=== PATIENT | female | born 1975 | race Two or more races ===

== ENCOUNTER 2023-02-13 10:29 | Emergency (ER) | payer BC, SELFPAY ==
[2023-02-13 10:35] VITALS: BP 180/70; PULSE 92; RESP 18; TEMP 36.7; O2SAT 97; BMI 40.4
--- NOTE | 2023-02-13 10:45 | ED.SKABFB ---
HPI - Skin/Abscess/Foreign Bdy General Chief complaint: Skin/Abscess/Foreign Body Stated complaint: l side pain Time Seen by Provider: 02/13/23 10:41 Source: patient Mode of arrival: ambulatory Limitations: no limitations History of Present Illness MD complaint: rash Onset (ago): day(s) (2) Location: back (left mid flank/back) Severity: moderate Quality: burning, constant and pruritic Pain Consistency: constant Relieving factors: none Exacerbating factors: none Context: none Associated symptoms: denies other symptoms Treatments prior to arrival: none Related Data Previous Rx's Medication Instructions Recorded ibuprofen 800 mg tablet 800 mg PO Q8H PRN pain #14 tabs 02/13/23 oxycodone 5 mg tablet 5 mg PO Q6H PRN pain #14 tabs 02/13/23 prednisone 20 mg tablet 40 mg PO DAILY inflammation 5 days 02/13/23 #10 tabs valacyclovir 1 gram tablet 1,000 mg PO TID 14 days #42 tabs 02/13/23 (Valtrex) Allergies Allergy/AdvReac Type Severity Reaction Status Date / Time No Known Allergies Allergy Verified 02/13/23 10:37 Review of Systems Review of Systems: Constitutional : No Fever, No Chills , no body aches, no recent illness Head/Face: No facial swelling, No facial redness ENT/Mouth : No oral/throat swelling, No Hoarseness, No Swallowing Difficulty Eyes: No Eye Pain, No Swelling, No Redness Cardiovascular : No Chest Pain, No SOB, No palpitations Respiratory : No Cough, No Sputum, No Wheezing, No Smoke Exposure, No Dyspnea Gastrointestinal : No Nausea, No Vomiting, No Diarrhea, No abdominal Pain Genitourinary : No Dysuria, No Urinary Frequency, No Hematuria Musculoskeletal : No joint pain, No Myalgias, No Joint Swelling Skin : No Skin Lesions, positive rash Neuro : No Weakness, No Numbness, No Headache, No dizziness, No tingling Psych : No Anxiety/Panic, No Depression Heme/Lymph: No Bruising, No Lymphadenopathy Endocrine : No Polyuria, No Polydipsia Denies changes in lotions or detergents. Denies new medications or any changes in medications. Denies drainage from rash. Denies any recent sick contacts or recent travel. Yes all other systems are reviewed and are negative PMFSH Past Medical History Attestation statement: The following information was validated with the patient. Source: old records reviewed and nursing notes reviewed Physical Exam Vital Signs: Vital Signs: Last Vital Signs Temp 98.0 F 02/13/23 10:35 Pulse 92 02/13/23 10:35 Resp 18 02/13/23 10:35 BP 180/70 H 02/13/23 10:35 Pulse Ox 97 02/13/23 10:35 O2 Del Method Room Air 02/13/23 10:35 BMI result Body Mass Index 40.4 vital signs have been reviewed as normal and appeared to be correct. Blood pressure normal Heart rate normal. Respiration rate normal. Temperature normal. Oxygen saturation normal. Appearance: Alert. Oriented X3. No acute distress. Head: Normal external exam. Normocephalic. Atraumatic. Eyes: PERRLA. EOMI. Conjunctiva and sclera normal. Eyelids normal. ENT: Pharynx normal. Uvula midline. Moist mucous membranes. Neck: Normal inspection. Neck supple. FROM. CVS: Normal heart rate and rhythm. Respiratory: No respiratory distress. Painless inspiration. Skin: Skin warm and dry. Normal skin color. Normal skin turgor. Patient has painful dermatomal clustered vesicles on an erythematous base consistent with shingles virus to the left flank/back/abdomen. This does not cross the midline. No signs of infection. No additional lesions/lacerations noted. Extremities: No lower extremity edema. Extremities exhibit normal range of motion. Extremities nontender. Neuro: Oriented X 3. No motor deficit. No sensory deficit. Reflexes normal. Normal steady gait. No focal neuro deficits noted. Vascular: + radial pulses/+ 2 distal pedal pulses/+2 dorsalis pedis b/l. Normal cap refill. No cyanosis noted to upper extremity nails and lower extremity toes nails. Course Course Course Narrative: Patient with shingles rash. Not consistent with skin infection. Not consistent allergic reaction. No angioedema is noted. No labs or imaging indicated. Will DC home with valtrex, oxycodone, prednisone and Motrin instructions to follow-up with PCP and to return if any new or worsening symptoms. Patient understands agrees with this plan. Medical Decision Making Prescription Management I considered prescription management with: Pain Medication and Antiviral Discharge Plan Discharge Clinical Impression: Shingles Patient Disposition: Home, Self-Care Instructions: Shingles (ED) Prescriptions: New valacyclovir [Valtrex] 1 gram tablet 1,000 mg PO TID 14 Days Qty: 42 0RF prednisone 20 mg tablet 40 mg PO DAILY 5 Days Qty: 10 0RF oxycodone 5 mg tablet 5 mg PO Q6H PRN (Reason: pain) Qty: 14 0RF Rx Instructions: Partial Fill upon patient request. ibuprofen 800 mg tablet 800 mg PO Q8H PRN (Reason: pain) Qty: 14 0RF Referrals: Physician,None [Primary Care Provider] - 2 days (your pcp) Stand Alone Forms: Work/School Release
== END 2023-02-13 11:27 | disposition home or self-care (01) ==
PROVIDERS: Emergency Provider Emergency Medicine
DX: B02.9 Zoster without complications (principal); Z79.899 Other long term (current) drug therapy
CPT/HCPCS: 99282; 99283

== ENCOUNTER 2023-05-18 06:26 | Outpatient (REF) | payer OTHER, SELFPAY ==
[2023-05-18 06:41] LABS: MANUAL DIFF FLAG NO
[2023-05-18 07:12] LABS: Basophils Absolute Auto 0.1 X10*3/uL (0.0-0.2); Basophils Percent Auto 0.5 % (0-2); Eosinophils Absolute Auto 0.2 X10*3/uL (0.0-0.4); Hematocrit 41.4 % (37.0-47.0); Hemoglobin 13.3 g/dl (12.0-16.0); Imm Gran Abs Auto 0.04 X10*3/uL (0.00-0.03); Imm Gran Pct Auto 0.4 % (0.0-0.4); Lymphocytes Absolute Auto 4.4 X10*3/uL (1.2-4.9); Lymphocytes Percent Auto 43.2 % (20-40); Mean Corpuscular HGB Conc 32.1 g/dl (31.0-35.0); Mean Corpuscular Hemoglobin 29.4 pg (27.0-33.0); Mean Corpuscular Volume 91.6 fL (80.0-98.0); Mean Platelet Volume 10.5 fL (9.4-12.3); Monocytes Absolute Auto 0.5 X10*3/uL (0.1-1.2); Monocytes Percent Auto 5.3 % (2-11); Neutrophils Percent Auto 48.6 % (45-73); Platelet Count 239 X10*3/uL (160-400); Red Blood Count 4.52 X10*6/uL (4.20-5.50); Red Cell Distribution Width 13.2 % (11.0-16.0); White Blood Count 10.2 X10*3/uL (4.8-10.8)
[2023-05-18 07:23] LABS: Estimated Average Glucose 157 mg/dL; Hemoglobin A1c % 7.1 %
[2023-05-18 07:54] LABS: Alanine Aminotransferase 19 U/L (0-31); Albumin Level 3.9 g/dL (3.5-5.0); Alkaline Phosphatase 70 U/L (39-117); Anion Gap 13 (12-20); Aspartate Amino Transferase 13 U/L (5-31); Bilirubin Total 0.4 mg/dL (0.0-1.0); Blood Urea Nitrogen 16 mg/dL (9-16); Carbon Dioxide 22 mmol/L (22-29); Chloride 107 mmol/L (96-108); Cholesterol 206 mg/dL; Estimated Glomerular Filt Rate > 60; Glucose Fasting 150 mg/dL (60-99); HDL Cholesterol 36 mg/dL; LDL Cholesterol Calculated 114 mg/dl; Potassium 4.4 mmol/L (3.3-5.1); Sodium 138 mmol/L (135-145); Total Protein 7.4 g/dL (6.5-8.0); Triglycerides 280 mg/dL
[2023-05-18 08:11] LABS: Free T4 (Free Thyroxine) 1.19 ng/dL (0.71-1.85); Thyroid Stimulating Hormone 5.49 uIU/mL (0.32-4.0)
[2023-05-18 09:36] LABS: Creatinine Urine 187.05 mg/dL; Microalbum/Creatinine Ratio Ur 13.3 ug/mg cr
== END 2023-05-18 06:27 | disposition home or self-care (01) ==
LOC: HO.LAB 06:26
PROVIDERS: PCP Internal Medicine Medical Oncology; Visit Provider Internal Medicine Medical Oncology
DX: D64.9 Anemia, unspecified (principal); E11.9 Type 2 diabetes mellitus without complications; E03.9 Hypothyroidism, unspecified; I10 Essential (primary) hypertension
CPT/HCPCS: 36415; 80053; 80061; 82043; 83036; 83735; 84439; 84443; 85025

== ENCOUNTER 2023-05-29 14:19 | Outpatient (REF) | payer OTHER, SELFPAY ==
--- NOTE | ~2023-05-29 | MM_ITS ---
EXAMINATION: MM SCREENING DIGITAL BREAST TOMOSYNTHESIS, BILATERAL CLINICAL INFORMATION: Screening. Asymptomatic. COMPARISON: Mammography: There are no prior studies available for comparison. TECHNIQUE: Digital breast tomosynthesis is performed in both the craniocaudal and mediolateral oblique views along with computer-aided detection (CAD). Synthesized 2D images are generated from the tomosynthesis. FINDINGS: There are scattered areas of fibroglandular density (ACR BI-RADS breast composition Category b). There are no significant masses, abnormal calcifications, or other abnormalities. MM/MM tomosynthesis screening BI IMPRESSION: No mammographic evidence of malignancy. ASSESSMENT: BI-RADS BI-RADS 1 - Negative RECOMMENDATION: Routine annual mammography screening. 1 year F/U This examination should not preclude the clinical evaluation of a suspicious palpable abnormality. This patient's information was entered into a reminder system with a target due date for their next mammogram.
== END 2023-05-29 14:20 | disposition home or self-care (01) ==
LOC: HO.MAMMO 14:19
PROVIDERS: PCP Internal Medicine Medical Oncology; Visit Provider Internal Medicine Medical Oncology
DX: Z12.31 Encounter for screening mammogram for malignant neoplasm of breast (principal)
CPT/HCPCS: 77063; 77067

== ENCOUNTER → 2023-05-29 14:45 | Outpatient (BNV) | payer OTHER, SELFPAY | PROVIDERS: PCP Internal Medicine Medical Oncology; Visit Provider Radiology Diagnostic Radiology | DX: Z12.31 Encounter for screening mammogram for malignant neoplasm of breast (principal) | CPT/HCPCS: 77063; 77067 ==

== ENCOUNTER 2023-06-24 14:36 | Outpatient (AMB) | payer OTHER, SELFPAY ==
--- NOTE | 2023-06-24 14:37 | A.OFFVIS_ITS ---
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: No Accompanied by: Self / Same As Patient Allergies No Known Allergies Allergy (Verified 06/24/23 14:40) Medication List - Last Reconciled 06/24/23 by Rabia Juarez PA-C amlodipine-benazepril 5-20 mg 1 cap PO DAILY aspirin 81 mg PO DAILY dulaglutide (Trulicity) mg subcut ferrous sulfate 325 mg PO DAILY ibuprofen 800 mg PO Q8H PRN insulin asp prt-insulin aspart 100 unit/mL (70-30) (Novolog Mix 70-30FlexPen U- 100) subcut levothyroxine 137 mcg PO DAILY oxycodone 5 mg PO Q6H PRN prednisone 40 mg (2 x 20 mg) PO DAILY 5 days valacyclovir (Valtrex) 1,000 mg PO TID 14 days HPI HPI Comments History of Present Illness Details A 48 y/o female referred for index screening colonoscopy- no GI complaints She has normal bowels- good appetite She is stressed - works full-time No cardiac or respiratory issues No nausea, vomiting, hematemesis, hematochezia fever chills PFSH Surgical History Hx of section Family History Father Thyroid disease Hepatitis HTN (hypertension) Diabetes Mother Kidney disease Coronary artery disease Renal failure Maternal Aunt Breast CA Social History (Updated 06/25/23 @ 08:45 by Rabia Juarez PA-C) Alcohol intake: never Patient Tobacco Use Status: Never used Tobacco Current occupational status: employed 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 Review of Systems Const All systems reviewed & are unremarkable except as noted in HPI and below Card Denies chest pain and Denies dyspnea Resp Denies dyspnea GI Denies abdominal pain Psych Reports anxiety Physical Exam Vital Signs: Last Vital Signs Pulse 81 06/24/23 14:42 BP 147/65 H 06/24/23 14:42 BMI result Body Mass Index 41.2 Const General: cooperative, healthy appearing, comfortable and no acute distress Orientation/consciousness: patient oriented x3 Limitations: no limitations Eyes Sclerae: sclerae normal Resp Effort & Inspection: normal respiratory effort and able to speak in complete sentences Auscultation: clear to auscultation bilaterally Cardio Rate: regular rate Rhythm: regular rhythm Heart sounds: S1 normal heart sound present and S2 normal heart sound present GI Palpation (GI): Soft to palpation and nontender Auscultation: normal bowel sounds Skin General skin exam: no rashes or lesions noted Neuro General: patient oriented x3 Extrem General: Yes full ROM Psych Appearance: grossly normal and well kempt Mental Status: mental status grossly normal Speech and movement: Normal speech and movement present Affect: normal affect Attitude: cooperative Thought process: Normal thought process present Thought content: Normal thought content present and Depersonalization present Insight: Good insight present (Psych) Assessment & Plan Assessment & Plan (1) Encounter for screening colonoscopy: Code(s): Z12.11 - Encounter for screening for malignant neoplasm of colon Plan: Index screening colonoscopy MiraLax Gatorade split prep Plan Index screening colonoscopy MiraLax Gatorade split prep Please review insulin- half dose evening before procedure no diabetes medication morning of procedure Orders: Orders Colonoscopy - GI Use Only 06/24/23 Z12.11 - Encounter for screening for malignant neoplasm of colon Medications: New polyethylene glycol 3350 (Miralax) Take as directed by mouth the day before your procedure. 238 grams PO ONCE PRN 238 grams 0RF laxative effect 1 day bisacodyl (Dulcolax (bisacodyl)) Take 4 tablets by mouth at 12:00pm the day before your procedure. 20 mg (4 x 5 mg) PO ONCE 4 tabs 0RF colonoscopy prep 1 day Z12.11 - Encounter for screening for malignant neoplasm of colon Patient Instructions: Very pleasant 48-year-old female referred for index screening colonoscopy, she has no GI concerns Index screening colonoscopy MG split prep Discussed procedure, rare risks, need for escorted due to anesthesia Encouraged to call questions or concerns Coding Level of Care Code New Pt Level 3 (85484) Diagnoses Encounter for screening colonoscopy Z12.11 Time Spent (min) 25
[2023-06-24 14:42] VITALS: BP 147/65; PULSE 81; BMI 41.2
== END 2023-06-24 15:44 | disposition home or self-care (01) ==
PROVIDERS: PCP Internal Medicine Medical Oncology; Visit Provider Physician Assistant
DX: Z12.11 Encounter for screening for malignant neoplasm of colon (principal); Z01.818 Encounter for other preprocedural examination
CPT/HCPCS: 99203

== ENCOUNTER → 2023-06-24 14:36 | Outpatient (BNVA) | payer OTHER, SELFPAY | PROVIDERS: PCP Internal Medicine Medical Oncology; Visit Provider Physician Assistant ==

== ENCOUNTER 2023-07-31 10:50 | Outpatient (REF) | payer OTHER, SELFPAY ==
[2023-07-31 15:26] LABS: CT PCR NOT DETECTED (Not Detect.); NG PCR NOT DETECTED (Not Detect.)
[2023-08-01 11:57] LABS: BV Int Neg Control Negative (Negative); BV Int Pos Control Positive (Positive)
[2023-08-06 02:48] LABS: HPV mRNA E6/E7 rflx Not Detected (Not Detected)
== END 2023-07-31 10:51 | disposition home or self-care (01) ==
LOC: HO.LNP 10:50
PROVIDERS: PCP Internal Medicine Medical Oncology; Visit Provider Advanced Practice Midwife
DX: Z01.419 Encounter for gynecological examination (general) (routine) without abnormal findings (principal); I10 Essential (primary) hypertension; E11.9 Type 2 diabetes mellitus without complications; E66.01 Morbid (severe) obesity due to excess calories; N85.2 Hypertrophy of uterus; Z79.899 Other long term (current) drug therapy; Z79.4 Long term (current) use of insulin; Z20.2 Contact with and (suspected) exposure to infections with a predominantly sexual mode of transmission
CPT/HCPCS: 0353U; 87480; 87510; 87624; 87660; 88142

== ENCOUNTER 2023-07-31 10:50 | Outpatient (AMB) | payer OTHER, SELFPAY ==
[2023-07-31 10:53] VITALS: BP 146/82; BMI 43.2
--- NOTE | 2023-07-31 10:53 | MHC.OFFVIS ---
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 Required: No Information Interpreted: non-clinical & clinical Tissue Technologist: Tissue Technologist Present (Aidyn) Allergies No Known Allergies Allergy (Verified 07/31/23 10:57) Medication List - Last Reconciled 07/31/23 by Kirti Beard CNM albuterol sulfate mg inhalation albuterol sulfate 90 mcg/actuation inhalation alcohol swabs (Alcohol Prep Pads) pad topical Q12H amlodipine-benazepril 5-20 mg 1 cap PO DAILY aspirin 81 mg PO DAILY bisacodyl (Dulcolax (bisacodyl)) 20 mg (4 x 5 mg) PO ONCE 1 day blood sugar diagnostic (Fashiontrot Ultra Test strips) As directed dulaglutide (Trulicity) mg subcut ferrous sulfate 325 mg PO DAILY ibuprofen 800 mg PO Q8H PRN insulin asp prt-insulin aspart 100 unit/mL (70-30) (Novolog Mix 70-30FlexPen U-100) subcut levothyroxine 137 mcg PO DAILY pen needle, diabetic (Comfort Touch Pen Needle) As directed polyethylene glycol 3350 (Miralax) 238 grams PO ONCE PRN 1 day prednisone 40 mg (2 x 20 mg) PO DAILY 5 days valacyclovir (Valtrex) 1,000 mg PO TID 14 days Is last menstrual period known: Yes Last menstrual period: 07/04/23 Post menopausal: No HPI New patient Annual HPI Details 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 During the exam she did report that previous providers have had trouble seeing her cervix and she is says they told her it was because of her see previous C-sections. She has hypertension and diabetes and her blood pressure was elevated today and she says her blood sugar this morning was 190. She says she has an appointment with her primary care coming up in September and she has to get blood work done very soon for her doctor. I asked her to report her elevated sugars to her primary they continue to be this high and not wait. She says she just had a mammogram about a month ago and it was fine. She is sexually active with the same partner for 15 years and has no concerns at all but is open to testing during the exam. She does not contraceptive as she just has not gotten for so long. She would not want to have a baby at this stage but would not ever terminate. I did urge caution and described fertile times of the cycle and recommend she use condoms or avoid intimacy at those times. Reviewed that she would be very high risk should she get at this time. 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 She is very physically active at work. She has always struggled with her weight. She was referred to the weight management program but she says that they were full up and could not take anymore patient is. I am giving her a brochure and discussed strategies that she can use to help her improve her health. Her sister went through the weight management program and did lose weight and gained it back but is working again to lose the weight and I suggested that she and her sister team up to support each other in their weight loss measures until she can be seen at the weight management program. Because her abdomen was very obese and I could not discern firm structures versus enlarged an uterus possibility I am ordering a pelvic ultrasound to assess. 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 Speculum Exam - Vagina: normal appearance of the vagina and other Speculum Exam - Cervix: normal appearance of the cervix and Other cervical findings present (limited views) Bimanual exam- vagina & uterus: other (uterus difficult to assess 2' habitus) Bimanual Exam- Adnexa, other: Other (palpation of adnexae limited 2' habitus) Assessment & Plan Assessment & Plan (1) HTN (hypertension): Code(s): I10 - Essential (primary) hypertension (2) Diabetes: Code(s): E11.9 - Type 2 diabetes mellitus without complications (3) Obesity, morbid, BMI 40.0-49.9: Code(s): E66.01 - Morbid (severe) obesity due to excess calories (4) Cervical cancer screening: Comment: Cervix very high and anterior behind symphysis pubis difficult to reach and visualize secondary to adipose tissue attempt at Pap done. Await results. Code(s): Z12.4 - Encounter for screening for malignant neoplasm of cervix (5) Bulky or enlarged uterus: Comment: Versus adipose tissue.... Await ultrasound Code(s): N85.2 - Hypertrophy of uterus Plan -----Discussed in this visit the following: healthy balanced diet, regular and consistent exercise, getting recommended health screens, doing the best she can for her particular health concerns, kegel exercises, pap smear screening and followup recommendations, mammography screening and SBE, normal changes in cycles in her life stage--- . Discussed in general terms the challenges of obesity and challenges for her health and efforts she is engaging in to manage this including dietary changes water intake attention to sleep inclusion of a regular exercise have it and dealing with the may need stressors of life that can contribute to obesity in general. Encouraged her to continue in all have her best efforts. Brochure for weight management program given and patient is going to team up with her sister to try an lose weight while she is waiting to year for about an opening. 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 During the exam she did report that previous providers have had trouble seeing her cervix and she is says they told her it was because of her see previous C-sections. She has hypertension and diabetes and her blood pressure was elevated today and she says her blood sugar this morning was 190. She says she has an appointment with her primary care coming up in September and she has to get blood work done very soon for her doctor. I asked her to report her elevated sugars to her primary they continue to be this high and not wait. She says she just had a mammogram about a month ago and it was fine. She is sexually active with the same partner for 15 years and has no concerns at all but is open to testing during the exam. She does not contraceptive as she just has not gotten for so long. She would not want to have a baby at this stage but would not ever terminate. I did urge caution and described fertile times of the cycle and recommend she use condoms or avoid intimacy at those times. Reviewed that she would be very high risk should she get at this time. 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 She is very physically active at work. She has always struggled with her weight. She was referred to the weight management program but she says that they were full up and could not take anymore patient is. I am giving her a brochure and discussed strategies that she can use to help her improve her health. Her sister went through the weight management program and did lose weight and gained it back but is working again to lose the weight and I suggested that she and her sister team up to support each other in their weight loss measures until she can be seen at the weight management program. Because her abdomen was very obese and I could not discern firm structures versus enlarged an uterus possibility I am ordering a pelvic ultrasound to assess. Orders: Orders CT NG by PCR Today Z20.2 - Contact with and (suspected) exposure to infections with a predominantly sexual mode of transmission Bacterial Vaginosis Panel Today Z20.2 - Contact with and (suspected) exposure to infections with a predominantly sexual mode of transmission Pap Smear Today Z12.4 - Encounter for screening for malignant neoplasm of cervix US pelvic and transvaginal Today E66.01 - Morbid (severe) obesity due to excess calories, N85.2 - Hypertrophy of uterus Coding Level of Care Code New Pt Prev Care 40-64y(47905) Diagnoses HTN (hypertension) I10 Diabetes E11.9 Obesity, morbid, BMI 40.0-49.9 E66.01 Cervical cancer screening Z12.4 Bulky or enlarged uterus N85.2
== END 2023-07-31 11:35 | disposition home or self-care (01) ==
PROVIDERS: PCP Internal Medicine Medical Oncology; Visit Provider Advanced Practice Midwife
DX: Z01.419 Encounter for gynecological examination (general) (routine) without abnormal findings (principal); I10 Essential (primary) hypertension; E11.9 Type 2 diabetes mellitus without complications; E66.01 Morbid (severe) obesity due to excess calories
CPT/HCPCS: 99386

== ENCOUNTER 2023-08-28 11:10 | Outpatient (REF) | payer OTHER, SELFPAY ==
--- NOTE | ~2023-08-28 | US_ITS ---
EXAMINATION: US PELVIS CLINICAL INFORMATION: Enlarged uterus, last menstrual period end of last month. COMPARISON: None available. TECHNIQUE: Ultrasound of the pelvis is performed using both transabdominal and transvaginal transducers along with Doppler. Transvaginal imaging is performed due to inadequate visualization transabdominally. Limited visualization on transabdominal and transvaginal ultrasound images due to body habitus, enlarged uterus and uterine positioning. FINDINGS: The uterus is anteverted, heterogeneous and measures 13.1 x 8.1 x 13.5 cm, volume 784.4 mL. 6.7 x 7.0 x 7.7 cm left fibroid. 3.6 x 3.4 x 3.6 cm left fibroid. Endometrium difficult to visualize due to body habitus, uterine positioning and shadowing from fibroids. Image segment of endometrium with thickness of approximately 0.8 cm. No significant free fluid. Fluid within the endocervical canal. Nabothian cysts within the cervix. Right ovary not visualized. Left ovary measures 2.9 x 2.9 x 3.4 cm, volume 15.0 mL. Left ovarian 1.6 x 1.2 x 2.1 cm cyst is mildly complex with low level internal echoes, but difficult to characterize due to limited visualization. US/US pelvic and transvaginal IMPRESSION: 1. Enlarged, fibroid uterus. 2. Endometrium difficult to visualize. Image segment of endometrium with thickness of approximately 0.8 cm. 3. Right ovary not visualized. 4. Left ovarian 2.1 cm cyst is mildly complex with low level internal echoes, but difficult to characterize due to limited visualization.
== END 2023-08-28 11:11 | disposition home or self-care (01) ==
LOC: HO.US 11:10
PROVIDERS: PCP Internal Medicine Medical Oncology; Visit Provider Advanced Practice Midwife
DX: E66.01 Morbid (severe) obesity due to excess calories (principal); E85.2 Heredofamilial amyloidosis, unspecified
CPT/HCPCS: 76830; 76856

== ENCOUNTER 2023-09-18 06:18 | Outpatient (REF) | payer OTHER, SELFPAY ==
[2023-09-18 07:59] LABS: Basophils Absolute Auto 0.1 X10*3/uL (0.0-0.2); Basophils Percent Auto 0.8 % (0-2); Eosinophils Absolute Auto 0.3 X10*3/uL (0.0-0.4); Eosinophils Percent Auto 2.6 % (0-4); Hematocrit 41.4 % (37.0-47.0); Hemoglobin 13.8 g/dl (12.0-16.0); Imm Gran Abs Auto 0.04 X10*3/uL (0.00-0.03); Imm Gran Pct Auto 0.3 % (0.0-0.4); Lymphocytes Percent Auto 42.4 % (20-40); MANUAL DIFF FLAG SCAN; Mean Corpuscular HGB Conc 33.3 g/dl (31.0-35.0); Mean Corpuscular Hemoglobin 29.1 pg (27.0-33.0); Mean Corpuscular Volume 87.3 fL (80.0-98.0); Mean Platelet Volume 10.6 fL (9.4-12.3); Monocytes Absolute Auto 0.5 X10*3/uL (0.1-1.2); Monocytes Percent Auto 4.6 % (2-11); Neutrophils Absolute Auto 5.9 x10*3/uL (2.0-8.3); Neutrophils Percent Auto 49.3 % (45-73); Platelet Count 264 X10*3/uL (160-400); Red Blood Count 4.74 X10*6/uL (4.20-5.50); SCAN SMEAR FLAG 1; White Blood Count 11.9 X10*3/uL (4.8-10.8)
[2023-09-18 08:29] LABS: SLIDE REVIEW VERIFIED
[2023-09-18 08:43] LABS: Alanine Aminotransferase 21 U/L (0-31); Albumin Level 3.9 g/dL (3.5-5.0); Alkaline Phosphatase 79 U/L (39-117); Anion Gap 11 (12-20); Aspartate Amino Transferase 15 U/L (5-31); Bilirubin Total 0.6 mg/dL (0.0-1.0); Blood Urea Nitrogen 12 mg/dL (9-16); Calcium 9.2 mg/dL (8.4-10.2); Carbon Dioxide 26 mmol/L (22-29); Chloride 106 mmol/L (96-108); Cholesterol 212 mg/dL (<200); Estimated Glomerular Filt Rate > 60; Glucose Fasting 119 mg/dL (60-99); HDL Cholesterol 36 mg/dL (>40); LDL Cholesterol Calculated 120 mg/dL (<100); Potassium 4.2 mmol/L (3.3-5.1); Sodium 139 mmol/L (135-145); Total Protein 7.6 g/dL (6.5-8.0); Triglycerides 283 mg/dL (<150)
[2023-09-18 08:59] LABS: Ferritin 27 ng/mL (10-250); Free T4 (Free Thyroxine) 1.06 ng/dL (0.71-1.85)
== END 2023-09-18 06:19 | disposition home or self-care (01) ==
LOC: HO.LAB 06:18
PROVIDERS: PCP Internal Medicine Medical Oncology; Visit Provider Internal Medicine Medical Oncology
DX: E11.9 Type 2 diabetes mellitus without complications (principal); E03.9 Hypothyroidism, unspecified; E66.01 Morbid (severe) obesity due to excess calories
CPT/HCPCS: 36415; 80053; 80061; 82728; 84439; 84443; 85025

== ENCOUNTER 2023-09-23 14:19 | Outpatient (AMB) | payer OTHER, SELFPAY ==
[2023-09-23 14:26] VITALS: BP 140/80; BMI 43.2
--- NOTE | 2023-09-23 14:26 | MHC.OFFVIS ---
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 Required: No Allergies No Known Allergies Allergy (Verified 09/23/23 14:26) Medication List - Last Reconciled 09/23/23 by Kirti Beard CNM albuterol sulfate mg inhalation albuterol sulfate 90 mcg/actuation inhalation alcohol swabs (Alcohol Prep Pads) pad topical Q12H amlodipine-benazepril 5-20 mg 1 cap PO DAILY aspirin 81 mg PO DAILY bisacodyl (Dulcolax (bisacodyl)) 20 mg (4 x 5 mg) PO ONCE 1 day blood sugar diagnostic (Strutta Ultra Test strips) As directed dulaglutide (Trulicity) mg subcut ferrous sulfate 325 mg PO DAILY ibuprofen 800 mg PO Q8H PRN insulin asp prt-insulin aspart 100 unit/mL (70-30) (Novolog Mix 70-30FlexPen U-100) subcut levothyroxine 137 mcg PO DAILY pen needle, diabetic (Comfort Touch Pen Needle) As directed polyethylene glycol 3350 (Miralax) 238 grams PO ONCE PRN 1 day prednisone 40 mg (2 x 20 mg) PO DAILY 5 days valacyclovir (Valtrex) 1,000 mg PO TID 14 days Is last menstrual period known: Yes Last menstrual period: 09/13/23 Post menopausal: No HPI Ultrasound follow up HPI Details Patient is here to review her ultrasound results were done because of her heavy periods and difficulty palpating her uterus secondary to adipose she is premenopausal she gets regular periods they are heavy and have always been heavy. She is diabetic and on insulin and other medications including Trulicity she had call the weight management program but she was told that there is a waiting list. She had been trying to do better with eating and staff and then she slipped into drinking soda again. She tries very hard the weight is discouraging. She had blood work done recently for her primary care provider and she has an appointment for Thursday in 2 days to review all the labs and discuss everything she is also hypothyroid and has high cholesterol as well. [facility] Medical History Hypothyroidism HTN (hypertension) Diabetes Surgical History Hx of section Family History Father Thyroid disease Hepatitis HTN (hypertension) Diabetes Mother Kidney disease Coronary artery disease Renal failure Maternal Aunt Breast CA Social History Alcohol intake: never Patient Tobacco Use Status: Never used Tobacco Current occupational status: employed 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[employer] Female Reproductive History Menstrual Age of Menarche: 15 Date of last menstrual period: 09/13/23 control method: none Date of last pap smear: 08/03/23 (negative) Physical Exam Vital Signs: Last Vital Signs BP 140/80 H 09/23/23 14:26 BMI result Body Mass Index 43.2 Results Reviewed Results Reviewed: Patient: Alina Adamson MR#: [id number] : 1975 Acct:[id number] Age/Sex: 48 / F ADM Date: 08/28/23 Loc: HO.US Attending Dr: Kirti Beard CNM Ordering Physician: Kirti Beard CNM Date of Service: 08/28/23 Procedure(s): US pelvic and transvaginal Accession Number(s): [id number] cc: Yuniel Grewal MD; Kirti Beard CNM~ EXAMINATION: US PELVIS CLINICAL INFORMATION: Enlarged uterus, last menstrual period end of last month. COMPARISON: None available. TECHNIQUE: Ultrasound of the pelvis is performed using both transabdominal and transvaginal transducers along with Doppler. Transvaginal imaging is performed due to inadequate visualization transabdominally. Limited visualization on transabdominal and transvaginal ultrasound images due to body habitus, enlarged uterus and uterine positioning. FINDINGS: The uterus is anteverted, heterogeneous and measures 13.1 x 8.1 x 13.5 cm, volume 784.4 mL. 6.7 x 7.0 x 7.7 cm left fibroid. 3.6 x 3.4 x 3.6 cm left fibroid. Endometrium difficult to visualize due to body habitus, uterine positioning and shadowing from fibroids. Image segment of endometrium with thickness of approximately 0.8 cm. No significant free fluid. Fluid within the endocervical canal. Nabothian cysts within the cervix. Right ovary not visualized. Left ovary measures 2.9 x 2.9 x 3.4 cm, volume 15.0 mL. Left ovarian 1.6 x 1.2 x 2.1 cm cyst is mildly complex with low level internal echoes, but difficult to characterize due to limited visualization. US/US pelvic and transvaginal IMPRESSION: 1. Enlarged, fibroid uterus. 2. Endometrium difficult to visualize. Image segment of endometrium with thickness of approximately 0.8 cm. 3. Right ovary not visualized. 4. Left ovarian 2.1 cm cyst is mildly complex with low level internal echoes, but difficult to characterize due to limited visualization. Dictated By: Corie Castellanos MD Signed By: <Electronically signed by Corie Castellanos MD in OV> 08/31/23 1330 DD/ 1201 Assessment & Plan Assessment & Plan (1) Bulky or enlarged uterus: Comment: Versus adipose tissue.... Await ultrasound Code(s): N85.2 - Hypertrophy of uterus (2) HTN (hypertension): Code(s): I10 - Essential (primary) hypertension (3) Diabetes: Code(s): E11.9 - Type 2 diabetes mellitus without complications (4) Fibroids: Code(s): D21.9 - Benign neoplasm of connective and other soft tissue, unspecified (5) Menorrhagia: Code(s): N92.0 - Excessive and frequent menstruation with regular cycle Plan I reviewed her ultrasound results with her. Since she is premenopausal the thickening of her uterus may not necessarily be a concern but the fibroids were obscuring better views. I offered to refer her to Dr. Yusuf so that she could discuss if anything else should be done to manage all of the findings from the ultrasound. Also discussed some of her recent lab work and recommend that she follow up carefully with her primary care provider about all of them. Discussed her efforts to lose weight and have a healthier eating plan and ways to try and avoid the soda and other challenging foods she will be following up with her primary about this as well. Coding Level of Care Code Est Pt Level 3 (30963) Diagnoses Bulky or enlarged uterus N85.2 HTN (hypertension) I10 Diabetes E11.9 Fibroids D21.9 Menorrhagia N92.0
== END 2023-09-23 15:45 | disposition home or self-care (01) ==
PROVIDERS: PCP Internal Medicine Medical Oncology; Visit Provider Advanced Practice Midwife
DX: N85.2 Hypertrophy of uterus (principal); I10 Essential (primary) hypertension; E11.9 Type 2 diabetes mellitus without complications; D21.9 Benign neoplasm of connective and other soft tissue, unspecified; N92.0 Excessive and frequent menstruation with regular cycle
CPT/HCPCS: 99213

== ENCOUNTER → 2023-09-23 14:19 | Outpatient (BNVA) | payer OTHER, SELFPAY | PROVIDERS: PCP Internal Medicine Medical Oncology; Visit Provider Advanced Practice Midwife ==

== ENCOUNTER 2024-01-29 08:40 | Outpatient (REF) | payer OTHER, SELFPAY ==
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
[2024-01-29 08:56] LABS: MANUAL DIFF FLAG NO
[2024-01-29 09:19] LABS: Basophils Absolute Auto 0.1 X10*3/uL (0.0-0.2); Basophils Percent Auto 0.5 % (0-2); Eosinophils Absolute Auto 0.3 X10*3/uL (0.0-0.4); Eosinophils Percent Auto 2.2 % (0-4); Hematocrit 40.9 % (37.0-47.0); Hemoglobin 13.5 g/dl (12.0-16.0); Imm Gran Abs Auto 0.04 X10*3/uL (0.00-0.03); Imm Gran Pct Auto 0.4 % (0.0-0.4); Lymphocytes Percent Auto 35.8 % (20-40); Mean Corpuscular Hemoglobin 28.8 pg (27.0-33.0); Mean Corpuscular Volume 87.2 fL (80.0-98.0); Mean Platelet Volume 10.7 fL (9.4-12.3); Monocytes Absolute Auto 0.5 X10*3/uL (0.1-1.2); Monocytes Percent Auto 4.2 % (2-11); Neutrophils Absolute Auto 6.4 x10*3/uL (2.0-8.3); Neutrophils Percent Auto 56.9 % (45-73); Platelet Count 264 X10*3/uL (160-400); Red Blood Count 4.69 X10*6/uL (4.20-5.50); Red Cell Distribution Width 13.9 % (11.0-16.0); White Blood Count 11.2 X10*3/uL (4.8-10.8)
[2024-01-29 09:30] LABS: Estimated Average Glucose 194 mg/dL; Hemoglobin A1c % 8.4 % (<6.0)
[2024-01-29 10:09] LABS: Alanine Aminotransferase 23 U/L (0-31); Alkaline Phosphatase 74 U/L (39-117); Anion Gap 12 (12-20); Aspartate Amino Transferase 18 U/L (5-31); Bilirubin Total 0.9 mg/dL (0.0-1.0); Blood Urea Nitrogen 12 mg/dL (9-16); Calcium 9.4 mg/dL (8.4-10.2); Carbon Dioxide 28 mmol/L (22-29); Chloride 104 mmol/L (96-108); Cholesterol 217 mg/dL (<200); Estimated Glomerular Filt Rate > 60; Glucose Fasting 185 mg/dL (60-99); HDL Cholesterol 42 mg/dL (>40); LDL Cholesterol Calculated 136 mg/dL (<100); Potassium 4.6 mmol/L (3.3-5.1); Sodium 139 mmol/L (135-145); Total Protein 7.5 g/dL (6.5-8.0); Triglycerides 195 mg/dL (<150)
== END 2024-01-29 08:41 | disposition home or self-care (01) ==
LOC: HO.XRAY 08:40
PROVIDERS: PCP Internal Medicine Medical Oncology; Visit Provider Internal Medicine Medical Oncology
DX: Z13.6 Encounter for screening for cardiovascular disorders (principal); M54.9 Dorsalgia, unspecified; E11.9 Type 2 diabetes mellitus without complications; I10 Essential (primary) hypertension; E66.01 Morbid (severe) obesity due to excess calories
CPT/HCPCS: 36415; 72110; 80053; 80061; 83036; 85025

== ENCOUNTER 2024-04-22 08:37 | Outpatient (REF) | payer OTHER, SELFPAY ==
[2024-04-22 08:48] LABS: MANUAL DIFF FLAG NO
[2024-04-22 09:05] LABS: Basophils Absolute Auto 0.1 X10*3/uL (0.0-0.2); Basophils Percent Auto 0.6 % (0-2); Eosinophils Absolute Auto 0.3 X10*3/uL (0.0-0.4); Eosinophils Percent Auto 2.4 % (0-4); Hematocrit 38.9 % (37.0-47.0); Hemoglobin 13.1 g/dl (12.0-16.0); Imm Gran Abs Auto 0.03 X10*3/uL (0.00-0.03); Imm Gran Pct Auto 0.3 % (0.0-0.4); Lymphocytes Absolute Auto 4.2 X10*3/uL (1.2-4.9); Lymphocytes Percent Auto 38.8 % (20-40); Mean Corpuscular HGB Conc 33.7 g/dl (31.0-35.0); Mean Corpuscular Hemoglobin 29.5 pg (27.0-33.0); Mean Corpuscular Volume 87.6 fL (80.0-98.0); Monocytes Absolute Auto 0.5 X10*3/uL (0.1-1.2); Monocytes Percent Auto 4.1 % (2-11); Neutrophils Absolute Auto 5.9 x10*3/uL (2.0-8.3); Neutrophils Percent Auto 53.8 % (45-73); Platelet Count 254 X10*3/uL (160-400); Red Blood Count 4.44 X10*6/uL (4.20-5.50); Red Cell Distribution Width 13.4 % (11.0-16.0); White Blood Count 10.9 X10*3/uL (4.8-10.8)
[2024-04-22 09:38] LABS: Alanine Aminotransferase 16 U/L (0-31); Albumin Level 3.9 g/dL (3.5-5.0); Alkaline Phosphatase 70 U/L (39-117); Anion Gap 12 (12-20); Aspartate Amino Transferase 15 U/L (5-31); Bilirubin Total 0.6 mg/dL (0.0-1.0); Blood Urea Nitrogen 11 mg/dL (9-16); Calcium 8.4 mg/dL (8.4-10.2); Carbon Dioxide 24 mmol/L (22-29); Chloride 107 mmol/L (96-108); Cholesterol 229 mg/dL (<200); Estimated Average Glucose 183 mg/dL; Estimated Glomerular Filt Rate > 60; Glucose Fasting 123 mg/dL (60-99); HDL Cholesterol 40 mg/dL (>40); LDL Cholesterol Calculated 146 mg/dL (<100); Potassium 4.1 mmol/L (3.3-5.1); Sodium 139 mmol/L (135-145); Total Protein 7.2 g/dL (6.5-8.0); Triglycerides 219 mg/dL (<150)
[2024-04-22 09:48] LABS: Erythrocyte Sedimentation Rate 10 MM/HR (0-20)
[2024-04-22 09:49] LABS: Ferritin 23 ng/mL (10-250); Free T4 (Free Thyroxine) 1.12 ng/dL (0.71-1.85); Thyroid Stimulating Hormone 2.99 uIU/mL (0.32-4.0)
== END 2024-04-22 08:38 | disposition home or self-care (01) ==
LOC: HO.LAB 08:37
PROVIDERS: PCP Internal Medicine Medical Oncology; Visit Provider Internal Medicine Medical Oncology
DX: E11.9 Type 2 diabetes mellitus without complications (principal); E03.9 Hypothyroidism, unspecified; I10 Essential (primary) hypertension; E66.01 Morbid (severe) obesity due to excess calories
CPT/HCPCS: 36415; 80053; 80061; 82728; 83036; 84439; 84443; 85025; 85652

== ENCOUNTER 2024-04-28 13:50 | Outpatient (REF) | payer OTHER, SELFPAY ==
--- NOTE | ~2024-04-28 | US_ITS ---
EXAMINATION: MM DIAGNOSTIC DIGITAL BREAST TOMOSYNTHESIS, BILATERAL US BREAST LIMITED, RIGHT MAMMOGRAPHY: CLINICAL INFORMATION: 49-year-old female complaining of inferior right breast pain, constant, x1 month. COMPARISON: Mammography: 05/29/2023 Baseline exam. TECHNIQUE: Digital breast tomosynthesis is performed in both the craniocaudal and mediolateral oblique views along with computer-aided detection (CAD). Synthesized 2D images are generated from the tomosynthesis. FINDINGS: There are scattered areas of fibroglandular density (ACR BI-RADS breast composition Category b). There are no suspicious masses, suspicious grouped calcifications, or areas of architectural distortion in either breast. The parenchymal pattern is stable from prior exams. There is no skin or axillary abnormality. There is no mammographic abnormality in the inferior right breast, in the region of right breast pain. ULTRASOUND: CLINICAL INFORMATION: As above. COMPARISON: None TECHNIQUE: Targeted sonographic evaluation was performed using a high frequency linear transducer. Attention was given to the inferior one half of the right breast, in the region of right breast pain. Selected archived documentation. FINDINGS: RIGHT BREAST: There is a mixture of fatty and fibroglandular tissue. No suspicious mass is seen. There is no pathologic acoustic shadowing. There is no cystic abnormality. There is no sonographic correlate to the region of right breast pain. US/US breast RT limited mamm only IMPRESSION: There are no findings suspicious for malignancy in either breast. Stable examination. No mammographic or sonographic correlate or abnormality to the region of inferior right breast pain. Recommend clinical management. Otherwise, recommend the patient resume routine annual screening. OVERALL ASSESSMENT: Mammography: BI-RADS 1 - Negative Ultrasound: BI-RADS 1 - Negative RECOMMENDATION: 1. Patient should be managed based on the clinical impression. 2. Otherwise, routine annual screening mammography. This patient's information was entered into a reminder system with a target due date for their next mammogram.
== END 2024-04-28 13:51 | disposition home or self-care (01) ==
LOC: HO.MAMMO 13:50
PROVIDERS: PCP Internal Medicine Medical Oncology; Visit Provider Internal Medicine Medical Oncology
DX: N64.4 Mastodynia (principal)
CPT/HCPCS: 76642; 77062; 77066

== ENCOUNTER → 2024-04-28 14:30 | Outpatient (BNV) | payer OTHER, SELFPAY | PROVIDERS: PCP Internal Medicine Medical Oncology; Visit Provider Radiology Diagnostic Radiology | DX: N64.4 Mastodynia (principal) | CPT/HCPCS: 76642; 77062; 77066 ==

== ENCOUNTER 2024-05-22 10:05 | Inpatient (IN) | payer OTHER, SELFPAY ==
[2024-05-22] VITALS (7 sets, daily range): BP systolic 153–161; BP diastolic 59–69; PULSE 71–87; RESP 14–20; TEMP 36.2–37.3; O2SAT 98–100; BMI 40.4; BMI 41.6
--- NOTE | ~2024-05-22 | CT_ITS ---
EXAMINATION: CT ABDOMEN AND PELVIS WITH CONTRAST CLINICAL INFORMATION: Epigastric pain. Right upper quadrant pain COMPARISON: None available. TECHNIQUE: Multidetector volumetric images were obtained from the superior aspect of the liver through the pubic symphysis following administration 85 mL of Omnipaque 350 intravenous contrast. Sagittal and coronal reformatted images were obtained on the technologist's workstation. Oral contrast: No This CT examination was performed using dose optimization techniques as appropriate, variously including the following: *Automated exposure control *Adjustment of mA and/or kV according to patient size (this includes techniques or standardized protocols for targeted exams where dose is matched to indication/reason for exam; i.e. extremities or head) *Use of iterative reconstruction technique DLP: 710 mGy-cm FINDINGS: LUNG BASES: No suspicious abnormality in the visualized lower chest. There may be a tiny sliding-type hiatal hernia. LIVER, GALLBLADDER, AND BILIARY TREE: No suspicious abnormality of the liver. There are multiple gallstones. The gallbladder is mildly distended. No definite opaque duct calculus PANCREAS: No suspicious abnormality. SPLEEN: Within normal limits ADRENAL GLANDS: Normal KIDNEYS AND URETERS: There is no dilation of the urinary collecting system on either side. The nephrograms are symmetric. There is no suspicious renal mass. BLADDER: The uterus causes mass effect upon the bladder. No focal bladder mass. GASTROINTESTINAL TRACT: There is a moderate amount of fecal residue in the colon. No localized pericolonic fat stranding. No CT evidence of acute appendicitis. The stomach is not distended. There is no disproportionate small bowel dilation. ABDOMINAL WALL: There may have been a previous low anterior surgical procedure such as section. No bowel hernia. LYMPH NODES: There are scattered nonenlarged retroperitoneal lymph nodes. There is no significant free intraperitoneal fluid. VASCULAR: There is no abdominal aortic aneurysm. The portal vein enhances. PELVIC VISCERA: The uterus is enlarged and heterogeneous and there are numerous varying sized myometrial masses. A mass in the left side measures approximately 7.6 cm. The endometrium is top normal. Rim enhancing cysts in the left adnexa superiorly is consistent with a physiologic cyst and does not require any specific imaging follow-up OSSEOUS STRUCTURES: No suspicious focal lesion CT/CT abdomen pelvis w IV con IMPRESSION: Multiple gallstones. No localized pericholecystic fluid. Markedly enlarged fibroid uterus. No evidence of high-grade bowel obstruction. Fleischner guidelines were followed.
--- NOTE | ~2024-05-22 | US_ITS ---
EXAMINATION: US ABDOMEN LIMITED CLINICAL INFORMATION: Right upper quadrant pain. COMPARISON: None available. TECHNIQUE: Real-time imaging of the right upper quadrant abdominal viscera. FINDINGS: PANCREAS: Normal. LIVER: Normal. The liver is normal in size. The liver contour is normal. Parenchymal echogenicity is normal. No focal hepatic lesion. There is no intrahepatic biliary duct dilatation seen. GALLBLADDER: Cholelithiasis with borderline wall thickening. No pericholecystic fluid. Positive sonographic Swain sign. COMMON BILE DUCT: Normal in caliber measuring 0.5 cm in diameter. RIGHT KIDNEY: Normal. No hydronephrosis. No renal calculi or focal parenchymal lesions. The kidney measures 11.7 cm in maximum dimension. FREE FLUID: None. US/US abdomen limited IMPRESSION: Cholelithiasis with borderline wall thickening and positive sonographic Swain sign. No pericholecystic fluid. Findings are equivocal for acute cholecystitis. If clinically warranted further evaluation with HIDA scan can be obtained.
--- NOTE | 2024-05-22 10:24 | ED_ITS ---
HPI - Nausea/Vomiting/Diarrhea General Chief complaint: Nausea/Vomiting/Diarrhea Stated complaint: Abd pain/vomiting Time Seen by Provider: 05/22/24 10:13 Source: patient Mode of arrival: ambulatory Limitations: no limitations History of Present Illness ED Provider: DAPHNIE YUNG Narrative: 49 yo female with PMH of diabetes here with c/o 3 days of epigastric and RUQ pain along with n/v/d. No food exposures, sick contacts, travel or antibiotic use. She does not covid exposures at work. She denies bloody stools. Eating makes the pain worse. Does not take NSAIDs daily. MD elicited complaint: nausea, vomiting, diarrhea and abdominal pain Onset (ago): day(s) (3) Description of vomiting: watery Description of diarrhea: watery Associated nausea: Yes Associated abdominal pain: Yes Location of pain: epigastric and RUQ Pain consistency: intermittent Severity: moderate Quality: cramping and aching Exacerbating factors: eating Relieving factors: none Associated symptoms: headaches, loss of appetite, malaise and nausea/vomiting Related Data Home Medications ?Medication ?Instructions ?Recorded ?Confirmed amlodipine 5 mg-benazepril 20 mg 1 cap PO DAILY 06/24/23 09/23/23 capsule aspirin 81 mg tablet,delayed 81 mg PO DAILY 06/24/23 09/23/23 release dulaglutide 1.5 mg/0.5 mL mg subcut 06/24/23 09/23/23 subcutaneous pen injector (Trulicity) ferrous sulfate 325 mg (65 mg 325 mg PO DAILY 06/24/23 09/23/23 iron) tablet,delayed release insulin aspar prot-insulin aspart subcut 06/24/23 09/23/23 100 unit/mL (70-30) subcutaneous pen (Novolog Mix 70-30FlexPen U-100) levothyroxine 137 mcg tablet 137 mcg PO DAILY 06/24/23 09/23/23 albuterol sulfate 0.63 mg/3 mL mg inhalation 07/31/23 09/23/23 solution for nebulization albuterol sulfate 90 mcg/actuation inhalation 07/31/23 09/23/23 aerosol inhaler alcohol swabs (Alcohol Prep Pads) pad topical Q12H 07/31/23 09/23/23 blood sugar diagnostic (OneTouch #10 ea 07/31/23 09/23/23 Ultra Test strips) pen needle, diabetic 31 gauge x #1,200 ea 07/31/23 09/23/23 3/16 (Comfort Touch Pen Needle) Previous Rx's ?Medication ?Instructions ?Recorded ibuprofen 800 mg tablet 800 mg PO Q8H PRN pain #14 tabs 02/13/23 prednisone 20 mg tablet 40 mg (2 x 20 mg) PO DAILY 02/13/23 inflammation 5 days #10 tabs valacyclovir 1 gram tablet 1,000 mg PO TID 14 days #42 tabs 02/13/23 (Valtrex) bisacodyl 5 mg tablet,delayed 20 mg (4 x 5 mg) PO ONCE 06/24/23 release (Dulcolax (bisacodyl)) colonoscopy prep 1 day #4 tabs polyethylene glycol 3350 17 238 g PO ONCE PRN laxative effect 06/24/23 gram/dose oral powder (Miralax) 1 day #238 grams Allergies Allergy/AdvReac Type Severity Reaction Status Date / Time No Known Allergies Allergy Verified 05/22/24 10:22 Review of Systems 2 Review of Systems: Constitutional : No Weight loss, No Fever, No Chills ENT/Mouth : No sore throat, No Rhinorrhea Eyes: No Swelling, No Redness Cardiovascular : No Chest Pain, No SOB, NoEdema Respiratory : No Cough, No Sputum, No Wheezing Gastrointestinal : Positive Nausea, Positive Vomiting, positive Diarrhea, positive abdominal Pain, No Hematochezia, No Melena Genitourinary : No Dysuria, No Urinary Frequency, No Hematuria, No Urgency Musculoskeletal : No joint pain, No Myalgias, No Joint Swelling Skin : No Skin Lesions, No rash Neuro : No Weakness, No Numbness, No Dizziness, pos Headache Psych : No Anxiety/Panic, No Depression All other systems reviewed and are negative. Gastrointestinal: Gastrointestinal: Reports nausea PMFSH Past Medical History Attestation statement: The following information was validated with the patient. Source: old records reviewed Medical History (Updated 05/22/24 @ 14:38 by Myriam Taylor DO) Gallstones Morbid obesity Hypothyroidism HTN (hypertension) Diabetes Surgical History Hx of section Family History Family History Father Thyroid disease Hepatitis HTN (hypertension) Diabetes Mother Kidney disease Coronary artery disease Renal failure Maternal Aunt Breast CA Social History Social History Alcohol intake: never Patient Tobacco Use Status: Never used Tobacco Smoked in Last 30 Days: No Use of substances other than those prescribed or required for medical reasons: No Advance Directives: No Advance Directives Information Provided: Yes Do you have a plan to hurt others: No Plan Patient : No Current occupational status: employed 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 Physical Exam 2 Vital Signs: Vital Signs: Last Vital Signs Temp 99.2 F 05/22/24 10:23 Pulse 76 05/22/24 13:47 Resp 14 05/22/24 13:47 BP 157/59 H 05/22/24 13:47 Pulse Ox 99 05/22/24 13:47 O2 Del Method Room Air 05/22/24 13:47 BMI result Body Mass Index 40.4 Appearance: Alert. Oriented X3. No acute distress. Eyes: Pupils equal, round and reactive to light. ENT: Pharynx normal. Neck: Normal inspection. Neck supple. CVS: Normal heart rate and rhythm. Pulses normal. Respiratory: No respiratory distress. Breath sounds normal. Abdomen: Soft and moderate RUQ ttp + berry's sign Skin: Skin warm and dry. Normal skin color. Normal skin turgor. Extremities: No lower extremity edema. No calf ttp Neuro: Oriented X 3. No motor deficit. No sensory deficit. Course Course Course Narrative: still in pain IV morphine ordered Medications Administered Discontinued Medications Generic Name Dose Route Start Last Admin Trade Name Eagleq PRN Reason Stop Dose Admin Famotidine 20 mg 05/22/24 10:18 05/22/24 11:35 Famotidine/Pf 20 Mg/2 Ml Vial IVPUSH 05/22/24 10:19 20 mg ONCE ONE Administration Lactated Ringer's 1,000 mls @ 999 mls/hr 05/22/24 10:19 05/22/24 13:18 Lr IV 05/22/24 11:19 Infused .Q1H1M ONE Infusion Iohexol 100 ml 05/22/24 14:04 05/22/24 14:04 Iohexol 350 Mg/Ml 100 Ml Infus..Btl IV 05/22/24 14:05 85 ml ONCE ONE Administration Ketorolac Tromethamine 15 mg 05/22/24 10:18 05/22/24 11:34 Ketorolac Tromethamine 15 Mg/Ml Vial IVPUSH 05/22/24 10:19 15 mg ONCE ONE Administration Morphine Sulfate 4 mg 05/22/24 13:42 05/22/24 13:46 Morphine Sulfate 4 Mg/Ml Cartridge IVPUSH 05/22/24 13:43 4 mg ONCE ONE Administration Protocol Ondansetron HCl 4 mg 05/22/24 10:18 05/22/24 11:34 Ondansetron Hcl 4 Mg/2 Ml Vial IVPUSH 05/22/24 10:19 4 mg ONCE ONE Administration Medical Decision Making Medical Decision Making MDM Narrative: 49 yo female with PMH of DM here with c/o epigastric pain, RUQ pain n/v/d at this time will need basic labs, US, IVF and toradol for pain - denies NSAID use, + berry sign possible pancreatitis, biliary colic, viral syndrome, gastritis. Differential Diagnosis Differential Diagnoses: The differential diagnosis associated with the presentation includes gastritis, biliary colic, pancreatitis Admission/Observation Consideration of admission/observation: Escalation of care including admission/observation considered admit for biliary colic - Dr. Betts Consult Healthcare Provider Management of the patient was discussed with: Dermatology Teacher message sent to Dr. Betts given report and findings on US Lab Data [facility] Lab Attestation statement: I reviewed the patient's lab results. 05/22/24 10:42 05/22/24 10:42 Labs: Lab Results 05/22/24 05/22/24 05/22/24 Range/Units 10:29 10:42 11:36 WBC 13.5 H (4.8-10.8) X10*3/uL RBC 4.71 (4.20-5.50) X10*6/uL Hgb 14.0 (12.0-16.0) g/dl Hct 40.6 (37.0-47.0) % MCV 86.2 (80.0-98.0) fL MCH 29.7 (27.0-33.0) pg MCHC 34.5 (31.0-35.0) g/dl RDW 12.9 (11.0-16.0) % Plt Count 266 (160-400) X10*3/uL MPV 10.1 (9.4-12.3) fL Immature Gran % (Auto) 0.2 (0.0-0.4) % Neut % (Auto) 57.6 (45-73) % Lymph % (Auto) 34.9 (20-40) % [place] % (Auto) 5.2 (2-11) % Eos % (Auto) 1.8 (0-4) % Baso % (Auto) 0.3 (0-2) % Lymph # (Auto) 4.7 (1.2-4.9) X10*3/uL [place] # (Auto) 0.7 (0.1-1.2) X10*3/uL Eos # (Auto) 0.2 (0.0-0.4) X10*3/uL Baso # (Auto) 0.0 (0.0-0.2) X10*3/uL Abs Immat Gran (auto) 0.03 (0.00-0.03) X10*3/uL Absolute Neuts (auto) 7.8 (2.0-8.3) x10*3/uL Absolute Nucleated RBC 0.000 (0.0-0.012) X10*3/uL Nucleated RBC % (auto) 0.0 (0.0-0.2) /100WBC Sodium 136 (135-145) mmol/L Potassium 4.2 (3.3-5.1) mmol/L Chloride 107 (96-108) mmol/L Carbon Dioxide 18 L (22-29) mmol/L Anion Gap 15 (12-20) BUN 9 (9-16) mg/dL Creatinine 0.72 (0.5-1.4) mg/dL Estim Creat Clear Calc 93.8 Estimated GFR > 60 Random Glucose 128 H (60-115) mg/dL Calcium 9.0 D (8.4-10.2) mg/dL Magnesium 1.9 (1.6-2.6) mg/dL Total Bilirubin 1.2 H (0.0-1.0) mg/dL Direct Bilirubin 0.2 (0.0-0.5) mg/dL AST 17 (5-31) U/L ALT 12 (0-31) U/L Alkaline Phosphatase 65 (39-117) U/L Total Protein 7.7 (6.5-8.0) g/dL Albumin 4.0 (3.5-5.0) g/dL Lipase 15 (8-78) U/L Urine Color Yellow Urine Appearance Clear Urine pH 5.5 (5.0-9.0) Ur Specific [place] 1.025 (1.005-1.025) Urine Protein Negative (Neg-Trace) mg/dL Urine Glucose (UA) Negative (Negative) mg/dL Urine Ketones Negative (Negative) mg/dL Urine Blood Negative (Negative) Urine Nitrite Negative (Negative) Ur Leukocyte Esterase Negative (Negative) Urine Test NEGATIVE (NEGATIVE) Influenza Type A (PCR) NEGATIVE (Negative) Influenza Type B (PCR) NEGATIVE (Negative) RSV RNA Qual (PCR) NEGATIVE (Negative) SARS-CoV-2 RNA (RT-PCR) NEGATIVE (Negative) Independent Interpretation I performed an independent interpretation of an: Ultrasound Radiology Impression Discussion of test interpretation with radiology: I have reviewed the radiologist's reading. External Record Review External record reviewed: Outpatient record Discharge Plan Discharge Clinical Impression: Biliary colic, Abdominal pain Patient Disposition: Admitted As Inpatient Prescriptions: No Action valacyclovir [Valtrex] 1 gram tablet 1,000 mg PO TID 14 Days Qty: 42 0RF prednisone 20 mg tablet 40 mg PO DAILY 5 Days Qty: 10 0RF ibuprofen 800 mg tablet 800 mg PO Q8H PRN (Reason: pain) Qty: 14 0RF (DME) OneTouch Ultra Test Strip See Rx Instructions .ROUTE .MEDSUPPLY Qty: 10 Rx Instructions: As directed alcohol swabs [Alcohol Prep Pads] Pads, Medicated topical Q12H (DME) pen needle, diabetic [Comfort Touch Pen Needle] 31 gauge x 3/16 needle See Rx Instructions .ROUTE .MEDSUPPLY Qty: 1200 Rx Instructions: As directed albuterol sulfate 0.63 mg/3 mL solution for nebulization inhalation albuterol sulfate 90 mcg/actuation HFA aerosol inhaler inhalation Trulicity 1.5 mg/0.5 mL pen injector subcut insulin asp prt-insulin aspart [Novolog Mix 70-30FlexPen U-100] 100 unit/mL (70-30) insulin pen subcut amlodipine-benazepril 5-20 mg capsule 1 cap PO DAILY aspirin 81 mg tablet,delayed release (DR/EC) 81 mg PO DAILY levothyroxine 137 mcg tablet 137 mcg PO DAILY ferrous sulfate 325 mg (65 mg iron) tablet,delayed release (DR/EC) 325 mg PO DAILY bisacodyl [Dulcolax (bisacodyl)] 5 mg tablet,delayed release (DR/EC) 20 mg PO ONCE 1 Days Qty: 4 0RF Rx Instructions: Take 4 tablets by mouth at 12:00pm the day before your procedure. polyethylene glycol 3350 [Miralax] 17 gram/dose powder 238 g PO ONCE PRN (Reason: laxative effect) 1 Days Qty: 238 0RF Rx Instructions: Take as directed by mouth the day before your procedure. Print Language: Mongolian
[2024-05-22 10:46] LABS: MANUAL DIFF FLAG NO
[2024-05-22 10:47] LABS: Basophils Percent Auto 0.3 % (0-2); Eosinophils Absolute Auto 0.2 X10*3/uL (0.0-0.4); Eosinophils Percent Auto 1.8 % (0-4); Hematocrit 40.6 % (37.0-47.0); Imm Gran Abs Auto 0.03 X10*3/uL (0.00-0.03); Imm Gran Pct Auto 0.2 % (0.0-0.4); Lymphocytes Absolute Auto 4.7 X10*3/uL (1.2-4.9); Lymphocytes Percent Auto 34.9 % (20-40); Mean Corpuscular HGB Conc 34.5 g/dl (31.0-35.0); Mean Corpuscular Hemoglobin 29.7 pg (27.0-33.0); Mean Corpuscular Volume 86.2 fL (80.0-98.0); Mean Platelet Volume 10.1 fL (9.4-12.3); Monocytes Absolute Auto 0.7 X10*3/uL (0.1-1.2); Monocytes Percent Auto 5.2 % (2-11); Neutrophils Absolute Auto 7.8 x10*3/uL (2.0-8.3); Neutrophils Percent Auto 57.6 % (45-73); Platelet Count 266 X10*3/uL (160-400); Red Blood Count 4.71 X10*6/uL (4.20-5.50); Red Cell Distribution Width 12.9 % (11.0-16.0); White Blood Count 13.5 X10*3/uL (4.8-10.8)
[2024-05-22 11:05] LABS: Alanine Aminotransferase 12 U/L (0-31); Alkaline Phosphatase 65 U/L (39-117); Anion Gap 15 (12-20); Aspartate Amino Transferase 17 U/L (5-31); Bilirubin Direct 0.2 mg/dL (0.0-0.5); Bilirubin Total 1.2 mg/dL (0.0-1.0); Blood Urea Nitrogen 9 mg/dL (9-16); Carbon Dioxide 18 mmol/L (22-29); Chloride 107 mmol/L (96-108); Creatinine Clr Calc Pharmacy 93.8; Estimated Glomerular Filt Rate > 60; Glucose Random 128 mg/dL (60-115); Lipase 15 U/L (8-78); Magnesium 1.9 mg/dL (1.6-2.6); Potassium 4.2 mmol/L (3.3-5.1); Sodium 136 mmol/L (135-145); Total Protein 7.7 g/dL (6.5-8.0)
[2024-05-22 11:24] LABS: Influenza A PCR NEGATIVE (Negative); Influenza B PCR NEGATIVE (Negative); Resp Syncy Virus RNA Qual PCR NEGATIVE (Negative); SARS COV2 PCR INHOUSE NEGATIVE (Negative)
[2024-05-22] MEDS: ondansetron HCL 4 MG/2 ML VIAL IVPUSH (11:34)
[2024-05-22] MEDS: Ketorolac Tromethamine 15 MG/ML VIAL IVPUSH (11:34)
[2024-05-22] MEDS: Lactated Ringers 1,000 ML 999 ML IV (11:35)
[2024-05-22] MEDS: Famotidine/PF 20 MG/2 ML VIAL IVPUSH (11:35)
[2024-05-22 11:45] LABS: Appearance Urine Clear; Color Urine Yellow; Glucose Urine UA Negative (Negative); Leukocyte Esterase Urine Negative (Negative); Nitrite Urine Negative (Negative); PH 5.5 (5.0-9.0); Specific Gravity - Urine 1.025 (1.005-1.025); Urine Blood Negative (Negative); Urine Ketones Negative (Negative); Urine Protein Negative (Neg-Trace)
[2024-05-22 11:47] LABS: UPreg QC Valid YES; Urine Pregnancy NEGATIVE (NEGATIVE)
[2024-05-22] MEDS: Morphine Sulfate 4 MG/ML CARTRIDGE IVPUSH (13:46)
[2024-05-22] MEDS: iohexoL 350 MG/ML 100 ML INFUS..BTL IV (14:04)
--- NOTE | 2024-05-22 14:14 | PM.HPGS ---
History of Present Illness History of Present Illness Date of Service: 05/26/24 Chief complaint: Gallstones Narrative: Alina Adamson is a 49 year old female with obesity, DM and HTN here in the ED for abdominal pain. She says she has had this for about 3 days now. She describes this as mostly on the epigastric area and RUQ, although this is felt on the entire upper abdomen. She describes some nausea and vomitting today as well. She denies any fever or chills. She feels that her pain is worsened by meals. She says her blood sugars are well controlled. She has had a hx of Csection but no other abdominal surgery. Review of Systems Constitutional: Constitutional: Denies chills and Denies fever(s) Cardiovascular: Cardiovascular: Denies chest pain, Denies dyspnea and Denies dyspnea on exertion Respiratory: Respiratory: Denies cough, Denies dyspnea and Denies dyspnea on exertion Gastrointestinal: Gastrointestinal: Denies hematochezia and Denies change in bowel habits Genitourinary: Genitourinary: Denies hematuria Musculoskeletal: Musculoskeletal: Denies back pain and Denies limited range of motion Neurologic: Denies focal weakness and Denies convulsions Psychiatric: Psychiatric: Denies depression and Denies mood swings PMFSH Past Medical History Medical History Gallstones Morbid obesity Hypothyroidism HTN (hypertension) Diabetes Family History Family History Father Thyroid disease Hepatitis HTN (hypertension) Diabetes Mother Kidney disease Coronary artery disease Renal failure Maternal Aunt Breast CA Surgical History Surgical History Hx of section Social History Social History Household Members: Family Housing: House Do you presently have visiting nurse or other home services: No Alcohol intake: never Patient Tobacco Use Status: Never used Tobacco Second Hand Smoke Exposure: No service: No Current occupational status: employed 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 Allergies Allergy/AdvReac Type Severity Reaction Status Date / Time No Known Allergies Allergy Verified 05/22/24 10:22 Home Medications ?Medication ?Instructions ?Recorded ?Confirmed ?Last Taken ?Type dulaglutide 1.5 mg/0.5 mL 1.5 mg subcut TH@0906/24/23 05/22/24 05/19/24 History subcutaneous pen injector (Trulicity) insulin aspar prot-insulin aspart 20 unit subcut BEDTIME 06/24/23 05/22/24 Unknown History 100 unit/mL (70-30) subcutaneous pen (Novolog Mix 70-30FlexPen U-100) levothyroxine 137 mcg tablet 137 mcg PO DAILY@0600 06/24/23 05/22/24 05/22/24 09:00 History blood sugar diagnostic (OneTouch #10 ea 07/31/23 05/23/24 Unknown History Ultra Test strips) pen needle, diabetic 31 gauge x #1,200 ea 07/31/23 05/23/24 Unknown History 316 (Comfort Touch Pen Needle) insulin aspar prot-insulin aspart 25 unit subcut DAILY 05/22/24 05/22/24 05/22/24 09:00 History 100 unit/mL (70-30) subcutaneous pen (Novolog Mix 70-30FlexPen U-100) metformin 500 mg tablet 500 mg PO BID 05/22/24 05/22/24 05/22/24 09:00 History Physical Exam Vital Signs: Vital Signs: Last Vital Signs Temp 99.2 F 05/22/24 10:23 Pulse 76 05/22/24 13:47 Resp 14 05/22/24 13:47 BP 157/59 H 05/22/24 13:47 Pulse Ox 99 05/22/24 13:47 O2 Del Method Room Air 05/22/24 13:47 BMI result Body Mass Index 40.4 Const: General: comfortable and no acute distress Orientation/consciousness: patient oriented x3 Neck: Neck: Yes no lymphadenopathy Resp: Auscultation: clear to auscultation bilaterally Cardio: Rhythm: regular rhythm GI: Other: mild tenderness on epigastric area and RUQ Palpation (GI): Soft to palpation, Tenderness to palpation present (GI), no guarding and not rigid Neuro: General: patient oriented x3 Results Results Labs: Short CBC 05/22/24 Range/Units 10:42 WBC 13.5 H (4.8-10.8) X10*3/uL Hgb 14.0 (12.0-16.0) g/dl Hct 40.6 (37.0-47.0) % Plt Count 266 (160-400) X10*3/uL BMP 05/22/24 10:42 Sodium 136 Potassium 4.2 Chloride 107 Carbon Dioxide 18 L BUN 9 Creatinine 0.72 Calcium 9.0 D Liver Function 05/22/24 Range/Units 10:42 Total Bilirubin 1.2 H (0.0-1.0) mg/dL Direct Bilirubin 0.2 (0.0-0.5) mg/dL AST 17 (5-31) U/L ALT 12 (0-31) U/L Alkaline Phosphatase 65 (39-117) U/L Albumin 4.0 (3.5-5.0) g/dL Urine 05/22/24 Range/Units 11:36 Urine Color Yellow Urine Appearance Clear Urine pH 5.5 (5.0-9.0) Ur Specific [place] 1.025 (1.005-1.025) Urine Protein Negative (Neg-Trace) mg/dL Urine Glucose (UA) Negative (Negative) mg/dL Urine Test NEGATIVE (NEGATIVE) Abdomen CT scan report/results: report reviewed and image reviewed CT scan - pelvis: report reviewed and image reviewed Abdominal ultrasound report/results: report reviewed and image reviewed Assessment and Plan (1) Gallstones: Status: Acute She has had upper abdominal pain, mostly on the RUQ and eoigastric areas x 3 days. I have reviewed her US and CT scan and these show gallstones with fundings equivocal for acute cholecysititis. I will admit her for IVF and IV abx. I have offered the option of proceeding with cholecystectomy. I explained the technique of lap cholecystectomy and possible open cholecystectomy. I reviewed the risks including but not limited to bleeding, infections, injury to other organs like bowel. liver, bile duct, retained stones, bile leak. I explained the benefits and alterantives I reviewed what to expect postoperatively. She says she will think about the option of surgery. She understands that her perioperative risks are higher than average in view of her morbid obesity and diabetes. She looks well and is not septic looking. Her abdominal exam is benign. The patient is also noted to have a large fibroid on imaging. She says she has known about this for years. Quality Stroke Does the patient have a stroke diagnosis?: No VTE Prior VTE?: No VTE Risk Level:: Medical - moderate - high VTE Device Contraindication: N/A - Device Ordered VTE Drug Contraindication: N/A - Med Ordered Procedures Date of Service Date of Service: 05/26/24
--- OUTSIDE RECORDS SUMMARY | 2024-05-22 14:49 | XMS_ITS ---
Author Organization Yuniel Grewal III, MD Address [address] [place] [address] Care Team Providers Care Youth Care Worker Name Role Phone Yuniel Grewal Primary Care Provider REASON FOR VISIT Annual Exam SOCIAL HISTORY Sex Assigned At : Social History Observation Description Sex Assigned At Female Encounters Encounter Location Date Provider Diagnosis Yuniel Grewal III, MD [address] [place] [address] [place] [address] 05/09/2024 Yuniel Grewal PLAN OF TREATMENT Next Appt Details Provider Name:Yuniel Grewal, 09/16/2024 04:00:00 PM, [address] [place] [address] KIMBER HAYNES, [place], [phone],
--- OUTSIDE RECORDS SUMMARY | 2024-05-22 14:49 | XMS_ITS ---
Author Organization Yuniel Grewal III, MD Address [address] [place] [address] Care Team Providers Care Application Support Technician Name Role Phone Yuniel Grewal Primary Care Provider REASON FOR VISIT Concern SOCIAL HISTORY Sex Assigned At : Social History Observation Description Sex Assigned At Female Encounters Encounter Location Date Provider Diagnosis Yuniel Grewal III, MD [address] [place] [address] [place] [address] 04/22/2024 Yuniel Grewal PLAN OF TREATMENT Next Appt Details Provider Name:Yuniel Grewal, 09/16/2024 04:00:00 PM, [address] [place] [address] KIMBER HAYNES, [place], [phone],
--- OUTSIDE RECORDS SUMMARY | 2024-05-22 14:49 | XMS_ITS ---
Author Organization Yuniel Grewal III, MD Address [address] [place] [address] Care Team Providers Care Structural Fitter Name Role Phone Yuniel Grewal Primary Care Provider [phone] ALLERGIES Allergen (clinical drug ingredient) Drug/Non Drug Allergy documented on EMR Reaction Allergy Type Onset Date Status Shellfish (FN) Shellfish-derived Products Unknown Drug Allergy Active REASON FOR VISIT Breast pain, Right X 2 weeks, Diabetes, Hypothyroid, Hypertension, Asthma, Low back pain, Morbid obesity MEDICATIONS Medication SIG (Take, Route, Frequency, Duration) Notes Start Date End Date Status Accu-Chek Viktoria Plus w/Device as directed In Vitro to test blood sugars twice a day 05/05/2023 Active Aspirin Low Dose 81 MG Oral Active Albuterol Sulfate HFA 108 (90 Base) MCG/ACT Inhalation Active Accu-Chek Guide - USE DIRECTED TO C HECK BLOOD SUGARS TWICE A DAY 90 DAYS Active Levothyroxine Sodium 137 MCG TAKE 1 TABLET BY MOUTH EVERY DAY IN THE MORNING ON EMPTY STOMACH Active Trulicity 1.5 MG/0.5ML INJECT 1.5mg D IRECTED SUBCUTANEOUS ONCE A WEEK 28 DAYS Active metFORMIN HCl 500 MG 1 tablet with a oliverio l Orally twice a day 01/15/2024 Active Pen [place] 31G X 6 MM as directed Twice a day 30 days Active NovoLOG Mix 70/30 FlexPen (70-30) 100 UNIT/ML INJECT 25 UNITS SUBCUTANEOUSLY IN TH MORNING AND 20 UNITS IN THE EVENING FOR 30 DAYS Active Ferrous Sulfate 325 (65 Fe) MG 1 tablet Oral Once a Day Act heidi Gauze Pads 3 X3 as directed - use to check blood sugars twice a day 05/05/2023 Active Alcohol Prep Pad 70 % as directed - to u se to test blood sugars twice a day 05/05/2023 Active Lancets - as directed - use to check blood sugars twice a day 05/05/2023 Active Accu-Chek Viktoria Plus - as directed In Vi tro to test blood sugars twice a day 05/05/2023 Active amLODIPine Besy-Benazepril HCl 5-20 MG One Capsule Oral Once a Day Active SOCIAL HISTORY Tobacco Use: Social History Observation Description Date Details (start date - stop date) Former Smoker NA - NA Sex Assigned At : Social History Observation Description Sex Assigned At Female Tobacco Use/Smoking Question Answer Notes Patient is a former smoker How long has it been since you last smoked? > 10 years Additional Findings: Tobacco Non-User Ex-cigaret te smoker VITAL SIGNS BMI 41.8 kg/m2 05/05/2024 Blood pressure systolic 140 mm Hg 05/05/20 24 Blood pressure diastolic 68 mm Hg 024 Heart Rate 80 /min 05/05/2024 Height 59 in 05/05/2024 Temperature 98.1 degrees Fahrenheit 05/05/20 24 Weight 207 lbs 05/05/2024 Encounters Encounter Location Date Provider Diagnosis Yuniel Grewal III, MD [address] [place] [address] [place] [address] 05/05/2024 Yuniel Grewal Diabetes E11.9 ; Hypothyroid E03.9 ; Morbid obesity E66.01 ; HTN (hypertension) I10 ; Asthma J45.909 ; Low back pain, unspecified M54.50 and Former smoker Z87.891 ASSESSMENTS Encounter Date Diagnosis Assessment Notes Treatment Notes Treatment Clinical Notes 05/05/2024 Diabetes (ICD-10 - E11.9) She has been compliant with her medications. Her hemoglobin A1c is 8.0. We made a plan to follow a diabetic weight loss diet and lose one half of a pound per week. 05/05/2024 Hypothyroid (ICD-10 - E03.9) Her thyroid function tests are normal. She appears to be euthyroid. No change was necessary in her medication. 05/05/2024 Morbid obesity (ICD-10 - E66.01) Her body mass index is 40. We have discussed in detail the elements of weight reduction diabetic diet. We made a plan to lose weight at a rate of one half of a pound per week over the long-term through diet restricted in fat calories and sodium combined with regular activity. 05/05/2024 HTN (hypertension) (ICD-10 - I10) Her blood pressure is stable at 140/80 and no change in her regimen was made. We made a plan to lose weight and restrict sodium Our plan for the next year includes reducing her weight substantially and reducing her systolic blood pressure by 10 points through physical activity weight loss and sodium restriction and euglycemic control. 05/05/2024 Asthma (ICD-10 - J45.909) She has a history of intermittent asthma. No wheezes or her today. She has a rescue inhaler if necessary. 05/05/2024 Low back pain, unspecified (ICD-10 - M54.50) She continues to have intermittent mild low back pain. No change in her regimen was needed. Images have been obtained. 05/05/2024 Former smoker (ICD-10 - Z87.891) She has a plan to prevent relapse in times of stress and illness. PLAN OF TREATMENT Medication Medication Name Sig Start Date Stop Date Notes Accu-Chek Viktoria Plus w/Device as directe d In Vitro to test blood sugars twice a day 05/05/2023 Aspirin Low Dose 81 MG Oral Albuterol Sulfate HFA 108 (9 0 Base) MCG/ACT Inhalation Accu-Chek Guide - USE DIRECTED TO C HECK BLOOD SUGARS TWICE A DAY 90 DAYS Levothyroxine Sodium 137 MCG TAKE 1 TABL ET BY MOUTH EVERY DAY IN THE MORNING ON EMPTY STOMACH Trulicity 1.5 MG/0.5ML INJECT 1.5mg D IRECTED SUBCUTANEOUS ONCE A WEEK 28 DAYS metFORMIN HCl 500 MG 1 tablet with a oliverio l Orally twice a day 01/15/2024 Pen [place] 31G X 6 MM as directed Twice a day 30 days NovoLOG Mix 70/30 FlexPen (70-30) 100 UNIT/ML INJECT 25 UNITS SUBCUTANEOUSLY IN TH MORNING AND 20 UNITS IN THE EVENING FOR 30 DAYS Ferrous Sulfate 325 (65 Fe) MG 1 tablet Oral Once a Day Gauze Pads 3 X3 as directed - use to check blood sugars twice a day 05/05/2023 Alcohol Prep Pad 70 % as directed - to u se to test blood sugars twice a day 05/05/2023 Lancets - as directed - use to check blood sugars twice a day 05/05/2023 Accu-Chek Viktoria Plus - as directed In Vi tro to test blood sugars twice a day 05/05/2023 amLODIPine Besy-Benazepril HCl 5-20 MG One Capsule Oral Once a Day Pending Test Test Name Order Date PROFILE, FASTING (COMPREHENSIVE METABOLI C) 05/05/2024 TSH (THYROID STIMULATING HORMONE) 2023 CBC WITH AUTO DIFF 05/05/2024 Ferritin 05/05/2024 Lipid Panel 05/05/2024 Free T4 (Free Thyroxine) 05/05/2024 Hemoglobin A1c 05/05/2024 Next Appt Details Follow Up: 4 Months, Reason: OV Provider Name:Yunile Perezrne, 09/16/2024 04:00:00 PM, [address] [place] [address] IKMB[address] HAYNES, [facility], [phone], Progress Notes * Examination Category Sub-Category Detail Notes General Examination GENERAL APPEARANCE: pleasant , well nourished, well developed, in no acute distress, calm and relaxed , morbidly obese , woman HEAD: atraumatic, normocep halic EYES: eomi, perrla, anicte arpit, conjugate EARS: normal NOSE: septum intact NECK/THYROID: no jugular venous di stention, no carotid bruit, thyroid normal HEART: no clicks, gallops, murmurs, or rubs, regular rhythm, S1, S2 normal, no s3, or vascular bruits LUNGS: clear to auscultatio n ABDOMEN: bowel sounds normal, no ascites, no organomegaly, no mass , centripital obesity NEUROLOGIC: alert and oriented, cranial nerves 2-12 grossly intact, deep tendon reflexes 2+ symmetrical, motor strength normal upper and lower extremities, sensory exam intact SKIN: no suspicious lesion s, anicteric PERIPHERAL PULSES: normal BREASTS: no masses palpable b ilaterally MUSCULOSKELETAL: extremities unremark able, no clubbing, cyanosis or edema LYMPH NODES: no enlarged lymph no herbert,spleen normal RECTAL EXAM: not examined PSYCH: alert, oriented ORAL CAVITY: normal, unremarkable History and Physical Notes * HPI (History of Present Illness) Category Sub-Category Detail Notes COVID-19 Screening Questions Have you expe rienced fever, chills, cough, sore throat, shortness of breath, difficulty breathing, muscle aches, loss of taste or smell?: No Have you been exposed to the virus with n the last 10 days?: No Have you travelled internationally in e last 10 days?: No Have you been exposed to COVID-19 in the past?: Yes
--- OUTSIDE RECORDS SUMMARY | 2024-05-22 14:50 | XMS_ITS | Patient Health Record ---
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 is no sonographic correlate to the region of right breast pain. MM/MM tomosynthesis diagnostic BI IMPRESSION: There are no findings suspicious for malignancy in either breast. Stable examination. No mammographic or sonographic correlate or abnormality to the region of inferior right breast pain. Recommend clinical management. Otherwise, recommend the patient resume routine annual screening. OVERALL ASSESSMENT: Mammography: BI-RADS 1 - Negative Ultrasound: BI-RADS 1 - Negative RECOMMENDATION: 1. Patient should be managed based on the clinical impression. 2. Otherwise, routine annual screening mammography. This patient's information was entered into a reminder system with a target due date for their next mammogram. 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 [address] Ultrasound Report Signed Patient: Alina Adamson MR#: [id number] 7 : 1975 Acct:[id number] Age/Sex: 49 / F ADM Date: 04/28/24 Loc: HO.MAMMO Attending Dr: Yuniel Grewal MD Ordering Physician: Yuniel Grewal MD Date of Service: 04/28/24 Procedure(s): US breast RT limited mamm only Accession Number(s): [id number] cc: Yuniel Grewal MD EXAMINATION: MM DIAGNOSTIC DIGITAL BREAST TOMOSYNTHESIS, BILATERAL US BREAST LIMITED, RIGHT MAMMOGRAPHY: CLINICAL INFORMATION: 49-year-old female complaining of inferior right breast pain, constant, x1 month. COMPARISON: Mammography: 05/29/2023 Baseline exam. TECHNIQUE: Digital breast tomosynthesis is performed in both the craniocaudal and mediolateral oblique views along with computer-aided detection (CAD). Synthesized 2D images are generated from the tomosynthesis. FINDINGS: There are scattered areas of fibroglandular density (ACR BI-RADS breast composition Category b). There are no suspicious masses, suspicious grouped calcifications, or areas of architectural distortion in either breast. The parenchymal pattern is stable from prior exams. There is no skin or axillary abnormality. There is no mammographic abnormality in the inferior right breast, in the region of right breast pain. ULTRASOUND: CLINICAL INFORMATION: As above. COMPARISON: None TECHNIQUE: Targeted sonographic evaluation was performed using a high frequency linear transducer. Attention was given to the inferior one half of the right breast, in the region of right breast pain. Selected archived documentation. FINDINGS: RIGHT BREAST: There is a mixture of fatty and fibroglandular tissue. No suspicious mass is seen. There is no pathologic acoustic shadowing. There is no cystic abnormality. There is no sonographic correlate to the region of right breast pain. US/US breast RT limited mamm only IMPRESSION: There are no findings suspicious for malignancy in either breast. Stable examination. No mammographic or sonographic correlate or abnormality to the region of inferior right breast pain. Recommend clinical management. Otherwise, recommend the patient resume routine annual screening. OVERALL ASSESSMENT: Mammography: BI-RADS 1 - Negative Ultrasound: BI-RADS 1 - Negative RECOMMENDATION: 1. Patient should be managed based on the clinical impression. 2. Otherwise, routine annual screening mammography. This patient's information was entered into a reminder system with a target due date for their next mammogram. 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6 45-73 % Imm Gran Pct Auto 0.2 0.0-0.4 % Lymphocytes Percent Auto 34.9 20-40 % Monocytes Percent Auto 5.2 2-11 % Eosinophils Percent Auto 1.8 0-4 % Basophils Percent Auto 0.3 0-2 % NRBC Pct Auto 0.0 0.0-0.2 /100WBC Neutrophils Absolute Auto 7.8 2.0-8.3 x10*3/u L Imm Gran Abs Auto 0.03 0.00-0.03 X10*3/uL Lymphocytes Absolute Auto 4.7 1.2-4.9 X10*3/u L Monocytes Absolute Auto 0.7 0.1-1.2 X10*3/uL Eosinophils Absolute Auto 0.2 0.0-0.4 X10*3/u L Basophils Absolute Auto 0.0 0.0-0.2 X10*3/uL NRBC Abs Auto 0.000 0.0-0.012 X10*3/uL Ur Preg Test (Not yet review ed by provider) Interpretation: Performing Lab:[address] [phone] Notes/Report: Urine NEGATIVE NEGATIVE This test was developed to detect early . False negative results may occur after the 5th - 7th week of when using this test method. If clinically indicated, consider a serum hCG. Liver Panel (Not yet reviewe d by provider) Interpretation: Performing Lab:[address] [address] Notes/Report: Bilirubin Total 1.2 0.0-1.0 mg/dL Bilirubin Direct 0.2 0.0-0.5 mg/dL Slight Hem olysis Aspartate Amino Transferase 17 5-31 U/L Slight Hemolysis Alanine Aminotransferase 12 0-31 U/L Total Protein 7.7 6.5-8.0 g/dL Albumin Level 4.0 3.5-5.0 g/dL Alkaline Phosphatase 65 39-117 U/L Basic Metabolic Panel (Not y et reviewed by provider) Interpretation: Performing Lab:[address] [place] [address] Notes/Report: Sodium 136 135-145 mmol/L Potassium 4.2 3.3-5.1 mmol/L Slight Hemoly sis Chloride 107 96-108 mmol/L Carbon Dioxide 18 22-29 mmol/L Anion Gap 15 12-20 Blood Urea Nitrogen 9 9-16 mg/dL Creatinine 0.72 0.5-1.4 mg/dL Creatinine Clr Calc Pharmacy 93.8 Provided height and weight: 149.86 cm, 90.718 kg. eGFR (calculated from the MDRD study equation) and eCrCl (calculated from the Cockcroft-Gault equation) are based on different parameters and may not yield comparable results. If eCrCl result is absurd, please check patient's height/weight. Estimated Glomerular Filt Rate > 60 NOTE: For -[place] individuals, multiply the result by 1.210. Chronic Kidney Disease: Estimated GFR < 60 mL/min/1.73m2 Severe Kidney Disease: Estimated GFR < 15 mL/min/1.73m2 Glucose Random 128 60-115 mg/dL Calcium 9.0 8.4-10.2 mg/dL Magnesium (Not yet reviewed by provider) Interpretation: Performing Lab:[address] [address] Notes/Report: Magnesium 1.9 1.6-2.6 mg/dL Lipase (Not yet reviewed by provider) Interpretation: Performing Lab:[address] [address] Notes/Report: Lipase 15 8-78 U/L UA CC w/rflx Micro + Cult (N ot yet reviewed by provider) Interpretation: Performing Lab:[address] [address] Notes/Report: Urine, Clean Catch Color Urine Yellow Appearance Urine Clear PH 5.5 5.0-9.0 Glucose Urine UA Negative Negative mg/dL Urine Blood Negative Negative Specific [place] - Urine 1.025 1.005-1.025 Urine Protein Negative Neg-Trace mg/dL Urine Ketones Negative Negative mg/dL Nitrite Urine Negative Negative Leukocyte Esterase Urine Negative Negative SARS-CoV2/FLU/RSV (Not yet r eviewed by provider) Interpretation: Performing Lab:[address] [place] [address] Notes/Report: Influenza A PCR NEGATIVE Negative Influenza B PCR NEGATIVE Negative Resp Syncy Virus RNA Qual PCR NEGATIVE Negative SARS COV2 PCR INHOUSE NEGATIVE Negative All test results must be correlated with clinical findings. Negative results do not preclude SARS-CoV2, influenza A virus, influenza B virus and/or RSV infection and should not be used as the sole basis for treatment or other patient management decisions. Negative results must be combined with clinical observations, patient history, and epidemiological information. This test has not been evaluated for monitoring treatment of infection. This test has been authorized by the FDA under an Emergency Use Authorization (EUA) for use by authorized laboratories. Testing performed on the [employer] GeneXpert utilizing real-time RT-PCR. All SARS CoV2 and positive influenza A/B results are reported to [facility]. US abdomen limited (Not yet reviewed by provider) Interpretation: Performing Lab: Notes/Report: [address] [place] [address] Ultrasound Report Signed Patient: Alina Adamson MR#: [id number] 7 : 1975 Acct:[id number] Age/Sex: 49 / F ADM Date: 05/22/24 Loc: .ED Attending Dr: Ordering Physician: Myriam Taylor DO Date of Service: 05/22/24 Procedure(s): US abdomen limited Accession Number(s): [id number] cc: Yuniel Grewal MD; Myriam Taylor DO EXAMINATION: US ABDOMEN LIMITED CLINICAL INFORMATION: Right upper quadrant pain. COMPARISON: None available. TECHNIQUE: Real-time imaging of the right upper quadrant abdominal viscera. FINDINGS: PANCREAS: Normal. LIVER: Normal. The liver is normal in size. The liver contour is normal. Parenchymal echogenicity is normal. No focal hepatic lesion. There is no intrahepatic biliary duct dilatation seen. GALLBLADDER: Cholelithiasis with borderline wall thickening. No pericholecystic fluid. Positive sonographic Swain sign. COMMON BILE DUCT: Normal in caliber measuring 0.5 cm in diameter. RIGHT KIDNEY: Normal. No hydronephrosis. No renal calculi or focal parenchymal lesions. The kidney measures 11.7 cm in maximum dimension. FREE FLUID: None. US/US abdomen limited IMPRESSION: Cholelithiasis with borderline wall thickening and positive sonographic Swain sign. No pericholecystic fluid. Findings are equivocal for acute cholecystitis. If clinically warranted further evaluation with HIDA scan can be obtained. 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: REASON FOR REFERRAL No Information MEDICATIONS Medication SIG (Take, Route, Frequency, Duration) Notes Start Date End Date Status Trulicity 1.5 MG/0.5ML INJECT 1.5mg D IRECTED SUBCUTANEOUS ONCE A WEEK 28 DAYS Active Gauze Pads 3 X3 as directed - use to check blood sugars twice a day 05/05/2023 Active metFORMIN HCl 500 MG 1 tablet with a oliverio l Orally twice a day 01/15/2024 Active Alcohol Prep Pad 70 % as directed - to u se to test blood sugars twice a day 05/05/2023 Active Lancets - as directed - use to check blood sugars twice a day 05/05/2023 Active Accu-Chek Viktoria Plus w/Device as directed In [...] SUGARS TWICE A DAY 90 DAYS Active Pen [place] 31G X 6 MM as directed Twice a day 30 days Active Levothyroxine Sodium 137 MCG TAKE 1 TABLET BY MOUTH EVERY DAY IN THE MORNING ON EMPTY STOMACH Active amLODIPine Besy-Benazepril HCl 5-20 MG One Capsule Oral Once a Day Active NovoLOG Mix 70/30 FlexPen (70-30) 100 UNIT/ML INJECT 25 UNITS SUBCUTANEOUSLY IN TH MORNING AND 20 UNITS IN THE EVENING FOR 30 DAYS Active Ferrous Sulfate 325 (65 Fe) MG 1 tablet Oral Once a Day Act heidi SOCIAL HISTORY Tobacco Use: Social History Observation Description Date Details (start date - stop date) Former Smoker NA - NA Sex Assigned At : Social History Observation Description Sex Assigned At Female Tobacco Use/Smoking Question Answer Notes Patient is a former smoker How long has it been since you last smoked? > 10 years Additional Findings: Tobacco Non-User Ex-cigaret te smoker Alcohol Screen Question Answer Notes Did you have a drink contain ing alcohol in the past year? Yes How often did you have a dri nk containing alcohol in the past year? Monthly or less (1 point) How many drinks did you have on a typical day when you were drinking in the past year? 1 or 2 drinks (0 point) How often did you have 6 or more drinks on one occasion in the past year? Never (0 point) Points 1 Interpretation Negative PROBLEMS Problem Type ICD Code Onset Dates Problem Status W/U Status Risk SNOMED Code Notes Problem Former smoker (Z87.891) Active confirmed 8830115 She has a plan to prevent relapse in times of stress and illness. Problem Asthma (J45.909) Active confirmed Asthma (506580051) She has a history of intermittent asthma. No wheezes or her today. She has a rescue inhaler if necessary. Problem Anemia (D64.9) Active confirmed Anemia (531794674) There has been no sign of bleeding. Her hemoglobin and hematocrit are both now in the normal range. These values will be followed. Problem Diabetes (E11.9) Active confirmed Diabetes mellitus without complication (129614165) She has been compliant with her medications. Her hemoglobin A1c is 8.0. We made a plan to follow a diabetic weight loss diet and lose one half of a pound per week. Problem HTN (hypertension) (I10) Active confirmed Hypertension (51218392) Her blood pressure is stable at 140/80 and no change in her regimen was made. We made a plan to lose weight and restrict sodium Our plan for the next year includes reducing her weight substantially and reducing her systolic blood pressure by 10 points through physical activity weight loss and sodium restriction and euglycemic control. Problem Hypothyroid (E03.9) Active confirmed Hypothyroid (20852345) Her thyroid function tests are normal. She appears to be euthyroid. No change was necessary in her medication. Problem Atypical chest pain (R07.89) Active confirmed 558861766 She is on aspirin. 4. Atypical chest pain from a previous provider. She believes her chest discomfort is caused by stress. If necessary, a stress test can be done. Problem Herpes zoster without complication (B02.9) Active confirmed 302265506 She had an episode of shingles in February of this year. She was treated with prednisone and valacyclovir. It has resolved. Problem Morbid obesity (E66.01) Active confirmed 353108577 Her body mass index is 40. We have discussed in detail the elements of weight reduction diabetic diet. We made a plan to lose weight at a rate of one half of a pound per week over the long-term through diet restricted in fat calories and sodium combined with regular activity. Problem Low back pain, unspecified (M54.50) Active confirmed 484096921 She continues to have intermittent mild low back pain. No change in her regimen was needed. Images have been obtained. VITAL SIGNS Heart Rate 80 /min 05/05/2024 Temperature 98.1 degrees Fahrenheit 05/05/2024 Blood pressure diastolic 68 mm Hg 05/05/2024 Height 59 in 05/05/2024 Blood pressure systolic 140 mm Hg 05/05/2024 Weight 207 lbs 05/05/2024 BMI 41.8 kg/m2 05/05/2024 Encounters Encounter Location Date Provider Diagnosis Yuniel Grewal III, MD [address] [place] [address] [place] [phone] 05/09/2024 Yuniel Grewal III, MD [address] [place] [address] [place] [phone] 05/25/2023 Yuniel Grewal Diabetes E11.9 ; Hypothyroid E03.9 ; Morbid obesity E66.01 ; HTN (hypertension) I10 ; Asthma J45.909 ; Low back pain, unspecified M54.50 and Former smoker Z87.891 Yuniel Grewal III, MD [address] [place] [address] [place] [address] 09/25/2023 Yuniel Grewal Diabetes E11.9 ; Anemia D64.9 ; Hypothyroid E03.9 ; Morbid obesity E66.01 ; Former smoker Z87.891 ; HTN (hypertension) I10 ; Asthma J45.909 and Low back pain, unspecified M54.50 Yuniel Grewal III, MD [address] [place] [address] [place] [address] 01/25/2024 Yuniel Grewal Diabetes E11.9 Yuniel Grewal III, MD [address] [place] [address] [place] [address] 01/26/2024 Yuniel Grewal Diabetes E11.9 ; HTN (hypertension) I10 ; Morbid obesity E66.01 ; Low back pain, unspecified M54.50 ; Hypothyroid E03.9 and Asthma J45.909 Yuniel Grewal III, MD [address] [facility] [place] [address] 04/08/2024 Yuniel Grewal Diabetes E11.9 ; Hypothyroid E03.9 ; HTN (hypertension) I10 ; Morbid obesity E66.01 ; Breast pain, right N64.4 and Former smoker Z87.891 Yuniel Grewal III, MD [address] [place] [address] [place] [address] 04/22/2024 Yuniel Grewal III, MD [address] [place] [address] [place] [address] 05/05/2024 Yuniel Grewal Diabetes E11.9 ; Hypothyroid E03.9 ; Morbid obesity E66.01 ; HTN (hypertension) I10 ; Asthma J45.909 ; Low back pain, unspecified M54.50 and Former smoker Z87.891 Yuniel Grewal III, MD [address] [place] [address] [place] [address] 05/25/2023 Yuniel Grewal III, MD [address] [place] [address] [place] [address] 06/08/2023 Yuniel Grewal Diabetes E11.9 Yuniel Grewal III, MD [address] [place] [address] [place] [address] 07/28/2023 Yuniel Grewal Diabetes E11.9 Yuniel Grewal III, MD [address] [place] [address] [place] [address] 01/14/2024 Yuniel Grewal III, MD [address] [place] [address] [place] [address] 01/15/2024 Yuniel Grewal III, MD [address] [place] [address] [place] [address] 01/15/2024 Yuniel Grewal III, MD [address] [place] [address] [place] [address] 02/10/2024 Yuniel Grewal III, MD [address] [place] [address] [place] [address] 04/12/2024 Yuniel Grewal III, MD [address] [place] [address] [place], [place] [address] 04/20/2024 Yuniel Grewal Diabetes E11.9 ASSESSMENTS Encounter Date Diagnosis Assessment Notes Treatment Notes Treatment Clinical Notes 05/25/2023 Diabetes (ICD-10 - E11.9) The fasting glucose is 150, and the hemoglobin A1c is 7.1, improvement in her diabetic control involves aggressive weight loss and adherence to a diabetic diet. We discussed this at great length today. A follow-up visit was arranged. 05/25/2023 Hypothyroid (ICD-10 - E03.9) The free T4 is in the normal range but the TSH is slightly high. She feels healthy and well. This value will be repeated. The levothyroxine dose will be adjusted as needed. 09/25/2023 Anemia (ICD-10 - D64.9) There has been no sign of bleeding. Her hemoglobin and hematocrit are both now in the normal range. These values will be followed. 09/25/2023 Diabetes (ICD-10 - E11.9) She has been compliant with her regimen. She is trying to lose weight and exercise regularly. She has lost 2 pounds. Her fasting glucose has dropped from 156-119. Her hemoglobin A1c has been ordered. 01/25/2024 Diabetes (ICD-10 - E11.9) She has been compliant with her regimen. She is trying to lose weight and exercise regularly. She has lost 2 pounds. Her fasting glucose has dropped from 156-119. Her hemoglobin A1c has been ordered. 01/26/2024 Diabetes (ICD-10 - E11.9) She has been compliant with her medications. Comprehensive blood work with a fasting lipid profile, fasting glucose, hemoglobin A1c and microalbumin have been ordered. 01/26/2024 HTN (hypertension) (ICD-10 - I10) Her blood pressure was slightly high at 143/80. She has gained 6 pounds. We discussed the relationship between weight gain and hypertension. We made a plan to lose weight aggressively. She will restrict her sodium intaake. If necessary should her medications will be revised on her next visit. 04/08/2024 Diabetes (ICD-10 - E11.9) She has been compliant with her medications. Her hemoglobin A1c is 8.4. We made a plan to follow a diabetic weight loss diet and lose one half of a pound per week. 04/08/2024 Hypothyroid (ICD-10 - E03.9) Her thyroid function tests are in the normal range. No change in her dosage of levothyroxine was necessary. 05/05/2024 Diabetes (ICD-10 - E11.9) She has been compliant with her medications. Her hemoglobin A1c is 8.0. We made a plan to follow a diabetic weight loss diet and lose one half of a pound per week. 05/05/2024 Hypothyroid (ICD-10 - E03.9) Her thyroid function tests are normal. She appears to be euthyroid. No change was necessary in her medication. 06/08/2023 Diabetes (ICD-10 - E11.9) The fasting glucose is 150, and the hemoglobin A1c is 7.1, improvement in her diabetic control involves aggressive weight loss and adherence to a diabetic diet. We discussed this at great length today. A follow-up visit was arranged. 07/28/2023 Diabetes (ICD-10 - E11.9) The fasting glucose is 150, and the hemoglobin A1c is 7.1, improvement in her diabetic control involves aggressive weight loss and adherence to a diabetic diet. We discussed this at great length today. A follow-up visit was arranged. 04/20/2024 Diabetes (ICD-10 - E11.9) She has been compliant with her medications. Her hemoglobin A1c is 8.4. We made a plan to follow a diabetic weight loss diet and lose one half of a pound per week. 05/25/2023 Morbid obesity (ICD-10 - E66.01) Her body mass index is 42. Her hemoglobin A1c is 7.1. Her cholesterol is 206. We discussed her cardiac risk factors at length. I recommend an aggressive weight loss at a rate of one half or 1 pound per week to a diet restricted in fat calories and sodium and concentrated sweets, combined with regular physical activity. 09/25/2023 Hypothyroid (ICD-10 - E03.9) Her TSH has dropped 5.49-4.6. She says she is better able to remember taking her medication now. We have discussed ways in which she could remember to take it on a daily basis without fail. The values will be repeated in thhe near future. Her free T4 level has dropped from 1.19-1.06. Both values are acceptable. She is asymptoomatic. 01/26/2024 Morbid obesity (ICD-10 - E66.01) She has gained some weight since her last visit over the winter. We discussed a weight loss strategy in detail today. We reviewed the elements of a diabetic diet. 04/08/2024 HTN (hypertension) (ICD-10 - I10) Her blood pressure is stable and no change in her regimen was made. We made a plan to lose weight and restrict sodium. 05/05/2024 Morbid obesity (ICD-10 - E66.01) Her body mass index is 40. We have discussed in detail the elements of weight reduction diabetic diet. We made a plan to lose weight at a rate of one half of a pound per week over the long-term through diet restricted in fat calories and sodium combined with regular activity. 05/25/2023 HTN (hypertension) (ICD-10 - I10) Her blood pressure today is in a normal range. No change in her regimen was necessary. I recommended aggressive weight loss and sodium restriction. 09/25/2023 Morbid obesity (ICD-10 - E66.01) She now weighs 209 pounds with a body mass index of 42.2. She has lost 2 pounds. She is trying very hard to continue her weight loss strategy. 01/26/2024 Low back pain, unspecified (ICD-10 - M54.50) She continues to have intermittent mild low back pain. No change in her regimen was needed. Images have been obtained. 04/08/2024 Morbid obesity (ICD-10 - E66.01) Her body mass index is over 40. We made a plan to lose weight at a rate of one half of a pound per week through a diet restricted in fat calories and sodium. 05/05/2024 HTN (hypertension) (ICD-10 - I10) Her blood pressure is stable at 140/80 and no change in her regimen was made. We made a plan to lose weight and restrict sodium Our plan for the next year includes reducing her weight substantially and reducing her systolic blood pressure by 10 points through physical activity weight loss and sodium restriction and euglycemic control. 05/25/2023 Asthma (ICD-10 - J45.909) She has a history of intermittent asthma. No wheezes or her today. She has a rescue inhaler if necessary. 09/25/2023 Former smoker (ICD-10 - Z87.891) She has a plan to prevent relapse in times of stress and illness. 01/26/2024 Hypothyroid (ICD-10 - E03.9) Her TSH has dropped 5.49-4.6. She says she is better able to remember taking her medication now. We have discussed ways in which she could remember to take it on a daily basis without fail. The values will be repeated in thhe near future. Her free T4 level has dropped from 1.19-1.06. Both values are acceptable. She is asymptoomatic. 04/08/2024 Breast pain, right (ICD-10 - N64.4) An ultrasound of the breast has been ordered. I did not see evidence for infection or malignancy. 05/05/2024 Asthma (ICD-10 - J45.909) She has a history of intermittent asthma. No wheezes or her today. She has a rescue inhaler if necessary. 05/25/2023 Low back pain, unspecified (ICD-10 - M54.50) She has chronic lumbar back pain that does not radiate since an accident 4 years ago. No change in her regimen was necessary today. She will avoid heavy lifting. 09/25/2023 HTN (hypertension) (ICD-10 - I10) Her blood pressure today is in a normal range. No change in her regimen was necessary. I recommended aggressive weight loss and sodium restriction. 01/26/2024 Asthma (ICD-10 - J45.909) She has a history of intermittent asthma. No wheezes or her today. She has a rescue inhaler if necessary. 04/08/2024 Former smoker (ICD-10 - Z87.891) She has a plan to prevent relapse in times of stress and illness. 05/05/2024 Low back pain, unspecified (ICD-10 - M54.50) She continues to have intermittent mild low back pain. No change in her regimen was needed. Images have been obtained. 05/25/2023 Former smoker (ICD-10 - Z87.891) She has a plan to prevent relapse in times of stress and illness. 09/25/2023 Asthma (ICD-10 - J45.909) She has a history of intermittent asthma. No wheezes or her today. She has a rescue inhaler if necessary. 05/05/2024 Former smoker (ICD-10 - Z87.891) She has a plan to prevent relapse in times of stress and illness. 09/25/2023 Low back pain, unspecified (ICD-10 - M54.50) She has chronic lumbar back pain that does not radiate since an accident 4 years ago. No change in her regimen was necessary today. She will avoid heavy lifting. PLAN OF TREATMENT Pending Test Test Name Order Date PROFILE, FASTING (COMPREHENSIVE METABOLI C) 05/25/2023 PROFILE, FASTING (COMPREHENSIVE METABOLI C) 09/25/2023 PROFILE, FASTING (COMPREHENSIVE METABOLI C) 05/04/2023 PROFILE, FASTING (COMPREHENSIVE METABOLI C) 05/05/2024 PROFILE, FASTING (COMPREHENSIVE METABOLI C) 01/26/2024 PROFILE, FASTING (COMPREHENSIVE METABOLI C) 04/08/2024 HEMOGLOBIN A1C (GLYCOHEMOGLOBIN) 023 MAGNESIUM 05/04/2023 LIPID PANEL 05/25/2023 LIPID PANEL 05/04/2023 FREE T4 (FT4) 04/08/2024 FREE T4 (FT4) 05/04/2023 FREE T4 (FT4) 05/25/2023 TSH (THYROID STIMULATING HORMONE) 2023 TSH (THYROID STIMULATING HORMONE) 2022 TSH (THYROID STIMULATING HORMONE) 2022 TSH (THYROID STIMULATING HORMONE) 2023 TSH (THYROID STIMULATING HORMONE) 2022 FERRITIN 05/25/2023 MICROALBUMIN, RANDOM 05/04/2023 CBC w DIFF 09/25/2023 CBC w DIFF 05/04/2023 CBC w DIFF 05/25/2023 SED RATE (ESR) 04/08/2024 MAMMOGRAM DIGITAL BILATERAL SCREEN 05/04 CBC WITH AUTO DIFF 04/08/2024 CBC WITH AUTO DIFF 01/26/2024 CBC WITH AUTO DIFF 05/05/2024 Complete Blood Count Auto Diff Ur Preg Test 05/22/2024 Liver Panel 05/22/2024 Basic Metabolic Panel 05/22/2024 Magnesium 05/22/2024 Ferritin 04/08/2024 Ferritin 05/05/2024 Lipid Panel 05/05/2024 Lipid Panel 09/25/2023 Lipid Panel 04/08/2024 Lipase 05/22/2024 Free T4 (Free Thyroxine) 05/05/2024 Free T4 (Free Thyroxine) 09/25/2023 Microalbumin, Random 09/25/2023 US abdomen limited 05/22/2024 Hemoglobin A1c 04/08/2024 Hemoglobin A1c 09/25/2023 Hemoglobin A1c 05/05/2024 UA CC w/rflx Micro + Cult 05/22/2024 SARS-CoV2/FLU/RSV 05/22/2024 Next Appt Details Provider Name:Yuniel Grewal, 09/16/2024 04:00:00 PM, [address] [place] [address] [address], [address], [place], [address], Insurance Providers Payer Name Payer Address Payer Phone Subscriber Number Group Number Insured Name Patient Relationship to Insured Coverage Start Date Coverage End Date [facility] [address] [facility] [address] [place] [phone] [id number] Alina Adamson Self - patient is the insured MEDICAL (GENERAL) HISTORY Medical History History ICD Code Hypothyroid E03.9 HTN (hypertension) I10 Anemia D64.9 Asthma J45.909 [id number] chronic lumbar back pain Adult onset diabetes mellitus Shingles February 2023. Left flank Atypical chest pain Family history of breast cancer, sister Former smoker Morbid obesity Surgical History Surgery Date(Month/Year) [id number] 1999
[2024-05-22] MEDS: Piperacillin Sodium/Tazobactam 3.375 GM in 0.9 % Sodium Chloride 50 ML IV ×2 (15:08→21:46)
[2024-05-22] MEDS: Lactated Ringers 1,000 ML 80 ML IVCONT (15:42)
[2024-05-22 16:12] LABS: Estimated Average Glucose 151 mg/dL; Hemoglobin A1c % 6.9 % (<6.0)
--- NOTE | 2024-05-22 16:42 | PHA.MEDREC ---
Addendum entered by Bianca Ferrara RPh 05/22/24 18:25: MED REC COMPLETE BY OFFICE DIRECTOR, REVIEWED BY [facility] Original Note: Pharmacy Consult ? Medication Reconciliation Pharmacy has completed the medication reconciliation.
--- NOTE | 2024-05-22 16:47 | HO.PM.IMCN ---
History of Present Illness Data of Consult Service Date: 05/22/24 Primary Care Provider: Yuniel Grewal MD HPI Reason for consult: DM2 49yo F with obesity + DM2 on insulin + hypothyroidism admitted to Gen Surg service for biliary colic with concern of acute cholecystitis and planned for lap steffi tomorrow. Prior abd surgeries: . No perioperative complications. No hx [place], CHF, or CVA. She came in with 3d of RUQ + epigastric pain and had some N/V today. US abd showe cholelithiasis with borderline wall thickening and positive sonographic Swain sign but no pericholecystic fluid. Review of Systems Review of Systems: Yes all other systems are reviewed and are negative [facility] Medical History Gallstones Morbid obesity Hypothyroidism HTN (hypertension) Diabetes Family History Father Thyroid disease Hepatitis HTN (hypertension) Diabetes Mother Kidney disease Coronary artery disease Renal failure Maternal Aunt Breast CA Surgical History Hx of section Social History Alcohol intake: never Patient Tobacco Use Status: Never used Tobacco Smoked in Last 30 Days: No Use of substances other than those prescribed or required for medical reasons: No Advance Directives: No Advance Directives Information Provided: Yes Do you have a plan to hurt others: No Plan Patient : No Current occupational status: employed 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 Allergies Allergy/AdvReac Type Severity Reaction Status Date / Time No Known Allergies Allergy Verified 05/22/24 10:22 Active Medications: Current Medications Acetaminophen (Acetaminophen 325 Mg Tablet) 650 mg PO Q6H PRN PRN Reason: Pain, Mild (Pain Scale 1-3), fever or headache Acetaminophen (Acetaminophen 325 Mg Tablet) 650 mg PO Q6H PRN PRN Reason: Headache Albuterol Sulfate (Albuterol Sulfate 90 Mcg 8 Gm Inhaler) 2 puff INHALE Q4H PRN PRN Reason: wheezing Calcium Carbonate (Calcium Carbonate 750 Mg Tab.Chew) 750 mg PO Q4H PRN PRN Reason: Heartburn Glucose (Glucose Gel 15 Gm Gel..Gram.) 15 gm PO Q15M PRN; Protocol PRN Reason: per Hypoglycemia Standing Ord. Heparin Sodium (Porcine) (Heparin Sodium,Porcine 5,000 Unit/Ml Vial) 5,000 unit SUBCUT Q8H [facility] Lactated Ringer's (Lr) 1,000 mls @ 80 mls/hr IVCONT .[id number] [facility] Last Admin: 05/22/24 15:42 Dose: 80 mls/hr Piperacillin Sod/Tazobactam (Sod 3.375 gm/ Sodium Chloride) 50 mls @ 100 mls/hr IV Q6H [facility] Last Infusion: 05/22/24 15:44 Dose: Infused Dextrose (D10) 250 mls @ 750 mls/hr IV Q15M PRN; Protocol PRN Reason: per Hypoglycemia Standing Ord. Insulin Human Lispro (Insulin Lispro 100 Unit/Ml 3 Ml Vial) 0 unit SUBCUT QIDACHS [facility]; Protocol Levothyroxine Sodium 112 mcg/ (Levothyroxine Sodium 25 mcg) 137 mcg PO DAILY@0600 [facility] Melatonin (Melatonin 3 Mg Tablet) 6 mg PO BEDTIME PRN PRN Reason: Insomnia Morphine Sulfate (Morphine Sulfate 4 Mg/Ml Cartridge) 2 mg IVPUSH Q3H PRN; Protocol PRN Reason: Pain, Severe (Pain Scale 7-10) Ondansetron HCl (Ondansetron Hcl 4 Mg/2 Ml Vial) 4 mg IVPUSH Q8H PRN PRN Reason: nausea Sodium Chloride (0.9 % Sodium Chloride Flush 3 Ml Syringe) 3 ml IVFLUSH QSHIFT [facility] Last Admin: 05/22/24 16:46 Dose: Not Given Home Medications ?Medication ?Instructions ?Recorded ?Confirmed ?Last Taken ?Type dulaglutide 1.5 mg/0.5 mL 1.5 mg subcut TH@89906/24/23 05/22/24 05/19/24 History subcutaneous pen injector (Trulicity) insulin aspar prot-insulin aspart 20 unit subcut BEDTIME 06/24/23 05/22/24 Unknown History 100 unit/mL (70-30) subcutaneous pen (Novolog Mix 70-30FlexPen U-100) levothyroxine 137 mcg tablet 137 mcg PO DAILY@0606/24/23 05/22/24 05/22/24 09:00 History blood sugar diagnostic (OneTouch #10 ea 07/31/23 09/23/23 Unknown History Ultra Test strips) pen needle, diabetic 31 gauge x #1,200 ea 07/31/23 09/23/23 Unknown History 12/25 (Comfort Touch Pen Needle) insulin aspar prot-insulin aspart 25 unit subcut DAILY 05/22/24 05/22/24 05/22/24 09:00 History 100 unit/mL (70-30) subcutaneous pen (Novolog Mix 70-30FlexPen U-100) metformin 500 mg tablet 500 mg PO BID 05/22/24 05/22/24 05/22/24 09:00 History Physical Exam Vital Signs and Narrative: Vital Signs: Last Vital Signs Temp 99.2 F 05/22/24 10:23 Pulse 76 05/22/24 13:47 Resp 14 05/22/24 13:47 BP 157/59 H 05/22/24 13:47 Pulse Ox 99 05/22/24 13:47 O2 Del Method Room Air 05/22/24 13:47 BMI result Body Mass Index 40.4 Gen: in no acute distress HEENT: sclera anicteric, moist mucus membranes Neck: supple Lungs: clear to auscultation bilaterally Heart: regular rate and rhythm, no murmurs Abd: soft, obese, RUQ tender, +Swain's Ext: no edema Skin: warm/well-perfused Neuro: alert and oriented x3, no focal findings Psych: appropriate affect Results Labs 05/22/24 10:42 05/22/24 10:42 Labs: Laboratory Results - last 24 hr 05/22/24 05/22/24 05/22/24 10:29 10:42 11:36 MCV 86.2 MCH 29.7 MCHC 34.5 RDW 12.9 Plt Count 266 MPV 10.1 Immature Gran % (Auto) 0.2 Neut % (Auto) 57.6 Lymph % (Auto) 34.9 Gray % (Auto) 5.2 Eos % (Auto) 1.8 Baso % (Auto) 0.3 Lymph # (Auto) 4.7 Gray # (Auto) 0.7 Eos # (Auto) 0.2 Baso # (Auto) 0.0 Abs Immat Gran (auto) 0.03 Absolute Neuts (auto) 7.8 Absolute Nucleated RBC 0.000 Nucleated RBC % (auto) 0.0 Anion Gap 15 Estim Creat Clear Calc 93.8 Estimated GFR > 60 Random Glucose 128 H Estimat Average Glucose 151 Hemoglobin A1c % 6.9 H Calcium 9.0 D Magnesium 1.9 Total Bilirubin 1.2 H Direct Bilirubin 0.2 AST 17 ALT 12 Alkaline Phosphatase 65 Total Protein 7.7 Albumin 4.0 Lipase 15 Urine Color Yellow Urine Appearance Clear Urine pH 5.5 Ur Specific [place] 1.025 Urine Protein Negative Urine Glucose (UA) Negative Urine Ketones Negative Urine Blood Negative Urine Nitrite Negative Ur Leukocyte Esterase Negative Urine Test NEGATIVE Influenza Type A (PCR) NEGATIVE Influenza Type B (PCR) NEGATIVE RSV RNA Qual (PCR) NEGATIVE SARS-CoV-2 RNA (RT-PCR) NEGATIVE Imaging Radiologist's Impressions: Impressions Abdomen Ultrasound 05/22/24 11:10 IMPRESSION: Cholelithiasis with borderline wall thickening and positive sonographic Swain sign. No pericholecystic fluid. Findings are equivocal for acute cholecystitis. If clinically warranted further evaluation with HIDA scan can be obtained. Abdomen/Pelvis CT 05/22/24 14:04 IMPRESSION: Multiple gallstones. No localized pericholecystic fluid. Markedly enlarged fibroid uterus. No evidence of high-grade bowel obstruction. Fleischner guidelines were followed. Assessment and Plan (1) Biliary colic: Status: Acute Plan 49yo F with obesity + DM2 on insulin + hypothyroidism admitted to Gen Surg service for biliary colic with concern of acute cholecystitis and planned for lap steffi; hospitalist consult for management of comorbid medical conditions possible acute cholecystitis - agree with piperacillin-tazobactam; planned lap steffi tomorrow; further preoperative risk stratification not indicated DM2, well-controlled with A1c 6.9 - correction-dose lispro; hold MTF hypothyroidism - continue LT4 morbid obesity - diet/exercise counseling VTE ppx - UFH Thank you for this consultation. We are signing off the case at this time. Please communicate with us if any new medical questions arise.
[2024-05-22 18:06] LABS: Glucose, Whole Blood 108 mg/dL (60-115)
--- NOTE | 2024-05-22 19:04 | PC.NURSE ---
received report from Deepa Jung RN, assume care of pt at this time
[2024-05-22 21:13] LABS: Glucose, Whole Blood 82 mg/dL (60-115)
[2024-05-22] MEDS: 0.9 % Sodium Chloride Flush 3 ML SYRINGE IVFLUSH (21:56)
[2024-05-23] VITALS (18 sets, daily range): BP systolic 102–184; BP diastolic 48–78; PULSE 73–86; RESP 16–20; TEMP 36–36.7; O2SAT 94–99
[2024-05-23] MEDS: Piperacillin Sodium/Tazobactam 3.375 GM in 0.9 % Sodium Chloride 50 ML IV ×4 (03:39→21:20)
[2024-05-23] MEDS: Lactated Ringers 1,000 ML 80 ML IVCONT ×2 (04:14→17:41)
[2024-05-23 07:05] LABS: Glucose, Whole Blood 130 mg/dL (60-115)
[2024-05-23 07:38] LABS: Hemoglobin 12.6 g/dl (12.0-16.0); Mean Corpuscular HGB Conc 33.2 g/dl (31.0-35.0); Mean Corpuscular Volume 87.4 fL (80.0-98.0); Mean Platelet Volume 10.6 fL (9.4-12.3); Platelet Count 220 X10*3/uL (160-400); Red Blood Count 4.35 X10*6/uL (4.20-5.50)
[2024-05-23 08:09] LABS: Alanine Aminotransferase 10 U/L (0-31); Albumin Level 3.3 g/dL (3.5-5.0); Alkaline Phosphatase 55 U/L (39-117); Anion Gap 12 (12-20); Aspartate Amino Transferase 12 U/L (5-31); Bilirubin Direct 0.3 mg/dL (0.0-0.5); Bilirubin Total 0.9 mg/dL (0.0-1.0); Blood Urea Nitrogen 9 mg/dL (9-16); Calcium 8.6 mg/dL (8.4-10.2); Carbon Dioxide 26 mmol/L (22-29); Chloride 106 mmol/L (96-108); Creatinine Clr Calc Pharmacy 94.2; Estimated Glomerular Filt Rate > 60; Glucose Random 121 mg/dL (60-115); Sodium 140 mmol/L (135-145); Total Protein 6.2 g/dL (6.5-8.0)
--- NOTE | 2024-05-23 08:18 | PM.EVENT ---
Event Note Date of Service: 05/23/24 Event Note: States that she says well Pain well controlled No fever overnight Looks well overall Abdomen is soft, mild tenderness on the right upper quadrant LFTs normal this morning Planned lap steffi today She understands the technique of the planned procedure as well as the risks, benefits, and alternatives Time Spent With Patient Time: Total time managing care of this patient today ____ minutes.
[2024-05-23] MEDS: Acetaminophen 325 MG TABLET 650 MG PO (08:34)
[2024-05-23 11:02] LABS: Glucose, Whole Blood 108 mg/dL (60-115)
--- NOTE | 2024-05-23 11:33 | MHC.CM.PN ---
PT LIVES AT HOME WITH FAMILY AND IS INDEPENDENT WITH CARE SHE HAS NO DME AND NO SERVICES PT COMPLETED A HCP TODAY, NOW ON FILE PCP: JOSEPH GONSALEZ DCPa: HOME NO SERVICES VIA PRIVATE TRANSPORT
[2024-05-23 13:42] LABS: Glucose, Whole Blood 100 mg/dL (60-115)
--- NOTE | 2024-05-23 14:23 | HO.ANESPROP2 ---
[facility] Active Problems Active Problems: All Active Problems Abdominal pain (Acute) Biliary colic (Acute) Gallstones (Acute) Morbid obesity (Acute) Menorrhagia (Acute) Fibroids (Acute) Bulky or enlarged uterus (Acute) Cervical cancer screening (Acute) Obesity, morbid, BMI 40.0-49.9 (Acute) HTN (hypertension) (Acute) Diabetes (Acute) Encounter for screening colonoscopy (Acute) Past Medical History Medical History Gallstones Morbid obesity Hypothyroidism HTN (hypertension) Diabetes Functional capacity: independent ambulation Patient : No Family History Family History Father Thyroid disease Hepatitis HTN (hypertension) Diabetes Mother Kidney disease Coronary artery disease Renal failure Maternal Aunt Breast CA Family history of problems with anesthesia: No Surgical History Surgical History Hx of section History of Problems with Anesthesia: No Social History Social History Household Members: Family Housing: House Do you presently have visiting nurse or other home services: No Alcohol intake: never Patient Tobacco Use Status: Never used Tobacco Second Hand Smoke Exposure: No service: No Current occupational status: employed 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 Allergies Allergy/AdvReac Type Severity Reaction Status Date / Time No Known Allergies Allergy Verified 05/22/24 10:22 Active Medications: Current Medications Acetaminophen (Acetaminophen 325 Mg Tablet) 650 mg PO Q6H PRN PRN Reason: Pain, Mild (Pain Scale 1-3), fever or headache Acetaminophen (Acetaminophen 325 Mg Tablet) 650 mg PO Q6H PRN PRN Reason: Headache Last Admin: 05/23/24 08:34 Dose: 650 mg Albuterol Sulfate (Albuterol Sulfate 90 Mcg 8 Gm Inhaler) 2 puff INHALE Q4H PRN PRN Reason: wheezing Calcium Carbonate (Calcium Carbonate 750 Mg Tab.Chew) 750 mg PO Q4H PRN PRN Reason: Heartburn Glucose (Glucose Gel 15 Gm Gel..Gram.) 15 gm PO Q15M PRN; Protocol PRN Reason: per Hypoglycemia Standing Ord. Heparin Sodium (Porcine) (Heparin Sodium,Porcine 5,000 Unit/Ml Vial) 5,000 unit SUBCUT Q8H [facility] Lactated Ringer's (Lr) 1,000 mls @ 80 mls/hr IVCONT .[id number] [facility] Last Infusion: 05/23/24 14:22 Dose: Infused Piperacillin Sod/Tazobactam (Sod 3.375 gm/ Sodium Chloride) 50 mls @ 100 mls/hr IV Q6H [facility] Last Infusion: 05/23/24 09:10 Dose: Infused Dextrose (D10) 250 mls @ 750 mls/hr IV Q15M PRN; Protocol PRN Reason: per Hypoglycemia Standing Ord. Insulin Human Lispro (Insulin Lispro 100 Unit/Ml 3 Ml Vial) 0 unit SUBCUT QIDACHS [facility]; Protocol Last Admin: 05/23/24 11:07 Dose: Not Given Levothyroxine Sodium 112 mcg/ (Levothyroxine Sodium 25 mcg) 137 mcg PO DAILY@0600 [facility] Last Admin: 05/23/24 06:30 Dose: Not Given Melatonin (Melatonin 3 Mg Tablet) 6 mg PO BEDTIME PRN PRN Reason: Insomnia Morphine Sulfate (Morphine Sulfate 4 Mg/Ml Cartridge) 2 mg IVPUSH Q3H PRN; Protocol PRN Reason: Pain, Severe (Pain Scale 7-10) Ondansetron HCl (Ondansetron Hcl 4 Mg/2 Ml Vial) 4 mg IVPUSH Q8H PRN PRN Reason: nausea Sodium Chloride (0.9 % Sodium Chloride Flush 3 Ml Syringe) 3 ml IVFLUSH QSHIFT [facility] Last Admin: 05/23/24 07:17 Dose: Not Given Home Medications ?Medication ?Instructions ?Recorded ?Confirmed ?Last Taken ?Type dulaglutide 1.5 mg/0.5 mL 1.5 mg subcut TH@89906/24/23 05/22/24 05/19/24 History subcutaneous pen injector (Trulicity) insulin aspar prot-insulin aspart 20 unit subcut BEDTIME 06/24/23 05/22/24 Unknown History 100 unit/mL (70-30) subcutaneous pen (Novolog Mix 70-30FlexPen U-100) levothyroxine 137 mcg tablet 137 mcg PO DAILY@0600 06/24/23 05/22/24 05/22/24 09:00 [facility]/23 05/23/24 Unknown History Ultra Test strips) pen needle, diabetic 31 gauge x #1,200 ea 07/31/23 05/23/24 Unknown History 12/25 (Comfort Touch Pen Needle) insulin aspar prot-insulin aspart 25 unit subcut DAILY 05/22/24 05/22/24 05/22/24 09:00 History 100 unit/mL (70-30) subcutaneous pen (Novolog Mix 70-30FlexPen U-100) metformin 500 mg tablet 500 mg PO BID 05/22/24 05/22/24 05/22/24 09:00 History Exam Height,Weight and Vital Signs: Height 4 ft 11 in Weight 93.5 kg Last Vital Signs Temp 97.9 F 05/23/24 13:39 Pulse 74 05/23/24 13:39 Resp 18 05/23/24 13:39 BP 150/71 H 05/23/24 13:39 Pulse Ox 96 05/23/24 13:39 O2 Del Method Room Air 05/23/24 13:39 Pertinent Lab Results Pertinent Lab Results: Laboratory Tests 05/22/24 05/22/24 05/22/24 10:29 10:42 11:36 WBC 13.5 H RBC 4.71 Hgb 14.0 Hct 40.6 MCV 86.2 MCH 29.7 MCHC 34.5 RDW 12.9 Plt Count 266 MPV 10.1 Immature Gran % (Auto) 0.2 Neut % (Auto) 57.6 Lymph % (Auto) 34.9 [place] % (Auto) 5.2 Eos % (Auto) 1.8 Baso % (Auto) 0.3 Lymph # (Auto) 4.7 [place] # (Auto) 0.7 Eos # (Auto) 0.2 Baso # (Auto) 0.0 Abs Immat Gran (auto) 0.03 Absolute Neuts (auto) 7.8 Absolute Nucleated RBC 0.000 Nucleated RBC % (auto) 0.0 Sodium 136 Potassium 4.2 Chloride 107 Carbon Dioxide 18 L Anion Gap 15 BUN 9 Creatinine 0.72 Estim Creat Clear Calc 93.8 Estimated GFR > 60 POC Glucose Random Glucose 128 H Estimat Average Glucose 151 Hemoglobin A1c % 6.9 H Calcium 9.0 D Magnesium 1.9 Total Bilirubin 1.2 H Direct Bilirubin 0.2 AST 17 ALT 12 Alkaline Phosphatase 65 Total Protein 7.7 Albumin 4.0 Lipase 15 Urine Color Yellow Urine Appearance Clear Urine pH 5.5 Ur Specific [place] 1.025 Urine Protein Negative Urine Glucose (UA) Negative Urine Ketones Negative Urine Blood Negative Urine Nitrite Negative Ur Leukocyte Esterase Negative Urine Test NEGATIVE Influenza Type A (PCR) NEGATIVE Influenza Type B (PCR) NEGATIVE RSV RNA Qual (PCR) NEGATIVE SARS-CoV-2 RNA (RT-PCR) NEGATIVE 05/22/24 05/22/24 05/23/24 18:02 21:09 05:33 WBC 11.0 H RBC 4.35 Hgb 12.6 Hct 38.0 MCV 87.4 MCH 29.0 MCHC 33.2 RDW 13.0 Plt Count 220 MPV 10.6 Immature Gran % (Auto) Neut % (Auto) Lymph % (Auto) [place] % (Auto) Eos % (Auto) Baso % (Auto) Lymph # (Auto) [place] # (Auto) Eos # (Auto) Baso # (Auto) Abs Immat Gran (auto) Absolute Neuts (auto) Absolute Nucleated RBC 0.000 Nucleated RBC % (auto) 0.0 Sodium 140 Potassium 4.0 Chloride 106 Carbon Dioxide 26 Anion Gap 12 BUN 9 Creatinine 0.73 Estim Creat Clear Calc 94.2 Estimated GFR > 60 POC Glucose 108 82 Random Glucose 121 H Estimat Average Glucose Hemoglobin A1c % Calcium 8.6 Magnesium Total Bilirubin 0.9 Direct Bilirubin 0.3 AST 12 ALT 10 Alkaline Phosphatase 55 Total Protein 6.2 L Albumin 3.3 L Lipase Urine Color Urine Appearance Urine pH Ur Specific [place] Urine Protein Urine Glucose (UA) Urine Ketones Urine Blood Urine Nitrite Ur Leukocyte Esterase Urine Test Influenza Type A (PCR) Influenza Type B (PCR) RSV RNA Qual (PCR) SARS-CoV-2 RNA (RT-PCR) 05/23/24 05/23/24 05/23/24 07:01 10:59 13:38 WBC RBC Hgb Hct MCV MCH MCHC RDW Plt Count MPV Immature Gran % (Auto) Neut % (Auto) Lymph % (Auto) [place] % (Auto) Eos % (Auto) Baso % (Auto) Lymph # (Auto) [place] # (Auto) Eos # (Auto) Baso # (Auto) Abs Immat Gran (auto) Absolute Neuts (auto) Absolute Nucleated RBC Nucleated RBC % (auto) Sodium Potassium Chloride Carbon Dioxide Anion Gap BUN Creatinine Estim Creat Clear Calc Estimated GFR POC Glucose 130 H 108 100 Random Glucose Estimat Average Glucose Hemoglobin A1c % Calcium Magnesium Total Bilirubin Direct Bilirubin AST ALT Alkaline Phosphatase Total Protein Albumin Lipase Urine Color Urine Appearance Urine pH Ur Specific [place] Urine Protein Urine Glucose (UA) Urine Ketones Urine Blood Urine Nitrite Ur Leukocyte Esterase Urine Test Influenza Type A (PCR) Influenza Type B (PCR) RSV RNA Qual (PCR) SARS-CoV-2 RNA (RT-PCR) Narrative Narrative: right upper incisor/8/ is loose. 9 is missing Airway Mallampati Class: III TM Dist: >3cm Neck ROM: Full Heart: RRR Lungs: CTA Assessment and Plan Assessment Anesthesia Assessment: Anesthesia Plan Discussed and Chart Reviewed Final Anesthetic Review Family History of Problems with Anesthesia: No History of Problems with Anesthesia: No NPO: Yes ASA Class: III and Emergency Final Preanesthetic Review: Meds/Allgs Chart Reviewed, Consent Obtained/Reviewed and Anes Risks/Benef Reviewed Patient Risk: Intermediate Procedure Risk: Intermediate Anesthetic Plan Anesthetic Plan: GA Disposition: Standard PACU
--- NOTE | 2024-05-23 15:58 | W.PM.OPN ---
Operative Note Operative Note Date of Service: 05/23/24 Narrative: Preop diagnosis: gallstones, abdominal pain Postop diagnosis: Acute calculous cholecystitis Procedure: Laparoscopic cholecystectomy Surgeon: Zac Betts MD physician assistant psychiatry: CAMMY Almanza The patient is a 49-year-old female admitted yesterday because of right upper quadrant and epigastric pain. She was noted to have gallstones on imaging studies with has not acute cholecystitis. She wanted to proceed with cholecystectomy. She understood the technique of the planned procedure as was the risks, benefits, and alternatives. She was brought to the operating room. She was placed supine under general anesthesia via endotracheal tube. The abdomen was prepped and draped in the usual sterile fashion. A surgical time-out was done. The patient was receiving Zosyn IV I made a short supraumbilical incision using blade 15. This carried down through the full-thickness of the skin and subcutaneous fat down to the fascia. The fascia was incised. The peritoneum was entered. Through this incision [place] port was introduced. Pneumoperitoneum was introduced to a pressure of 15 mm Hg. From here on the rest of the procedure was done under vision with the 10 mm laparoscope. With laparoscopic visualization I inserted a 5/12 mm port in the epigastric area below the subcostal margin. Two 5 mm ports introduced a small incisions below the subcostal margin along the anterior axillary line in the midclavicular line. Graspers were placed through these working ports. The patient was placed in head up and [id number] position. The gallbladder was seen. This was distended with some erythematous changes. I was able to apply a grasper at the fundus and this was used to retract the gallbladder cephalad. By doing so was able to apply another grasper towards the pouch of the gallbladder to retract this laterally. The gallbladder was therefore being retracted in a cephalad and lateral fashion to put the area of the cystic duct on stretch. There was note of some thick external tissue surrounding the neck so I had to carefully stripped this off with the [place] dissector. By doing so was able to visualize the cystic duct and its confluence with the neck of the gallbladder. The common bile duct was seen distal to this. The patient therefore had a short cystic duct. I able to visualize the hepatocystic triangle. There were no other tubular structures. The cystic artery was seen. We critical view of the hepatocystic triangle achieved, I then applied clips on the cystic duct with 2 clips being applied distally. We stayed away from the common bile duct. The cystic duct was transected between clips with Endo scissors. I gently the inferior edge of the gallbladder from the rest of the hilum and the common bile duct. I was able to visualize the cystic artery. Clips were applied with 2 clips being applied distally and the cystic artery was transected between clips with Endo scissors I proceeded to use the hook electrocautery to divide the hilum until I reach the interface the gallbladder wall and the liver bed. I the gallbladder wall from the liver bed using a combination of electrocautery with the L hook as well as with blunt dissection using the elbow of the hook to carefully separate the gallbladder from the liver bed. I followed this plane of dissection. I continued to separate the gallbladder from the liver bed along this well-defined plane all the way to the fundus. There was note of a tear in the gallbladder wall with some leak of bile and stones I was able to eventually completely separate the gallbladder from the liver bed and this was retrieved with an endobag. There was some large stones that had spilled out I which were able to retrieve. There were no residual stones that appeared to have been left in the area. We therefore retrieved the gallbladder and the stones using the endobag through the umbilical incision. I reinserted all ports and re-insufflated I copiously irrigated the irrigant fluid was clear. I examined the subhepatic space. There was no evidence of any bleeding or any bile leak I examined all 4 quadrants. There was no evidence of any bowel injury I re-examined the subhepatic space and these remained hemostatic. I therefore desufflated the port sites. I removed all ports under vision with the laparoscope. I removed the umbilical port last The fascia of the umbilical incision was closed with a [id number] Polysorb 0 stitch. Skin closure was achieved on all incisions using Polysorb 4-0 subcuticular running sutures. All incisions were infiltrated with Marcaine 0.5% for postop analgesia. Steri-Strips and dressings were applied. The procedure was completed The patient tolerated procedure well. There were no immediate complications. Initial and final counts of sponges and instruments were correct. Estimated blood loss was about 50 cc The patient was extubated without difficulty and transferred to the recovery room with stable vital signs. With
[2024-05-23] MEDS: Acetaminophen 1,000 MG/100 ML PIGGYBACK 400 MG IV (16:26)
[2024-05-23] MEDS: fentaNYL citrate/PF 100 MCG/2 ML VIAL 25 MCG IVPUSH ×4 (16:36→16:51)
[2024-05-23] MEDS: oxyCODONE HCl Immed Release 5 MG TABLET PO (16:44)
[2024-05-23 17:26] LABS: Glucose, Whole Blood 118 mg/dL (60-115)
[2024-05-23] MEDS: Morphine Sulfate 4 MG/ML CARTRIDGE 2 MG IVPUSH ×2 (17:44→20:38)
--- NOTE | 2024-05-23 18:26 | PM.EVENT ---
Event Note Date of Service: 05/23/24 Event Note: Seen postop Appears to have adequate pain control Underwent laparoscopic cholecystectomy earlier Stable vital signs Looks comfortable Pain management Likely DC home tomorrow Time Spent With Patient Time: Total time managing care of this patient today ____ minutes.
[2024-05-23 20:46] LABS: Glucose, Whole Blood 143 mg/dL (60-115)
[2024-05-23] MEDS: 0.9 % Sodium Chloride Flush 3 ML SYRINGE IVFLUSH (21:24)
[2024-05-24 03:24] VITALS: BP 146/69; PULSE 83; RESP 16; TEMP 36.2; O2SAT 97
[2024-05-24] MEDS: Morphine Sulfate 4 MG/ML CARTRIDGE 2 MG IVPUSH (03:43)
[2024-05-24] MEDS: Piperacillin Sodium/Tazobactam 3.375 GM in 0.9 % Sodium Chloride 50 ML IV ×2 (03:45→08:26)
[2024-05-24 04:10] VITALS: RESP 16
[2024-05-24] MEDS: Levothyroxine Sodium 112 MCG, Levothyroxine Sodium 25 MCG 137 MCG PO (06:31)
[2024-05-24] MEDS: Lactated Ringers 1,000 ML 80 ML IVCONT (06:32)
[2024-05-24 06:50] VITALS: BP 143/64; PULSE 82; RESP 16; TEMP 36.6; O2SAT 96
[2024-05-24 07:09] LABS: Glucose, Whole Blood 142 mg/dL (60-115)
--- NOTE | 2024-05-24 07:42 | P.PNGS_ITS ---
Subjective Subjective Date of Service: 05/24/24 <Thalai Almanza PA-C - Last Filed: 05/24/24 07:45> 05/24/24 <Zac Betts MD - Last Filed: 05/24/24 10:34> Interval history: Feels well this morning. Some mild incisional pain but comfortable and able to ambulate. Had some nausea last night, now resolved. <Thalia Almanza PA-C - Last Filed: 05/24/24 07:45> Physical Exam 2 Vital Signs: Vital Signs: Last Vital Signs Temp 98 F 05/24/24 06:50 Pulse 82 05/24/24 06:50 Resp 16 05/24/24 06:50 BP 143/64 H 05/24/24 06:50 Pulse Ox 96 05/24/24 06:50 O2 Del Method Nasal Cannula 05/24/24 06:50 O2 Flow Rate 2 05/24/24 06:50 BMI result Body Mass Index 41.6 <Thalia Almanza PA-C - Last Filed: 05/24/24 07:45> Const: General: comfortable, no acute distress and alert <Thalia Almanza PA-C - Last Filed: 05/24/24 07:45> Orientation/consciousness: patient oriented x3 <JONATHAN Jung Last Filed: 05/24/24 07:45> Resp: Effort & Inspection: normal respiratory effort <Thalia Almanza PA-C - Last Filed: 05/24/24 07:45> GI: Inspection: No distended and Yes incision (dressing clean and intact) <Thalia Almanza PA-C - Last Filed: 05/24/24 07:45> Palpation (GI): Soft to palpation, Tenderness to palpation present (GI) (mild incisional) and no guarding <JONATHAN Jung Last Filed: 05/24/24 07:45> Skin: General skin exam: no rashes or lesions noted <JONATHAN Jung Last Filed: 05/24/24 07:45> Neuro: General: patient oriented x3 and moves all extremities <JONATHAN Jung Last Filed: 05/24/24 07:45> Objective Data Active Medications Acetaminophen (Acetaminophen 325 Mg Tablet) 650 mg PO Q6H PRN PRN Reason: Pain, Mild (Pain Scale 1-3), fever or headache Acetaminophen (Acetaminophen 325 Mg Tablet) 650 mg PO Q6H PRN PRN Reason: Headache Last Admin: 05/23/24 08:34 Dose: 650 mg Documented By: ERVIN Albuterol Sulfate (Albuterol Sulfate 90 Mcg 8 Gm Inhaler) 2 puff INHALE Q4H PRN PRN Reason: wheezing Calcium Carbonate (Calcium Carbonate 750 Mg Tab.Chew) 750 mg PO Q4H PRN PRN Reason: Heartburn Glucose (Glucose Gel 15 Gm Gel..Gram.) 15 gm PO Q15M PRN; Protocol PRN Reason: per Hypoglycemia Standing Ord. Heparin Sodium (Porcine) (Heparin Sodium,Porcine 5,000 Unit/Ml Vial) 5,000 unit SUBCUT Q8H [facility] Lactated Ringer's (Lr) 1,000 mls @ 80 mls/hr IVCONT .[id number] [facility] Last Infusion: 05/24/24 07:21 Dose: Infused Documented By: AURA Piperacillin Sod/Tazobactam (Sod 3.375 gm/ Sodium Chloride) 50 mls @ 100 mls/hr IV Q6H [facility] Last Infusion: 05/24/24 05:54 Dose: Infused Documented By: NICANOR Dextrose (D10) 250 mls @ 750 mls/hr IV Q15M PRN; Protocol PRN Reason: per Hypoglycemia Standing Ord. Acetaminophen (Ofirmev) 1,000 mg in 100 mls @ 400 mls/hr IV ONCE PRN PRN Reason: Pain, Mild (Pain Scale 1-3) Last Infusion: 05/23/24 17:20 Dose: Infused Documented By: ERVIN Insulin Human Lispro (Insulin Lispro 100 Unit/Ml 3 Ml Vial) 0 unit SUBCUT QIDACHS [facility]; Protocol Last Admin: 05/24/24 07:15 Dose: Not Given Documented By: AURA Non-Admin Reason: No Insulin Coverage Levothyroxine Sodium 112 mcg/ (Levothyroxine Sodium 25 mcg) 137 mcg PO DAILY@0600 [facility] Last Admin: 05/24/24 06:31 Dose: 137 mcg Documented By: NICANOR Comments: scanner not working Melatonin (Melatonin 3 Mg Tablet) 6 mg PO BEDTIME PRN PRN Reason: Insomnia Morphine Sulfate (Morphine Sulfate 4 Mg/Ml Cartridge) 2 mg IVPUSH Q3H PRN; Protocol PRN Reason: Pain, Severe (Pain Scale 7-10) Last Admin: 05/24/24 03:43 Dose: 2 mg Documented By: NICANOR Ondansetron HCl (Ondansetron Hcl 4 Mg/2 Ml Vial) 4 mg IVPUSH Q8H PRN PRN Reason: nausea Oxycodone HCl (Oxycodone Hcl Immed Release 5 Mg Tablet) 10 mg PO Q4H PRN PRN Reason: Pain, Moderate(Pain Scale 4-6) Sodium Chloride (0.9 % Sodium Chloride Flush 3 Ml Syringe) 3 ml IVFLUSH [facility] Last Admin: 05/23/24 21:24 Dose: 3 ml Documented By: DINAH <Thalia Almanza PA-C - Last Filed: 05/24/24 07:45> Labs CBC & Chem 7: 05/23/24 05:33 05/23/24 05:33 <Thalia Almanza PA-C - Last Filed: 05/24/24 07:45> Labs: Laboratory Results - last 24 hr 05/23/24 05/23/24 05/23/24 05:33 10:59 13:38 Anion Gap 12 Estim Creat Clear Calc 94.2 Estimated GFR > 60 POC Glucose 108 100 Random Glucose 121 H Calcium 8.6 Total Bilirubin 0.9 Direct Bilirubin 0.3 AST 12 ALT 10 Alkaline Phosphatase 55 Total Protein 6.2 L Albumin 3.3 L 05/23/24 05/23/24 05/24/24 17:21 20:43 07:02 Anion Gap Estim Creat Clear Calc Estimated GFR POC Glucose 118 H 143 H 142 H Random Glucose Calcium Total Bilirubin Direct Bilirubin AST ALT Alkaline Phosphatase Total Protein Albumin <Thalia Almanza PA-C - Last Filed: 05/24/24 07:45> Procedures Date of Service Date of Service: 05/24/24 <Thalia Almanza PA-C - Last Filed: 05/24/24 07:45> 05/24/24 <Zac Betts MD - Last Filed: 05/24/24 10:34> Progress Note: A&P Assessment and plan (1) S/P laparoscopic cholecystectomy: Status: Acute <Thalia Almanza PA-C - Last Filed: 05/24/24 07:45> Assessment and Plan: Seems to have adequate pain control Tolerating diet well Looks well Stable vital signs Okay for discharge today Follow up instructions reinforced with patient Seen and examined independently <Zac Betts MD - Last Filed: 05/24/24 10:34> Assessment and Plan: POD #1 s/p lap steffi. Doing well post op. Had some nausea with dinner last night. VSS. Abd exam benign with appropriate post op tenderness, cleana nd intact dressings. Will reassess after breakfast. If tolerating solid diet and remains comfortable, stable for dc to home today. F/u in office in 2 weeks. Patient comfortable with plan. <Thaila Almanza PA-C - Last Filed: 05/24/24 07:45> Time Spent With Patient Time: Total time managing care of this patient today ____ minutes. <Thalia Almanza PA-C - Last Filed: 05/24/24 07:45> Quality Stroke Does the patient have a stroke diagnosis?: No <Thalia Almanza PA-C - Last Filed: 05/24/24 07:45> VTE Prior VTE?: No <Thalia Almanza PA-C - Last Filed: 05/24/24 07:45> VTE Risk Level:: Medical - moderate - high <Thalia Almanza PA-C - Last Filed: 05/24/24 07:45> VTE Device Contraindication: N/A - Device Ordered <Thalia Almanza PA-C - Last Filed: 05/24/24 07:45> VTE Drug Contraindication: N/A - Med Ordered <Thalia Almanza PA-C - Last Filed: 05/24/24 07:45>
[2024-05-24] MEDS: Heparin Sodium,Porcine 5,000 UNIT/ML VIAL 5000 UNIT SUBCUT (08:25)
[2024-05-24] MEDS: 0.9 % Sodium Chloride Flush 3 ML SYRINGE IVFLUSH (08:26)
[2024-05-24] MEDS: oxyCODONE HCl Immed Release 5 MG TABLET 10 MG PO (08:38)
--- NOTE | 2024-05-24 08:44 | HO.POSTANES ---
Post Anesthesia Evaluation Post Anesthesia Evaluation Date of Service: 05/23/24 Vital Signs: Vital Signs Temp Pulse Resp BP Pulse Ox O2 Del Method O2 Flow Rate 05/24/24 06:50 98 F 82 16 143/64 H 96 Nasal Cannula 2 05/24/24 04:10 16 05/24/24 03:24 97.2 F 83 16 146/69 H 97 Nasal Cannula 2 05/23/24 23:46 97.6 F 76 18 168/78 H 94 Nasal Cannula 2 05/23/24 21:08 18 Anesthesia: General Mental Status: Awake Pain Control: Satisfactory Nausea/Vomiting: None Hydration: Adequate Anesthesia-Related Issues: No Anes. Related Issues
[2024-05-24 11:14] LABS: Glucose, Whole Blood 158 mg/dL (60-115)
--- NOTE | 2024-05-24 11:22 | P.DS_ITS ---
DS: Providers Provider Date of Service: 05/24/24 Date of admission: 05/22/24 14:33 Date of discharge: 05/24/24 Primary care physician: Yuniel Grewal MD Attending physician on admission: Zac Betts Consults: 05/22/24 14:40 Consult to Hospitalist Routine Comment: Consulting Provider: Hospitalist Reason For Exam: DM, asthma Attending physician on discharge: Zac Betts DS: Diagnosis Discharge Diagnosis (1) S/P laparoscopic cholecystectomy: Status: Acute DS: Summary Hospital Course Hospital Course: HPI AT ADMISSION: Alina Adamson is a 49 year old female with obesity, DM and HTN here in the ED for abdominal pain. She says she has had this for about 3 days now. She describes this as mostly on the epigastric area and RUQ, although this is felt on the entire upper abdomen. She describes some nausea and vomitting today as well. She denies any fever or chills. She feels that her pain is worsened by meals. She says her blood sugars are well controlled. She has had a hx of Csection but no other abdominal surgery. US and CT scan show gallstones with findings equivocal for acute cholecystitis. HOSPITAL COURSE: The patient was admitted to the surgical service for further treatment of the possible early acute cholecystitis. She was started on IVF and IV abx. Treatment options were discussed. She elected to proceed with laparoscopic cholecystectomy, possible open the following day. She was added onto the OR schedule. On 05/23/24, a laparoscopic cholecystectomy was performed by Dr. Betts without complication. The patient tolerated the procedure well. She had an uncomplicated recovery course. On POD #1, she felt well and was tolerating a solid diet without nausea or vomiting, had good pain control and was ambulating without difficulty. She was hemodynamically stable. Her abdomen was benign with appropriate post op tenderness and clean and intact dressings. She felt ready for discharge. She was discharged to home on 05/24/24 in stable condition. She is to follow up in the office in 2 weeks. Status at Discharge Functional status at discharge: independent ambulation Overall status at discharge: patient is progressing back to baseline Time Attestation Discharge Coordination Time (in mins): 30 Quality: Safe Use of Opioids Does Pt have an Active Cancer Diagnosis on the Problem List?: No Quality: Stroke Does the patient have a stroke diagnosis?: No Physical Exam Vital Signs: Vital Signs: Last Vital Signs Temp 98 F 05/24/24 06:50 Pulse 82 05/24/24 06:50 Resp 16 05/24/24 06:50 BP 143/64 H 05/24/24 06:50 Pulse Ox 96 05/24/24 06:50 O2 Del Method Nasal Cannula 05/24/24 06:50 O2 Flow Rate 2 05/24/24 06:50 BMI result Body Mass Index 41.6 Const: General: comfortable, no acute distress and alert Orientation/consciousness: patient oriented x3 Resp: Effort & Inspection: normal respiratory effort GI: Inspection: No distended and Yes incision (dressings clean and intact) Palpation (GI): Soft to palpation, Tenderness to palpation present (GI) (mild incisional) and no guarding Skin: General skin exam: no rashes or lesions noted and no jaundice Neuro: General: patient oriented x3 and moves all extremities DS: Data Data Completed and Pending Pending studies at discharge: Pending at discharge 05/23/24 15:29 Surgical [PTH] Routine Labs on day of discharge: Laboratory Results - last 24 hr 05/23/24 05/23/24 05/23/24 13:38 17:21 20:43 POC Glucose 100 118 H 143 H 05/24/24 05/24/24 07:02 11:11 POC Glucose 142 H 158 H Discharge Plan Discharge Anticipated Discharge Date/Time: 05/24/24 10:49 Patient Disposition: Home, Self-Care Discharge Diagnosis: acute appendicitis Referrals: Yuniel Grewal MD [Primary Care Provider] - 1 Week Zac Betts MD [Physician] - 2 Weeks Discharge Medications: New oxycodone 5 mg tablet 5 mg PO Q4H PRN (Reason: pain (scale score 7-10)) Qty: 24 0RF Rx Instructions: Partial Fill upon patient request. docusate sodium [Colace] 100 mg capsule 100 mg PO BID Qty: 30 0RF Continued metformin 500 mg tablet 500 mg PO BID insulin asp prt-insulin aspart [Novolog Mix 70-30FlexPen U-100] 100 unit/mL (70-30) insulin pen 25 unit subcut DAILY (DME) OneTouch Ultra Test Strip See Rx Instructions .ROUTE .MEDSUPPLY Qty: 10 Rx Instructions: As directed (DME) pen needle, diabetic [Comfort Touch Pen Needle] 31 gauge x 3/16 needle See Rx Instructions .ROUTE .MEDSUPPLY Qty: 1200 Rx Instructions: As directed Trulicity 1.5 mg/0.5 mL pen injector 1.5 mg subcut TH@0900 insulin asp prt-insulin aspart [Novolog Mix 70-30FlexPen U-100] 100 unit/mL (70-30) insulin pen 20 unit subcut BEDTIME levothyroxine 137 mcg tablet 137 mcg PO DAILY@0600 Discharge Orders: Discharge Order (Routine); Ordered 05/24/24 Ordered By: Thalia Almanza Diet: Diabetic diet Activity on Discharge: No heavy lifting Stand Alone Forms: Patient Portal Discharge page Print Language: Persian Activity Restrictions/Additional Instructions: If the incision area is tender, you may apply an ice pack for short intervals (No more than 20 minutes on, followed by at least 20 minutes off). Do not apply heat. Do not use creams, lotions, or topical antibiotics. These can cause infection or allergic reaction. Ok to shower 24 hours after your surgery. Remove bandaids in 2 days and replace. You have steri strips (small white cloth strips) covering your incision- these will fall off ~1 week. Follow up in office with Dr. Betts in 2 weeks. ([phone]) No heavy lifting (>10-20lbs) or strenuous activity! Call Your Doctor If: -Your temperature exceeds 101.5? F -You experience excessive pain or swelling -You have an unexpected reaction to medication -You have excessive bleeding -You experience continued vomiting/nausea -Your incision begins to separate -Your incision shows signs of infection such as increased redness, swelling, excessive pain, drainage (light blood or clear fluid is normal) or heat Care Plan Goals: Return to baseline health and resume normal activities following recovery period. Health Concerns: acute cholecystitis diabetes mellitus Plan of Treatment: s/p laparoscopic cholecystectomy f/u in office in 2 weeks pain control Assessment: Doing well post op
[2024-05-24] MEDS: Insulin Lispro 100 UNIT/ML 3 ML VIAL SUBCUT (11:29)
--- NOTE | 2024-05-24 12:58 | MHC.CM.PN ---
Pt is medically cleared for discharge home self-care via family transport.
== END 2024-05-24 14:16 | disposition home or self-care (01) | DRG 263 ==
LOC: HO.ED 14:37 → HO.EDOVER 14:47 → HO.S3 19:55
PROVIDERS: Family Medicine; Admitting Provider Surgery; Emergency Provider Emergency Medicine; PCP Internal Medicine Medical Oncology; Visit Provider Surgery
PROC: 0FT44ZZ Resection of Gallbladder, Percutaneous Endoscopic Approach (ICD-10-PCS; CPT 47562; principal; 2024-05-23 14:00)
DX: K80.00 Calculus of gallbladder with acute cholecystitis without obstruction (principal); E03.9 Hypothyroidism, unspecified; E11.9 Type 2 diabetes mellitus without complications; I10 Essential (primary) hypertension; E66.01 Morbid (severe) obesity due to excess calories; Z68.41 Body mass index [BMI] 40.0-44.9, adult; Z20.822 Contact with and (suspected) exposure to COVID-19; Z79.4 Long term (current) use of insulin; Z79.84 Long term (current) use of oral hypoglycemic drugs; Z79.85 Long-term (current) use of injectable non-insulin antidiabetic drugs; Z79.890 Hormone replacement therapy
CPT/HCPCS: 47562; 0241U; 36415; 74177; 76705; 80048; 80076; 81003; 81025; 82947; 83036; 83690; 83735; 85025; 85027; 88304; 99221; 99285; J0131; J1100; J1644; J1885; J2250; J2270; J2405; J2543; J2704; J2795; J3010; J7120; Q9967

== ENCOUNTER → 2024-05-22 14:33 | Outpatient (BNV) | payer OTHER, SELFPAY | PROVIDERS: Admitting Provider Surgery; Emergency Provider Emergency Medicine; PCP Internal Medicine Medical Oncology; Visit Provider Surgery | DX: Z90.49 Acquired absence of other specified parts of digestive tract (principal) | CPT/HCPCS: 47562; 99024; 99222; 99499 ==

== ENCOUNTER → 2024-05-22 14:33 | Outpatient (BNV) | payer OTHER, SELFPAY | PROVIDERS: Admitting Provider Surgery; Emergency Provider Emergency Medicine; PCP Internal Medicine Medical Oncology; Visit Provider Family Medicine | DX: E11.9 Type 2 diabetes mellitus without complications (principal); Z79.4 Long term (current) use of insulin; E03.9 Hypothyroidism, unspecified; K80.50 Calculus of bile duct without cholangitis or cholecystitis without obstruction | CPT/HCPCS: 99222 ==

== ENCOUNTER 2024-06-06 13:38 | Outpatient (AMB) | payer OTHER, SELFPAY ==
--- NOTE | 2024-06-06 13:53 | MHC.OFFVIS ---
Vital Signs 06/06/24 13:56 Height 4 ft 11 in Weight 200 lb BMI 40.4 BP 177/81 H Blood Pressure Location Lt brachial Position Sitting Intake Visit Reasons: Laparoscopic cholecystectomy Intake Note: This patient presents for post-op assessment status post Laparoscopic cholecystectomy. Pt c/o; denies any concerns at the time of visit Surgery: Lap steffi 05/23/2024 Tax Manager Cpa Required: No Accompanied by: Self / Same As Patient Allergies No Known Allergies Allergy (Verified 06/06/24 13:56) HPI HPI Laparoscopic cholecystectomy: Details: 49-year-old female here for postop visit. She underwent laparoscopic cholecystectomy as an inpatient for acute cholecystitis last 05/23/2024. She tolerated procedure well. She was discharged on postop day 1. She is doing well at home. She has good oral intake. She denies significant complaints. [facility] Medical History Gallstones Morbid obesity Hypothyroidism HTN (hypertension) Diabetes Surgical History History of laparoscopic cholecystectomy (~05/23/24) Hx of section Family History Father Thyroid disease Hepatitis HTN (hypertension) Diabetes Mother Kidney disease Coronary artery disease Renal failure Maternal Aunt Breast CA Social History Household Members: Family Housing: House Do you presently have visiting nurse or other home services: No Alcohol intake: never Patient Tobacco Use Status: Never used Tobacco Second Hand Smoke Exposure: No service: No Current occupational status: employed 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 Female Reproductive History Menstrual Age of Menarche: 15 Review of Systems Const Denies chills and Denies fever(s) Card Denies chest pain, Denies dyspnea and Denies dyspnea on exertion Resp Denies cough, Denies dyspnea and Denies dyspnea on exertion GI Denies hematochezia and Denies change in bowel habits Denies hematuria Musc Denies back pain and Denies limited range of motion Neuro Denies focal weakness and Denies convulsions Psych Denies depression and Denies mood swings Physical Exam Vital Signs: Last Vital Signs BP 177/81 H 06/06/24 13:56 BMI result Body Mass Index 40.4 Const Other: Obese General: comfortable and no acute distress Eyes Other: Anicteric Cardio Rate: regular rate GI Other: All incisions are well healed Palpation (GI): Soft to palpation, not firm and nontender Assessment & Plan Assessment & Plan (1) S/P laparoscopic cholecystectomy: Code(s): Z90.49 - Acquired absence of other specified parts of digestive tract Category: Surgical Plan: She is doing well postoperatively. All incisions are well healed. She has good oral intake. She was advised to avoid any lifting more than 20 lb for about 2 more weeks. She can otherwise follow up on a p.r.n. basis. Coding Level of Care Code Global (40049) Diagnoses S/P laparoscopic cholecystectomy Z90.49
[2024-06-06 13:56] VITALS: BP 177/81; BMI 40.4
== END 2024-06-06 14:09 | disposition home or self-care (01) ==
PROVIDERS: PCP Internal Medicine Medical Oncology; Visit Provider Surgery
DX: Z90.49 Acquired absence of other specified parts of digestive tract (principal)
CPT/HCPCS: 99024

== ENCOUNTER → 2024-06-06 13:38 | Outpatient (BNVA) | payer OTHER, SELFPAY | PROVIDERS: PCP Internal Medicine Medical Oncology; Visit Provider Surgery ==

== ENCOUNTER 2024-09-16 16:40 | Outpatient (REF) | payer OTHER, SELFPAY ==
--- NOTE | ~2024-09-16 | XR_ITS ---
EXAMINATION: XR CERVICAL SPINE CLINICAL INFORMATION: neck pain COMPARISON: None available. TECHNIQUE: 5 views of the cervical spine, inclusive of oblique views, were obtained. FINDINGS: Cervical spine maintains normal alignment. Vertebral body heights and intervertebral disc spaces are maintained. There are large anterior osteophytes at C2-C3 and C5-C6. No significant foraminal stenosis. XR/XR cervical spine 4V IMPRESSION: Mild degenerative disease of the cervical spine. Electronically signed by: Elda Warren MD 09/16/2024 08:42 PM ANDREE GORMAN
--- OUTSIDE RECORDS SUMMARY | 2024-09-21 11:23 | XMS_ITS ---
Author Organization Yuniel Grewal III, MD Address [address] [place] [address] Care Team Providers Care Deicer Repairer Electric Name Role Phone Yuniel Grewal Primary Care Provider [phone] Allergies Allergen (clinical drug ingredient) Drug/Non Drug [...] ONCE A WEEK 28 DAYS Active Pen [place] 31G X 6 MM as directed Twice [...] Date Provider Diagnosis Yuniel Grewal III, MD [address] [place] [address] [place] [address] 06/10/2024 Yuniel Grewal Acute cholecystitis K81.0 Assessments Encounter Date Diagnosis (ICD Code) Assessment Notes Treat ment Notes Treatment Clinical Notes 06/10/2024 Acute cholecystitis (ICD-10 - K81.0) After a few days of abdominal pain she went to the emergency room at [facility] May 22, 2024 and the next [...] SUBCUTANEOUS ONCE A WEEK 28 DAYS Pen [place] 31G X 6 MM as directed Twice [...] day 05/05/2023 Next Appt Details Provider Name:Yuniel Grewal, 09/30/2024 04:00:00 PM, [address] [place] [address] [address], [place], [phone], Provider Name:Yuniel Grewal, 09/18/2025 03:30:00 PM, [address] [place] [address] [address], [place], [phone], Progress Notes * Alina ALVAREZDOB:1975 (49 yo F)Acc No.[id number]:06/10/2024 Progress Notes Patient:?Alina ALVAREZ Provider:?Yuniel Grewal MD :1975???Age:49 Y???Sex:Female D ate:06/10/2024 Address:[address] [place], [place] [id number] Subjective: * Chief Complaints: * ???1. Follow up. * HPI: ???COVID-19 Screening:?Questions?Have you experienced fever, chills, cough, sore throat, shortness of breath, difficulty breathing, muscle aches, loss of taste or smell??No ?Have you been exposed to the virus within the last 10 days??No ?Have you travelled internationally in the last 10 days??No ?Have you been exposed to COVID-19 in the past??No * ROS:?General/Constitutional:?pain?only normal aches and pains.?Chills?denies.?Fatigue?admits.?Fever?denies.?ENT:?Decreased hearing?denies.?Respiratory:?Cough?denies.?Cardiovascular:?Chest pain with exertion?denies.?Dyspnea on exertion?denies.?Shortness of breath?denies.?Gastrointestinal:?Constipation?denies.?Decreased appetite?denies.?Diarrhea?denies.?Heartburn?denies.?Nausea?denies.?Rectal bleeding?denies.?Vomiting?denies.?Hematology:?bruising?denies.?petechiae?denies.?Swollen glands?none have been noted.?Genitourinary:?Frequent urination?denies.?Musculoskeletal:?Muscle aches?denies.?Painful joints?denies.?Sciatica?denies.?Weakness?denies.?Skin:?Itching?denies.?Rash?denies.?Skin lesion(s)?denies.?Neurologic:?Difficulty speaking?denies.?Dizziness?denies.?Headache?denies.?Low back pain?denies.?Psychiatric:?Depressed mood?denies.? * Medical History:?Hypothyroid , HTN (hypertension), Anemia, Asthma, [id number], Chronic lumbar back pain, Adult onset diabetes mellitus, Shingles February 2023. Left flank, Atypical chest pain, Family history of breast cancer, sister, Former smoker, Morbid obesity, Acute cholecystitis May 22, 2024. * Surgical History:? 1999, C1Y6Pd1 , Laparoscopic cholecystectomy [facility] Dr. Betts . * Hospitalization/Major Diagno stic Procedure:?Denies Past Hospitalization. * Family History:?Father: aliv e 65 yrs, thyroid disease, hepatitis, diabetes, diagnosed with HTN, DM.?Mother: 66 yrs, Chronic kidney disease, coronary artery disease, renal failure, diagnosed with HTN, CVD.?Children: alive.?Paternal Grand Father: , diagnosed with DM.?Paternal Grand Mother: unknown.?Maternal Grand Father: unknown.?Maternal Grand Mother: . Paternal uncle: , diagnosed with DM.?Paternal aunt: alive, cancer, Unknown.?Maternal uncle: alive, diagnosed with CVD.?Maternal aunt: , 2 of mther sister had breast cancer (), diagnosed with Cancer.?1 brother(s) - healthy. 1 son(s) - healthy. .? Her mother of chronic renal failure and [...] who is healthy and well. * Social History:?Tobacco Use:?Tobacco Use/Smoking?Patient is a?former smoker ?How long has it been since you last smoked??> 10 years ?Additional Findings: Tobacco Non-User?Ex-cigarette smoker * Medications:?Taking Trulicit y 1.5 MG/0.5ML Solution Pen-injector INJECT 1.5mg DIRECTED [...] sugars twice a day , Taking Pen [place] 31G X 6 MM Miscellaneous as directed Twice a day 30 days , Taking BD Pen Needle Micro U/F 32G X 6 MM Miscellaneous as directed - use to inject 25 unit in morning and 20 units in evening , Medication List reviewed and reconciled with the patient * Allergies:?Shellfish-derived Products. Objective: * Vitals:? * Examination: ???General Examination: ?GENERAL APPEARANCE:?pleasant, well nourished, well developed, in no acute distress, calm and relaxed.?HEAD:?atraumatic, normocephalic.?EYES:?eomi, perrla, anicteric, conjugate.?EARS:?normal.?NOSE:?septum intact.?ORAL CAVITY:?normal, unremarkable.?NECK/THYROID:?no jugular venous distention, no carotid bruit, thyroid normal.?LYMPH NODES:?no enlarged lymph nodes,spleen normal.?SKIN:?no suspicious lesions, anicteric.?HEART:?no clicks, gallops, murmurs, or rubs, regular rhythm, S1, S2 normal, no s3, or vascular bruits.?LUNGS:?clear to auscultation .?BREASTS:??no masses palpable bilaterally.?ABDOMEN:?bowel sounds normal, no ascites, no organomegaly, no mass.?RECTAL EXAM:?not examined.?MUSCULOSKELETAL:?extremities unremarkable, no clubbing, cyanosis or edema.?PERIPHERAL PULSES:?normal.?NEUROLOGIC:?alert and oriented, cranial nerves 2-12 grossly intact, deep tendon reflexes 2+ symmetrical, motor strength normal upper and lower extremities, sensory exam intact.?PSYCH:?alert, oriented.? Assessment: * Assessment: 1.?Acute cholecystitis - K81 .0???Notes :After a few days of abdominal pain she went to the emergency room at [facility] May 22, 2024 and the next day had a cholecystectomy. She is now recovering well at home.??? Plan: * Treatment: 2.?Others? Continue BD Pen Needle Micro U/F Miscellaneous, 32G X 6 MM, as directed, -, use to inject 25 unit in morning and 20 units in evening.?? * Images: * The named appointment provid er may or may not be the originator of this progress note, and it is not deemed complete until electronically signed by the appointment provider. Sign off status: Pending * Provider:?Yuniel Grewal MD Date:?05/14 Generated for Josy shine/Mirtha/Reggieitting on:?09/21/2024 11:23 AM EST History and Physical Notes * [...]
--- OUTSIDE RECORDS SUMMARY | 2024-09-21 11:23 | XMS_ITS ---
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 Name Role Phone Yuniel Grewal Primary Care Provider [phone] Allergies Allergen (clinical drug ingredient) Drug/Non Drug [...] 0.2 - 1.3 BLD +++ Negative - XR cervical spine 4V (Not ye t reviewed by provider) Interpretation: Performing Lab: Notes/Report: [address] [address] XRay Report Signed Patient: Alina Alvarez MR#: [id number] 7 : 1975 Acct:[id number] Age/Sex: 49 / F ADM Date: 09/16/24 Loc: [facility]OSHER[facility] Attending Dr: Yuniel Grewal MD Ordering Physician: Yuniel Grewal MD Date of Service: 09/16/24 Procedure(s): XR cervical spine 4V Accession Number(s): [id number] cc: Yuniel Grewal MD EXAMINATION: XR CERVICAL [...] in OV> 09/16/242041 DD/ 49 TD/TT: 09/16/24 170 [address] Thinner: NIKHIL [place] [phone] XRay Report Signed Patient: Opal Alvarez MR#: [id number] 7 : 1975 Acct:[id number] Age/Sex: 49 / F ADM Date: 09/16/24 Loc: [facility] Attending Dr: Yuniel Grewal MD Ordering Physician: Yuniel Grewal MD Date of Service: 09/16/24 Procedure(s): XR cer vical spine 4V Accession Number(s): [id number] cc: Yuniel Grewal MD EXAMINATION: XR CERVICAL SPINE CLINICAL INFORMATION: neck pain COMPARISON: None available. TECHNIQUE: 5 views of the cervi diana spine, inclusive of oblique views, were obtained. FINDINGS: Cervical spine maint ains normal alignment. Vertebral body heights and intervertebral disc spaces are maintained. There are large anterior osteophytes at C2-C3 and C5-C6. No significant foraminal stenosis. X R/XR cervical spine 4V IMPRESSION: Mild degenerative di sease of the cervical spine. Electronically stephanie d by: Elda Warren MD 09/16/2024 08:42 PM EST RP Dictated By: Elda Warren MD Signed By: <Electron ically signed by Elda Warren MD in OV> 09/16/242041 DD/ 49 TD/TT: 09/16/24 1700 Weed Thinner: NIKHIL Reason For Referral Reason Evaluate and [...] and progress note faxed. Referral Priority Routine REASON FOR VISIT Annual Exam Medications Medication [...] sugars twice a day 05/05/2023 Active [place] 31G X 6 MM as directed [...] has it been since you last smoked? Arianne ter than 10 years Additional Findings: Tobacco [...] Date Provider Diagnosis Yuniel Grewal III, MD [address] [place] [address] [place] [address] 09/16/2024 Yuniel Grewal Diabetes E11.9 ; Morbid [...] blood sugars twice a day 05/05/2023 [place] 31G X 6 MM as directed [...] C) 09/16/2024 CBC WITH AUTO DIFF 09/16/2024 Ferritin 09/16/2024 Lipid Panel 09/16/2024 Microalbumin, Random 09/16/2024 XR cervical spine 4V 09/16/2024 Hemoglobin A1c 09/16/2024 Referrals Referral Date Details 09/16/2024 09/16/2024, Evaluate and Treat Screen for Colon Cancer, [facility] VELAR[facility] Next Appt Details Follow Up: 2 Weeks, Two week s after blood work, Reason: OV, Review blood work results Provider Name:Yuniel Grewal, 09/30/2024 04:00:00 PM, [address] [place] [address] [address], [place], [address], Provider Name:Yuniel Grewal, 09/18/2025 03:30:00 PM, [address] [place] [address] [address], [place], [address], Progress Notes * ALVAREZ ShreemarilouDOB:1975 (49 yo F)Acc No.[id number]:09/16/2024 Progress Notes Patient:?Alina ALVAREZ Provider:?Yuniel Grewal MD :1975???Age:49 Y???Sex:Female D ate:09/16/2024 Address:[address] [place], [place] [id number] Subjective: * Chief Complaints: * ???Annual Exam * HPI: ???Depression Screening:?PHQ-9?Little interest or pleasure in doing things?Nearly every day ?Feeling down, depressed, or hopeless?More than half the days ?Trouble falling or staying asleep, or sleeping too much?Several days ?Feeling tired or having little energy?Nearly every day ?Poor appetite or overeating?Several days ?Feeling bad about yourself or that you are a failure, or have let yourself or your family down?Not at all ?Trouble concentrating on things, such as reading the newspaper or watching television?Not at all ?Moving or speaking so slowly that other people could have noticed; or the opposite, being so fidgety or restless that you have been moving around a lot more than usual?More than half the days ?Thoughts that you would be better off or of hurting yourself in some way?Several days (Consider Suicide Assessment Risk) ?Total Score?13 ?Interpretation?Moderate Depression ???COVID-19 Screening:?Questions?Have you experienced fever, chills, cough, sore throat, shortness of breath, difficulty breathing, muscle aches, loss of taste or smell??No ?Have you been exposed to the virus within the last 10 days??No ?Have you travelled internationally in the last 10 days??No ?Have you been exposed to COVID-19 in the past??Yes ???SDOH Questions:?SDOH Questions?In the past year have you been worried about losing your housing??No ?In the past year have you or any family members you live with been unable to get any of the following when it was really needed? Check all that apply:?Medicine or Healthcare ???:?The patient, a 49-year-old female, presented for her [...] pain with range of motion of the neck.? X-rays of the cervical spine done today show significant anterior bone spurs but no spinal stenosis. * ROS:?General/Constitutional:?pain?With range of motion of neck, tingling and numbness both hands and forearms.?Chills?denies.?Fatigue?admits.?Fever?denies.?ENT:?Decreased hearing?denies.?Respiratory:?Cough?denies.?Cardiovascular:?Chest pain with exertion?denies.?Dyspnea on exertion?denies.?Shortness of breath?denies.?Gastrointestinal:?Constipation?occasional.?Decreased appetite?denies.?Diarrhea?denies.?Heartburn?denies.?Nausea?denies.?Rectal bleeding?denies.?Vomiting?denies.?Hematology:?bruising?denies.?petechiae?denies.?Swollen glands?none have been noted.?Genitourinary:?Frequent urination?denies.?Musculoskeletal:?Muscle aches?denies.?Painful joints?Neck.?Sciatica?denies.?Weakness?denies.?Skin:?Itching?denies.?Rash?denies.?Skin lesion(s)?denies.?Neurologic:?Difficulty speaking?denies.?Dizziness?denies.?Headache?denies.?Low back pain?denies.?Psychiatric:?Depressed mood?denies.? * Medical History:? * Surgical History:? [id number] Laparoscopic cholecystectomy [facility] Dr. Betts Gallbladder removal * Hospitalization/Major Diagno stic Procedure:?Hospitalization for gallbladder removal * Family History:?Father: aliv e 65 yrs, diagnosed with DM, HTN.?Mother: 66 yrs, diagnosed with CVD, HTN.?Children: alive.?Son(s): alive.?Siblings: alive.?Paternal Grand Father: , diagnosed with DM.?Paternal Grand Mother: unknown.?Maternal Grand Father: unknown.?Maternal Grand Mother: .?Paternal uncle: , diagnosed with DM.?Paternal aunt: alive, [...] healthy and well. * Social History:?Tobacco Use:?Tobacco Use/Smoking?.?Tobacco Control (Standard)?Tobacco use:?Former smoker ?How long has it been since you last smoked??Greater than 10 years ?Additional Findings: Tobacco non-user?Ex-cigarette smoker ???Drugs/Alcohol:?Drugs?Have you used drugs other than those for medical reasons in the past 12 months??No ???Drug/Alcohol:?AUDIT-C (Standard)?Did you have a drink containing alcohol in the past year??No ?Points?0 ?Interpretation?Negative ???The patient works and has one child. She does not smoke. * Medications:?TakingBD Pen [place] Micro U/F 32G X 6 MM Miscellaneous as directed - use to inject 25 unit in morning and 20 units in evening Trulicity 1.5 MG/0.5ML Solution Pen-injector INJECT 1.5mg [...] check blood sugars twice a day [place] 31G X 6 MM Miscellaneous as [...] blood sugars twice a day Taking [place] 31G X 6 MM Miscellaneous as directed Twice a day 30 days Medication List reviewed and reconciled with the patient * Allergies:?Shellfish-derived Productsno[Allergies Verified] Objective: * Vitals:?Ht: 59 , Wt: 205, BM I:41.4, BP: 138/78, HR: 72, Ht-cm: 149.86, Wt-k.99. * ???Past Orders: ???Lab:URINE DIP STICK (Orde r Date - 09/16/2024) (Collection Date & Time - 09/16/2024) ? Value Reference Range ?SG 1.015 1.005 - 1.025 ?pH 5.0 5.0 - 9.0 ?BRUCE Negative Negative - ?NIT Negative Negative - ?PRO 15 Negative - Trac e ?GLU Negative Negative - ?KET Negative Negative - ?UBG 0.2 0.1 - 1.8 ?YADIRA Negative 0.2 - 1.3 ?BLD +++ Negative - * Examination: ???General Examination: ?GENERAL APPEARANCE:?pleasant, well nourished, well developed, in no acute distress, calm and relaxed, morbidly obese, woman.?HEAD:?atraumatic, normocephalic.?EYES:?eomi, perrla, anicteric, conjugate.?EARS:?normal.?NOSE:?septum intact.?ORAL CAVITY:?normal, unremarkable.?NECK/THYROID:?no jugular venous distention, no carotid bruit, thyroid normal.?LYMPH NODES:?no enlarged lymph nodes,spleen normal.?SKIN:?no suspicious lesions, anicteric.?HEART:?no clicks, gallops, murmurs, or rubs, regular rhythm, S1, S2 normal, no s3, or vascular bruits.?LUNGS:?clear to auscultation .?BREASTS:?Not examined,Done by the criminal research specialist.?ABDOMEN:?bowel sounds normal, no ascites, no organomegaly, no mass, morbid obesity.?RECTAL EXAM:?Done by PHOTOGRAPHIC RESTORER.?MUSCULOSKELETAL:?extremities unremarkable, no clubbing, cyanosis or edema, Mild pain and tingling in her forearms with range of motion of her neck.?PERIPHERAL PULSES:?normal.?NEUROLOGIC:?alert and oriented, cranial nerves 2-12 grossly intact, deep tendon reflexes 2+ symmetrical, motor strength normal upper and lower extremities, sensory exam intact.?PSYCH:?alert, oriented.? : ???Neck:Possible nerve irritation due to arthritis, Back: Occasional pain, Knees: Occasional pain, Hands: Occasional numbness. ??? Assessment: * Assessment: 1.?Diabetes - E11.9 (Primary )???Notes :She has been compliant with her medication.? Her fasting glucoses morning was 140 at home.? Comprehensive blood work with a hemoglobin A1c and a microalbumin have been ordered to be done in the next few days.???2.?Morbid obesity - E66.01???Notes :Her body mass index is 41.? We discussed diet and nutrition.? We made a plan to lose weight at a rate of one half of a pound per week.? We have discussed oral and injectable medications she has declined them for the time being.? She does not wish to have bariatric surgery.???3.?HTN (hypertension) - I10???Notes :Her blood pressure is currently stable and no change in her regimen was made.? I strongly recommended aggressive weight loss and sodium restriction.???4.?Anemia - D64.9???Notes :This will be reevaluated with comprehensive blood work to be done in the next few days.? She did not appear to be anemic.? She has had no bleeding.???5.?Neck pain - M54.2???Notes :The neck pain is mild and likely due to bone spurs in her neck.? She does not have spinal stenosis but does have cervical radiculopathy.???6.?Hypothyroid - E03.9???Notes :Her thyroid function tests are normal. She appears to be euthyroid. No change was necessary in her medication.???7.?Asthma - J45.909???Notes :She has a history of intermittent asthma. No wheezes or her today. She has a rescue inhaler if necessary.???8.?Former smoker - Z87.891???Notes :She has a plan to prevent relapse in times of stress and illness.??? Plan: * Treatment: 2.?Morbid obesity?LAB: PROFILE, FASTING (COMPREHENSIVE METABOLIC) ?LAB: CBC WITH AUTO DIFF ?LAB: Ferritin ?LAB: Lipid Panel ?LAB: Microalbumin, Random ?LAB: Hemoglobin A1c 3.?HTN (hypertension)?LAB: PROFILE, FASTING (COMPREHENSIVE METABOLIC) ?LAB: CBC WITH AUTO DIFF ?LAB: Ferritin ?LAB: Lipid Panel ?LAB: Microalbumin, Random ?LAB: Hemoglobin A1c 4.?Anemia?LAB: PROFILE, FASTING (COMPREHENSIVE METABOLIC) ?LAB: CBC WITH AUTO DIFF ?LAB: Ferritin ?LAB: Lipid Panel ?LAB: Microalbumin, Random ?LAB: Hemoglobin A1c 5.?Neck pain?Imaging: XR cervical spine 4V (Performed Date - 09/16/2024) 6.?Others? Continue BD Pen Needle Micro U/F Miscellaneous, 32G X 6 MM, as directed, -, use to inject 25 unit in morning and 20 units in evening;?Continue Trulicity Solution Pen-injector, 1.5 MG/0.5ML, INJECT 1.5mg DIRECTED SUBCUTANEOUS ONCE A WEEK 28 DAYS;?Continue metFORMIN HCl Tablet, 500 MG, 1 tablet with a meal, Orally, twice a day;?Continue NovoLOG Mix 70/30 FlexPen Suspension Pen-injector, (70-30) 100 UNIT/ML, INJECT 25 UNITS SUBCUTANEOUSLY IN TH MORNING AND 20 UNITS IN THE EVENING FOR 30 DAYS;?Continue Accu-Chek Guide Strip, -, USE DIRECTED TO CHECK BLOOD SUGARS TWICE A DAY 90 DAYS;?Continue Levothyroxine Sodium Tablet, 137 MCG, TAKE 1 TABLET BY MOUTH EVERY DAY IN THE MORNING ON EMPTY STOMACH;?Continue Albuterol Sulfate HFA Aerosol Solution, 108 (90 Base) MCG/ACT, Inhalation;?Continue Accu-Chek Viktoria Plus Kit, w/Device, as directed, In Vitro, to test blood sugars twice a day;?Continue Accu-Chek Viktoria Plus Strip, -, as directed, In Vitro, to test blood sugars twice a day;?Continue Alcohol Prep Pad Pad, 70 %, as directed, -, to use to test blood sugars twice a day;?Continue Lancets Miscellaneous, -, as directed, -, use to check blood sugars twice a day;?Continue Gauze Pads Pad, 3 X3 , as directed, -, use to check blood sugars twice a day;?Continue [place] Miscellaneous, 31G X 6 MM, as directed, Twice a day, 30 days.? Referral To:LENORE VELARDE??Gastroenterology ?Reason:Evaluate and Treat Screen for Colon Cancer * Labs:? * ?Lab: URINE DIP STICK (C ollection Date & Time - 09/16/2024) ? Value Reference Range ?SG 1.015 1.005 - 1.025 * ?pH 5.0 5.0 - 9.0 * ?BRUCE Negative Negative - * ?NIT Negative Negative - * ?PRO 15 Negative - Trac e * ?GLU Negative Negative - * ?KET Negative Negative - * ?UBG 0.2 0.1 - 1.8 * ?YADIRA Negative 0.2 - 1.3 * ?BLD +++ Negative - * Procedure Codes:?71817 URINE -NO MICRO * Preventive Medicine:? ??Counseling:?Care goal follow-up plan:?Counseling for abnormal BMI given?Yes ?Above Normal BMI Follow-up?Dietary management education, guidance, and counseling, Dietary needs education, Exercise promotion: strength training, Exercise promotion: stretching, Feeding regime, Giving encouragement to exercise, Lifestyle education regarding diet, Nutrition / feeding management, Nutrition therapy, Prescribed activity/exercise education, Prescribed diet education, Prescribed dietary intake, Special diet education, Weight monitoring , Intervention, Order not done: Medical or Other reason not done ??DM Care Plan:?Patient Lifestyle Goals?Patient wants to be able to manage diabetes without too much effort.?Treatment Goals?HbA1C < 7.0, Blood Sugars less than < 115.?Barriers?no barriers.?Self-Managment Goals?Work on weight loss, with a goal of losing 1 lb per week.? * Follow Up:?2 Weeks, Two week s after blood work (Reason: OV, Review blood work results) * Images: * Sign off status: Completed true * Provider:?Yuniel Grewal MD Date:?03/2024 Generated for Josy shine/Mirtha/eTjenssmitting on:?09/21/2024 11:23 AM EST History and Physical [...] Moderate Depression COVID-19 Screening Questions Have you expe rienced [...] PULSES: normal BREASTS: Not examined,Done by the criminal research specialist MUSCULOSKELETAL: extremities unremark able, no clubbing, cyanosis or edema, Mild pain and tingling in her forearms with range of motion of her neck LYMPH NODES: no enlarged lymph no herbert,spleen normal RECTAL EXAM: Done by PHOTOGRAPHIC RESTORER PSYCH: alert, oriented ORAL CAVITY: normal, unremarkable Consultation Request Notes Referral Date Referring Provider Referred Provider Not es 09/16/2024 Yuniel Grewal RUBEELA Evaluate and Treat Screen for Colon Cancer
--- OUTSIDE RECORDS SUMMARY | 2024-09-21 11:23 | XMS_ITS ---
Author Organization Yuniel Grewal III, MD Address [address] [place] [address] Care Team Providers Care Php Mysql Web Developer Name Role Phone Yuniel Grewal Primary Care Provider Allergies Allergen (clinical drug [...] THE MORNING ON EMPTY STOMACH Active Pen Christmas 31G X 6 MM as directed Twice [...] Date Provider Diagnosis Yuniel Grewal III, MD [address] [place] [address] [place] [address] 06/17/2024 Yuniel Grewal Acute cholecystitis K81.0 Assessments Encounter Date Diagnosis (ICD Code) Assessment Notes Treat ment Notes Treatment Clinical Notes 06/17/2024 Acute cholecystitis (ICD-10 - K81.0) After a few days of abdominal pain she went to the emergency room at [facility] May 22, 2024 and the next day [...] IN THE MORNING ON EMPTY STOMACH Pen Christmas 31G X 6 MM as directed Twice a day 30 days Gauze Pads 3 X3 as directed - use to check blood sugars twice a day 05/05/2023 BD Pen Needle Micro U/F 32G X 6 MM as directed - use to inject 25 unit in morning and 20 units in evening 06/02/2024 Next Appt Details Provider Name:Yuniel Grewal, 09/30/2024 04:00:00 PM, [address] [place] [address] [address], [place], [address], Provider Name:Yuniel Grewal, 09/18/2025 03:30:00 PM, [address] [place] [address] [address], [place], [address], Progress Notes * Alina ALVAREZDOB:1975 (49 yo F)Acc No.[id number]:06/17/2024 Progress Notes Patient:?Alina ALVAREZ Provider:?Yuniel Grewal MD :1975???Age:49 Y???Sex:Female D ate:06/17/2024 Address:[address] [place], [place] [id number] Subjective: * Chief Complaints: * ???1. Follow [...] Medical History:?Hypothyroid , HTN (hypertension), Anemia, Asthma, [id number], Chronic lumbar back pain, Adult onset diabetes mellitus, Shingles February 2023. Left flank, Atypical chest pain, Family history of breast cancer, sister, Former smoker, Morbid obesity, Acute cholecystitis May 22, 2024. * Surgical History:? 1999, G2O5Dj3 , Laparoscopic cholecystectomy [facility] Dr. Betts . * Hospitalization/Major Diagno stic [...] ?Additional Findings: Tobacco Non-User?Ex-cigarette smoker * Medications:?Taking BD Pen N e[place]le Micro U/F 32G X 6 MM Miscellaneous [...] sugars twice a day , Taking Pen Christmas 31G X 6 MM Miscellaneous as directed [...] she went to the emergency room at [facility] May 22, 2024 and the next day [...] off status: Pending * Provider:?Yuniel Grewal MD Date:?03/2024 Generated for Josy shine/Mirtha/Reggieitting on:?09/21/2024 11:23 AM [...]
--- OUTSIDE RECORDS SUMMARY | 2024-09-21 11:24 | XMS_ITS | Patient Health Record ---
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 05/22/24 Loc: HO.ED Attending Dr: Ordering Physician: Myriam Taylor DO Date of Service: 05/22/24 Procedure(s): US abd omen limited Accession Number(s): [id number] cc: Yuniel Grewal MD; Myriam Taylor DO EXAMINATION: US ABDOMEN LIMITED CLINICAL INFORMATION: Right upper quadrant pain. COMPARISON: None available. TECHNIQUE: Real-time imaging of the right upper quadrant abdominal viscera. FINDINGS: PANCREAS: Normal. LIVER: Normal. The l iver is normal in size. The liver contour is normal. Parenchymal echogenicity is normal. No focal hepatic lesion. There is no intrahep atic biliary duct dilatation seen. GALLBLADDER: Cholelithiasis with borderline wall thickening. No pericholecystic flui d. Positive sonographic [place] sign. COMMON BILE DUCT: No rmal in caliber measuring 0.5 cm in diameter. RIGHT KIDNEY: Normal . No hydronephrosis. No renal calculi or focal parenchymal lesions. The kidney measures 11.7 cm in maximum dimension. FREE FLUID: None. U S/US abdomen limited IMPRESSION: Cholelithiasis with borderline wall thickening and positive sonographic [place] sign. No pericholecystic fluid. Findings are equivocal for acute cholecystitis. If clinically warranted further evaluation with HIDA scan can be obtained. Dictated By: Sa jalen Montenegro MD Signed By: <Electronically signed by Andrés Montenegro MD in OV> 05/22/24 1331 DD/ 1110 TD/TT: Drywall Stripper: Glucose, Whole Blood Reviewed date:05/23/2024 05:11:42 AM Interpretation: Performing Lab:[facility], [address] [place] [phone] Notes/Report: Glucose, Whole Blood 82 60-115 mg/dL METER # : [id number] Complete Blood Count no Diff Reviewed date:05/25/2024 07:39:13 PM Interpretation: Performing Lab:[facility], [address] [place] [phone] Notes/Report: White Blood Count 11.0 4.8-10.8 X10*3/uL Red Blood Count 4.35 4.20-5.50 X10*6/uL Hemoglobin 12.6 12.0-16.0 g/dl Hematocrit 38.0 37.0-47.0 % Mean Corpuscular Volume 87.4 80.0-98.0 fL Mean Corpuscular Hemoglobin 29.0 27.0-33.0 pg Mean Corpuscular HGB Conc 33.2 31.0-35.0 g/dl Red Cell Distribution Width 13.0 11.0-16.0 % Platelet Count 220 160-400 X10*3/uL Mean Platelet Volume 10.6 9.4-12.3 fL NRBC Pct Auto 0.0 0.0-0.2 /100WBC NRBC Abs Auto 0.000 0.0-0.012 X10*3/uL Liver Panel Reviewed date:05/25/2024 07:39:13 PM Interpretation: Performing Lab:[facility], [address] [place] [phone] Notes/Report: Bilirubin Total 0.9 0.0-1.0 mg/dL Bilirubin Direct 0.3 0.0-0.5 mg/dL Aspartate Amino Transferase 12 5-31 U/L Alanine Aminotransferase 10 0-31 U/L Total Protein 6.2 6.5-8.0 g/dL Albumin Level 3.3 3.5-5.0 g/dL Alkaline Phosphatase 55 39-117 U/L Basic Metabolic Panel Reviewed date:05/25/2024 07:39:13 PM Interpretation: Performing Lab:[address] [address] Notes/Report: Sodium 140 135-145 mmol/L Potassium 4.0 3.3-5.1 mmol/L Chloride 106 96-108 mmol/L Carbon Dioxide 26 22-29 mmol/L Anion Gap 12 12-20 Blood Urea Nitrogen 9 9-16 mg/dL Creatinine 0.73 0.5-1.4 mg/dL Creatinine Clr Calc Pharmacy 94.2 Provided height and weight: 149.86 cm, 93.5 kg. eGFR (calculated from the MDRD study equation) and eCrCl (calculated from the Cockcroft-Gault equation) are based on different parameters and may not yield comparable results. If eCrCl result is absurd, please check patient's height/weight. Estimated Glomerular Filt Rate > 60 NOTE: For -Marshallese individuals, multiply the result by 1.210. Chronic Kidney Disease: Estimated GFR < 60 mL/min/1.73m2 Severe Kidney Disease: Estimated GFR < 15 mL/min/1.73m2 Glucose Random 121 60-115 mg/dL Calcium 8.6 8.4-10.2 mg/dL Glucose, Whole Blood Reviewed date:05/25/2024 07:39:13 PM Interpretation: Performing Lab:[facility], [address] [place] [phone] Notes/Report: Glucose, Whole Blood 130 60-115 mg/dL METER # : [id number] Pathology Reviewed date:05/25/2024 07:39:13 PM Interpretation: Performing Lab:[facility], [address] [place] [phone] Notes/Report: ---- Name: Alina Adamson Age/Sex: 49/F : 1975 Unit#: [id number] Attend Dr: Zac Betts MD Re05/22/24 Status : DIS IN Location: [facility] 383-1 Disch: 05/24/24 ---- SPEC : [id number] RECD : 05/24/24 STATUS: VANDANA COFFMAN NUM: [id number] ANAYELI: 05/23/24-1529 [facility] DR: Zac Betts MD ENTERED: 05/24/24- SP TYPE: Surgical OTHR DR: Yuniel Grewal MD ORDERED: Gross Micro L3 Diagnosis Gallbladder, cholecystectomy: Chronic cholecystitis with cholelithiasis. Clinical History Gallstones Microscopic Description Microscopic sections reviewed. Material Received Gallbladder Gross Description Received in formalin labeled ?gallbladder? is a previously incised, smooth and shaggy, cauterized, roy-alfreda e gallbladder measuring 7.8 x 3.0 x 2.0 cm resected in continuity with 0.4 cm of cystic genaro t. Present within the gallbladder and specimen container are multiple multifaceted, hard green-brown choleliths ranging from 1.2-1.6 cm greatest dimension with copious green-brown bile. The mucosa is finely reticulated, velvety, hopkins, green-brown. On sectioning the wall is fibrous, roy-hopkins measuring up to 0.15 cm in thickness. Food Consultant secti ons are submitted in a cassette labeled A1 to include the margin of resection of the cys tic duct. CEDS Copies To: Yuniel Grewal MD [address] [place] [id number] Zac Betts MD [facility] [address] [place] [address] CONTINUED ON NEXT PAGE ---- Name: Alina Adamson Age/Sex: 49/F : 1975 Unit#: [id number] Attend Dr: Zac Betts MD Re05/22/24 Status : DIS IN Location: [facility] 383-1 Disch: 05/24/24 ---- SPEC : [id number] RECD : 05/24/24 STATUS: VANDANA COFFMAN NUM: [id number] ANAYELI: 05/23/24-[address] [facility] DR: Zac Betts MD ENTERED: 05/24/24- SP TYPE: Surgical OTHR DR: Yuniel Grewal MD ORDERED: Filippo Atkinson L3 ---- Signed (signature on file) Naty Mancera 05/25/24 1057 ---- END OF REPORT Glucose, Whole Blood Reviewed date:05/25/2024 07:39:13 PM Interpretation: Performing Lab:[facility], [address] [place] [phone] Notes/Report: Glucose, Whole Blood 108 60-115 mg/dL METER # : [id number] Glucose, Whole Blood Reviewed date:05/25/2024 07:39:13 PM Interpretation: Performing Lab:[facility], [address] [place] [phone] Notes/Report: Glucose, Whole Blood 100 60-115 mg/dL METER # : [id number] Glucose, Whole Blood Reviewed date:05/25/2024 07:39:13 PM Interpretation: Performing Lab:[facility], [address] [place] [phone] Notes/Report: Glucose, Whole Blood 118 60-115 mg/dL METER # : [id number] Glucose, Whole Blood Reviewed date:05/25/2024 07:39:13 PM Interpretation: Performing Lab:[facility], [address] [place] [phone] Notes/Report: Glucose, Whole Blood 143 60-115 mg/dL METER # : [id number] Glucose, Whole Blood Reviewed date:05/25/2024 07:39:13 PM Interpretation: Performing Lab:[facility], [address] [place] [phone] Notes/Report: Glucose, Whole Blood 142 60-115 mg/dL METER # : [id number] Glucose, Whole Blood Reviewed date:05/25/2024 07:39:13 PM Interpretation: Performing Lab:[facility], [address] [place] [phone] Notes/Report: Glucose, Whole Blood 158 60-115 mg/dL METER # : [id number] Reason For Referral Reason Evaluate and Treat [...] and progress note faxed. Referral Priority Routine Medications Medication SIG (Take, Route, Frequency, Duration) [...] ONCE A WEEK 28 DAYS Active Pen [place] 31G X 6 MM as directed Twice a day 30 days Active Immunizations Vaccine Route Administration Date Status Comme nts COVID PFIZER Unknown 01/08/2023 Administered COVID PFIZER Unknown 06/07/2021 Administered Flu-IIv4 Unknown 01/07/2024 Administered Hepatitis B (20 and more) Unknown 01/13/2024 Administer ed Comirnaty Pfizer COVID-19 12+ Unknown 10/08/2023 Admini stered Hepatitis B (20 and more) Unknown 07/29/2023 Administer ed Hepatitis B (20 and more) Unknown 06/26/2023 Administer ed COVID PFIZER Unknown 05/17/2021 Administered Social History Tobacco Use: Social History Observation [...] ast year? No Points 0 Interpretation Negative Problems Problem Type SNOMED Code ICD Code Onset Dates Problem Status W/U Status Risk Notes Problem 5721397 Former smoker (Z87.891) Active confirmed She has a plan to prevent relapse in times of stress and illness. Problem Asthma (166414875) Asthma (J45.909) Active confirmed She has a history of intermittent asthma. No wheezes or her today. She has a rescue inhaler if necessary. Problem Anemia (588364827) Anemia (D64.9) Active confirmed This will be reevaluated with comprehensive blood work to be done in the next few days. She did not appear to be anemic. She has had no bleeding. Problem Diabetes mellitus without complication (089748880) Diabetes (E11.9) Active confirmed She has been compliant with her medication. Her fasting glucoses morning was 140 at home. Comprehensive blood work with a hemoglobin A1c and a microalbumin have been ordered to be done in the next few days. Problem Hypertension (00954457) HTN (hypertension) (I10) Active confirmed Her blood pressure is currently stable and no change in her regimen was made. I strongly recommended aggressive weight loss and sodium restriction. Problem Hypothyroid (85164686) Hypothyroid (E03.9) Active confirmed Her thyroid function tests are normal. She appears to be euthyroid. No change was necessary in her medication. Problem 143683413 Atypical chest pain (R07.89) Active confirmed She is on aspirin. 4. Atypical chest pain from a previous provider. She believes her chest discomfort is caused by stress. If necessary, a stress test can be done. Problem 829658473 Herpes zoster without complication (B02.9) Active confirmed She had an episode of shingles in February of this year. She was treated with prednisone and valacyclovir. It has resolved. Problem 335669577 Morbid obesity (E66.01) Active confirmed Her body mass index is 41. We discussed diet and nutrition. We made a plan to lose weight at a rate of one half of a pound per week. We have discussed oral and injectable medications she has declined them for the time being. She does not wish to have bariatric surgery. Problem 402499098 Low back pain, unspecified (M54.50) Active confirmed She continues to have intermittent mild low back pain. No change in her regimen was needed. Images have been obtained. Vital Signs Heart Rate 72 /min 09/16/2024 Temperature 97.2 degrees Fahrenheit 05/27/2024 Blood pressure diastolic 78 mm Hg 09/16/2024 Height 59 in 09/16/2024 Blood pressure systolic 138 mm Hg 09/16/2024 Weight 205 lbs 09/16/2024 BMI 41.4 kg/m2 09/16/2024 Encounters Encounter Location Date Provider Diagnosis Yuniel Grewal III, MD [address] [place] [address] [place] [address] 09/25/2023 Yuniel Grewal Diabetes E11.9 ; Ane rosaline D64.9 ; Hypothyroid E03.9 ; Morbid obesity E66.01 ; Former smoker Z87.891 ; HTN (hypertension) I10 ; Asthma J45.909 and Low back pain, unspecified M54.50 Yuniel Grewal III, MD [address] [place] [address] [place] [address] 01/26/2024 Yuniel Grewal Diabetes E11.9 ; HTN (hypertension) I10 ; Morbid obesity E66.01 ; Low back pain, unspecified M54.50 ; Hypothyroid E03.9 and Asthma J45.909 Yuniel Grewal III, MD [address] [place] [address] [place] [address] 04/08/2024 Yuniel Grewal Diabetes E11.9 ; Hypothyroid E03.9 ; HTN (hypertension) I10 ; Morbid obesity E66.01 ; Breast pain, right N64.4 and Former smoker Z87.891 Yuniel Grewal III, MD [address] [place] [address] [place] [address] 05/05/2024 Yuniel Grewal Diabetes E11.9 ; Hypothyroid E03.9 ; Morbid obesity E66.01 ; HTN (hypertension) I10 ; Asthma J45.909 ; Low back pain, unspecified M54.50 and Former smoker Z87.891 Yuniel Grewal III, MD [address] [place] [address] [place] [address] 05/27/2024 Yuniel Grewal Acute cholecystitis K81.0 ; Diabetes E11.9 ; Hypothyroid E03.9 ; HTN (hypertension) I10 ; Asthma J45.909 ; Former smoker Z87.891 ; Low back pain, unspecified M54.50 and Morbid obesity E66.01 Yuniel Grewal III, MD [address] [place] [address] [place] [address] 09/16/2024 Yuniel Grewal Diabetes E11.9 ; Mor bid obesity E66.01 ; HTN (hypertension) I10 ; Anemia D64.9 ; Neck pain M54.2 ; Hypothyroid E03.9 ; Asthma J45.909 and Former smoker Z87.891 Yuniel Grewal III, MD [address] [place] [address] [place] [address] 01/14/2024 Yuniel Grewal III, MD [address] [place] [address] [place] [address] 01/15/2024 Yuniel Grewal III, MD [address] [place] [address] [place] [address] 01/15/2024 Yuniel Grewal III, MD [address] [place] [address] [place] [address] 02/10/2024 Yuinel Grewal III, MD [address] [place] [address] [place] [address] 04/12/2024 Yuniel Grewal III, MD [address] [place] [address] [place] [address] 04/20/2024 Yuniel Grewal Diabetes E11.9 Yuniel Grewal III, MD [address] [place] [address] [place] [address] 06/02/2024 Yuniel Grewal Assessments Encounter Date Diagnosis (ICD Code) Assessment Notes Treat ment Notes Treatment Clinical Notes 09/25/2023 Anemia (ICD-10 - D64.9) There has [...] change was necessary in her medication. 05/27/2024 Diabetes (ICD-10 - E11.9) She has been compliant with her medications. Her hemoglobin A1c is 8.0. We made a plan to follow a diabetic weight loss diet and lose one half of a pound per week. 05/27/2024 Acute cholecystitis (ICD-10 - K81.0) After a few days of abdominal pain she went to the emergency room at [facility] May 22, 2024 and the next day had a cholecystectomy. She is now recovering well at home. 09/16/2024 Diabetes (ICD-10 - E11.9) She has [...] does not wish to have bariatric surgery. 04/20/2024 Diabetes (ICD-10 - E11.9) She has been compliant with her medications. Her hemoglobin A1c is 8.4. We made a plan to follow a diabetic weight loss diet and lose one half of a pound per week. 09/25/2023 Hypothyroid (ICD-10 - E03.9) Her TSH [...] calories and sodium combined with regular activity. 05/27/2024 Hypothyroid (ICD-10 - E03.9) Her thyroid function tests are normal. She appears to be euthyroid. No change was necessary in her medication. 09/16/2024 HTN (hypertension) (ICD-10 - I10) Her [...] and sodium restriction and euglycemic control. 05/27/2024 HTN (hypertension) (ICD-10 - I10) Her blood pressure is stable at 141/80 and no change in her regimen was made. We made a plan to lose weight and restrict sodium Our plan for the next year includes reducing her weight substantially and reducing her systolic blood pressure by 10 points through physical activity weight loss and sodium restriction and euglycemic control. 09/16/2024 Anemia (ICD-10 - D64.9) This will be reevaluated with comprehensive blood work to be done in the next few days. She did not appear to be anemic. She has had no bleeding. 09/25/2023 Former smoker (ICD-10 - Z87.891) She [...] has a rescue inhaler if necessary. 05/27/2024 Asthma (ICD-10 - J45.909) She has a history of intermittent asthma. No wheezes or her today. She has a rescue inhaler if necessary. 09/16/2024 Neck pain (ICD-10 - M54.2) The neck pain is mild and likely due to bone spurs in her neck. She does not have spinal stenosis but does have cervical radiculopathy. 09/25/2023 HTN (hypertension) (ICD-10 - I10) Her [...] was needed. Images have been obtained. 05/27/2024 Former smoker (ICD-10 - Z87.891) She has a plan to prevent relapse in times of stress and illness. 09/16/2024 Hypothyroid (ICD-10 - E03.9) Her thyroid function tests are normal. She appears to be euthyroid. No change was necessary in her medication. 09/25/2023 Asthma (ICD-10 - J45.909) She has [...] regimen was needed. Images have been obtained. 09/16/2024 Asthma (ICD-10 - J45.909) She has a history of intermittent asthma. No wheezes or her today. She has a rescue inhaler if necessary. 09/25/2023 Low back pain, unspecified (ICD-10 - M54.50) She has chronic lumbar back pain that does not radiate since an accident 4 years ago. No change in her regimen was necessary today. She will avoid heavy lifting. 05/27/2024 Morbid obesity (ICD-10 - E66.01) She lost 3 pounds with the surgery. She has no appetite at this time. She will resume her weight loss strategy when she has recovered from surgery. 09/16/2024 Former smoker (ICD-10 - Z87.891) She has a plan to prevent relapse in times of stress and illness. Plan Of Treatment Pending Test Test Name Order Date PROFILE, FASTING (COMPREHENSIVE METABOLI C) 05/25/2023 PROFILE, FASTING (COMPREHENSIVE METABOLI C) 09/25/2023 PROFILE, FASTING (COMPREHENSIVE METABOLI C) 05/05/2024 PROFILE, FASTING (COMPREHENSIVE METABOLI C) 05/04/2023 PROFILE, FASTING (COMPREHENSIVE METABOLI C) 01/26/2024 PROFILE, FASTING (COMPREHENSIVE METABOLI C) 09/16/2024 PROFILE, FASTING (COMPREHENSIVE METABOLI C) 04/08/2024 HEMOGLOBIN A1C (GLYCOHEMOGLOBIN) 023 MAGNESIUM 05/04/2023 LIPID PANEL 05/25/2023 LIPID PANEL 05/04/2023 FREE T4 (FT4) 04/08/2024 FREE T4 (FT4) 05/04/2023 FREE T4 (FT4) 05/25/2023 TSH (THYROID STIMULATING HORMONE) 2023 TSH (THYROID STIMULATING HORMONE) 2022 TSH (THYROID STIMULATING HORMONE) 2022 TSH (THYROID STIMULATING HORMONE) 2023 TSH (THYROID STIMULATING HORMONE) 2022 FERRITIN 05/25/2023 MICROALBUMIN, RANDOM 05/04/2023 CBC w DIFF 05/25/2023 CBC w DIFF 09/25/2023 CBC w DIFF 05/04/2023 SED RATE (ESR) 04/08/2024 MAMMOGRAM DIGITAL BILATERAL SCREEN 05/04 CBC WITH AUTO DIFF 04/08/2024 CBC WITH AUTO DIFF 01/26/2024 CBC WITH AUTO DIFF 05/05/2024 CBC WITH AUTO DIFF 09/16/2024 Ferritin 09/16/2024 Ferritin 04/08/2024 Ferritin 05/05/2024 Lipid Panel 04/08/2024 Lipid Panel 05/05/2024 Lipid Panel 09/16/2024 Lipid Panel 09/25/2023 Free T4 (Free Thyroxine) 05/05/2024 Free T4 (Free Thyroxine) 09/25/2023 Microalbumin, Random 09/25/2023 Microalbumin, Random 09/16/2024 XR cervical spine 4V 09/16/2024 Hemoglobin A1c 04/08/2024 Hemoglobin A1c 09/25/2023 Hemoglobin A1c 05/05/2024 Hemoglobin A1c 09/16/2024 Next Appt Details Provider Name:Yuniel Grewal, 09/30/2024 04:00:00 PM, [address] [place] [address] [address], [place], [address], Provider Name:Yuniel Grewal, 09/18/2025 03:30:00 PM, [address] [place] [address] [address], [place], [address], Insurance Providers Payer Name Payer Address Payer Phone Subscriber Number Group Number Insured Name Patient Relationship to Insured Coverage Start Date Coverage End Date [address] [place] [phone] [id number] Alina Adamson Self - patient is the insured Medical (General) History Medical History History ICD Code Hypothyroid E03.9 HTN (hypertension) I10 Anemia D64.9 Asthma J45.909 [id number] chronic lumbar back pain Adult onset diabetes mellitus Shingles February 2023. Left flank Atypical chest pain Family history of breast cancer, sister Former smoker Morbid obesity Acute cholecystitis May 22, 2024 The patient had her gallblad sergey removed in the past. She is managing her blood sugar levels with medication and is taking thyroid medication. Surgical History Surgery Date(Month/Year) 1999 [id number] Laparoscopic cholecystectomy [facility] Dr. Betts Gallbladder removal Hospitalization History Reason Date(Month/Year) Hospitalization for gallbladder removal
== END 2024-09-16 16:41 | disposition home or self-care (01) ==
LOC: HO.XRAY 16:40
PROVIDERS: PCP Internal Medicine Medical Oncology; Visit Provider Internal Medicine Medical Oncology
DX: M54.2 Cervicalgia (principal)
CPT/HCPCS: 72050

== ENCOUNTER 2024-09-23 09:32 | Outpatient (REF) | payer OTHER, SELFPAY ==
--- OUTSIDE RECORDS SUMMARY | 2024-09-23 09:36 | XMS_ITS ---
Author Organization Yuniel Grewal III, MD Address [address] [place] [address] Care Team Providers Care Ore Sampler Name Role Phone Yuniel Grewal Primary Care Provider [phone] Allergies Allergen (clinical drug ingredient) Drug/Non Drug [...] ONCE A WEEK 28 DAYS Active Pen [place] 31G X 6 MM as directed Twice [...] Date Provider Diagnosis Yuniel Grewal III, MD [address] [place] [address] [place] [address] 06/10/2024 Yuniel Grewal Acute cholecystitis K81.0 Assessments Encounter Date Diagnosis (ICD Code) Assessment Notes Treat ment Notes Treatment Clinical Notes 06/10/2024 Acute cholecystitis (ICD-10 - K81.0) After a few days of abdominal pain she went to the emergency room at [facility] May 22, 2024 and the next [...] SUBCUTANEOUS ONCE A WEEK 28 DAYS Pen [place] 31G X 6 MM as directed Twice [...] Details Provider Name:Yuniel Grewal, 09/30/2024 04:00:00 PM, [address] [place] [address] [address], [place], [address], Provider Name:Yuniel Grewal, 09/18/2025 03:30:00 PM, [address] [place] [address] [address], [place], [address], Progress Notes * Alina ALVAREZDOB:1975 (49 yo F)Acc No.[id number]:06/10/2024 Progress Notes Patient:?Alina ALVAREZ Provider:?Yunile Grewal MD :1975???Age:49 Y???Sex:Female D ate:06/10/2024 Address:[address] [place], [place] [id number] Subjective: * Chief Complaints: * ???1. Follow up. * HPI: ???COVID-19 Screening:?Questions?Have you had any new onset fever, chills, cough, congestion, sore throat, shortness of breath, muscle aches??No ?Have you been exposed to the virus [...] Medical History:?Hypothyroid , HTN (hypertension), Anemia, Asthma, [id number], Chronic lumbar back pain, Adult onset diabetes mellitus, Shingles February 2023. Left flank, Atypical chest pain, Family history of breast cancer, sister, Former smoker, Morbid obesity, Acute cholecystitis May 22, 2024. * Surgical History:? 1999, [id number] , Laparoscopic cholecystectomy [facility] Dr. Betts . * Hospitalization/Major Diagno [...] sugars twice a day , Taking Pen Carmen 31G X 6 MM Miscellaneous as directed [...] she went to the emergency room at [facility] May 22, 2024 and the next [...] Provider:?Yuniel Grewal MD Date:?05/14 Generated for Josy shine/Mirtha/Nataliasmitting on:?09/23/2024 09:36 AM EST History and Physical Notes * [...]
--- OUTSIDE RECORDS SUMMARY | 2024-09-23 09:36 | XMS_ITS ---
Author Organization Yuniel Grewal III, MD Address [address] [address] Care Team Providers Care Hotel Custodian Name Role Phone Yuniel Grewal Primary Care [...] THE MORNING ON EMPTY STOMACH Active Pen Center 31G X 6 MM as directed Twice [...] Date Provider Diagnosis Yuniel Grewal III, MD [address] [place] [address] [place] [address] 06/17/2024 Yuniel Grewal Acute cholecystitis K81.0 Assessments Encounter Date Diagnosis (ICD Code) Assessment Notes Treat ment Notes Treatment Clinical Notes 06/17/2024 Acute cholecystitis (ICD-10 - K81.0) After a few days of abdominal pain she went to the emergency room at [facility] May 22, 2024 and the next [...] IN THE MORNING ON EMPTY STOMACH Pen Center 31G X 6 MM as directed Twice a day 30 days Gauze Pads 3 X3 as directed - use to check blood sugars twice a day 05/05/2023 BD Pen Needle Micro U/F 32G X 6 MM as directed - use to inject 25 unit in morning and 20 units in evening 06/02/2024 Next Appt Details Provider Name:Yuniel Grewal, 09/30/2024 04:00:00 PM, [address] [place] [address] [address], [place], [phone], Provider Name:Yuniel Grewal, 09/18/2025 03:30:00 PM, [address] [place] [address] [address], [place], [address], Progress Notes * Alina ALVAREZDOB:1975 (49 yo F)Acc No.[id number]:06/17/2024 Progress Notes Patient:?Alina ALVAREZ Provider:?Yuniel Grewal MD :1975???Age:49 Y???Sex:Female D ate:06/17/2024 Address:[address] [place], [place] [id number] Subjective: * Chief Complaints: * ???1. Follow [...] Medical History:?Hypothyroid , HTN (hypertension), Anemia, Asthma, G4J3Vn6, Chronic lumbar back pain, Adult onset diabetes mellitus, Shingles February 2023. Left flank, Atypical chest pain, Family history of breast cancer, sister, Former smoker, Morbid obesity, Acute cholecystitis May 22, 2024. * Surgical History:? 1999, O2M5Uc1 , Laparoscopic cholecystectomy [facility] Dr. Betts . * Hospitalization/Major Diagno [...] sugars twice a day , Taking Pen Center 31G X 6 MM Miscellaneous as directed [...] she went to the emergency room at [facility] May 22, 2024 and the next [...] Provider:?Yuniel Grewal MD Date:?03/2024 Generated for Josy shine/Mirtha/Nataliasmitting on:?09/23/2024 09:36 AM [...]
--- OUTSIDE RECORDS SUMMARY | 2024-09-23 09:36 | XMS_ITS ---
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 Name Role Phone Yuniel Grewal Primary Care [...] reviewed by provider) Interpretation: Performing Lab: Notes/Report: [address] [address] XRay Report Signed Patient: Alina Alvarez MR#: [id number] 7 : 1975 Acct:[id number] Age/Sex: 49 / F ADM Date: 09/16/24 Loc: [facility] Attending Dr: Yuniel Grewal MD Ordering Physician: Yuniel Grewal MD Date of Service: 09/16/24 Procedure(s): XR cervical spine 4V Accession Number(s): [id number] cc: Yuniel Grewal MD EXAMINATION: XR CERVICAL [...] Warren MD Signed By: <Electronically signed by Edla Warren MD in OV> 09/16/242041 DD/ 49 TD/TT: 09/16/24 170 Real Estate Underwriter: NIKHIL [place] [address] XRay Report Signed Patient: Opal Alvarez MR#: [id number] 7 : 1975 Acct:[id number] Age/Sex: 49 / F ADM Date: 09/16/24 Loc: [facility] Attending Dr: Yuniel Grewal MD Ordering Physician: Yuniel Grewal MD Date of Service: 09/16/24 Procedure(s): XR cer vical spine 4V Accession Number(s): [id number] cc: Yuniel Grewal MD EXAMINATION: XR CERVICAL [...] OV> 09/16/242041 DD/ 49 TD/TT: 09/16/24 1700 Real Estate Underwriter: NIKHIL Reason For Referral Reason Evaluate and [...] sugars twice a day 05/05/2023 Active Pen [place] 31G X 6 MM as directed Twice [...] Provider Diagnosis Yuniel Grewal III, MD [address] [place] [address] [place] [address] 09/16/2024 Yuniel Grewal Diabetes E11.9 ; Morbid [...] blood sugars twice a day 05/05/2023 Pen [place] 31G X 6 MM as directed Twice [...] results Provider Name:Yuniel Grewal, 09/30/2024 04:00:00 PM, [address] [place] [address] [address], [place], [address], Provider Name:Yuniel Grewal, 09/18/2025 03:30:00 PM, [address] [place] [address] [address], [place], [address], Progress Notes * ALVAREZ ShreemarilouDOB:1975 (49 yo F)Acc No.[id number]:09/16/2024 Progress Notes Patient:?Alina ALVAREZ Provider:?Yuniel Grewal MD :1975???Age:49 Y???Sex:Female D ate:09/16/2024 Address:[address] [place], [place] [phone] Subjective: * Chief Complaints: * ???Annual Exam [...] mood?denies.? * Medical History:? * Surgical History:? [id number] Laparoscopic cholecystectomy [facility] Dr. Betts Gallbladder removal * Hospitalization/Major [...] check blood sugars twice a day Pen [place] 31G X 6 MM Miscellaneous as directed [...] Base) MCG/ACT Aerosol Solution Inhalation Taking Accu-Chek Vkitoria Plus w/Device Kit as directed In Vitro [...] blood sugars twice a day Taking Pen [place] 31G X 6 MM Miscellaneous as directed [...] bruits.?LUNGS:?clear to auscultation .?BREASTS:?Not examined,Done by the clerical specialist.?ABDOMEN:?bowel sounds normal, no ascites, no organomegaly, no mass, morbid obesity.?RECTAL EXAM:?Done by OCCUPATIONAL THERAPY CO DIRECTOR.?MUSCULOSKELETAL:?extremities unremarkable, no clubbing, cyanosis or edema, Mild [...] check blood sugars twice a day;?Continue Pen [place] Miscellaneous, 31G X 6 MM, as directed, [...] * ?BLD +++ Negative - * Procedure Codes:?06168 URINE -NO MICRO * Preventive Medicine:? ??Counseling:?Care [...] Provider:?Yuniel Grewal MD Date:?03/2024 Generated for Josy shine/Mirtha/eTransmitting on:?09/23/2024 09:35 AM EST History and Physical Notes * [...] PULSES: normal BREASTS: Not examined,Done by the clerical specialist MUSCULOSKELETAL: extremities unremark able, no clubbing, cyanosis or edema, Mild pain and tingling in her forearms with range of motion of her neck LYMPH NODES: no enlarged lymph no herbert,spleen normal RECTAL EXAM: Done by OCCUPATIONAL THERAPY CO DIRECTOR PSYCH: alert, oriented ORAL CAVITY: normal, unremarkable Consultation Request Notes Referral Date Referring Provider Referred Provider Not mehul 09/16/2024 Yuniel Grewal RUBEELA Evaluate and Treat Screen for Colon Cancer
--- OUTSIDE RECORDS SUMMARY | 2024-09-23 09:37 | XMS_ITS | Patient Health Record ---
Author Organization Yuniel Grewal III, MD Address [address] [place] [address] [place] [id number] Care Team Providers Care Laundry Manager Name Role Phone Yuniel Grewal Primary Care Provider Allergies Allergen (clinical drug ingredient) Drug/Non Drug Allergy documented on EMR Reaction Allergy Type Onset Date Status Shellfish (FN) Shellfish-derived Products Unknown Drug Allergy Active Results Component Value Reference Range Notes Lipid Panel Reviewed date:02/10/2024 04:46:07 PM Interpretation: Performing Lab:[facility], [address] [place] [phone] Notes/Report: Triglycerides 195 <150 mg/dL Desirable Triglyceride: [...] A1c Reviewed date:02/10/2024 04:46:07 PM Interpretation: Performing Lab:[facility], [address] [place] [phone] Notes/Report: Hemoglobin A1c % 8.4 <6.0 % [...] average glucose, using the formula of the O0W-Ijdwsrt Average Glucose study (ADAG), Diabetes Care, Vol.31,#8, May. 2007 XR lumbar spine 4V min Reviewed date:02/10/2024 04:46:07 PM Interpretation: Performing Lab: Notes/Report: [address] [address] XRay Report Signed Patient: Alina Adamson MR#: [id number] 7 : 1975 Acct:[id number] Age/Sex: 48 / F ADM Date: 01/29/24 Loc: HO.PJ Attending Dr: Yuniel Grewal MD Ordering Physician: Yuniel Grewal MD Date of Service: 01/29/24 Procedure(s): XR lumbar spine 4V min Accession Number(s): [id number] cc: Yuniel Grewal MD EXAMINATION: XR LUMBOSACRAL [...] MD in OV> 02/08/24723 DD/ 7 TD/TT: Horse Shoer: [place] [address] XRay Report Signed Patient: Opal Adamson MR#: [id number] 7 : 1975 Acct:[id number] Age/Sex: 48 / F ADM Date: 01/29/24 Loc: HO.XRAY Attending Dr: Yuniel Grewal MD Ordering Physician: Yuniel Grewal MD Date of Service: 01/29/24 Procedure(s): XR lum bar spine 4V min Accession Number(s): [id number] cc: Yuniel Grewal MD EXAMINATION: XR LUMBOSACRAL [...] in OV> 02/08/24 0724 DD/ 0928 TD/TT: Horse Shoer: URINE DIP STICK Reviewed date:09/16/2024 04:08:10 PM [...] reviewed by provider) Interpretation: Performing Lab: Notes/Report: [address] [address] XRay Report Signed Patient: Alina Adamson MR#: [id number] 7 : 1975 Acct:[id number] Age/Sex: 49 / F ADM Date: 09/16/24 Loc: HO.XRAY Attending Dr: Yuniel Grewal MD Ordering Physician: Yuniel Grewal MD Date of Service: 09/16/24 Procedure(s): XR cervical spine 4V Accession Number(s): [id number] cc: Yuniel Grewal MD EXAMINATION: XR CERVICAL [...] by: Elda Warren MD 09/16/2024 08:42 PM [facility] Dictated By: Elda Warren MD Signed By: <Electronically signed by Elda Warren MD in OV> 09/16/242041 DD/ 165 TD/TT: 09/16/24 1700 Horse Shoer: [address] [address] XRay Report Signed Patient: Opal Adamson MR#: [id number] 7 : 1975 Acct:[id number] Age/Sex: 49 / F ADM Date: 09/16/24 Loc: HO.XRAY Attending Dr: Yuniel Grewal MD Ordering Physician: Yuniel Grewal MD Date of Service: 09/16/24 Procedure(s): XR cervical spine 4V Accession Number(s): [id number] cc: Yuniel Grewal MD EXAMINATION: XR CERVICAL [...] by: Elda Warren MD 09/16/2024 08:42 PM [facility] Dictated By: Elda Warren MD Signed By: <Electronically signed by Elda Warren MD in OV> 09/16/242041 DD/ 1650 TD/TT: 09/16/24 1700 Horse Shoer: NIKHIL Complete Blood Count Auto Di ff Reviewed date:02/10/2024 04:46:07 PM Interpretation: Performing Lab:[facility], [address] [place] [phone] Notes/Report: White Blood Count 11.2 4.8-10.8 X10*3/uL [...] NRBC Abs Auto 0.000 0.0-0.012 X10*3/uL Comprehensive [place]. Panel Fa st Reviewed date:02/10/2024 04:46:07 PM Interpretation: Performing Lab:[facility], [address] [place] [phone] Notes/Report: Sodium 139 135-145 mmol/L Potassium 4.6 3.3-5.1 mmol/L Chloride 104 96-108 mmol/L Carbon Dioxide 28 22-29 mmol/L Anion Gap 12 12-20 Blood Urea Nitrogen 12 9-16 mg/dL Creatinine 0.69 0.5-1.4 mg/dL Estimated Glomerular Filt Rate > 60 NOTE: For -Tongan individuals, multiply the result by 1.210. Chronic [...] ff Reviewed date:05/05/2024 05:59:10 AM Interpretation: Performing Lab:[facility], [address] [place] [phone] Notes/Report: White Blood Count 10.9 4.8-10.8 X10*3/uL [...] te Reviewed date:05/05/2024 05:59:10 AM Interpretation: Performing Lab:[facility], [address] [place] [phone] Notes/Report: Erythrocyte Sedimentation Rate 10 0-20 MM/HR Patients with polycythemia and many hemoglobin abnormalities may have depressed sed rates whereas patients with anemia may have elevated sed rates. Comprehensive [place]. Panel Fa Reviewed date:05/05/2024 05:59:10 AM Interpretation: Performing Lab:[facility], [address] [place] [phone] Notes/Report: Sodium 139 135-145 mmol/L Potassium 4.1 3.3-5.1 mmol/L Chloride 107 96-108 mmol/L Carbon Dioxide 24 22-29 mmol/L Anion Gap 12 12-20 Blood Urea Nitrogen 11 9-16 mg/dL Creatinine 0.63 0.5-1.4 mg/dL Estimated Glomerular Filt Rate > 60 NOTE: For -Tongan individuals, multiply the result by 1.210. Chronic [...] Ferritin Reviewed date:05/05/2024 05:59:10 AM Interpretation: Performing Lab:[facility], [address] [place] [phone] Notes/Report: Ferritin 23 10-250 ng/mL Lipid Panel Reviewed date:05/05/2024 05:59:10 AM Interpretation: Performing Lab:[facility], [address] [place] [phone] Notes/Report: Triglycerides 219 <150 mg/dL Desirable Triglyceride: [...] Thyroxine) Reviewed date:05/05/2024 05:59:10 AM Interpretation: Performing Lab:[facility], [address] [place] [phone] Notes/Report: Free T4 (Free Thyroxine) 1.12 0.71-1.85 ng/dL Thyroid Stimulating Hormone Reviewed date:05/05/2024 05:59:10 AM Interpretation: Performing Lab:[facility], [address] [place] [phone] Notes/Report: Thyroid Stimulating Hormone 2.99 0.32-4.0 uIU/mL Note: A sustained TSH level above 2.5 uIU/mL may warrant further investigation. TSH 3rd Generation ([employer]) Hemoglobin A1c Reviewed date:05/05/2024 05:59:10 AM Interpretation: Performing Lab:[facility], [address] [place] [phone] Notes/Report: Hemoglobin A1c % 8.0 <6.0 % [...] average glucose, using the formula of the G4X-Nlgzklj Average Glucose study (ADAG), Diabetes Care, Vol.31,#8, May. 2007 MM tomosynthesis diagnostic BI Reviewed date:05/05/2024 05:59:10 AM Interpretation: Performing Lab: Notes/Report: [facility]'[address] [place] [address] Mammography Report Signed Patient: Alina Adamson MR#: [id number] 7 : 1975 Acct:[id number] Age/Sex: 49 / F ADM Date: 04/28/24 Loc: HO.MAMMO Attending Dr: Yuniel Grewal MD Ordering Physician: Yuniel Grewal MD Results: 1Negativ e Date of Service: 04/28/24 Follow Up: 1 Year From Orig inal Mammogram Procedure(s): MM tomosynthesis diagnostic BI Accession Number(s): [id number] cc: Yuniel Grewal MD EXAMINATION: MM DIAGNOSTIC [...] in OV> 04/28/24 1558 DD/ 1415 TD/TT: Horse Shoer: [place] [facility] [address] [place] [address] Mammography Report Signed Patient: Opal Adamson MR#: [id number] 7 : 1975 Acct:[id number] Age/Sex: 49 / F ADM Date: 04/28/24 Loc: HO.MAMMO Attending Dr: Yuniel Grewal MD Ordering Physician: Yuniel Grewal MD Results: 1Negativ e Date of Service: 04/28/24 Follow Up: 1 Year From Orig ina Mammogram Procedure(s): MM tomosynthesis diagnostic BI Accession Number(s): [id number] cc: Yuniel Grewal MD EXAMINATION: MM DIAGNOSTIC [...] in OV> 04/28/24 1558 DD/ 1415 TD/TT: Horse Shoer: US breast RT limited mamm on ly Reviewed date:05/05/2024 05:59:10 AM Interpretation: Performing Lab: Notes/Report: [facility] [address] [place] [address] Ultrasound Report Signed Patient: Alina Adamson MR#: [id number] 7 : 1975 Acct:[id number] Age/Sex: 49 / F ADM Date: 04/28/24 Loc: HO.MAMMO Attending Dr: Yuniel Grewal MD Ordering Physician: Yuniel Grewal MD Date of Service: 04/28/24 Procedure(s): US breast RT limited mamm only Accession Number(s): [id number] cc: Yuniel Grewal MD EXAMINATION: MM DIAGNOSTIC [...] in OV> 04/28/24 1558 DD/ 1533 TD/TT: Horse Shoer: [place] [facility] [address] [place] [address] Ultrasound Report Signed Patient: Opal Adamson MR#: [id number] 7 : 1975 Acct:[id number] Age/Sex: 49 / F ADM Date: 04/28/24 Loc: HO.MAMMO Attending Dr: Yuniel Grewal MD Ordering Physician: Yuniel Grewal MD Date of Service: 04/28/24 Procedure(s): US jose ast RT limited mamm only Accession Number(s): [id number] cc: Yuniel Grewal MD EXAMINATION: MM DIAGNOSTIC [...] in OV> 04/28/24 1558 DD/ 1533 TD/TT: Horse Shoer: MAMMOGRAM DIGITAL BILATERAL SCREEN Reviewed date:09/16/2024 03:58:14 PM Interpretation:undefined Performing Lab: Notes/Report: undefined Complete Blood Count Auto Di ff Reviewed date:05/23/2024 05:11:42 AM Interpretation: Performing Lab:[facility], [address] [place] [phone] Notes/Report: White Blood Count 13.5 4.8-10.8 X10*3/uL [...] Test Reviewed date:05/23/2024 05:11:42 AM Interpretation: Performing Lab:[facility], [address] [place] [phone] Notes/Report: Urine NEGATIVE NEGATIVE This test was developed to detect early . False negative results may occur after the 5th - 7th week of when using this test method. If clinically indicated, consider a serum hCG. Liver Panel Reviewed date:05/23/2024 05:11:42 AM Interpretation: Performing Lab:[facility], [address] [place] [phone] Notes/Report: Bilirubin Total 1.2 0.0-1.0 mg/dL Bilirubin Direct 0.2 0.0-0.5 mg/dL Slight Hem olysis Aspartate Amino Transferase 17 5-31 U/L Slight Hemolysis Alanine Aminotransferase 12 0-31 U/L Total Protein 7.7 6.5-8.0 g/dL Albumin Level 4.0 3.5-5.0 g/dL Alkaline Phosphatase 65 39-117 U/L Basic Metabolic Panel Reviewed date:05/23/2024 05:11:42 AM Interpretation: Performing Lab:[facility], [address] [place] [phone] Notes/Report: Sodium 136 135-145 mmol/L Potassium 4.2 [...] Glomerular Filt Rate > 60 NOTE: For -Tongan individuals, multiply the result by 1.210. Chronic Kidney Disease: Estimated GFR < 60 mL/min/1.73m2 Severe Kidney Disease: Estimated GFR < 15 mL/min/1.73m2 Glucose Random 128 60-115 mg/dL Calcium 9.0 8.4-10.2 mg/dL Magnesium Reviewed date:05/23/2024 05:11:42 AM Interpretation: Performing Lab:[facility], [address] [place] [phone] Notes/Report: Magnesium 1.9 1.6-2.6 mg/dL Lipase Reviewed date:05/23/2024 05:11:42 AM Interpretation: Performing Lab:[facility], [address] [place] [phone] Notes/Report: Lipase 15 8-78 U/L Glucose, Whole Blood Reviewed date:05/23/2024 05:11:42 AM Interpretation: Performing Lab:[facility], [address] [place] [phone] Notes/Report: Glucose, Whole Blood 108 60-115 mg/dL METER # : [id number] Hemoglobin A1c Reviewed date:05/23/2024 05:11:42 AM Interpretation: Performing Lab:[facility], [address] [place] [phone] Notes/Report: Hemoglobin A1c % 6.9 <6.0 % [...] average glucose, using the formula of the U6X-Okqgzel Average Glucose study (ADAG), Diabetes Care, Vol.31,#8, May. 2007 UA CC w/rflx Micro + Cult Reviewed date:05/23/2024 05:11:42 AM Interpretation: Performing Lab:[facility], [address] [place] [phone] Notes/Report: Urine, Clean Catch Color Urine Yellow Appearance Urine Clear PH 5.5 5.0-9.0 Glucose Urine UA Negative Negative mg/dL Urine Blood Negative Negative Specific [place] - Urine 1.025 1.005-1.025 Urine Protein Negative Neg-Trace mg/dL Urine Ketones Negative Negative mg/dL Nitrite Urine Negative Negative Leukocyte Esterase Urine Negative Negative SARS-CoV2/FLU/RSV Reviewed date:05/23/2024 05:11:42 AM Interpretation: Performing Lab:[facility], [address] [place] [phone] Notes/Report: Influenza A PCR NEGATIVE Negative Influenza [...] by authorized laboratories. Testing performed on the [employer] GeneXpert utilizing real-time RT-PCR. All SARS CoV2 and positive influenza A/B results are reported to [facility]. CT abdomen pelvis w con Reviewed date:05/23/2024 05:11:42 AM Interpretation: Performing Lab: Notes/Report: [address] [address] [address] Scan Report Signed Patient: Alina Adamson MR#: [id number] 7 : 1975 Acct:[id number] Age/Sex: 49 / F ADM Date: 05/22/24 Loc: [place] [address]: Zac Betts MD Ordering Physician: Myriam Taylor DO Date of Service: 05/22/24 Procedure(s): CT abdomen pelvis w IV con Accession Number(s): [id number] cc: Yuniel Grewal MD; Myriam Taylor DO [...] in OV> 05/22/24 1631 DD/ 1404 TD/TT: Horse Shoer: [address] [address] [address] Scan Report Signed Patient: Opal Adamson MR#: [id number] 7 : 1975 Acct:[id number] Age/Sex: 49 / F ADM Date: 05/22/24 Loc: [facility]: Yocasta Betts MD Ordering Physician: Myriam Taylor DO Date of Service: 05/22/24 Procedure(s): CT abd omen pelvis w IV con Accession Number(s): [id number] cc: Yuniel Grewal MD; Myriam Taylor DO [...] PANCREAS: No suspici ous abnormality. SPLEEN: Within abida l limits ADRENAL GLANDS: Normal KIDNEYS AND [...] fat stranding. No CT evidence of ac nez perce appendicitis. The stomach is not distended. There [...] in OV> 05/22/24 1631 DD/ 1404 TD/TT: Adhesion Tester ist: US abdomen limited Reviewed date:05/23/2024 05:11:42 AM Interpretation: Performing Lab: Notes/Report: [address] [address] Ultrasound Report Signed Patient: Alina Adamson MR#: [id number] 7 : 1975 Acct:[id number] Age/Sex: 49 / F ADM Date: 05/22/24 Loc: HO.ED Attending Dr: Ordering Physician: Myriam Taylor DO Date of Service: 05/22/24 Procedure(s): US abdomen limited Accession Number(s): [id number] cc: Yuniel Grewal MD; Myriam Taylor DO [...] HIDA scan can be obtained. Dictated By: nAdrés Montenegro MD Signed By: <Electronically signed by Andrés Montenegro MD in OV> 05/22/24 1331 DD/ 1110 TD/TT: Horse Shoer: [address] [place] [address] Ultrasound Report Signed Patient: Opal Adamson MR#: [id number] 7 : 1975 Acct:[id number] Age/Sex: 49 / F ADM Date: 05/22/24 Loc: HO.ED Attending Dr: Ordering Physician: Myriam Taylor DO Date of Service: 05/22/24 Procedure(s): US abd omen limited Accession Number(s): [id number] cc: Yuniel Grewal MD; Myriam Taylor DO [...] in OV> 05/22/24 1331 DD/ 1110 TD/TT: Horse Shoer: Glucose, Whole Blood Reviewed date:05/23/2024 05:11:42 AM Interpretation: Performing Lab:[facility], [address] [place] [phone] Notes/Report: Glucose, Whole Blood 82 60-115 mg/dL METER # : [id number] Complete Blood Count no Diff Reviewed date:05/25/2024 07:39:13 PM Interpretation: Performing Lab:[facility], [address] [place] [phone] Notes/Report: White Blood Count 11.0 4.8-10.8 X10*3/uL [...] Panel Reviewed date:05/25/2024 07:39:13 PM Interpretation: Performing Lab:[facility], [address] [place] [phone] Notes/Report: Bilirubin Total 0.9 0.0-1.0 mg/dL Bilirubin Direct 0.3 0.0-0.5 mg/dL Aspartate Amino Transferase 12 5-31 U/L Alanine Aminotransferase 10 0-31 U/L Total Protein 6.2 6.5-8.0 g/dL Albumin Level 3.3 3.5-5.0 g/dL Alkaline Phosphatase 55 39-117 U/L Basic Metabolic Panel Reviewed date:05/25/2024 07:39:13 PM Interpretation: Performing Lab:[address] [phone] Notes/Report: Sodium 140 135-145 mmol/L Potassium 4.0 [...] Glomerular Filt Rate > 60 NOTE: For -Tongan individuals, multiply the result by 1.210. Chronic Kidney Disease: Estimated GFR < 60 mL/min/1.73m2 Severe Kidney Disease: Estimated GFR < 15 mL/min/1.73m2 Glucose Random 121 60-115 mg/dL Calcium 8.6 8.4-10.2 mg/dL Glucose, Whole Blood Reviewed date:05/25/2024 07:39:13 PM Interpretation: Performing Lab:[facility], [address] [place] [phone] Notes/Report: Glucose, Whole Blood 130 60-115 mg/dL METER # : [id number] Pathology Reviewed date:05/25/2024 07:39:13 PM Interpretation: Performing Lab:[facility], [address] [place] [phone] Notes/Report: ---- Name: Alina Adamson Age/Sex: 49/F : 1975 Unit#: [id number] Attend Dr: Zac Betts MD Re05/22/24 Status : DIS IN Location: [facility] 383-1 Disch: 05/24/24 ---- SPEC : [id number] RECD : 05/24/24 STATUS: VANDANA COFFMAN NUM: [id number] ANAYELI: 05/23/24-1529 [facility] DR: Zac Betts MD ENTERED: 05/24/24- SP [...] measuring up to 0.15 cm in thickness. [employer] Operations Analyst secti ons are submitted in a cassette labeled A1 to include the margin of resection of the cys tic duct. CEDS Copies To: Yuniel Grewal MD [address] [place] [address] Zac Betts MD [facility] [address] [place] [address] CONTINUED ON NEXT PAGE ---- Name: Alina Adamson Age/Sex: 49/F : 1975 Unit#: [id number] Attend Dr: Zac Betts MD Re05/22/24 Status : DIS IN Location: [place] 383-1 Disch: 05/24/24 ---- SPEC : [id number] RECD : 05/24/24 STATUS: VANDANA COFFMAN NUM: [id number] ANAYELI: 05/23/24-1528 [facility] DR: Zac Betts MD ENTERED: 05/24/24- SP TYPE: Surgical OTHR DR: Yuniel Grewal MD ORDERED: Filippo Atkinson L3 ---- Signed (signature on file) Naty Mancera 05/25/24 1057 ---- END OF REPORT Glucose, Whole Blood Reviewed date:05/25/2024 07:39:13 PM Interpretation: Performing Lab:[facility], [address] [place] [phone] Notes/Report: Glucose, Whole Blood 108 60-115 mg/dL METER # : [id number] Glucose, Whole Blood Reviewed date:05/25/2024 07:39:13 PM Interpretation: Performing Lab:[facility], [address] [place] [phone] Notes/Report: Glucose, Whole Blood 100 60-115 mg/dL METER # : [id number] Glucose, Whole Blood Reviewed date:05/25/2024 07:39:13 PM Interpretation: Performing Lab:[facility], [address] [place] [phone] Notes/Report: Glucose, Whole Blood 118 60-115 mg/dL METER # : [id number] Glucose, Whole Blood Reviewed date:05/25/2024 07:39:13 PM Interpretation: Performing Lab:[facility], [address] [place] [phone] Notes/Report: Glucose, Whole Blood 143 60-115 mg/dL METER # : [id number] Glucose, Whole Blood Reviewed date:05/25/2024 07:39:13 PM Interpretation: Performing Lab:[facility], [address] [place] [phone] Notes/Report: Glucose, Whole Blood 142 60-115 mg/dL METER # : [id number] Glucose, Whole Blood Reviewed date:05/25/2024 07:39:13 PM Interpretation: Performing Lab:[facility], [address] [place] [phone] Notes/Report: Glucose, Whole Blood 158 60-115 mg/dL METER # : [id number] Reason For Referral Reason Evaluate and Treat [...] ONCE A WEEK 28 DAYS Active Pen [place] 31G X 6 MM as directed Twice [...] Problem Status W/U Status Risk Notes Problem 3733640 Former smoker (Z87.891) Active confirmed She has a plan to prevent relapse in times of stress and illness. Problem Asthma (737717039) Asthma (J45.909) Active confirmed She has a history of intermittent asthma. No wheezes or her today. She has a rescue inhaler if necessary. Problem Anemia (718615540) Anemia (D64.9) Active confirmed This will be reevaluated with comprehensive blood work to be done in the next few days. She did not appear to be anemic. She has had no bleeding. Problem Diabetes mellitus without complication (523277312) Diabetes (E11.9) Active confirmed She has been compliant with her medication. Her fasting glucoses morning was 140 at home. Comprehensive blood work with a hemoglobin A1c and a microalbumin have been ordered to be done in the next few days. Problem Hypertension (23264321) HTN (hypertension) (I10) Active confirmed Her blood pressure is currently stable and no change in her regimen was made. I strongly recommended aggressive weight loss and sodium restriction. Problem Hypothyroid (47894101) Hypothyroid (E03.9) Active confirmed Her thyroid function tests are normal. She appears to be euthyroid. No change was necessary in her medication. Problem 579585749 Atypical chest pain (R07.89) Active confirmed She is on aspirin. 4. Atypical chest pain from a previous provider. She believes her chest discomfort is caused by stress. If necessary, a stress test can be done. Problem 975970377 Herpes zoster without complication (B02.9) Active confirmed She had an episode of shingles in February of this year. She was treated with prednisone and valacyclovir. It has resolved. Problem 046368429 Morbid obesity (E66.01) Active confirmed Her body mass index is 41. We discussed diet and nutrition. We made a plan to lose weight at a rate of one half of a pound per week. We have discussed oral and injectable medications she has declined them for the time being. She does not wish to have bariatric surgery. Problem 888853109 Low back pain, unspecified (M54.50) Active confirmed [...] Provider Diagnosis Yuniel Grewal III, MD [address] [place] [address] [place] [id number] 09/25/2023 Yuniel Grewal Diabetes E11.9 ; Ane rosaline D64.9 ; Hypothyroid E03.9 ; Morbid obesity E66.01 ; Former smoker Z87.891 ; HTN (hypertension) I10 ; Asthma J45.909 and Low back pain, unspecified M54.50 Yuniel Grewal III, MD [address] [place] [address] [place] [id number] 01/26/2024 Yuniel Grewal Diabetes E11.9 ; HTN (hypertension) I10 ; Morbid obesity E66.01 ; Low back pain, unspecified M54.50 ; Hypothyroid E03.9 and Asthma J45.909 Yuniel Grewal III, MD [address] [place] [address] [place] [id number] 04/08/2024 Yuniel Grewal Diabetes E11.9 ; Hypothyroid E03.9 ; HTN (hypertension) I10 ; Morbid obesity E66.01 ; Breast pain, right N64.4 and Former smoker Z87.891 Yuniel Grewal III, MD [address] [place] [address] [place] [id number] 05/05/2024 Yuniel Grewal Diabetes E11.9 ; Hypothyroid E03.9 ; Morbid obesity E66.01 ; HTN (hypertension) I10 ; Asthma J45.909 ; Low back pain, unspecified M54.50 and Former smoker Z87.891 Yuniel Grewal III, MD [address] [place] [address] [place] [id number] 05/27/2024 Yuniel Grewal Acute cholecystitis K81.0 ; Diabetes E11.9 ; Hypothyroid E03.9 ; HTN (hypertension) I10 ; Asthma J45.909 ; Former smoker Z87.891 ; Low back pain, unspecified M54.50 and Morbid obesity E66.01 Yuniel Grewal III, MD [address] [place] [address] [place] [id number] 09/16/2024 Yuniel Grewal Diabetes E11.9 ; Mor bid obesity E66.01 ; HTN (hypertension) I10 ; Anemia D64.9 ; Neck pain M54.2 ; Hypothyroid E03.9 ; Asthma J45.909 and Former smoker Z87.891 Yuniel Grewal III, MD [address] [place] [address] [place] [id number] 01/14/2024 Yuniel Grewal III, MD [address] [place] [address] [place] [phone] 01/15/2024 Yuniel Grewal III, MD [address] [place] [address] [place] [id number] 01/15/2024 Yuniel Grewal III, MD [address] [place] [address] [place] [id number] 02/10/2024 Yuniel Grewal III, MD [address] [place] [address] [place] [id number] 04/12/2024 Yuniel Grewal III, MD [address] [place] [address] [place] [id number] 04/20/2024 Yuniel Grewal Diabetes E11.9 Yuniel Grewal III, MD [address] [place] [address] [place] [id number] 06/02/2024 Yuniel Grewal Assessments Encounter Date Diagnosis [...] she went to the emergency room at [facility] May 22, 2024 and the next [...] Details Provider Name:Yuniel Grewal, 09/30/2024 04:00:00 PM, [address] [place] [address] [facility] [address], [place], [address], Provider Name:Yuniel Grewal, 09/18/2025 03:30:00 PM, [address] [place] [address] [address], [place], [address], Insurance Providers Payer Name Payer Address Payer Phone Subscriber Number Group Number Insured Name Patient Relationship to Insured Coverage Start Date Coverage End Date [address] [place] [phone] [id number] Alina Adamson Self - patient is the insured Medical (General) History Medical History History ICD Code Hypothyroid E03.9 HTN (hypertension) I10 Anemia D64.9 Asthma J45.909 [id number] chronic lumbar back pain Adult onset diabetes mellitus Shingles February 2023. Left flank Atypical chest pain Family history of breast cancer, sister Former smoker Morbid obesity Acute cholecystitis May 22, 2024 The patient had her gallblad sergey removed in the past. She is managing her blood sugar levels with medication and is taking thyroid medication. Surgical History Surgery Date(Month/Year) 1999 [id number] Laparoscopic cholecystectomy [facility] Dr. Betts Gallbladder removal Hospitalization History Reason Date(Month/Year) Hospitalization for gallbladder removal
[2024-09-23 09:51] LABS: MANUAL DIFF FLAG NO
[2024-09-23 10:29] LABS: Basophils Absolute Auto 0.1 X10*3/uL (0.0-0.2); Basophils Percent Auto 0.7 % (0-2); Eosinophils Absolute Auto 0.3 X10*3/uL (0.0-0.4); Eosinophils Percent Auto 2.6 % (0-4); Hematocrit 39.7 % (37.0-47.0); Hemoglobin 13.2 g/dl (12.0-16.0); Imm Gran Abs Auto 0.04 X10*3/uL (0.00-0.03); Imm Gran Pct Auto 0.4 % (0.0-0.4); Lymphocytes Absolute Auto 3.5 X10*3/uL (1.2-4.9); Lymphocytes Percent Auto 33.8 % (20-40); Mean Corpuscular HGB Conc 33.2 g/dl (31.0-35.0); Mean Corpuscular Hemoglobin 28.9 pg (27.0-33.0); Mean Corpuscular Volume 87.1 fL (80.0-98.0); Mean Platelet Volume 10.9 fL (9.4-12.3); Monocytes Absolute Auto 0.5 X10*3/uL (0.1-1.2); Monocytes Percent Auto 4.5 % (2-11); Platelet Count 246 X10*3/uL (160-400); Red Blood Count 4.56 X10*6/uL (4.20-5.50); White Blood Count 10.4 X10*3/uL (4.8-10.8)
[2024-09-23 10:45] LABS: Estimated Average Glucose 148 mg/dL; Hemoglobin A1C 174.3093 umol/L; Hemoglobin A1c % 6.8 % (<6.0); Total Hemoglobin (HGBA1C) 3409.2315 umol/L
[2024-09-23 11:29] LABS: Alanine Aminotransferase 22 U/L (0-31); Albumin Level 4.1 g/dL (3.5-5.0); Alkaline Phosphatase 74 U/L (39-117); Anion Gap 9 (12-20); Aspartate Amino Transferase 18 U/L (5-31); Bilirubin Total 0.4 mg/dL (0.0-1.0); Blood Urea Nitrogen 16 mg/dL (9-16); Calcium 8.9 mg/dL (8.4-10.2); Carbon Dioxide 26 mmol/L (22-29); Chloride 109 mmol/L (96-108); Cholesterol 213 mg/dL (<200); Estimated Glomerular Filt Rate > 60; Ferritin 13 ng/mL (10-250); Glucose Fasting 130 mg/dL (60-99); HDL Cholesterol 47 mg/dL (>40); LDL Cholesterol Calculated 137 mg/dL (<100); Potassium 4.6 mmol/L (3.3-5.1); Sodium 139 mmol/L (135-145); Total Protein 7.5 g/dL (6.5-8.0); Triglycerides 145 mg/dL (<150)
[2024-09-23 11:31] LABS: Creatinine Urine 125.44 mg/dL; Microalbum/Creatinine Ratio Ur 15.1 ug/mg cr (<30)
== END 2024-09-23 09:33 | disposition home or self-care (01) ==
LOC: HO.LAB 09:32
PROVIDERS: PCP Internal Medicine Medical Oncology; Visit Provider Internal Medicine Medical Oncology
DX: Z00.00 Encounter for general adult medical examination without abnormal findings (principal); E11.9 Type 2 diabetes mellitus without complications; E66.01 Morbid (severe) obesity due to excess calories; I10 Essential (primary) hypertension; D64.9 Anemia, unspecified
CPT/HCPCS: 36415; 80053; 80061; 82043; 82570; 82728; 83036; 85025

== ENCOUNTER 2024-10-20 12:03 | Outpatient (AMB) | payer OTHER, SELFPAY ==
[2024-10-20 12:18] VITALS: BP 120/72; BMI 41.0
--- NOTE | 2024-10-20 12:18 | MHC.OFFVIS ---
Vital Signs 10/20/24 12:18 Height 4 ft 11 in Weight 203 lb BMI 41.0 BP 120/72 Intake Visit Reasons: Fibroids consult/Per Kirti Machine Molder Squeeze Required: No Information Interpreted: non-clinical & clinical Accompanied by: Self / Same As Patient Allergies No Known Allergies Allergy (Verified 10/20/24 12:21) HPI Comments Details: The patient is is referred from Kirti Beard CNM. The patient has been complaining of irregular menstrual cycles associated with pelvic cramping and passage of blood clots. 09/03 pelvic ultrasound showed the following: The uterus is anteverted, heterogeneous and measures 13.1 x 8.1 x 13.5 cm, volume 784.4 mL. 6.7 x 7.0 x 7.7 cm left fibroid. 3.6 x 3.4 x 3.6 cm left fibroid. Endometrium difficult to visualize due to body habitus, uterine positioning and shadowing from fibroids. Image segment of endometrium with thickness of approximately 0.8 cm. No significant free fluid. Fluid within the endocervical canal. Nabothian cysts within the cervix. Right ovary not visualized. Left ovary measures 2.9 x 2.9 x 3.4 cm, volume 15.0 mL. Left ovarian 1.6 x 1.2 x 2.1 cm cyst is mildly complex with low level internal echoes, but difficult to characterize due to limited visualization. 06/04 CT scan was done, the pelvic viscera of which showed the following: PELVIC VISCERA: The uterus is enlarged and heterogeneous and there are numerous varying sized myometrial masses. A mass in the left side measures approximately 7.6 cm. The endometrium is top normal. Rim enhancing cysts in the left adnexa superiorly is consistent with a physiologic cyst and does not require any specific imaging follow-up Last co testing was done in 08/03 was negative Last mammogram was in 05/04 was BI-RADS [facility] Medical History Gallstones Morbid obesity Hypothyroidism HTN (hypertension) Diabetes Surgical History History of laparoscopic cholecystectomy (~05/23/24) Hx of section Family History Father Thyroid disease Hepatitis HTN (hypertension) Diabetes Mother Kidney disease Coronary artery disease Renal failure Maternal Aunt Breast CA Social History Household Members: Family Housing: House Do you presently have visiting nurse or other home services: No Alcohol intake: never Patient Tobacco Use Status: Never used Tobacco Second Hand Smoke Exposure: No service: No Current occupational status: employed 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 Female Reproductive History Menstrual Age of Menarche: 15 Review of Systems Const All systems reviewed & are unremarkable except as noted in HPI and below Physical Exam Vital Signs: Last Vital Signs BP 120/72 10/20/24 12:18 BMI result Body Mass Index 41.0 General: Yes no CVA tenderness External Female Exam: normal external appearance and normal appearance of the urethra Speculum Exam - Vagina: normal appearance of the vagina, normal palpation, no lesions and no masses Speculum Exam - Cervix: normal appearance of the cervix, normal palpation, no lesions, no masses and nontender Bimanual exam- vagina & uterus: normal palpation, uterine size normal, normal palpation, uterine shape normal, No Cervical tenderness present, non-tender and enlarged Bimanual Exam- Adnexa, other: normal adnexae Back/Spine/Pelvis Back: no CVA tenderness Assessment & Plan Assessment & Plan (1) Uterine myoma: Code(s): D25.9 - Leiomyoma of uterus, unspecified Category: Medical Plan: Discussed with the patient the finding on ultrasound in [address] scan in 2023, will repeat ultrasound to compare the size of the myoma from previous ultrasound and evaluate the left ovarian cyst. (2) Ovarian cyst: Code(s): N83.209 - Unspecified ovarian cyst, unspecified side Category: Medical Plan: Will order pelvic ultrasound follow up in the left ovarian cyst. (3) Abnormal uterine bleeding (AUB): Code(s): N93.9 - Abnormal uterine and vaginal bleeding, unspecified Category: Medical Plan: GC and chlamydia taken CBC, TSH, FSH, LH HCG, and pelvic ultrasound ordered. Discussed with the patient the different causes of abnormal bleeding including thyroid disorders, uterine and ovarian pathology, endometrial hyperplasia, carcinoma and other potential causes. Discussed with the patient the work up including CBC (to r/o anemia), TSH, hCG, FSH, LH, pelvic Ultrasound, endometrial biopsy to r/o endometrial pathology. All questions answered and the patient verbalized understanding. Instructed the patient to schedule an appointment for an endometrial biopsy in 2 weeks. Orders: Orders TSH reflex Free T4 Today N93.9 - Abnormal uterine and vaginal bleeding, unspecified HCG Quantitative Today N93.9 - Abnormal uterine and vaginal bleeding, unspecified US pelvic and transvaginal Today N93.9 - Abnormal uterine and vaginal bleeding, unspecified Lutenizing Hormone Today N93.9 - Abnormal uterine and vaginal bleeding, unspecified Follicle Stimulating Hormone Today N93.9 - Abnormal uterine and vaginal bleeding, unspecified Complete Blood Count no Diff Today N93.9 - Abnormal uterine and vaginal bleeding, unspecified Coding Level of Care Code Est Pt Level 3 (91729) Diagnoses Uterine myoma D25.9 Ovarian cyst N83.209 Abnormal uterine bleeding (AUB) N93.9
--- OUTSIDE RECORDS SUMMARY | 2024-10-20 12:53 | XMS_ITS ---
Author Organization Yuniel Grewal III, MD Address [address] [address] Care Team Providers Care Back Hoe Machine Operator Name Role Phone Yuniel Grewal Primary Care [...] sugars twice a day 05/05/2023 Active Pen [place] 31G X 6 MM as directed Twice [...] Date Provider Diagnosis Yuniel Grewal III, MD [address] [place] [address] DR MCKEON [address] [place] [address], [place] [address] 10/14/2024 Yuniel Grewal Plan Of Treatment Medication [...] blood sugars twice a day 05/05/2023 Pen [place] 31G X 6 MM as directed Twice [...] 06/02/2024 Next Appt Details Provider Name:Yuniel Grewal, 09/18/2025 03:30:00 PM, [address] [place] [address] [address], [place], [address], Progress Notes * Alina ALVAREZDOB:1975 (49 yo F)Acc No.[id number]:10/14/2024 Progress Notes Patient:?Alina ALVAREZ Provider:?Yuniel Grewal MD :1975???Age:49 Y???Sex:Female D ate:10/14/2024 Address:[address] [place], [place] [id number] Subjective: * Chief Complaints: * ???1. Follow up. * HPI: ???COVID-19 Screening:?Questions?Have you had any new onset fever, chills, cough, congestion, sore throat, shortness of breath, muscle aches??No * ROS:?General/Constitutional:?pain?only normal aches and pains.?Chills?denies.?Fatigue?admits.?Fever?denies.?ENT:?Decreased hearing?denies.?Respiratory:?Cough?denies.?Cardiovascular:?Chest pain with exertion?denies.?Dyspnea on exertion?denies.?Shortness of breath?denies.?Gastrointestinal:?Constipation?denies.?Decreased appetite?denies.?Diarrhea?denies.?Heartburn?denies.?Nausea?denies.?Rectal bleeding?denies.?Vomiting?denies.?Hematology:?bruising?denies.?petechiae?denies.?Swollen glands?none have been noted.?Genitourinary:?Frequent urination?denies.?Musculoskeletal:?Muscle aches?denies.?Painful joints?denies.?Sciatica?denies.?Weakness?denies.?Skin:?Itching?denies.?Rash?denies.?Skin lesion(s)?denies.?Neurologic:?Difficulty speaking?denies.?Dizziness?denies.?Headache?denies.?Low back pain?denies.?Psychiatric:?Depressed mood?denies.? * Medical History:?Hypothyroid , HTN (hypertension), Anemia, Asthma, [id number], Chronic lumbar back pain, Adult onset diabetes mellitus, Shingles February 2023. Left flank, Atypical chest pain, Family history of breast cancer, sister, Former smoker, Morbid obesity, Acute cholecystitis May 22, 2024, The patient had her gallbladder removed in the past. She is managing her blood sugar levels with medication and is taking thyroid medication.. * Surgical History:? 1999, [id number] , Laparoscopic cholecystectomy [facility] Dr. Betts , Gallbladder removal . * Hospitalization/Major Diagno stic Procedure:?Hospitalization for gallbladder removal . * Family History:?Father: shantel barnes 65 yrs, diagnosed with DM, HTN.?Mother: 66 [...] healthy and well. * Social History:?Tobacco Use:?Tobacco Control (Standard)?Tobacco use:?Former smoker ?How long has it been since you last smoked??Greater than 10 years ?Additional Findings: Tobacco non-user?Ex-cigarette smoker ???The patient works and has one child. She does not smoke. * Medications:?Taking BD Pen N eedle Micro [...] twice a day , Taking Pen [place] 31G X 6 MM Miscellaneous as directed Twice a day 30 days , Medication List reviewed and reconciled with the patient * Allergies:?Shellfish-derived Products. Objective: * Vitals:? * ???Past Orders: Lab:Hemoglobin A1c * Collection Date 09/23/2024 05/22/2024 04/22/2024 Collection Time 09:50 AM 10:42 AM 08:47 AM Order Date 09/16/2024 05/22/2024 04/22/2024 Hemoglobin A1c % 6.8?H (Ref Range: <6.0 %) 6.9?H (Ref Range: <6.0 %) 8.0?H (Ref Range: <6.0 %) Estimated Average Glucose 148 (Ref Range: mg/dL) 151 (Ref Range: mg/dL) 183 (Ref Range: mg/dL) Clinical Info: Please fast for 12-1 4 hours prior to having this labwork done. You may have black coffee or tea with no milk or sugar. May have water,Please have this testing 1 week prior to your next appointment,PLEASE FAX COMPLETED RESULTS TO [phone] * Lab:Complete Blood Count Aut o Diff * Collection Date 09/23/2024 05/22/2024 04/22/2024 Collection Time 09:50 AM 10:42 AM 08:47 AM Order Date 09/23/2024 05/22/2024 04/22/2024 White Blood Count 10.4 (Ref Range: 4.8-10.8 X10*3/uL) 13.5?H (Ref Range: 4.8-10.8 X10*3/uL) 10.9?H (Ref Range: 4.8-10.8 X10*3/uL) Red Blood Count [...] Range: 2.0-8.3 x10*3/uL) Imm Gran Abs Auto 0.04?H (Ref Range: 0.00-0.03 X10*3/uL) 0.03 (Ref Range: [...] your next appointment,PLEASE FAX COMPLETED RESULTS TO [phone] * Lab:Microalbumin, Random * Collection Date 09/23/2024 [...] your next appointment,PLEASE FAX COMPLETED RESULTS TO [phone] * Lab:Comprehensive [place]. Pane l Fast * Collection Date 09/23/2024 04/22/2024 [...] mmol/L) 4.6 (Ref Range: 3.3-5.1 mmol/L) Chloride 109?H (Ref Range: 96-108 mmol/L) 107 (Ref Range: 96-108 mmol/L) 104 (Ref Range: 96-108 mmol/L) Carbon Dioxide 26 (Ref Range: 22-29 mmol/L) 24 (Ref Range: 22-29 mmol/L) 28 (Ref Range: 22-29 mmol/L) Anion Gap 9?L (Ref Range: 12-20) 12 (Ref Range: 12-20) 12 (Ref Range: 12-20) Blood Urea Nitrogen 16 (Ref Range: 9-16 mg/dL) 11 (Ref Range: 9-16 mg/dL) 12 (Ref Range: 9-16 mg/dL) Creatinine 0.73 (Ref Range: 0.5-1.4 mg/dL) 0.63 (Ref Range: 0.5-1.4 mg/dL) 0.69 (Ref Range: 0.5-1.4 mg/dL) Estimated Glomerular Filt Rate > 60 > 60 > 60 Glucose Fasting 130?H (Ref Range: 60-99 mg/dL) 123?H (Ref Range: 60-99 mg/dL) 185?H (Ref Range: 60-99 mg/dL) Calcium 8.9 (Ref Range: 8.4-10.2 mg/dL) 8.4 (Ref Range: 8.4-10.2 mg/dL) 9.4 (Ref Range: 8.4-10.2 mg/dL) * Lab:Lipid Panel * Collection Date 09/23/2024 04/22/2024 01/29/2024 Collection Time 09:50 AM 08:47 AM 08:52 AM Order Date 09/16/2024 04/22/2024 01/26/2024 Triglycerides 145 (Ref Range: <150 mg/dL) 219?H (Ref Range: <150 mg/dL) 195?H (Ref Range: <150 mg/dL) Cholesterol 213?H (Ref Range: <200 mg/dL) 229?H (Ref Range: <200 mg/dL) 217?H (Ref Range: <200 mg/dL) LDL Cholesterol Calculated 137?H (Ref Range: <100 mg/dL) 146?H (Ref Range: <100 mg/dL) 136?H (Ref Range: <100 mg/dL) HDL Cholesterol 47 (Ref Range: >40 mg/dL) 40?L (Ref Range: >40 mg/dL) 42 (Ref Range: >40 mg/dL) Clinical Info: Please fast for 12-1 4 hours prior to having this labwork done. You may have black coffee or tea with no milk or sugar. May have water,Please have this testing 1 week prior to your next appointment,PLEASE FAX COMPLETED RESULTS TO [phone] ???Lab:URINE DIP STICK (Order Date - 09/16/2024) (Collection Date & Time - 09/16/2024)?ValueReference Range?SG1.0151.005 - 1.025?pH5.0 5.0 - 9.0?LEUNegativeNegative -?NITNegativeNegative -?PRO15 Negative - Trace?GLUNegativeNegative -?KETNegativeNegative - ?UBG0.20.1 - 1.8?BILNegative0.2 - 1.3?BLD+++Negative - ???Imaging:XR cervical spine 4V (Order Date - 09/16/2024) (Performed Date - 09/16/2024) * Examination: ???General Examination: ?GENERAL APPEARANCE:?pleasant, well [...] lower extremities, sensory exam intact.?PSYCH:?alert, oriented.? Assessment: Plan: * Treatment: * Images: * The named appointment provid er may or may not be the originator of this progress note, and it is not deemed complete until electronically signed by the appointment provider. Sign off status: Pending * Provider:?Yuniel Grewal MD Date:?12/2024 Generated for Josy shine/Mirtha/eTjenssmitting on:?10/20/2024 12:53 PM EST History and Physical Notes * HPI [...]
--- OUTSIDE RECORDS SUMMARY | 2024-10-20 12:53 | XMS_ITS ---
Author Organization Yuniel Grewal III, MD Address [address] [place] [address] Care Team Providers Care Business Planner Name Role Phone Yuniel Grewal Primary Care [...] ONCE A WEEK 28 DAYS Active Pen [place] 31G X 6 MM as directed Twice [...] Date Provider Diagnosis Yuniel Grewal III, MD [address] [place] [address] [address] MCKEON [address] [place] [address], [place] [address] 09/30/2024 Yuniel Grewal Plan Of Treatment Medication [...] SUBCUTANEOUS ONCE A WEEK 28 DAYS Pen [place] 31G X 6 MM as directed Twice [...] MCG/ACT Inhalation Next Appt Details Provider Name:Yuniel Grewal, 09/18/2025 03:30:00 PM, [address] [facility], [place], [address], Progress Notes * Alina ALVAREZDOB:1975 (49 yo F)Acc No.[id number]:09/30/2024 Progress Notes Patient:?Alina ALVAREZ Provider:?Yuniel Grewal MD :1975???Age:49 Y???Sex:Female D ate:09/30/2024 Address:[address] [place], [place] [id number] Subjective: * Chief Complaints: * ???1. Follow [...] Medical History:?Hypothyroid , HTN (hypertension), Anemia, Asthma, [id number], Chronic lumbar back pain, Adult onset diabetes mellitus, Shingles February 2023. Left flank, Atypical chest pain, Family history of breast cancer, sister, Former smoker, Morbid obesity, Acute cholecystitis May 22, 2024, The patient had her gallbladder removed in the past. She is managing her blood sugar levels with medication and is taking thyroid medication.. * Surgical History:? 1999, S3X4Vm4 , Laparoscopic cholecystectomy [facility] Dr. Betts , Gallbladder removal . [...] sugars twice a day , Taking Pen [place] 31G X 6 MM Miscellaneous as directed [...] off status: Pending * Provider:?Yuniel Grewal MD Date:?09/12 Generated for Josy shine/Mirtha/Reggieitting on:?10/20/2024 12:53 PM EST History and Physical [...]
--- OUTSIDE RECORDS SUMMARY | 2024-10-20 12:54 | XMS_ITS | Patient Health Record ---
Author Organization Yuniel Grewal III, MD Address [address] [place] [address] Care Team Providers Care Associate Software Application Engineer Name Role Phone Yuniel Grewal Primary Care Provider [phone] Allergies Allergen (clinical drug ingredient) Drug/Non Drug Allergy documented on EMR Reaction Allergy Type Onset Date Status Shellfish (FN) Shellfish-derived Products Unknown Drug Allergy Active Results Component Value Reference Range Notes Lipid Panel Reviewed date:02/10/2024 04:46:07 PM Interpretation: Performing Lab:[facility], [address] [place] [phone] Notes/Report: Triglycerides 195 <150 mg/dL Desirable Triglyceride: [...] A1c Reviewed date:02/10/2024 04:46:07 PM Interpretation: Performing Lab:[facility], [address] [place] [phone] Notes/Report: Hemoglobin A1c % 8.4 <6.0 % [...] average glucose, using the formula of the M2D-Lyuaahq Average Glucose study (ADAG), Diabetes Care, Vol.31,#8, May. 2007 XR lumbar spine 4V min Reviewed date:02/10/2024 04:46:07 PM Interpretation: Performing Lab: Notes/Report: [address] [address] XRay Report Signed Patient: Alina Adamson MR#: [id number] 7 : 1975 Acct:[id number] Age/Sex: 48 / F ADM Date: 01/29/24 Loc: HO.PJ Attending Dr: Yuniel Grewal MD Ordering Physician: Yuniel Grewal MD Date of Service: 01/29/24 Procedure(s): XR lumbar spine 4V min Accession Number(s): [id number] cc: Yuniel Grewal MD EXAMINATION: XR LUMBOSACRAL [...] MD in OV> 02/08/24723 DD/ 7 TD/TT: Rail Transportation Operator: [place] [address] XRay Report Signed Patient: Opal Adamson MR#: [id number] 7 : 1975 Acct:[id number] Age/Sex: 48 / F ADM Date: 01/29/24 Loc: HO.XRAY Attending Dr: Yuniel Grewal MD Ordering Physician: Yuniel Grewal MD Date of Service: 01/29/24 Procedure(s): XR lum bar spine 4V min Accession Number(s): [id number] cc: Yuniel Grewal MD EXAMINATION: XR LUMBOSACRAL [...] Corie Castellanos MD in OV> 02/08/2424 DD/ TD/TT: Rail Transportation Operator: URINE DIP STICK Reviewed date:09/16/2024 04:08:10 PM Interpretation: Performing Lab: Notes/Report: SG 1.015 1.005 - 1.025 pH 5.0 5.0 - 9.0 BRUCE Negative Negative - NIT Negative Negative - PRO 15 Negative - Trace GLU Negative Negative - KET Negative Negative - UBG 0.2 0.1 - 1.8 YADIRA Negative 0.2 - 1.3 BLD +++ Negative - Ferritin Reviewed date:10/03/2024 06:07:16 AM Interpretation: Performing Lab:[facility], [address] [place] [phone] Notes/Report: Ferritin 13 10-250 ng/mL Lipid Panel Reviewed date:10/03/2024 06:07:16 AM Interpretation: Performing Lab:[facility], [address] [place] [phone] Notes/Report: Triglycerides 145 <150 mg/dL Desirable Triglyceride: [...] Random Reviewed date:10/03/2024 06:07:16 AM Interpretation: Performing Lab:[facility], [address] [place] [phone] Notes/Report: Creatinine Urine 125.44 Microalbumin Urine 19.0 Microalbum/Creatinine Ratio Ur 15.1 <30 ug/mg cr Albumin/Creatinine Ratio Reference Ranges: Normal: < 30 ug/mg creatinine Microalbuminuria: 30 - 300 ug/mg creatinine Clinical Albuminuria: > 300 ug/mg creatinine Hemoglobin A1c Reviewed date:10/03/2024 06:07:16 AM Interpretation: Performing Lab:[facility], [address] [place] [phone] Notes/Report: Hemoglobin A1c % 6.8 <6.0 % [...] average glucose, using the formula of the J8U-Ywgrrqy Average Glucose study (ADAG), Diabetes Care, Vol.31,#8, May. 2007 XR cervical spine 4V Reviewed date:10/03/2024 06:07:16 AM Interpretation: Performing Lab: Notes/Report: [address] [address] XRay Report Signed Patient: Alina Adamson MR#: [id number] 7 : 1975 Acct:[id number] Age/Sex: 49 / F ADM Date: 09/16/24 Loc: AZRA Attending Dr: Yuniel Grewal MD Ordering Physician: Yuniel Grewal MD Date of Service: 09/16/24 Procedure(s): XR cervical spine 4V Accession Number(s): [id number] cc: Yuniel Grewal MD EXAMINATION: XR CERVICAL [...] by: Elda Warren MD 09/16/2024 08:42 PM [facility] Dictated By: Elda Warren MD Signed By: <Electronically signed by Elda Warren MD in OV> 09/16/242041 DD/ 49 TD/TT: 09/16/241699 Rail Transportation Operator: NIKHIL [address] [address] XRay Report Signed Patient: Opal Adamson MR#: [id number] 7 : 1975 Acct:[id number] Age/Sex: 49 / F ADM Date: 09/16/24 Loc: HO.XRAY Attending Dr: Yuniel Grewal MD Ordering Physician: Yuniel Grewal MD Date of Service: 09/16/24 Procedure(s): XR cervical spine 4V Accession Number(s): [id number] cc: Yuniel Grewal MD EXAMINATION: XR CERVICAL [...] by: Elda Warren MD 09/16/2024 08:42 PM [facility] Dictated By: Elda Warren MD Signed By: <Electronically signed by Elda Warren MD in OV> 09/16/242041 DD/ 49 TD/TT: 09/16/241699 Rail Transportation Operator: NIKHIL Complete Blood Count Auto Di ff Reviewed date:02/10/2024 04:46:07 PM Interpretation: Performing Lab:[facility], [address] [place] [phone] Notes/Report: White Blood Count 11.2 4.8-10.8 X10*3/uL [...] NRBC Abs Auto 0.000 0.0-0.012 X10*3/uL Comprehensive [place]. Panel Fa st Reviewed date:02/10/2024 04:46:07 PM Interpretation: Performing Lab:[facility], [address] [place] [phone] Notes/Report: Sodium 139 135-145 mmol/L Potassium 4.6 3.3-5.1 mmol/L Chloride 104 96-108 mmol/L Carbon Dioxide 28 22-29 mmol/L Anion Gap 12 12-20 Blood Urea Nitrogen 12 9-16 mg/dL Creatinine 0.69 0.5-1.4 mg/dL Estimated Glomerular Filt Rate > 60 NOTE: For -Cymro individuals, multiply the result by 1.210. Chronic [...] ff Reviewed date:05/05/2024 05:59:10 AM Interpretation: Performing Lab:[facility], [address] [place] [phone] Notes/Report: White Blood Count 10.9 4.8-10.8 X10*3/uL [...] te Reviewed date:05/05/2024 05:59:10 AM Interpretation: Performing Lab:[facility], [address] [place] [phone] Notes/Report: Erythrocyte Sedimentation Rate 10 0-20 MM/HR Patients with polycythemia and many hemoglobin abnormalities may have depressed sed rates whereas patients with anemia may have elevated sed rates. Comprehensive [place]. Panel Fa Reviewed date:05/05/2024 05:59:10 AM Interpretation: Performing Lab:[facility], [address] [place] [phone] Notes/Report: Sodium 139 135-145 mmol/L Potassium 4.1 3.3-5.1 mmol/L Chloride 107 96-108 mmol/L Carbon Dioxide 24 22-29 mmol/L Anion Gap 12 12-20 Blood Urea Nitrogen 11 9-16 mg/dL Creatinine 0.63 0.5-1.4 mg/dL Estimated Glomerular Filt Rate > 60 NOTE: For -Cymro individuals, multiply the result by 1.210. Chronic [...] Ferritin Reviewed date:05/05/2024 05:59:10 AM Interpretation: Performing Lab:[facility], [address] [place] [phone] Notes/Report: Ferritin 23 10-250 ng/mL Lipid Panel Reviewed date:05/05/2024 05:59:10 AM Interpretation: Performing Lab:[facility], [address] [place] [phone] Notes/Report: Triglycerides 219 <150 mg/dL Desirable Triglyceride: [...] Thyroxine) Reviewed date:05/05/2024 05:59:10 AM Interpretation: Performing Lab:[address] [phone] Notes/Report: Free T4 (Free Thyroxine) 1.12 0.71-1.85 ng/dL Thyroid Stimulating Hormone Reviewed date:05/05/2024 05:59:10 AM Interpretation: Performing Lab:[address] [address] Notes/Report: Thyroid Stimulating Hormone 2.99 0.32-4.0 uIU/mL Note: A sustained TSH level above 2.5 uIU/mL may warrant further investigation. TSH 3rd Generation ([facility]) Hemoglobin A1c Reviewed date:05/05/2024 05:59:10 AM Interpretation: Performing Lab:[address] [phone] Notes/Report: Hemoglobin A1c % 8.0 <6.0 % [...] average glucose, using the formula of the B1G-Nojawvc Average Glucose study (ADAG), Diabetes Care, Vol.31,#8, May. 2007 MM tomosynthesis diagnostic BI Reviewed date:05/05/2024 05:59:10 AM Interpretation: Performing Lab: Notes/Report: [facility] [address] [place] [address] Mammography Report Signed Patient: Alina Adamson MR#: [id number] 7 : 1975 Acct:[id number] Age/Sex: 49 / F ADM Date: 04/28/24 Loc: HO.MAMMO Attending Dr: Yuniel Grewal MD Ordering Physician: Yuniel Grewal MD Results: 1Negativ e Date of Service: 04/28/24 Follow Up: 1 Year From [facility] Mammogram Procedure(s): MM tomosynthesis diagnostic BI Accession Number(s): [id number] cc: Yuniel Grewal MD EXAMINATION: MM DIAGNOSTIC [...] in OV> 04/28/24 1558 DD/ 1415 TD/TT: Rail Transportation Operator: [place] [facility] [address] [place] [address] Mammography Report Signed Patient: Opal Adamson MR#: [id number] 7 : 1975 Acct:[id number] Age/Sex: 49 / F ADM Date: 04/28/24 Loc: HO.MAMMO Attending Dr: Yuniel Grewal MD Ordering Physician: Yuniel Grewal MD Results: 1Negativ e Date of Service: 04/28/24 Follow Up: 1 Year From Orig ina Mammogram Procedure(s): MM tomosynthesis diagnostic BI Accession Number(s): [id number] cc: Yuniel Grewal MD EXAMINATION: MM DIAGNOSTIC [...] in OV> 04/28/24 1558 DD/ 1415 TD/TT: Rail Transportation Operator: US breast RT limited mamm on ly Reviewed date:05/05/2024 05:59:10 AM Interpretation: Performing Lab: Notes/Report: [facility] [address] [place] [address] Ultrasound Report Signed Patient: Alina Adamson MR#: [id number] 7 : 1975 Acct:[id number] Age/Sex: 49 / F ADM Date: 04/28/24 Loc: HO.MAMMO Attending Dr: Yuniel Grewal MD Ordering Physician: Yuniel Grewal MD Date of Service: 04/28/24 Procedure(s): US breast RT limited mamm only Accession Number(s): [id number] cc: Yuniel Grewal MD EXAMINATION: MM DIAGNOSTIC [...] in OV> 04/28/24 1558 DD/ 1533 TD/TT: Rail Transportation Operator: [facility] [address] [place] [address] Ultrasound Report Signed Patient: Opal Adamson MR#: [id number] 7 : 1975 Acct:[id number] Age/Sex: 49 / F ADM Date: 04/28/24 Loc: HO.MAMMO Attending Dr: Yuniel Grewal MD Ordering Physician: Yuniel Grewal MD Date of Service: 04/28/24 Procedure(s): US jose ast RT limited mamm only Accession Number(s): [id number] cc: Yuniel Grewal MD EXAMINATION: MM DIAGNOSTIC [...] in OV> 04/28/24 1558 DD/ 1533 TD/TT: Rail Transportation Operator: MAMMOGRAM DIGITAL BILATERAL SCREEN Reviewed date:09/16/2024 03:58:14 PM Interpretation:undefined Performing Lab: Notes/Report: undefined Complete Blood Count Auto Di ff Reviewed date:05/23/2024 05:11:42 AM Interpretation: Performing Lab:[facility], [address] [place] [phone] Notes/Report: White Blood Count 13.5 4.8-10.8 X10*3/uL [...] Test Reviewed date:05/23/2024 05:11:42 AM Interpretation: Performing Lab:[facility], [address] [place] [phone] Notes/Report: Urine NEGATIVE NEGATIVE This test was developed to detect early . False negative results may occur after the 5th - 7th week of when using this test method. If clinically indicated, consider a serum hCG. Liver Panel Reviewed date:05/23/2024 05:11:42 AM Interpretation: Performing Lab:[facility], [address] [place] [phone] Notes/Report: Bilirubin Total 1.2 0.0-1.0 mg/dL Bilirubin Direct 0.2 0.0-0.5 mg/dL Slight Hem olysis Aspartate Amino Transferase 17 5-31 U/L Slight Hemolysis Alanine Aminotransferase 12 0-31 U/L Total Protein 7.7 6.5-8.0 g/dL Albumin Level 4.0 3.5-5.0 g/dL Alkaline Phosphatase 65 39-117 U/L Basic Metabolic Panel Reviewed date:05/23/2024 05:11:42 AM Interpretation: Performing Lab:[facility], [address] [place] [phone] Notes/Report: Sodium 136 135-145 mmol/L Potassium 4.2 [...] Glomerular Filt Rate > 60 NOTE: For -Cymro individuals, multiply the result by 1.210. Chronic Kidney Disease: Estimated GFR < 60 mL/min/1.73m2 Severe Kidney Disease: Estimated GFR < 15 mL/min/1.73m2 Glucose Random 128 60-115 mg/dL Calcium 9.0 8.4-10.2 mg/dL Magnesium Reviewed date:05/23/2024 05:11:42 AM Interpretation: Performing Lab:[facility], [address] [place] [phone] Notes/Report: Magnesium 1.9 1.6-2.6 mg/dL Lipase Reviewed date:05/23/2024 05:11:42 AM Interpretation: Performing Lab:[facility], [address] [place] [phone] Notes/Report: Lipase 15 8-78 U/L Glucose, Whole Blood Reviewed date:05/23/2024 05:11:42 AM Interpretation: Performing Lab:[facility], [address] [place] [phone] Notes/Report: Glucose, Whole Blood 108 60-115 mg/dL METER # : [id number] Hemoglobin A1c Reviewed date:05/23/2024 05:11:42 AM Interpretation: Performing Lab:[facility], [address] [place] [phone] Notes/Report: Hemoglobin A1c % 6.9 <6.0 % [...] average glucose, using the formula of the Q8I-Hkoiiln Average Glucose study (ADAG), Diabetes Care, Vol.31,#8, May. 2007 UA CC w/rflx Micro + Cult Reviewed date:05/23/2024 05:11:42 AM Interpretation: Performing Lab:[facility], [address] [place] [phone] Notes/Report: Urine, Clean Catch Color Urine Yellow Appearance Urine Clear PH 5.5 5.0-9.0 Glucose Urine UA Negative Negative mg/dL Urine Blood Negative Negative Specific [place] - Urine 1.025 1.005-1.025 Urine Protein Negative Neg-Trace mg/dL Urine Ketones Negative Negative mg/dL Nitrite Urine Negative Negative Leukocyte Esterase Urine Negative Negative SARS-CoV2/FLU/RSV Reviewed date:05/23/2024 05:11:42 AM Interpretation: Performing Lab:[facility], [address] [place] [phone] Notes/Report: Influenza A PCR NEGATIVE Negative Influenza [...] by authorized laboratories. Testing performed on the [employer] GeneXpert utilizing real-time RT-PCR. All SARS CoV2 and positive influenza A/B results are reported to [facility]. CT abdomen pelvis w con Reviewed date:05/23/2024 05:11:42 AM Interpretation: Performing Lab: Notes/Report: [address] [address] [address] Scan Report Signed Patient: Alina Adamson MR#: [id number] 7 : 1975 Acct:[id number] Age/Sex: 49 / F ADM Date: 05/22/24 Loc: [place] [address]: Zac Betts MD Ordering Physician: Myriam Taylor DO Date of Service: 05/22/24 Procedure(s): CT abdomen pelvis w IV con Accession Number(s): [id number] cc: Yuniel Grewal MD; Myriam Taylor DO [...] in OV> 05/22/24 1631 DD/ 1404 TD/TT: Rail Transportation Operator: [address] [address] [address] Scan Report Signed Patient: Opal Adamson MR#: [id number] 7 : 1975 Acct:[id number] Age/Sex: 49 / F ADM Date: 05/22/24 Loc: [facility]: Yocasta Betts MD Ordering Physician: Myriam Taylor DO Date of Service: 05/22/24 Procedure(s): CT abd omen pelvis w IV con Accession Number(s): [id number] cc: Yuniel Grewal MD; Myriam Taylor DO [...] fat stranding. No CT evidence of [place] appendicitis. The stomach is not distended. There [...] in OV> 05/22/24 1631 DD/ 1404 TD/TT: Java Security Engineer ist: LAURA US abdomen limited Reviewed date:05/23/2024 05:11:42 AM Interpretation: Performing Lab: Notes/Report: [place] [address] Ultrasound Report Signed Patient: Alina Adamson MR#: [id number] 7 : 1975 Acct:[id number] Age/Sex: 49 / F ADM Date: 05/22/24 Loc: HO.ED Attending Dr: Ordering Physician: Myriam Taylor DO Date of Service: 05/22/24 Procedure(s): US abdomen limited Accession Number(s): [id number] cc: Yuniel Grewal MD; Myriam Taylor DO [...] in OV> 05/22/24 1331 DD/ 1110 TD/TT: Rail Transportation Operator: [place] [address] Ultrasound Report Signed Patient: Opal Adamson MR#: [id number] 7 : 1975 Acct:[id number] Age/Sex: 49 / F ADM Date: 05/22/24 Loc: HO.ED Attending Dr: Ordering Physician: Myriam Taylor DO Date of Service: 05/22/24 Procedure(s): US abd omen limited Accession Number(s): [id number] cc: Yuniel Grewal MD; Myriam Taylor DO [...] in OV> 05/22/24 1331 DD/ 1110 TD/TT: Rail Transportation Operator: Glucose, Whole Blood Reviewed date:05/23/2024 05:11:42 AM Interpretation: Performing Lab:[address] [phone] Notes/Report: Glucose, Whole Blood 82 60-115 mg/dL METER # : [id number] Complete Blood Count no Diff Reviewed date:05/25/2024 07:39:13 PM Interpretation: Performing Lab:[facility], [address] [place] [phone] Notes/Report: White Blood Count 11.0 4.8-10.8 X10*3/uL [...] Panel Reviewed date:05/25/2024 07:39:13 PM Interpretation: Performing Lab:[facility], [address] [place] [phone] Notes/Report: Bilirubin Total 0.9 0.0-1.0 mg/dL Bilirubin Direct 0.3 0.0-0.5 mg/dL Aspartate Amino Transferase 12 5-31 U/L Alanine Aminotransferase 10 0-31 U/L Total Protein 6.2 6.5-8.0 g/dL Albumin Level 3.3 3.5-5.0 g/dL Alkaline Phosphatase 55 39-117 U/L Basic Metabolic Panel Reviewed date:05/25/2024 07:39:13 PM Interpretation: Performing Lab:[facility], [address] [place] [phone] Notes/Report: Sodium 140 135-145 mmol/L Potassium 4.0 [...] Glomerular Filt Rate > 60 NOTE: For -Cymro individuals, multiply the result by 1.210. Chronic Kidney Disease: Estimated GFR < 60 mL/min/1.73m2 Severe Kidney Disease: Estimated GFR < 15 mL/min/1.73m2 Glucose Random 121 60-115 mg/dL Calcium 8.6 8.4-10.2 mg/dL Glucose, Whole Blood Reviewed date:05/25/2024 07:39:13 PM Interpretation: Performing Lab:[facility], [address] [place] [phone] Notes/Report: Glucose, Whole Blood 130 60-115 mg/dL METER # : [id number] Pathology Reviewed date:05/25/2024 07:39:13 PM Interpretation: Performing Lab:[facility], [address] [place] [phone] Notes/Report: ---- Name: Alina Adamson Age/Sex: 49/F : 1975 Unit#: [id number] Attend Dr: Zac Betts MD Re05/22/24 Status : DIS IN Location: [facility] 383-1 Disch: 05/24/24 ---- SPEC : [id number] RECD : 05/24/24 STATUS: VANDANA COFFMAN NUM: [id number] ANAYELI: 05/23/241529 [facility] DR: Zac Betts MD ENTERED: 05/24/24 38 SP TYPE: Surgical OTHR DR: Yuniel Grewal [...] measuring up to 0.15 cm in thickness. [employer] secti ons are submitted in a cassette labeled A1 to include the margin of resection of the cys tic duct. CEDS Copies To: Yuniel Grewal MD [address] [facility] [address] [place] [address] Zac Betts MD [facility] [address] [place] [address] CONTINUED ON NEXT PAGE ---- Name: Alina Adamson Age/Sex: 49/F : 1975 Unit#: [id number] Attend Dr: Zac Betts MD Re05/22/24 Status : DIS IN Location: [facility] 383-1 Disch: 05/24/24 ---- SPEC : [id number] RECD : 05/24/24 STATUS: VANDANA COFFMAN NUM: [id number] ANAYELI: 05/23/24-[address] [facility] [address]: Zac Betts MD ENTERED: 05/24/24- SP TYPE: Surgical OTHR DR: Yuniel Grewal MD ORDERED: Filippo Atkinson L3 ---- Signed (signature on file) Naty Calderon 05/25/24 1057 ---- END OF REPORT Glucose, Whole Blood Reviewed date:05/25/2024 07:39:13 PM Interpretation: Performing Lab:[facility], [address] [place] [phone] Notes/Report: Glucose, Whole Blood 108 60-115 mg/dL METER # : [id number] Glucose, Whole Blood Reviewed date:05/25/2024 07:39:13 PM Interpretation: Performing Lab:[facility], [address] [place] [phone] Notes/Report: Glucose, Whole Blood 100 60-115 mg/dL METER # : [id number] Glucose, Whole Blood Reviewed date:05/25/2024 07:39:13 PM Interpretation: Performing Lab:[facility], [address] [place] [phone] Notes/Report: Glucose, Whole Blood 118 60-115 mg/dL METER # : [id number] Glucose, Whole Blood Reviewed date:05/25/2024 07:39:13 PM Interpretation: Performing Lab:[facility], [address] [place] [phone] Notes/Report: Glucose, Whole Blood 143 60-115 mg/dL METER # : [id number] Glucose, Whole Blood Reviewed date:05/25/2024 07:39:13 PM Interpretation: Performing Lab:[facility], [address] [place] [phone] Notes/Report: Glucose, Whole Blood 142 60-115 mg/dL METER # : [id number] Glucose, Whole Blood Reviewed date:05/25/2024 07:39:13 PM Interpretation: Performing Lab:[facility], [address] [place] [phone] Notes/Report: Glucose, Whole Blood 158 60-115 mg/dL METER # : [id number] Complete Blood Count Auto Di ff Reviewed date:10/03/2024 06:07:16 AM Interpretation: Performing Lab:[facility], [address] [place] [phone] Notes/Report: White Blood Count 10.4 4.8-10.8 X10*3/uL Red Blood Count 4.56 4.20-5.50 X10*6/uL Hemoglobin 13.2 12.0-16.0 g/dl Hematocrit 39.7 37.0-47.0 % Mean Corpuscular Volume 87.1 80.0-98.0 fL Mean Corpuscular Hemoglobin 28.9 27.0-33.0 pg Mean Corpuscular HGB Conc 33.2 31.0-35.0 g/dl Red Cell Distribution Width 14.0 11.0-16.0 % Platelet Count 246 160-400 X10*3/uL Mean Platelet Volume 10.9 9.4-12.3 fL Neutrophils Percent Auto 58.0 45-73 % Imm Gran Pct Auto 0.4 0.0-0.4 % Lymphocytes Percent Auto 33.8 20-40 % Monocytes Percent Auto 4.5 2-11 % Eosinophils Percent Auto 2.6 0-4 % Basophils Percent Auto 0.7 0-2 % NRBC Pct Auto 0.0 0.0-0.2 /100WBC Neutrophils Absolute Auto 6.0 2.0-8.3 x10*3/uL Imm Gran Abs Auto 0.04 0.00-0.03 X10*3/uL Lymphocytes Absolute Auto 3.5 1.2-4.9 X10*3/uL Monocytes Absolute Auto 0.5 0.1-1.2 X10*3/uL Eosinophils Absolute Auto 0.3 0.0-0.4 X10*3/uL Basophils Absolute Auto 0.1 0.0-0.2 X10*3/uL NRBC Abs Auto 0.000 0.0-0.012 X10*3/uL Comprehensive [place]. Panel Fa st Reviewed date:10/03/2024 06:07:16 AM Interpretation: Performing Lab:[facility], [address] [place] [phone] Notes/Report: Sodium 139 135-145 mmol/L Potassium 4.6 3.3-5.1 mmol/L Chloride 109 96-108 mmol/L Carbon Dioxide 26 22-29 mmol/L Anion Gap 9 12-20 Blood Urea Nitrogen 16 9-16 mg/dL Creatinine 0.73 0.5-1.4 mg/dL Estimated Glomerular Filt Rate > 60 Chronic Kidney Disease: Estimated GFR < 60 mL/min/1.73m2 Severe Kidney Disease: Estimated GFR < 15 mL/min/1.73m2 Glucose Fasting 130 60-99 mg/dL A fasting glucose of 126 mg/dl or greater on more than one occasion is considered diagnostic of diabetes. Calcium 8.9 8.4-10.2 mg/dL Bilirubin Total 0.4 0.0-1.0 mg/dL Aspartate Amino Transferase 18 5-31 U/L Alanine Aminotransferase 22 0-31 U/L Total Protein 7.5 6.5-8.0 g/dL Albumin Level 4.1 3.5-5.0 g/dL Alkaline Phosphatase 74 39-117 U/L Reason For Referral Reason Evaluate and Treat Screen for Colon Cancer Diagnosis 1 Screen for colon can cer (Z12.11) Referral Organization Yuniel Grewal III, MD Referring Provider First Name Yuniel Referring Provider Last Name Uri Referring Provider Speciality Internal M edicine Referred Provider LENORE VELARDE Referred Provider Specialty Gastroentero logy General Notes Bea Wilson 09/19/2024 11:48:46 AM > Referral and progress note faxed. Referral Priority Routine Medications Medication SIG (Take, Route, Frequency, Duration) Notes Start Date End Date Status Albuterol Sulfate HFA 108 (90 Base) MCG/ACT [...] IN THE EVENING FOR 30 DAYS Active Lancets - as directed - use [...] and 20 units in evening 06/02/2024 Active Pen Skillman 31G X 6 MM as directed Twice a day 30 days Active Gauze Pads 3 X3 as directed - use to check blood sugars twice a day 05/05/2023 Active Immunizations Vaccine Route Administration Date Status [...] Problem Status W/U Status Risk Notes Problem 2721671 Former smoker (Z87.891) Active confirmed She has a plan to prevent relapse in times of stress and illness. Problem Asthma (635744779) Asthma (J45.909) Active confirmed She has a history of intermittent asthma. No wheezes or her today. She has a rescue inhaler if necessary. Problem Anemia (674389098) Anemia (D64.9) Active confirmed This will be reevaluated with comprehensive blood work to be done in the next few days. She did not appear to be anemic. She has had no bleeding. Problem Diabetes mellitus without complication (383130538) Diabetes (E11.9) Active confirmed She has been compliant with her medication. Her fasting glucoses morning was 140 at home. Comprehensive blood work with a hemoglobin A1c and a microalbumin have been ordered to be done in the next few days. Problem Hypertension (74986994) HTN (hypertension) (I10) Active confirmed Her blood pressure is currently stable and no change in her regimen was made. I strongly recommended aggressive weight loss and sodium restriction. Problem Hypothyroid (02318795) Hypothyroid (E03.9) Active confirmed Her thyroid function tests are normal. She appears to be euthyroid. No change was necessary in her medication. Problem 185439203 Atypical chest pain (R07.89) Active confirmed She is on aspirin. 4. Atypical chest pain from a previous provider. She believes her chest discomfort is caused by stress. If necessary, a stress test can be done. Problem 868055406 Herpes zoster without complication (B02.9) Active confirmed She had an episode of shingles in February of this year. She was treated with prednisone and valacyclovir. It has resolved. Problem 975662628 Morbid obesity (E66.01) Active confirmed Her body mass index is 41. We discussed diet and nutrition. We made a plan to lose weight at a rate of one half of a pound per week. We have discussed oral and injectable medications she has declined them for the time being. She does not wish to have bariatric surgery. Problem 642993817 Low back pain, unspecified (M54.50) Active confirmed [...] Date Provider Diagnosis Yuniel Grewal III, MD [address] [place] [address] [place] [address] 01/26/2024 Yuniel Grewal Diabetes E11.9 ; HTN (hypertension) I10 ; Morbid obesity E66.01 ; Low back pain, unspecified M54.50 ; Hypothyroid E03.9 and Asthma J45.909 Yuniel Grewal III, MD [address] [place] [address] [place] [address] 04/08/2024 Yuniel Grewal Diabetes E11.9 ; Hypothyroid E03.9 ; HTN (hypertension) I10 ; Morbid obesity E66.01 ; Breast pain, right N64.4 and Former smoker Z87.891 Yuniel Grewal III, MD [address] [place] [address] [place] [address] 05/05/2024 Yuniel Grewal Diabetes E11.9 ; Hypothyroid E03.9 ; Morbid obesity E66.01 ; HTN (hypertension) I10 ; Asthma J45.909 ; Low back pain, unspecified M54.50 and Former smoker Z87.891 Yuniel Grewal III, MD [address] [place] [address] [place] [address] 05/27/2024 Yuniel Grewal Acute cholecystitis K81.0 ; Diabetes E11.9 ; Hypothyroid E03.9 ; HTN (hypertension) I10 ; Asthma J45.909 ; Former smoker Z87.891 ; Low back pain, unspecified M54.50 and Morbid obesity E66.01 Yuniel Grewal III, MD [address] [place] [address] [place] [address] 09/16/2024 Yuniel Grewal Diabetes E11.9 ; Mor bid obesity E66.01 ; HTN (hypertension) I10 ; Anemia D64.9 ; Neck pain M54.2 ; Hypothyroid E03.9 ; Asthma J45.909 and Former smoker Z87.891 Yuniel Grewal III, MD [address] [place] [address] [place] [address] 01/14/2024 Yuniel Grewal III, MD [address] [place] [address] [place] [address] 01/15/2024 Yuniel Grewal III, MD [address] [place] [address] [place] [address] 01/15/2024 Yuniel Grewal III, MD [address] [place] [address] [place] [address] 02/10/2024 Yuniel Grewal III, MD [address] [place] [address] [place] [address] 04/12/2024 Yuniel Grewal III, MD [address] [place] [address] [place] [address] 04/20/2024 Yuniel Grewal Diabetes E11.9 Yuniel Grewal III, MD [address] [place] [address] [place] [address] 06/02/2024 Yuniel Grewal Assessments Encounter Date Diagnosis (ICD Code) Assessment Notes Treat ment Notes Treatment Clinical Notes 01/26/2024 Diabetes (ICD-10 - E11.9) She has [...] she went to the emergency room at [facility] May 22, 2024 and the next [...] one half of a pound per week. 01/26/2024 Morbid obesity (ICD-10 - E66.01) She [...] aggressive weight loss and sodium restriction. 01/26/2024 Low back pain, unspecified (ICD-10 - [...] be anemic. She has had no bleeding. 01/26/2024 Hypothyroid (ICD-10 - E03.9) Her TSH [...] spinal stenosis but does have cervical radiculopathy. 01/26/2024 Asthma (ICD-10 - J45.909) She has [...] change was necessary in her medication. 05/05/2024 Former smoker (ICD-10 - Z87.891) She [...] has a rescue inhaler if necessary. 05/27/2024 Morbid obesity (ICD-10 - E66.01) She [...] (COMPREHENSIVE METABOLI C) 04/08/2024 HEMOGLOBIN A1C (GLYCOHEMOGLOBIN) 07/24/2 023 MAGNESIUM 05/04/2023 LIPID PANEL 05/25/2023 LIPID [...] 05/05/2024 CBC WITH AUTO DIFF 09/16/2024 Ferritin 04/08/2024 Ferritin 05/05/2024 Lipid Panel 04/08/2024 Lipid Panel 05/05/2024 Lipid Panel 09/25/2023 Free T4 (Free Thyroxine) 05/05/2024 Free T4 (Free Thyroxine) 09/25/2023 Microalbumin, Random 09/25/2023 Hemoglobin A1c 04/08/2024 Hemoglobin A1c 09/25/2023 Hemoglobin A1c 05/05/2024 Next Appt Details Provider Name:Yuniel Grewal, 09/18/2025 03:30:00 PM, [address] [place] [address] DR, [address], [place], [address], Insurance Providers Payer Name Payer Address Payer Phone Subscriber Number Group Number Insured Name Patient Relationship to Insured Coverage Start Date Coverage End Date [facility] [address] [facility] [address] [facility] [place] [phone] [id number] Alina Adamson Self - patient is the insured Medical (General) History Medical History History ICD Code Hypothyroid E03.9 HTN (hypertension) I10 Anemia D64.9 Asthma J45.909 [id number] chronic lumbar back pain Adult onset diabetes mellitus Shingles February 2023. Left flank Atypical chest pain Family history of breast cancer, sister Former smoker Morbid obesity Acute cholecystitis May 22, 2024 The patient had her gallblad sergey removed in the past. She is managing her blood sugar levels with medication and is taking thyroid medication. Surgical History Surgery Date(Month/Year) Gallbladder removal Laparoscopic cholecystectomy [facility] Dr. Betts [id number] 1999 Hospitalization History Reason Date(Month/Year) Hospitalization for gallbladder removal
--- OUTSIDE RECORDS SUMMARY | 2024-10-20 12:54 | XMS_ITS | Continuity of Care Document ---
Author Organization [facility] Address [address] [place] [address] [address] [place] [address] Phone Care Team Providers Care Paint Roller Covermaker Name Role Phone Montana Hughes MD Unavailable Unavailable Procedures Procedure Date Intermediate EP (Revisit) Gonioscopy Visual Field Full Threshold Corneal Hysteresis Advance Directives Directive Yes / No Effective Date File Name No Information Encounters Encounter Description Practice Location Reason(s) For Visit Diagnoses Date Provider Providers Copied on Encounter [facility] , [address] [facility], [place], [place], [id number], [place] tel:[phone] [address] Open angle with borderline findings, low risk, bilateral Ellen Boyle. [address] [place], [place], [id number], [place]. tel:[phone] Family History Family Member Type Diagnosis Age At Onset No Information Payers Payer name Insurance type Covered alliance party ID Authoriza tion(s) [facility] [id number] Social History Type Description Quantity Date Captured [...]
--- OUTSIDE RECORDS SUMMARY | 2024-10-20 12:54 | XMS_ITS ---
Author Organization Yuniel Grewal III, MD Address [address] [place] [address] Care Team Providers Care Reporter Name Role Phone Yuniel Grewal Primary Care [...] Ferritin Reviewed date:10/03/2024 06:07:16 AM Interpretation: Performing Lab:[facility], [address] [place] [address] Notes/Report: Ferritin 13 10-250 ng/mL Lipid Panel Reviewed date:10/03/2024 06:07:16 AM Interpretation: Performing Lab:[address] [address] Notes/Report: Triglycerides 145 <150 mg/dL Desirable Triglyceride: [...] Random Reviewed date:10/03/2024 06:07:16 AM Interpretation: Performing Lab:[address] [address] Notes/Report: Creatinine Urine 125.44 Microalbumin Urine 19.0 Microalbum/Creatinine Ratio Ur 15.1 <30 ug/mg cr Albumin/Creatinine Ratio Reference Ranges: Normal: < 30 ug/mg creatinine Microalbuminuria: 30 - 300 ug/mg creatinine Clinical Albuminuria: > 300 ug/mg creatinine Hemoglobin A1c Reviewed date:10/03/2024 06:07:16 AM Interpretation: Performing Lab:[address] [address] Notes/Report: Hemoglobin A1c % 6.8 <6.0 % [...] average glucose, using the formula of the C4M-Qrppwdd Average Glucose study (ADAG), Diabetes Care, Vol.31,#8, May. 2007 XR cervical spine 4V Reviewed date:10/03/2024 06:07:16 AM Interpretation: Performing Lab: Notes/Report: [address] [address] XRay Report Signed Patient: Alina Alvarez MR#: [id number] 7 : 1975 Acct:[id number] Age/Sex: 49 / F ADM Date: 09/16/24 Loc: [facility] Attending Dr: Yuniel Grewal MD Ordering Physician: Yuniel Grewal MD Date of Service: 09/16/24 Procedure(s): XR cervical spine 4V Accession Number(s): [id number] cc: Yuniel Grewal MD EXAMINATION: XR CERVICAL [...] OV> 09/16/242041 DD/ 1650 TD/TT: 09/16/24 1700 Collective Bargaining Specialist: [place] [address] XRay Report Signed Patient: Opal Alvarez MR#: [id number] 7 : 1975 Acct:[id number] Age/Sex: 49 / F ADM Date: 09/16/24 Loc: HO.XRAY Attending Dr: Yuniel Grewal MD Ordering Physician: Yuniel Grewal MD Date of Service: 09/16/24 Procedure(s): XR cervical spine 4V Accession Number(s): [id number] cc: Yuniel Grewal MD EXAMINATION: XR CERVICAL [...] OV> 09/16/242041 DD/ 49 TD/TT: 09/16/24 1700 Collective Bargaining Specialist: NIKHIL Reason For Referral Reason Evaluate and [...] sugars twice a day 05/05/2023 Active [place] 31G X 6 MM as directed Twice [...] Provider Diagnosis Yuniel Grewal III, MD [address] [place] [address] [place] [address] 09/16/2024 Yuniel Grewal Diabetes E11.9 ; Morbid [...] blood sugars twice a day 05/05/2023 [place] 31G X 6 MM as directed Twice [...] Review blood work results Provider Name:Yuniel Grewal, 09/18/2025 03:30:00 PM, [address] [place] [address] , [place] [address], [place], [address], Progress Notes * Alina ALVAREZDOB:1975 (49 yo F)Acc No.[id number]:09/16/2024 Progress Notes Patient:?Alina ALVAREZ Provider:?Yuniel Grewal MD :1975???Age:49 Y???Sex:Female D ate:09/16/2024 Address:[address] [place], [place] [address] Subjective: * Chief Complaints: * ???Annual Exam [...] mood?denies.? * Medical History:? * Surgical History:? [id number] Laparoscopic cholecystectomy [facility] Dr. Betts Gallbladder removal * Hospitalization/Major Diagno stic Procedure:?Hospitalization for gallbladder removal * Family History:?Father: shantel barnes 65 yrs, [...] check blood sugars twice a day [place] 31G X 6 MM Miscellaneous as directed [...] blood sugars twice a day Taking [place] 31G X 6 MM Miscellaneous as directed [...] bruits.?LUNGS:?clear to auscultation .?BREASTS:?Not examined,Done by the engine inspector.?ABDOMEN:?bowel sounds normal, no ascites, no organomegaly, no mass, morbid obesity.?RECTAL EXAM:?Done by ASSET MANAGEMENT ANALYST.?MUSCULOSKELETAL:?extremities unremarkable, no clubbing, cyanosis or edema, Mild [...] check blood sugars twice a day;?Continue [place] Miscellaneous, 31G X 6 MM, as directed, [...] * ?BLD +++ Negative - * Procedure Codes:?63014 URINE -NO MICRO * Preventive Medicine:? ??Counseling:?Care [...] Grewal MD Date:?03/2024 Generated for Josy shine/Mirtha/eTransmitting on:?10/20/2024 12:53 PM EST History and Physical [...] PULSES: normal BREASTS: Not examined,Done by the engine inspector MUSCULOSKELETAL: extremities unremark able, no clubbing, cyanosis or edema, Mild pain and tingling in her forearms with range of motion of her neck LYMPH NODES: no enlarged lymph no herbert,spleen normal RECTAL EXAM: Done by ASSET MANAGEMENT ANALYST PSYCH: alert, oriented ORAL CAVITY: normal, unremarkable Consultation Request Notes Referral Date Referring Provider Referred Provider Not 09/16/2024 Yuniel Grewal RUBEELA Evaluate and Treat Screen for Colon Cancer
== END 2024-10-20 12:38 | disposition home or self-care (01) ==
PROVIDERS: PCP Internal Medicine Medical Oncology; Visit Provider Obstetrics & Gynecology
DX: D25.9 Leiomyoma of uterus, unspecified (principal); N83.209 Unspecified ovarian cyst, unspecified side; N93.9 Abnormal uterine and vaginal bleeding, unspecified
CPT/HCPCS: 99213

== ENCOUNTER 2024-10-20 12:03 | Outpatient (REF) | payer OTHER, SELFPAY ==
--- OUTSIDE RECORDS SUMMARY | 2024-10-20 14:35 | XMS_ITS | Continuity of Care Document ---
Author Organization [facility] Address [address] [place] [address] [address] [place] [address] Phone Care Team Providers Care Exhibit Technician Name Role Phone Montana Hughes MD Unavailable Unavailable Procedures Procedure Date Intermediate EP (Revisit) Gonioscopy Visual Field Full Threshold Corneal Hysteresis Advance Directives Directive Yes / No Effective Date File Name No Information Encounters Encounter Description Practice Location Reason(s) For Visit Diagnoses Date Provider Providers Copied on Encounter [facility] , [address] [facility], [place], [place], [id number], [place] tel:[phone] [address] Open angle with borderline findings, low risk, bilateral Ellen Boyle. [address] [place], [place], [address], [place]. tel:[phone] Family History Family Member Type Diagnosis Age At Onset No Information Payers Payer name Insurance type Covered libertarian ID Authoriza tion(s) [facility] [id number] Social History Type Description Quantity Date Captured [...]
[2024-10-21 02:17] LABS: CT PCR NOT DETECTED (Not Detect.); NG PCR NOT DETECTED (Not Detect.)
== END 2024-10-20 12:04 | disposition home or self-care (01) ==
LOC: HO.LNP 12:03
PROVIDERS: PCP Internal Medicine Medical Oncology; Visit Provider Obstetrics & Gynecology
DX: N93.9 Abnormal uterine and vaginal bleeding, unspecified (principal)
CPT/HCPCS: 87491; 87591

== ENCOUNTER 2024-10-21 09:10 | Outpatient (REF) | payer OTHER, SELFPAY ==
--- OUTSIDE RECORDS SUMMARY | 2024-10-21 09:14 | XMS_ITS ---
Author Organization Yuniel Grewal III, MD Address [address] [facility] [facility] [address] Care Team Providers Care Central Lab Technician Name Role Phone Yuniel Grewal Primary Care Provider [phone] Allergies Allergen (clinical drug ingredient) Drug/Non Drug [...] ONCE A WEEK 28 DAYS Active [place] 31G X 6 MM as directed Twice [...] Date Provider Diagnosis Yuniel Grewal III, MD [address] [place] [address] [address] [place] [address], [place] [address] 09/30/2024 Yuniel Grewal Plan Of Treatment Medication [...] SUBCUTANEOUS ONCE A WEEK 28 DAYS [place] 31G X 6 MM as directed Twice [...] MCG/ACT Inhalation Next Appt Details Provider Name:Yuniel Grweal, 09/18/2025 03:30:00 PM, [address] [facility] [address], [place], [address], Progress Notes * Alina ALVAREZDOB:1975 (49 yo F)Acc No.[id number]:09/30/2024 Progress Notes Patient:?Alina ALVAREZ Provider:?Yuniel Grewal MD :1975???Age:49 Y???Sex:Female D ate:09/30/2024 Address:[address] [place], [place] [address] Subjective: * Chief Complaints: * ???1. Follow [...] Medical History:?Hypothyroid , HTN (hypertension), Anemia, Asthma, [id number], Chronic lumbar back pain, Adult onset diabetes mellitus, Shingles February 2023. Left flank, Atypical chest pain, Family history of breast cancer, sister, Former smoker, Morbid obesity, Acute cholecystitis May 22, 2024, The patient had her gallbladder removed in the past. She is managing her blood sugar levels with medication and is taking thyroid medication.. * Surgical History:? 1999, [id number] , Laparoscopic cholecystectomy [facility] Dr. Betts , Gallbladder removal . [...] sugars twice a day , Taking [place] 31G X 6 MM Miscellaneous as directed [...] Grewal MD Date:?09/12 Generated for Josy shine/Mirtha/Reggieitting on:?10/21/2024 09:14 AM EST History and Physical Notes * [...]
--- OUTSIDE RECORDS SUMMARY | 2024-10-21 09:14 | XMS_ITS ---
Author Organization Yuniel Grewal III, MD Address [address] [place] [address] Care Team Providers Care Tractor Sweeper Driver Name Role Phone Yuniel Grewal Primary Care Provider [phone] Allergies Allergen (clinical drug ingredient) Drug/Non Drug [...] Ferritin Reviewed date:10/03/2024 06:07:16 AM Interpretation: Performing Lab:[facility], [address] [place] [address] Notes/Report: Ferritin 13 10-250 ng/mL Lipid Panel Reviewed date:10/03/2024 06:07:16 AM Interpretation: Performing Lab:[address] [address] Notes/Report: Triglycerides 145 <150 mg/dL Desirable Triglyceride: [...] Random Reviewed date:10/03/2024 06:07:16 AM Interpretation: Performing Lab:[address] [address] Notes/Report: Creatinine Urine 125.44 Microalbumin Urine 19.0 Microalbum/Creatinine Ratio Ur 15.1 <30 ug/mg cr Albumin/Creatinine Ratio Reference Ranges: Normal: < 30 ug/mg creatinine Microalbuminuria: 30 - 300 ug/mg creatinine Clinical Albuminuria: > 300 ug/mg creatinine Hemoglobin A1c Reviewed date:10/03/2024 06:07:16 AM Interpretation: Performing Lab:[address] [address] Notes/Report: Hemoglobin A1c % 6.8 <6.0 % [...] average glucose, using the formula of the U5W-Watbenk Average Glucose study (ADAG), Diabetes Care, Vol.31,#8, May. 2007 XR cervical spine 4V Reviewed date:10/03/2024 06:07:16 AM Interpretation: Performing Lab: Notes/Report: [address] [address] XRay Report Signed Patient: Alina Alvarez MR#: [id number] 7 : 1975 Acct:[id number] Age/Sex: 49 / F ADM Date: 09/16/24 Loc: [facility] Attending Dr: Yuniel Grewal MD Ordering Physician: Yuniel Grewal MD Date of Service: 09/16/24 Procedure(s): XR cervical spine 4V Accession Number(s): [id number] cc: Yuniel Grewal MD EXAMINATION: XR CERVICAL [...] OV> 09/16/242041 DD/ 1650 TD/TT: 09/16/24 1700 Instrumentation Supervisor: [place] [address] XRay Report Signed Patient: Opal Alvarez MR#: [id number] 7 : 1975 Acct:[id number] Age/Sex: 49 / F ADM Date: 09/16/24 Loc: HO.XRAY Attending Dr: Yuniel Grewal MD Ordering Physician: Yuniel Grewal MD Date of Service: 09/16/24 Procedure(s): XR cervical spine 4V Accession Number(s): [id number] cc: Yuniel Grewal MD EXAMINATION: XR CERVICAL [...] OV> 09/16/242041 DD/ 49 TD/TT: 09/16/24 1700 Instrumentation Supervisor: NIKHIL Reason For Referral Reason Evaluate and [...] sugars twice a day 05/05/2023 Active [place] 31G X 6 MM as directed Twice [...] Date Provider Diagnosis Yuniel Grewal III, MD [address] [place] [address] [place] [address] 09/16/2024 Yuniel Grewal Diabetes E11.9 ; Morbid [...] blood sugars twice a day 05/05/2023 [place] 31G X 6 MM as directed Twice [...] results Provider Name:Yuniel Grewal, 09/18/2025 03:30:00 PM, [address] [place] [address] , [place] [address], [place], [address], Progress Notes * Alina ALVAREZDOB:1975 (49 yo F)Acc No.[id number]:09/16/2024 Progress Notes Patient:?Alina ALVAREZ Provider:?Yuniel Grewal MD :1975???Age:49 Y???Sex:Female D ate:09/16/2024 Address:[address] [place], [place] [address] Subjective: * Chief Complaints: * ???Annual Exam [...] mood?denies.? * Medical History:? * Surgical History:? [id number] Laparoscopic cholecystectomy [facility] Dr. Betts Gallbladder removal * Hospitalization/Major Diagno [...] check blood sugars twice a day [place] 31G X 6 MM Miscellaneous as directed [...] blood sugars twice a day Taking [place] 31G X 6 MM Miscellaneous as directed [...] bruits.?LUNGS:?clear to auscultation .?BREASTS:?Not examined,Done by the cadmium liquor maker.?ABDOMEN:?bowel sounds normal, no ascites, no organomegaly, no mass, morbid obesity.?RECTAL EXAM:?Done by COMPETITIVE ATHLETE.?MUSCULOSKELETAL:?extremities unremarkable, no clubbing, cyanosis or edema, Mild [...] check blood sugars twice a day;?Continue [place] Miscellaneous, 31G X 6 MM, as directed, [...] * ?BLD +++ Negative - * Procedure Codes:?64568 URINE -NO MICRO * Preventive Medicine:? ??Counseling:?Care [...] Grewal MD Date:?03/2024 Generated for Josy shine/Mirtha/eTransmitting on:?10/21/2024 09:14 AM EST History and Physical [...] PULSES: normal BREASTS: Not examined,Done by the cadmium liquor maker MUSCULOSKELETAL: extremities unremark able, no clubbing, cyanosis or edema, Mild pain and tingling in her forearms with range of motion of her neck LYMPH NODES: no enlarged lymph no herbert,spleen normal RECTAL EXAM: Done by COMPETITIVE ATHLETE PSYCH: alert, oriented ORAL CAVITY: normal, unremarkable Consultation Request Notes Referral Date Referring Provider Referred Provider Not 09/16/2024 Yuniel Grewal RUBEELA Evaluate and Treat Screen for Colon Cancer
--- OUTSIDE RECORDS SUMMARY | 2024-10-21 09:14 | XMS_ITS ---
Author Organization Yuniel Grewal III, MD Address [address] [facility] [place] [place] [address] Care Team Providers Care Cardiothoracic Anesthesia Technician Name Role Phone Yuniel Grewal Primary [...] sugars twice a day 05/05/2023 Active [place] 31G X 6 MM as directed Twice [...] Date Provider Diagnosis Yuniel Grewal III, MD [address] [place] [address] [address] [place] [address], [place] [address] 10/14/2024 Yuniel Grewal Plan Of Treatment Medication [...] blood sugars twice a day 05/05/2023 [place] 31G X 6 MM as directed Twice [...] Details Provider Name:Yuniel Grewal, 09/18/2025 03:30:00 PM, [address] [place] [address] [address], [place], [address], Progress Notes * Alina ALVAREZDOB:1975 (49 yo F)Acc No.[id number]:10/14/2024 Progress Notes Patient:?Alina ALVAREZ Provider:?Yuniel Grewal MD :1975???Age:49 Y???Sex:Female D ate:10/14/2024 Address:[address] [place], [place] [address] Subjective: * Chief Complaints: * ???1. Follow [...] Medical History:?Hypothyroid , HTN (hypertension), Anemia, Asthma, [id number], Chronic lumbar back pain, Adult onset diabetes mellitus, Shingles February 2023. Left flank, Atypical chest pain, Family history of breast cancer, sister, Former smoker, Morbid obesity, Acute cholecystitis May 22, 2024, The patient had her gallbladder removed in the past. She is managing her blood sugar levels with medication and is taking thyroid medication.. * Surgical History:? 1999, [id number] , Laparoscopic cholecystectomy [facility] Dr. Betts , Gallbladder removal . * [...] sugars twice a day , Taking [place] 31G X 6 MM Miscellaneous as directed [...] your next appointment,PLEASE FAX COMPLETED RESULTS TO [phone] * Lab:Complete Blood Count Aut o Diff [...] your next appointment,PLEASE FAX COMPLETED RESULTS TO [phone] * Lab:Microalbumin, Random * Collection Date 09/23/2024 [...] your next appointment,PLEASE FAX COMPLETED RESULTS TO [phone] * Lab:Comprehensive [facility]. Pane l Fast * Collection Date 09/23/2024 [...] your next appointment,PLEASE FAX COMPLETED RESULTS TO [phone] ???Lab:URINE DIP STICK (Order Date - 09/16/2024) [...] Provider:?Yuniel Grewal MD Date:?12/2024 Generated for Josy shine/Mirtha/Nataliasmitting on:?10/21/2024 09:14 AM EST History and Physical [...]
--- OUTSIDE RECORDS SUMMARY | 2024-10-21 09:15 | XMS_ITS | Continuity of Care Document ---
Author Organization [facility] Address [address] [place] [address] [address] [place] [address] Phone Care Team Providers Care Billing And Insurance Coordinator Name Role Phone Montana Hughes MD Unavailable Unavailable Procedures Procedure Date Intermediate EP (Revisit) Gonioscopy Visual Field Full Threshold Corneal Hysteresis Advance Directives Directive Yes / No Effective Date File Name No Information Encounters Encounter Description Practice Location Reason(s) For Visit Diagnoses Date Provider Providers Copied on Encounter [facility] , [address] [facility], [place], [place], [address], [place] tel:[phone] [address] Open angle with borderline findings, low risk, bilateral Ellen Boyle. [address] [place], [place], [address], [place]. tel:[phone] Family History Family Member Type Diagnosis Age At Onset No Information Payers Payer name Insurance type Covered green party ID Authoriza tion(s) [facility] [id number] Social History Type Description Quantity Date Captured [...]
--- OUTSIDE RECORDS SUMMARY | 2024-10-21 09:15 | XMS_ITS | Patient Health Record ---
Author Organization Yuniel Grewal III, MD Address [address] [address] Care Team Providers Care Watch Manufacturing Supervisor Name Role Phone Yuniel Grewal Primary Care Provider Allergies Allergen (clinical drug ingredient) Drug/Non Drug Allergy documented on EMR Reaction Allergy Type Onset Date Status Shellfish (FN) Shellfish-derived Products Unknown Drug Allergy Active Results Component Value Reference Range Notes Lipid Panel Reviewed date:02/10/2024 04:46:07 PM Interpretation: Performing Lab:[facility], [address] [place] [phone] Notes/Report: Triglycerides 195 <150 mg/dL Desirable Triglyceride: [...] A1c Reviewed date:02/10/2024 04:46:07 PM Interpretation: Performing Lab:[facility], [address] [place] [phone] Notes/Report: Hemoglobin A1c % 8.4 <6.0 % [...] average glucose, using the formula of the A8W-[place] Average Glucose study (ADAG), Diabetes Care, Vol.31,#8, May. 2007 XR lumbar spine 4V min Reviewed date:02/10/2024 04:46:07 PM Interpretation: Performing Lab: Notes/Report: [address] [address] XRay Report Signed Patient: Alina Adamson MR#: [id number] 7 : 1975 Acct:[id number] Age/Sex: 48 / F ADM Date: 01/29/24 Loc: HO.PJ Attending Dr: Yuniel Grewal MD Ordering Physician: Yuniel Grewal MD Date of Service: 01/29/24 Procedure(s): XR lumbar spine 4V min Accession Number(s): [id number] cc: Yuniel Grewal MD EXAMINATION: XR LUMBOSACRAL [...] MD in OV> 02/08/24723 DD/ 7 TD/TT: Manager Erp: [place] [address] XRay Report Signed Patient: Opal Adamson MR#: [id number] 7 : 1975 Acct:[id number] Age/Sex: 48 / F ADM Date: 01/29/24 Loc: HO.XRAY Attending Dr: Yuniel Grewal MD Ordering Physician: Yuniel Grewal MD Date of Service: 01/29/24 Procedure(s): XR lum bar spine 4V min Accession Number(s): [id number] cc: Yuniel Grewal MD EXAMINATION: XR LUMBOSACRAL [...] Castellanos MD in OV> 02/08/2424 DD/ TD/TT: Manager Erp: URINE DIP STICK Reviewed date:09/16/2024 04:08:10 PM Interpretation: Performing Lab: Notes/Report: SG 1.015 1.005 - 1.025 pH 5.0 5.0 - 9.0 BRUCE Negative Negative - NIT Negative Negative - PRO 15 Negative - Trace GLU Negative Negative - KET Negative Negative - UBG 0.2 0.1 - 1.8 YADIRA Negative 0.2 - 1.3 BLD +++ Negative - Ferritin Reviewed date:10/03/2024 06:07:16 AM Interpretation: Performing Lab:[facility], [address] [place] [phone] Notes/Report: Ferritin 13 10-250 ng/mL Lipid Panel Reviewed date:10/03/2024 06:07:16 AM Interpretation: Performing Lab:[facility], [address] [place] [phone] Notes/Report: Triglycerides 145 <150 mg/dL Desirable Triglyceride: [...] Random Reviewed date:10/03/2024 06:07:16 AM Interpretation: Performing Lab:[facility], [address] [place] [phone] Notes/Report: Creatinine Urine 125.44 Microalbumin Urine 19.0 Microalbum/Creatinine Ratio Ur 15.1 <30 ug/mg cr Albumin/Creatinine Ratio Reference Ranges: Normal: < 30 ug/mg creatinine Microalbuminuria: 30 - 300 ug/mg creatinine Clinical Albuminuria: > 300 ug/mg creatinine Hemoglobin A1c Reviewed date:10/03/2024 06:07:16 AM Interpretation: Performing Lab:[facility], [address] [place] [phone] Notes/Report: Hemoglobin A1c % 6.8 <6.0 % [...] average glucose, using the formula of the D3I-[place]gbahtp Average Glucose study (ADAG), Diabetes Care, Vol.31,#8, May. 2007 XR cervical spine 4V Reviewed date:10/03/2024 06:07:16 AM Interpretation: Performing Lab: Notes/Report: [address] [address] XRay Report Signed Patient: Alina Adamson MR#: [id number] 7 : 1975 Acct:[id number] Age/Sex: 49 / F ADM Date: 09/16/24 Loc: AZRA Attending Dr: Yuniel Grewal MD Ordering Physician: Yuniel Grewal MD Date of Service: 09/16/24 Procedure(s): XR cervical spine 4V Accession Number(s): [id number] cc: Yuniel Grewal MD EXAMINATION: XR CERVICAL [...] by: Elda Warren MD 09/16/2024 08:42 PM [facility] Dictated By: Elda Warren MD Signed By: <Electronically signed by Elda Warren MD in OV> 09/16/242041 DD/ 49 TD/TT: 09/16/241699 Manager Erp: NIKHIL [address] [address] XRay Report Signed Patient: Opal Adamson MR#: [id number] 7 : 1975 Acct:[id number] Age/Sex: 49 / F ADM Date: 09/16/24 Loc: HO.XRAY Attending Dr: Yuniel Grewal MD Ordering Physician: Yuniel Grewal MD Date of Service: 09/16/24 Procedure(s): XR cervical spine 4V Accession Number(s): [id number] cc: Yuniel Grewal MD EXAMINATION: XR CERVICAL [...] by: Elda Warren MD 09/16/2024 08:42 PM [facility] Dictated By: Elda Warren MD Signed By: <Electronically signed by Elda Warren MD in OV> 09/16/242041 DD/ 49 TD/TT: 09/16/241699 Manager Erp: NIKHIL Complete Blood Count Auto Di ff Reviewed date:02/10/2024 04:46:07 PM Interpretation: Performing Lab:[facility], [address] [place] [phone] Notes/Report: White Blood Count 11.2 4.8-10.8 X10*3/uL [...] NRBC Abs Auto 0.000 0.0-0.012 X10*3/uL Comprehensive [place]. Panel Fa st Reviewed date:02/10/2024 04:46:07 PM Interpretation: Performing Lab:[facility], [address] [place] [phone] Notes/Report: Sodium 139 135-145 mmol/L Potassium 4.6 3.3-5.1 mmol/L Chloride 104 96-108 mmol/L Carbon Dioxide 28 22-29 mmol/L Anion Gap 12 12-20 Blood Urea Nitrogen 12 9-16 mg/dL Creatinine 0.69 0.5-1.4 mg/dL Estimated Glomerular Filt Rate > 60 NOTE: For -Kyrgyz individuals, multiply the result by 1.210. Chronic [...] ff Reviewed date:05/05/2024 05:59:10 AM Interpretation: Performing Lab:[facility], [address] [place] [phone] Notes/Report: White Blood Count 10.9 4.8-10.8 X10*3/uL [...] te Reviewed date:05/05/2024 05:59:10 AM Interpretation: Performing Lab:[facility], [address] [place] [phone] Notes/Report: Erythrocyte Sedimentation Rate 10 0-20 MM/HR Patients with polycythemia and many hemoglobin abnormalities may have depressed sed rates whereas patients with anemia may have elevated sed rates. Comprehensive [place]. Panel Fa Reviewed date:05/05/2024 05:59:10 AM Interpretation: Performing Lab:[facility], [address] [place] [phone] Notes/Report: Sodium 139 135-145 mmol/L Potassium 4.1 3.3-5.1 mmol/L Chloride 107 96-108 mmol/L Carbon Dioxide 24 22-29 mmol/L Anion Gap 12 12-20 Blood Urea Nitrogen 11 9-16 mg/dL Creatinine 0.63 0.5-1.4 mg/dL Estimated Glomerular Filt Rate > 60 NOTE: For -Kyrgyz individuals, multiply the result by 1.210. Chronic [...] Ferritin Reviewed date:05/05/2024 05:59:10 AM Interpretation: Performing Lab:[facility], [address] [place] [phone] Notes/Report: Ferritin 23 10-250 ng/mL Lipid Panel Reviewed date:05/05/2024 05:59:10 AM Interpretation: Performing Lab:[facility], [address] [place] [phone] Notes/Report: Triglycerides 219 <150 mg/dL Desirable Triglyceride: [...] Thyroxine) Reviewed date:05/05/2024 05:59:10 AM Interpretation: Performing Lab:[address] [address] Notes/Report: Free T4 (Free Thyroxine) 1.12 0.71-1.85 ng/dL Thyroid Stimulating Hormone Reviewed date:05/05/2024 05:59:10 AM Interpretation: Performing Lab:[address] [address] Notes/Report: Thyroid Stimulating Hormone 2.99 0.32-4.0 uIU/mL Note: A sustained TSH level above 2.5 uIU/mL may warrant further investigation. TSH 3rd Generation ([facility]) Hemoglobin A1c Reviewed date:05/05/2024 05:59:10 AM Interpretation: Performing Lab:[address] [phone] Notes/Report: Hemoglobin A1c % 8.0 <6.0 % [...] average glucose, using the formula of the J3Q-[place] Average Glucose study (ADAG), Diabetes Care, Vol.31,#8, May. 2007 MM tomosynthesis diagnostic BI Reviewed date:05/05/2024 05:59:10 AM Interpretation: Performing Lab: Notes/Report: [facility] [address] [place] [address] Mammography Report Signed Patient: Alina Adamson MR#: [id number] 7 : 1975 Acct:[id number] Age/Sex: 49 / F ADM Date: 04/28/24 Loc: HO.MAMMO Attending Dr: Yuniel Grewal MD Ordering Physician: Yuniel Grewal MD Results: 1Negativ e Date of Service: 04/28/24 Follow Up: 1 Year From [facility] Mammogram Procedure(s): MM tomosynthesis diagnostic BI Accession Number(s): [id number] cc: Yuniel Grewal MD EXAMINATION: MM DIAGNOSTIC [...] in OV> 04/28/24 1558 DD/ 1415 TD/TT: Manager Erp: [facility] [address] [place] [address] Mammography Report Signed Patient: Opal Adamson MR#: [id number] 7 : 1975 Acct:[id number] Age/Sex: 49 / F ADM Date: 04/28/24 Loc: HO.MAMMO Attending Dr: Yuniel Grewal MD Ordering Physician: Yuniel Grewal MD Results: 1Negativ e Date of Service: 04/28/24 Follow Up: 1 Year From [facility] Mammogram Procedure(s): MM tomosynthesis diagnostic BI Accession Number(s): [id number] cc: Yuniel Grewal MD EXAMINATION: MM DIAGNOSTIC [...] in OV> 04/28/24 1558 DD/ 1415 TD/TT: Manager Erp: US breast RT limited mamm on ly Reviewed date:05/05/2024 05:59:10 AM Interpretation: Performing Lab: Notes/Report: [facility] [address] [place] [address] Ultrasound Report Signed Patient: Alina Adamson MR#: [id number] 7 : 1975 Acct:[id number] Age/Sex: 49 / F ADM Date: 04/28/24 Loc: HO.MAMMO Attending Dr: Yuniel Grewal MD Ordering Physician: Yuniel Grewal MD Date of Service: 04/28/24 Procedure(s): US breast RT limited mamm only Accession Number(s): [id number] cc: Yuniel Grewal MD EXAMINATION: MM DIAGNOSTIC [...] in OV> 04/28/24 1558 DD/ 1533 TD/TT: Manager Erp: [facility] [address] [place] [address] Ultrasound Report Signed Patient: Opal Adamson MR#: [id number] 7 : 1975 Acct:[id number] Age/Sex: 49 / F ADM Date: 04/28/24 Loc: HO.MAMMO Attending Dr: Yuniel Grewal MD Ordering Physician: Yuniel Grewal MD Date of Service: 04/28/24 Procedure(s): US jose ast RT limited mamm only Accession Number(s): [id number] cc: Yuniel Grewal MD EXAMINATION: MM DIAGNOSTIC [...] in OV> 04/28/24 1558 DD/ 1533 TD/TT: Manager Erp: MAMMOGRAM DIGITAL BILATERAL SCREEN Reviewed date:09/16/2024 03:58:14 PM Interpretation:undefined Performing Lab: Notes/Report: undefined Complete Blood Count Auto Di ff Reviewed date:05/23/2024 05:11:42 AM Interpretation: Performing Lab:[facility], [address] [place] [phone] Notes/Report: White Blood Count 13.5 4.8-10.8 X10*3/uL [...] Test Reviewed date:05/23/2024 05:11:42 AM Interpretation: Performing Lab:[facility], [address] [place] [phone] Notes/Report: Urine NEGATIVE NEGATIVE This test was developed to detect early . False negative results may occur after the 5th - 7th week of when using this test method. If clinically indicated, consider a serum hCG. Liver Panel Reviewed date:05/23/2024 05:11:42 AM Interpretation: Performing Lab:[facility], [address] [place] [phone] Notes/Report: Bilirubin Total 1.2 0.0-1.0 mg/dL Bilirubin Direct 0.2 0.0-0.5 mg/dL Slight Hem olysis Aspartate Amino Transferase 17 5-31 U/L Slight Hemolysis Alanine Aminotransferase 12 0-31 U/L Total Protein 7.7 6.5-8.0 g/dL Albumin Level 4.0 3.5-5.0 g/dL Alkaline Phosphatase 65 39-117 U/L Basic Metabolic Panel Reviewed date:05/23/2024 05:11:42 AM Interpretation: Performing Lab:[facility], [address] [place] [phone] Notes/Report: Sodium 136 135-145 mmol/L Potassium 4.2 [...] Glomerular Filt Rate > 60 NOTE: For -Kyrgyz individuals, multiply the result by 1.210. Chronic Kidney Disease: Estimated GFR < 60 mL/min/1.73m2 Severe Kidney Disease: Estimated GFR < 15 mL/min/1.73m2 Glucose Random 128 60-115 mg/dL Calcium 9.0 8.4-10.2 mg/dL Magnesium Reviewed date:05/23/2024 05:11:42 AM Interpretation: Performing Lab:[facility], [address] [place] [phone] Notes/Report: Magnesium 1.9 1.6-2.6 mg/dL Lipase Reviewed date:05/23/2024 05:11:42 AM Interpretation: Performing Lab:[facility], [address] [place] [phone] Notes/Report: Lipase 15 8-78 U/L Glucose, Whole Blood Reviewed date:05/23/2024 05:11:42 AM Interpretation: Performing Lab:[facility], [address] [place] [phone] Notes/Report: Glucose, Whole Blood 108 60-115 mg/dL METER # : [id number] Hemoglobin A1c Reviewed date:05/23/2024 05:11:42 AM Interpretation: Performing Lab:[facility], [address] [place] [phone] Notes/Report: Hemoglobin A1c % 6.9 <6.0 % [...] average glucose, using the formula of the U8D-[place] Average Glucose study (ADAG), Diabetes Care, Vol.31,#8, May. 2007 UA CC w/rflx Micro + Cult Reviewed date:05/23/2024 05:11:42 AM Interpretation: Performing Lab:[facility], [address] [place] [phone] Notes/Report: Urine, Clean Catch Color Urine Yellow Appearance Urine Clear PH 5.5 5.0-9.0 Glucose Urine UA Negative Negative mg/dL Urine Blood Negative Negative Specific [place] - Urine 1.025 1.005-1.025 Urine Protein Negative Neg-Trace mg/dL Urine Ketones Negative Negative mg/dL Nitrite Urine Negative Negative Leukocyte Esterase Urine Negative Negative SARS-CoV2/FLU/RSV Reviewed date:05/23/2024 05:11:42 AM Interpretation: Performing Lab:[facility], [address] [place] [phone] Notes/Report: Influenza A PCR NEGATIVE Negative Influenza [...] by authorized laboratories. Testing performed on the [employer] GeneXpert utilizing real-time RT-PCR. All SARS CoV2 and positive influenza A/B results are reported to [facility]. CT abdomen pelvis w con Reviewed date:05/23/2024 05:11:42 AM Interpretation: Performing Lab: Notes/Report: [address] [address] [address] Scan Report Signed Patient: Alina Adamson MR#: [id number] 7 : 1975 Acct:[id number] Age/Sex: 49 / F ADM Date: 05/22/24 Loc: [place] [address]: Zac Betts MD Ordering Physician: Myriam Taylor DO Date of Service: 05/22/24 Procedure(s): CT abdomen pelvis w IV con Accession Number(s): [id number] cc: Yuniel Grewal MD; Myriam Taylor DO [...] in OV> 05/22/24 1631 DD/ 1404 TD/TT: Manager Erp: [address] [address] [address] Scan Report Signed Patient: Opal Adamson MR#: [id number] 7 : 1975 Acct:[id number] Age/Sex: 49 / F ADM Date: 05/22/24 Loc: [facility]: Yocasta Betts MD Ordering Physician: Myriam Taylor DO Date of Service: 05/22/24 Procedure(s): CT abd omen pelvis w IV con Accession Number(s): [id number] cc: Yuniel Grewal MD; Myriam Taylor DO [...] fat stranding. No CT evidence of ac leigha appendicitis. The stomach is not distended. There [...] in OV> 05/22/24 1631 DD/ 1404 TD/TT: Drip Molder ist: LAURA US abdomen limited Reviewed date:05/23/2024 05:11:42 AM Interpretation: Performing Lab: Notes/Report: [place] [address] Ultrasound Report Signed Patient: Alina Adamson MR#: [id number] 7 : 1975 Acct:[id number] Age/Sex: 49 / F ADM Date: 05/22/24 Loc: HO.ED Attending Dr: Ordering Physician: Myriam Taylor DO Date of Service: 05/22/24 Procedure(s): US abdomen limited Accession Number(s): [id number] cc: Yuniel Grewal MD; Myriam Taylor DO [...] in OV> 05/22/24 1331 DD/ 1110 TD/TT: Manager Erp: [place] [address] Ultrasound Report Signed Patient: Opal Adamson MR#: [id number] 7 : 1975 Acct:[id number] Age/Sex: 49 / F ADM Date: 05/22/24 Loc: HO.ED Attending Dr: Ordering Physician: Myriam Taylor DO Date of Service: 05/22/24 Procedure(s): US abd omen limited Accession Number(s): [id number] cc: Yuniel Grewal MD; Myriam Taylor DO [...] in OV> 05/22/24 1331 DD/ 1110 TD/TT: Manager Erp: Glucose, Whole Blood Reviewed date:05/23/2024 05:11:42 AM Interpretation: Performing Lab:[address] [phone] Notes/Report: Glucose, Whole Blood 82 60-115 mg/dL METER # : [id number] Complete Blood Count no Diff Reviewed date:05/25/2024 07:39:13 PM Interpretation: Performing Lab:[facility], [address] [place] [phone] Notes/Report: White Blood Count 11.0 4.8-10.8 X10*3/uL [...] Panel Reviewed date:05/25/2024 07:39:13 PM Interpretation: Performing Lab:[facility], [address] [place] [phone] Notes/Report: Bilirubin Total 0.9 0.0-1.0 mg/dL Bilirubin Direct 0.3 0.0-0.5 mg/dL Aspartate Amino Transferase 12 5-31 U/L Alanine Aminotransferase 10 0-31 U/L Total Protein 6.2 6.5-8.0 g/dL Albumin Level 3.3 3.5-5.0 g/dL Alkaline Phosphatase 55 39-117 U/L Basic Metabolic Panel Reviewed date:05/25/2024 07:39:13 PM Interpretation: Performing Lab:[facility], [address] [place] [phone] Notes/Report: Sodium 140 135-145 mmol/L Potassium 4.0 [...] Glomerular Filt Rate > 60 NOTE: For -Kyrgyz individuals, multiply the result by 1.210. Chronic Kidney Disease: Estimated GFR < 60 mL/min/1.73m2 Severe Kidney Disease: Estimated GFR < 15 mL/min/1.73m2 Glucose Random 121 60-115 mg/dL Calcium 8.6 8.4-10.2 mg/dL Glucose, Whole Blood Reviewed date:05/25/2024 07:39:13 PM Interpretation: Performing Lab:[facility], [address] [place] [phone] Notes/Report: Glucose, Whole Blood 130 60-115 mg/dL METER # : [id number] Pathology Reviewed date:05/25/2024 07:39:13 PM Interpretation: Performing Lab:[facility], [address] [place] [phone] Notes/Report: ---- Name: Alina Adamson Age/Sex: 49/F : 1975 Unit#: [id number] Attend Dr: Zac Betts MD Re05/22/24 Status : DIS IN Location: [facility] 383-1 Disch: 05/24/24 ---- SPEC : [id number] RECD : 05/24/24 STATUS: VANDANA COFFMAN NUM: [id number] ANAYELI: 05/23/241529 [facility] DR: Zac Betts MD ENTERED: 05/24/24 38 [...] measuring up to 0.15 cm in thickness. Perch Mender secti ons are submitted in a cassette labeled A1 to include the margin of resection of the cys tic duct. CEDS Copies To: Yuniel Grewal MD [address] [facility] [address] [place] [address] Zac Betts MD [facility] [address] [place] [address] CONTINUED ON NEXT PAGE ---- Name: Alina Adamson Age/Sex: 49/F : 1975 Unit#: [id number] Attend Dr: Zac Betts MD Re05/22/24 Status : DIS IN Location: [facility] 383-1 Disch: 05/24/24 ---- SPEC : [id number] RECD : 05/24/24 STATUS: VANDANA COFFMAN NUM: [id number] ANAYELI: 05/23/24-[address] [facility] [address]: Zac Betts MD ENTERED: 05/24/24- SP TYPE: Surgical OTHR DR: Yuniel Grewal MD ORDERED: Filippo Atkinson L3 ---- Signed (signature on file) Naty Calderon 05/25/24 1057 ---- END OF REPORT Glucose, Whole Blood Reviewed date:05/25/2024 07:39:13 PM Interpretation: Performing Lab:[facility], [address] [place] [phone] Notes/Report: Glucose, Whole Blood 108 60-115 mg/dL METER # : [id number] Glucose, Whole Blood Reviewed date:05/25/2024 07:39:13 PM Interpretation: Performing Lab:[facility], [address] [place] [phone] Notes/Report: Glucose, Whole Blood 100 60-115 mg/dL METER # : [id number] Glucose, Whole Blood Reviewed date:05/25/2024 07:39:13 PM Interpretation: Performing Lab:[facility], [address] [place] [phone] Notes/Report: Glucose, Whole Blood 118 60-115 mg/dL METER # : [id number] Glucose, Whole Blood Reviewed date:05/25/2024 07:39:13 PM Interpretation: Performing Lab:[facility], [address] [place] [phone] Notes/Report: Glucose, Whole Blood 143 60-115 mg/dL METER # : [id number] Glucose, Whole Blood Reviewed date:05/25/2024 07:39:13 PM Interpretation: Performing Lab:[facility], [address] [place] [phone] Notes/Report: Glucose, Whole Blood 142 60-115 mg/dL METER # : [id number] Glucose, Whole Blood Reviewed date:05/25/2024 07:39:13 PM Interpretation: Performing Lab:[facility], [address] [place] [phone] Notes/Report: Glucose, Whole Blood 158 60-115 mg/dL METER # : [id number] Complete Blood Count Auto Di ff Reviewed date:10/03/2024 06:07:16 AM Interpretation: Performing Lab:[facility], [address] [place] [phone] Notes/Report: White Blood Count 10.4 4.8-10.8 X10*3/uL [...] NRBC Abs Auto 0.000 0.0-0.012 X10*3/uL Comprehensive [place]. Panel Fa st Reviewed date:10/03/2024 06:07:16 AM Interpretation: Performing Lab:[facility], [address] [place] [phone] Notes/Report: Sodium 139 135-145 mmol/L Potassium 4.6 [...] 3.5-5.0 g/dL Alkaline Phosphatase 74 39-117 U/L CT NG by PCR (Not yet review ed by provider) Interpretation: Performing Lab:[facility], [address] [place] [phone] Notes/Report: Vaginal CT PCR NOT DETECTED Not [...] to adverse medical, social or psychological consequences. Reason For Referral Reason Evaluate and Treat Screen for Colon Cancer Diagnosis 1 Screen for colon can cer (Z12.11) Referral Organization Yuniel Grewal III, MD Referring Provider First Name Yuniel Referring Provider Last Name Uri Referring Provider Speciality Internal M edicine Referred Provider LENORE VELARDE Referred Provider Specialty Gastroentero satya General Notes D, Bea 09/19/2024 11:48:46 AM [...] 20 units in evening 06/02/2024 Active Pen [place] 31G X 6 MM as directed Twice [...] Problem Status W/U Status Risk Notes Problem 5336632 Former smoker (Z87.891) Active confirmed She has a plan to prevent relapse in times of stress and illness. Problem Asthma (706492216) Asthma (J45.909) Active confirmed She has a history of intermittent asthma. No wheezes or her today. She has a rescue inhaler if necessary. Problem Anemia (347367714) Anemia (D64.9) Active confirmed This will be reevaluated with comprehensive blood work to be done in the next few days. She did not appear to be anemic. She has had no bleeding. Problem Diabetes mellitus without complication (962656205) Diabetes (E11.9) Active confirmed She has been compliant with her medication. Her fasting glucoses morning was 140 at home. Comprehensive blood work with a hemoglobin A1c and a microalbumin have been ordered to be done in the next few days. Problem Hypertension (41351788) HTN (hypertension) (I10) Active confirmed Her blood pressure is currently stable and no change in her regimen was made. I strongly recommended aggressive weight loss and sodium restriction. Problem Hypothyroid (00376973) Hypothyroid (E03.9) Active confirmed Her thyroid function tests are normal. She appears to be euthyroid. No change was necessary in her medication. Problem 955040149 Atypical chest pain (R07.89) Active confirmed She is on aspirin. 4. Atypical chest pain from a previous provider. She believes her chest discomfort is caused by stress. If necessary, a stress test can be done. Problem 759136410 Herpes zoster without complication (B02.9) Active confirmed She had an episode of shingles in February of this year. She was treated with prednisone and valacyclovir. It has resolved. Problem 679611458 Morbid obesity (E66.01) Active confirmed Her body mass index is 41. We discussed diet and nutrition. We made a plan to lose weight at a rate of one half of a pound per week. We have discussed oral and injectable medications she has declined them for the time being. She does not wish to have bariatric surgery. Problem 803776056 Low back pain, unspecified (M54.50) Active confirmed [...] Provider Diagnosis Yuniel Grewal III, MD [address] [place] [address] [place] [address] 01/26/2024 Yuniel Grewal Diabetes E11.9 ; HTN (hypertension) I10 ; Morbid obesity E66.01 ; Low back pain, unspecified M54.50 ; Hypothyroid E03.9 and Asthma J45.909 Yuniel Grewal III, MD [address] [place] [address] [place] [phone] 04/08/2024 Yuniel Grewal Diabetes E11.9 ; Hypothyroid E03.9 ; HTN (hypertension) I10 ; Morbid obesity E66.01 ; Breast pain, right N64.4 and Former smoker Z87.891 Yuniel Grewal III, MD [address] [place] [address] [place] [address] 05/05/2024 Yuniel Grewal Diabetes E11.9 ; Hypothyroid E03.9 ; Morbid obesity E66.01 ; HTN (hypertension) I10 ; Asthma J45.909 ; Low back pain, unspecified M54.50 and Former smoker Z87.891 Yuniel Grewal III, MD [address] [place] [address] DR [place] [place] [address] 05/27/2024 Yuniel Grewal Acute cholecystitis K81.0 ; Diabetes E11.9 ; Hypothyroid E03.9 ; HTN (hypertension) I10 ; Asthma J45.909 ; Former smoker Z87.891 ; Low back pain, unspecified M54.50 and Morbid obesity E66.01 Yuniel Grewal III, MD [address] [place] [address] [place] [address] 09/16/2024 Yuniel Grewal Diabetes E11.9 ; Mor bid obesity E66.01 ; HTN (hypertension) I10 ; Anemia D64.9 ; Neck pain M54.2 ; Hypothyroid E03.9 ; Asthma J45.909 and Former smoker Z87.891 Yuniel Grewal III, MD [address] [place] [address] [place] [address] 01/14/2024 Yuniel Grewal III, MD [address] [place] [address] [place] [address] 01/15/2024 Yuniel Grewal III, MD [address] [place] [address] [place] [address] 01/15/2024 Yuniel Grewal III, MD [address] [place] [address] [place] [address] 02/10/2024 Yuniel Grewal III, MD [address] [place] [address] [place] [address] 04/12/2024 Yuniel Grewal III, MD [address] [place] [address] [place] [address] 04/20/2024 Yuniel Grewal Diabetes E11.9 Yuniel Grewal III, MD [address] [place] [address] [place] [address] 06/02/2024 Yuniel Grewal Assessments Encounter Date Diagnosis [...] she went to the emergency room at [facility] May 22, 2024 and the next [...] T4 (Free Thyroxine) 09/25/2023 Microalbumin, Random 09/25/2023 CT NG by PCR 10/20/2024 Hemoglobin A1c 04/08/2024 Hemoglobin A1c 09/25/2023 Hemoglobin A1c 05/05/2024 Next Appt Details Provider Name:Yuniel Grewal, 09/18/2025 03:30:00 PM, [address] [place] [address] [address], [address], [place], [address], Insurance Providers Payer Name Payer Address Payer Phone Subscriber Number Group Number Insured Name Patient Relationship to Insured Coverage Start Date Coverage End Date [facility] [address] [facility] [address] [place] [address] [id number] Alina Adamson Self - patient is the insured Medical (General) History Medical History History ICD Code Hypothyroid E03.9 HTN (hypertension) I10 Anemia D64.9 Asthma J45.909 [id number] chronic lumbar back pain Adult onset diabetes mellitus Shingles February 2023. Left flank Atypical chest pain Family history of breast cancer, sister Former smoker Morbid obesity Acute cholecystitis May 22, 2024 The patient had her gallblad sergey removed in the past. She is managing her blood sugar levels with medication and is taking thyroid medication. Surgical History Surgery Date(Month/Year) Gallbladder removal Laparoscopic cholecystectomy [facility] Dr. Betts [id number] 1999 Hospitalization History Reason Date(Month/Year) Hospitalization for gallbladder removal
[2024-10-21 11:03] LABS: Hematocrit 40.5 % (37.0-47.0); Hemoglobin 13.6 g/dl (12.0-16.0); Mean Corpuscular HGB Conc 33.6 g/dl (31.0-35.0); Mean Corpuscular Hemoglobin 29.3 pg (27.0-33.0); Mean Corpuscular Volume 87.3 fL (80.0-98.0); Mean Platelet Volume 11.4 fL (9.4-12.3); Platelet Count 227 X10*3/uL (160-400); Red Blood Count 4.64 X10*6/uL (4.20-5.50); Red Cell Distribution Width 13.8 % (11.0-16.0)
[2024-10-21 11:56] LABS: HCG Quantitative < 2 mIU/mL; TSH reflex Free T4 5.85 uIU/mL (0.32-4.0)
[2024-10-21 12:36] LABS: Free T4 (Free Thyroxine) 1.12 ng/dL (0.71-1.85)
[2024-10-23 02:58] LABS: Follicle Stimulating Hormone 3.3 mIU/mL; Lutenizing Hormone 3.1 mIU/mL
== END 2024-10-21 09:11 | disposition home or self-care (01) ==
LOC: HO.LAB 09:10
PROVIDERS: PCP Internal Medicine Medical Oncology; Visit Provider Obstetrics & Gynecology
DX: N93.9 Abnormal uterine and vaginal bleeding, unspecified (principal)
CPT/HCPCS: 36415; 83001; 83002; 84439; 84443; 84702; 85027

== ENCOUNTER 2024-10-31 14:54 | Outpatient (REF) | payer OTHER, SELFPAY ==
--- NOTE | ~2024-10-31 | US_ITS ---
EXAMINATION: US PELVIS CLINICAL INFORMATION: AUB COMPARISON: None available. TECHNIQUE: Ultrasound of the pelvis is performed using both transabdominal and transvaginal transducers along with Doppler. Transvaginal imaging is performed due to inadequate visualization transabdominally. FINDINGS: Uterus: The uterus is anteverted, retroflexed and measures 14.1 x 7.2 x 6.4 cm. The endometrium is not well-visualized. The uterus is smooth in contour and has normal myometrial echogenicity. There is a large hypoechoic lesion in the anterior fundus/body of uterus measuring 6.2 x 6.3 x 6.4 cm consistent with a fibroid. Previously it measured 6.7 x 7.0 x 7.7 cm. There is minimal fluid seen within endocervical canal. Right ovary is not visualized. Left ovary seen transabdominally and measures 2.6 x 1.1 x 3.0 cm and volume 13.4 mL. Previously left ovary measured 2.9 x 2.9 x 3.4 cm. There is no free fluid in the cul-de-sac. US/US pelvic and transvaginal IMPRESSION: Anteverted and retroflexed uterus. Large uterine fibroid, stable. Minimal fluid within endocervical canal Electronically signed by: Los Arciniega MD 10/31/2024 04:10 PM ANDREE
== END 2024-10-31 14:55 | disposition home or self-care (01) ==
LOC: HO.US 14:54
PROVIDERS: PCP Internal Medicine Medical Oncology; Visit Provider Obstetrics & Gynecology
DX: N93.9 Abnormal uterine and vaginal bleeding, unspecified (principal)
CPT/HCPCS: 76830; 76856

== ENCOUNTER → 2024-10-31 14:56 | Outpatient (BNV) | payer OTHER, SELFPAY | PROVIDERS: PCP Internal Medicine Medical Oncology; Visit Provider Radiology Diagnostic Radiology | DX: D25.9 Leiomyoma of uterus, unspecified (principal) | CPT/HCPCS: 76830; 76856 ==

== ENCOUNTER 2024-12-05 14:38 | Outpatient (REF) | payer OTHER, SELFPAY ==
--- OUTSIDE RECORDS SUMMARY | 2024-12-05 18:06 | XMS_ITS | Continuity of Care Document ---
Author Organization [facility] Address [address] [place] [address] [address] [place] [address] Phone Care Team Providers Care Archeologist Name Role Phone Montana Hughes MD Unavailable Unavailable Procedures Procedure Date Intermediate EP (Revisit) Gonioscopy Visual Field Full Threshold Corneal Hysteresis Advance Directives Directive Yes / No Effective Date File Name No Information Encounters Encounter Description Practice Location Reason(s) For Visit Diagnoses Date Provider Providers Copied on Encounter [facility] , [address] [facility], [place], [place], [id number], [place] tel:[phone] [address] Open angle with borderline findings, low risk, bilateral Ellen Boyle. [address] [place], [place], [id number], [place]. tel:[phone] Family History Family Member Type Diagnosis Age At Onset No Information Payers Payer name Insurance type Covered republican ID Authoriza tion(s) [facility] [id number] Social History Type Description Quantity Date Captured [...]
--- OUTSIDE RECORDS SUMMARY | 2024-12-05 18:06 | XMS_ITS | Patient Health Record ---
Author Organization Yuniel Grewal III, MD Address [address] [place] [address] [facility] [place] [address] Care Team Providers Care Employee'S Representative Name Role Phone Yuniel Grewal Primary Care Provider [phone] Allergies Allergen (clinical drug ingredient) Drug/Non Drug Allergy documented on EMR Reaction Allergy Type Onset Date Status Shellfish (FN) Shellfish-derived Products Unknown Drug Allergy Active Results Component Value Reference Range Notes Lipid Panel Reviewed date:02/10/2024 04:46:07 PM Interpretation: Performing Lab:[facility], [address] [place] [address] Notes/Report: Triglycerides 195 <150 mg/dL Desirable Triglyceride: [...] A1c Reviewed date:02/10/2024 04:46:07 PM Interpretation: Performing Lab:[facility], [address] [place] [address] Notes/Report: Hemoglobin A1c % 8.4 <6.0 % [...] average glucose, using the formula of the E0H-Xijhyqx Average Glucose study (ADAG), Diabetes Care, Vol.31,#8, May. 2007 XR lumbar spine 4V min Reviewed date:02/10/2024 04:46:07 PM Interpretation: Performing Lab: Notes/Report: [address] [address] XRay Report Signed Patient: Alina Adamson MR#: [id number] 7 : 1975 Acct:[id number] Age/Sex: 48 / F ADM Date: 01/29/24 Loc: HO.PJ Attending Dr: Yuniel Grewal MD Ordering Physician: Yuniel Grewal MD Date of Service: 01/29/24 Procedure(s): XR lumbar spine 4V min Accession Number(s): [id number] cc: Yuniel Grewal MD EXAMINATION: XR LUMBOSACRAL [...] MD in OV> 02/08/24723 DD/ 7 TD/TT: Desk Clerk: [place] [address] XRay Report Signed Patient: Opal Adamson MR#: [id number] 7 : 1975 Acct:[id number] Age/Sex: 48 / F ADM Date: 01/29/24 Loc: HO.XRAY Attending Dr: Yuniel Grewal MD Ordering Physician: Yuniel Grewal MD Date of Service: 01/29/24 Procedure(s): XR lum bar spine 4V min Accession Number(s): [id number] cc: Yuniel Grewal MD EXAMINATION: XR LUMBOSACRAL [...] Castellanos MD in OV> 02/08/2424 DD/ TD/TT: Desk Clerk: URINE DIP STICK Reviewed date:09/16/2024 04:08:10 PM Interpretation: Performing Lab: Notes/Report: SG 1.015 1.005 - 1.025 pH 5.0 5.0 - 9.0 BRUCE Negative Negative - NIT Negative Negative - PRO 15 Negative - Trace GLU Negative Negative - KET Negative Negative - UBG 0.2 0.1 - 1.8 YADIRA Negative 0.2 - 1.3 BLD +++ Negative - Ferritin Reviewed date:10/03/2024 06:07:16 AM Interpretation: Performing Lab:[facility], [address] [place] [address] Notes/Report: Ferritin 13 10-250 ng/mL Lipid Panel Reviewed date:10/03/2024 06:07:16 AM Interpretation: Performing Lab:[facility], [address] [place] [address] Notes/Report: Triglycerides 145 <150 mg/dL Desirable Triglyceride: [...] Random Reviewed date:10/03/2024 06:07:16 AM Interpretation: Performing Lab:[facility], [address] [place] [address] Notes/Report: Creatinine Urine 125.44 Microalbumin Urine 19.0 Microalbum/Creatinine Ratio Ur 15.1 <30 ug/mg cr Albumin/Creatinine Ratio Reference Ranges: Normal: < 30 ug/mg creatinine Microalbuminuria: 30 - 300 ug/mg creatinine Clinical Albuminuria: > 300 ug/mg creatinine Hemoglobin A1c Reviewed date:10/03/2024 06:07:16 AM Interpretation: Performing Lab:[facility], [address] [place] [address] Notes/Report: Hemoglobin A1c % 6.8 <6.0 % [...] average glucose, using the formula of the A3B-Vioodex Average Glucose study (ADAG), Diabetes Care, Vol.31,#8, May. 2007 XR cervical spine 4V Reviewed date:10/03/2024 06:07:16 AM Interpretation: Performing Lab: Notes/Report: [address] [address] XRay Report Signed Patient: Alina Adamson MR#: [id number] 7 : 1975 Acct:[id number] Age/Sex: 49 / F ADM Date: 09/16/24 Loc: [facility] Attending Dr: Yuniel Grewal MD Ordering Physician: Yuniel Grewal MD Date of Service: 09/16/24 Procedure(s): XR cervical spine 4V Accession Number(s): [id number] cc: Yuniel Grewal MD EXAMINATION: XR CERVICAL [...] in OV> 09/16/242041 DD/ 49 TD/TT: 09/16/241699 Desk Clerk: NIKHIL [address] [address] XRay Report Signed Patient: Opal Adamson MR#: [id number] 7 : 1975 Acct:[id number] Age/Sex: 49 / F ADM Date: 09/16/24 Loc: HO.XRAY Attending Dr: Yuniel Grewal MD Ordering Physician: Yuniel Grewal MD Date of Service: 09/16/24 Procedure(s): XR cervical spine 4V Accession Number(s): [id number] cc: Yuniel Grewal MD EXAMINATION: XR CERVICAL [...] in OV> 09/16/242041 DD/ 49 TD/TT: 09/16/241699 Desk Clerk: NIKHIL Complete Blood Count Auto Di ff Reviewed date:02/10/2024 04:46:07 PM Interpretation: Performing Lab:[facility], [address] [place] [address] Notes/Report: White Blood Count 11.2 4.8-10.8 X10*3/uL [...] NRBC Abs Auto 0.000 0.0-0.012 X10*3/uL Comprehensive [place]. Panel Fa st Reviewed date:02/10/2024 04:46:07 PM Interpretation: Performing Lab:[facility], [address] [place] [address] Notes/Report: Sodium 139 135-145 mmol/L Potassium 4.6 3.3-5.1 mmol/L Chloride 104 96-108 mmol/L Carbon Dioxide 28 22-29 mmol/L Anion Gap 12 12-20 Blood Urea Nitrogen 12 9-16 mg/dL Creatinine 0.69 0.5-1.4 mg/dL Estimated Glomerular Filt Rate > 60 NOTE: For -Micronesian individuals, multiply the result by 1.210. Chronic [...] ff Reviewed date:05/05/2024 05:59:10 AM Interpretation: Performing Lab:[facility], [address] [place] [address] Notes/Report: White Blood Count 10.9 4.8-10.8 X10*3/uL [...] te Reviewed date:05/05/2024 05:59:10 AM Interpretation: Performing Lab:[facility], [address] [place] [address] Notes/Report: Erythrocyte Sedimentation Rate 10 0-20 MM/HR Patients with polycythemia and many hemoglobin abnormalities may have depressed sed rates whereas patients with anemia may have elevated sed rates. Comprehensive [place]. Panel Fa Reviewed date:05/05/2024 05:59:10 AM Interpretation: Performing Lab:[facility], [address] [place] [address] Notes/Report: Sodium 139 135-145 mmol/L Potassium 4.1 3.3-5.1 mmol/L Chloride 107 96-108 mmol/L Carbon Dioxide 24 22-29 mmol/L Anion Gap 12 12-20 Blood Urea Nitrogen 11 9-16 mg/dL Creatinine 0.63 0.5-1.4 mg/dL Estimated Glomerular Filt Rate > 60 NOTE: For -Micronesian individuals, multiply the result by 1.210. Chronic [...] Ferritin Reviewed date:05/05/2024 05:59:10 AM Interpretation: Performing Lab:[facility], [address] [place] [address] Notes/Report: Ferritin 23 10-250 ng/mL Lipid Panel Reviewed date:05/05/2024 05:59:10 AM Interpretation: Performing Lab:[facility], [address] [place] [address] Notes/Report: Triglycerides 219 <150 mg/dL Desirable Triglyceride: [...] Thyroxine) Reviewed date:05/05/2024 05:59:10 AM Interpretation: Performing Lab:[address] [address] Notes/Report: Free T4 (Free Thyroxine) 1.12 0.71-1.85 ng/dL Thyroid Stimulating Hormone Reviewed date:05/05/2024 05:59:10 AM Interpretation: Performing Lab:[address] [address] Notes/Report: Thyroid Stimulating Hormone 2.99 0.32-4.0 uIU/mL Note: A sustained TSH level above 2.5 uIU/mL may warrant further investigation. TSH 3rd Generation ([facility]) Hemoglobin A1c Reviewed date:05/05/2024 05:59:10 AM Interpretation: Performing Lab:[address] [address] Notes/Report: Hemoglobin A1c % 8.0 <6.0 % [...] average glucose, using the formula of the E7G-Mwcfcea Average Glucose study (ADAG), Diabetes Care, Vol.31,#8, May. 2007 MM tomosynthesis diagnostic BI Reviewed date:05/05/2024 05:59:10 AM Interpretation: Performing Lab: Notes/Report: [facility] [address] [place] [address] Mammography Report Signed Patient: Alina Adamson MR#: [id number] 7 : 1975 Acct:[id number] Age/Sex: 49 / F ADM Date: 04/28/24 Loc: HO.MAMMO Attending Dr: Yuniel Grewal MD Ordering Physician: Yuniel Grewal MD Results: 1Negativ e Date of Service: 04/28/24 Follow Up: 1 Year From [facility] Mammogram Procedure(s): MM tomosynthesis diagnostic BI Accession Number(s): [id number] cc: Yuniel Grewal MD EXAMINATION: MM DIAGNOSTIC [...] Nguyễn MD Signed By: <Electronically signed by Mnaish Nguyễn MD in OV> 04/28/24 1558 DD/ 1415 TD/TT: Desk Clerk: [facility] [address] [place] [address] Mammography Report Signed Patient: Opal Adamson MR#: [id number] 7 : 1975 Acct:[id number] Age/Sex: 49 / F ADM Date: 04/28/24 Loc: HO.MAMMO Attending Dr: Yuniel Grewal MD Ordering Physician: Yuniel Grewal MD Results: 1Negativ e Date of Service: 04/28/24 Follow Up: 1 Year From [facility] Mammogram Procedure(s): MM tomosynthesis diagnostic BI Accession Number(s): [id number] cc: Yuniel Grewal MD EXAMINATION: MM DIAGNOSTIC [...] in OV> 04/28/24 1558 DD/ 1415 TD/TT: Desk Clerk: US breast RT limited mamm on ly Reviewed date:05/05/2024 05:59:10 AM Interpretation: Performing Lab: Notes/Report: [facility] [address] [place] [address] Ultrasound Report Signed Patient: Alina Adamson MR#: [id number] 7 : 1975 Acct:[id number] Age/Sex: 49 / F ADM Date: 04/28/24 Loc: HO.MAMMO Attending Dr: Yuniel Grewal MD Ordering Physician: Yuniel Grewal MD Date of Service: 04/28/24 Procedure(s): US breast RT limited mamm only Accession Number(s): [id number] cc: Yuniel Grewal MD EXAMINATION: MM DIAGNOSTIC [...] in OV> 04/28/24 1558 DD/ 1533 TD/TT: Desk Clerk: [facility] [address] [place] [address] Ultrasound Report Signed Patient: Opal Adamson MR#: [id number] 7 : 1975 Acct:[id number] Age/Sex: 49 / F ADM Date: 04/28/24 Loc: HO.MAMMO Attending Dr: Yuniel Grewal MD Ordering Physician: Yuniel Grewal MD Date of Service: 04/28/24 Procedure(s): US jose ast RT limited mamm only Accession Number(s): [id number] cc: Yuniel Grewal MD EXAMINATION: MM DIAGNOSTIC [...] in OV> 04/28/24 1558 DD/ 1533 TD/TT: Desk Clerk: MAMMOGRAM DIGITAL BILATERAL SCREEN Reviewed date:09/16/2024 03:58:14 PM Interpretation:undefined Performing Lab: Notes/Report: undefined Complete Blood Count Auto Di ff Reviewed date:05/23/2024 05:11:42 AM Interpretation: Performing Lab:[facility], [address] [place] [phone] Notes/Report: White Blood Count 13.5 4.8-10.8 X10*3/uL [...] Test Reviewed date:05/23/2024 05:11:42 AM Interpretation: Performing Lab:[facility], [address] [place] [address] Notes/Report: Urine NEGATIVE NEGATIVE This test was developed to detect early . False negative results may occur after the 5th - 7th week of when using this test method. If clinically indicated, consider a serum hCG. Liver Panel Reviewed date:05/23/2024 05:11:42 AM Interpretation: Performing Lab:[facility], [address] [place] [phone] Notes/Report: Bilirubin Total 1.2 0.0-1.0 mg/dL Bilirubin Direct 0.2 0.0-0.5 mg/dL Slight Hem olysis Aspartate Amino Transferase 17 5-31 U/L Slight Hemolysis Alanine Aminotransferase 12 0-31 U/L Total Protein 7.7 6.5-8.0 g/dL Albumin Level 4.0 3.5-5.0 g/dL Alkaline Phosphatase 65 39-117 U/L Basic Metabolic Panel Reviewed date:05/23/2024 05:11:42 AM Interpretation: Performing Lab:[facility], [address] [place] [address] Notes/Report: Sodium 136 135-145 mmol/L Potassium 4.2 [...] Glomerular Filt Rate > 60 NOTE: For -Micronesian individuals, multiply the result by 1.210. Chronic Kidney Disease: Estimated GFR < 60 mL/min/1.73m2 Severe Kidney Disease: Estimated GFR < 15 mL/min/1.73m2 Glucose Random 128 60-115 mg/dL Calcium 9.0 8.4-10.2 mg/dL Magnesium Reviewed date:05/23/2024 05:11:42 AM Interpretation: Performing Lab:[facility], [address] [place] [address] Notes/Report: Magnesium 1.9 1.6-2.6 mg/dL Lipase Reviewed date:05/23/2024 05:11:42 AM Interpretation: Performing Lab:[facility], [address] [place] [address] Notes/Report: Lipase 15 8-78 U/L Glucose, Whole Blood Reviewed date:05/23/2024 05:11:42 AM Interpretation: Performing Lab:[facility], [address] [place] [address] Notes/Report: Glucose, Whole Blood 108 60-115 mg/dL METER # : [id number] Hemoglobin A1c Reviewed date:05/23/2024 05:11:42 AM Interpretation: Performing Lab:[facility], [address] [place] [address] Notes/Report: Hemoglobin A1c % 6.9 <6.0 % [...] average glucose, using the formula of the T1W-Ghhrlej Average Glucose study (ADAG), Diabetes Care, Vol.31,#8, May. 2007 UA CC w/rflx Micro + Cult Reviewed date:05/23/2024 05:11:42 AM Interpretation: Performing Lab:[facility], [address] [place] [address] Notes/Report: Urine, Clean Catch Color Urine Yellow Appearance Urine Clear PH 5.5 5.0-9.0 Glucose Urine UA Negative Negative mg/dL Urine Blood Negative Negative Specific [place] - Urine 1.025 1.005-1.025 Urine Protein Negative Neg-Trace mg/dL Urine Ketones Negative Negative mg/dL Nitrite Urine Negative Negative Leukocyte Esterase Urine Negative Negative SARS-CoV2/FLU/RSV Reviewed date:05/23/2024 05:11:42 AM Interpretation: Performing Lab:[facility], [address] [place] [address] Notes/Report: Influenza A PCR NEGATIVE Negative Influenza [...] by authorized laboratories. Testing performed on the [employer] GeneXpert utilizing real-time RT-PCR. All SARS CoV2 and positive influenza A/B results are reported to [facility]. CT abdomen pelvis w con Reviewed date:05/23/2024 05:11:42 AM Interpretation: Performing Lab: Notes/Report: [address] [address] [address] Scan Report Signed Patient: Alina Adamson MR#: [id number] 7 : 1975 Acct:[id number] Age/Sex: 49 / F ADM Date: 05/22/24 Loc: [place] [address]: Zac Betts MD Ordering Physician: Myriam Taylor DO Date of Service: 05/22/24 Procedure(s): CT abdomen pelvis w IV con Accession Number(s): [id number] cc: Yuniel Grewal MD; Myriam Taylor DO [...] in OV> 05/22/24 1631 DD/ 1404 TD/TT: Desk Clerk: [address] [address] [address] Scan Report Signed Patient: Opal Adamson MR#: [id number] 7 : 1975 Acct:[id number] Age/Sex: 49 / F ADM Date: 05/22/24 Loc: [facility]: Yocasta Betts MD Ordering Physician: Myriam Taylor DO Date of Service: 05/22/24 Procedure(s): CT abd omen pelvis w IV con Accession Number(s): [id number] cc: Yuniel Grewal MD; Myriam Taylor DO [...] fat stranding. No CT evidence of ac [place] appendicitis. The stomach is not distended. There [...] in OV> 05/22/24 1631 DD/ 1404 TD/TT: Scoop Filler ist: LAURA US abdomen limited Reviewed date:05/23/2024 05:11:42 AM Interpretation: Performing Lab: Notes/Report: [place] [address] Ultrasound Report Signed Patient: Alina Adamson MR#: [id number] 7 : 1975 Acct:[id number] Age/Sex: 49 / F ADM Date: 05/22/24 Loc: HO.ED Attending Dr: Ordering Physician: Myriam Taylor DO Date of Service: 05/22/24 Procedure(s): US abdomen limited Accession Number(s): [id number] cc: Yuniel Grewal MD; Myriam Taylor DO [...] in OV> 05/22/24 1331 DD/ 1110 TD/TT: Desk Clerk: [place] [address] Ultrasound Report Signed Patient: Opal Adamsno MR#: [id number] 7 : 1975 Acct:[id number] Age/Sex: 49 / F ADM Date: 05/22/24 Loc: HO.ED Attending Dr: Ordering Physician: Myriam Taylor DO Date of Service: 05/22/24 Procedure(s): US abd omen limited Accession Number(s): [id number] cc: Yuniel Grewal MD; Myriam Taylor DO [...] in OV> 05/22/24 1331 DD/ 1110 TD/TT: Desk Clerk: Glucose, Whole Blood Reviewed date:05/23/2024 05:11:42 AM Interpretation: Performing Lab:[address] [address] Notes/Report: Glucose, Whole Blood 82 60-115 mg/dL METER # : [id number] Complete Blood Count no Diff Reviewed date:05/25/2024 07:39:13 PM Interpretation: Performing Lab:[facility], [address] [place] [address] Notes/Report: White Blood Count 11.0 4.8-10.8 X10*3/uL [...] Panel Reviewed date:05/25/2024 07:39:13 PM Interpretation: Performing Lab:[facility], [address] [place] [address] Notes/Report: Bilirubin Total 0.9 0.0-1.0 mg/dL Bilirubin Direct 0.3 0.0-0.5 mg/dL Aspartate Amino Transferase 12 5-31 U/L Alanine Aminotransferase 10 0-31 U/L Total Protein 6.2 6.5-8.0 g/dL Albumin Level 3.3 3.5-5.0 g/dL Alkaline Phosphatase 55 39-117 U/L Basic Metabolic Panel Reviewed date:05/25/2024 07:39:13 PM Interpretation: Performing Lab:[facility], [address] [place] [address] Notes/Report: Sodium 140 135-145 mmol/L Potassium 4.0 [...] Glomerular Filt Rate > 60 NOTE: For -Micronesian individuals, multiply the result by 1.210. Chronic Kidney Disease: Estimated GFR < 60 mL/min/1.73m2 Severe Kidney Disease: Estimated GFR < 15 mL/min/1.73m2 Glucose Random 121 60-115 mg/dL Calcium 8.6 8.4-10.2 mg/dL Glucose, Whole Blood Reviewed date:05/25/2024 07:39:13 PM Interpretation: Performing Lab:[facility], [address] [place] [address] Notes/Report: Glucose, Whole Blood 130 60-115 mg/dL METER # : [id number] Pathology Reviewed date:05/25/2024 07:39:13 PM Interpretation: Performing Lab:[facility], [address] [place] [address] Notes/Report: ---- Name: Alina Adamson Age/Sex: 49/F : 1975 Unit#: [id number] Attend Dr: Zac Betts MD Re05/22/24 Status : DIS IN Location: [facility] 383-1 Disch: 05/24/24 ---- SPEC : [id number] RECD : 05/24/24 STATUS: VANDANA COFFMAN NUM: [id number] ANAYELI: 05/23/241529 [facility] DR: Zac Betts MD ENTERED: 05/24/24 [...] measuring up to 0.15 cm in thickness. Curtain Stretcher secti ons are submitted in a cassette labeled A1 to include the margin of resection of the cys tic duct. CEDS Copies To: Yuniel Grewal MD [address] [facility] [address] [place] [address] Zac Betts MD [facility] [address] [place] [address] CONTINUED ON NEXT PAGE ---- Name: Alina Adamson Age/Sex: 49/F : 1975 Unit#: [id number] Attend Dr: Zac Betts MD Re05/22/24 Status : DIS IN Location: [facility] 383-1 Disch: 05/24/24 ---- SPEC : [id number] RECD : 05/24/24 STATUS: VANDANA COFFMAN NUM: [id number] ANAYELI: 05/23/24-[address] [facility] DR: Zac Betts MD ENTERED: 05/24/24- SP TYPE: Surgical OTHR DR: Yuniel Grewal MD ORDERED: Filippo Atkinson L3 ---- Signed (signature on file) Naty Calderon 05/25/24 1057 ---- END OF REPORT Glucose, Whole Blood Reviewed date:05/25/2024 07:39:13 PM Interpretation: Performing Lab:[facility], [address] [place] [address] Notes/Report: Glucose, Whole Blood 108 60-115 mg/dL METER # : [id number] Glucose, Whole Blood Reviewed date:05/25/2024 07:39:13 PM Interpretation: Performing Lab:[facility], [address] [place] [address] Notes/Report: Glucose, Whole Blood 100 60-115 mg/dL METER # : [id number] Glucose, Whole Blood Reviewed date:05/25/2024 07:39:13 PM Interpretation: Performing Lab:[facility], [address] [place] [address] Notes/Report: Glucose, Whole Blood 118 60-115 mg/dL METER # : [id number] Glucose, Whole Blood Reviewed date:05/25/2024 07:39:13 PM Interpretation: Performing Lab:[facility], [address] [place] [address] Notes/Report: Glucose, Whole Blood 143 60-115 mg/dL METER # : [id number] Glucose, Whole Blood Reviewed date:05/25/2024 07:39:13 PM Interpretation: Performing Lab:[facility], [address] [place] [address] Notes/Report: Glucose, Whole Blood 142 60-115 mg/dL METER # : [id number] Glucose, Whole Blood Reviewed date:05/25/2024 07:39:13 PM Interpretation: Performing Lab:[facility], [address] [place] [address] Notes/Report: Glucose, Whole Blood 158 60-115 mg/dL METER # : [id number] Complete Blood Count Auto Di ff Reviewed date:10/03/2024 06:07:16 AM Interpretation: Performing Lab:[facility], [address] [place] [address] Notes/Report: White Blood Count 10.4 4.8-10.8 X10*3/uL [...] NRBC Abs Auto 0.000 0.0-0.012 X10*3/uL Comprehensive [place]. Panel Fa st Reviewed date:10/03/2024 06:07:16 AM Interpretation: Performing Lab:[facility], [address] [place] [address] Notes/Report: Sodium 139 135-145 mmol/L Potassium 4.6 [...] 74 39-117 U/L CT NG by PCR Reviewed date:10/22/2024 08:56:59 PM Interpretation: Performing Lab:[address] [address] Notes/Report: Vaginal CT PCR NOT DETECTED Not [...] to adverse medical, social or psychological consequences. Complete Blood Count no Diff Reviewed date:10/22/2024 08:56:59 PM Interpretation: Performing Lab:[facility], [address] [place] [address] Notes/Report: White Blood Count 10.0 4.8-10.8 X10*3/uL Red Blood Count 4.64 4.20-5.50 X10*6/uL Hemoglobin 13.6 12.0-16.0 g/dl Hematocrit 40.5 37.0-47.0 % Mean Corpuscular Volume 87.3 80.0-98.0 fL Mean Corpuscular Hemoglobin 29.3 27.0-33.0 pg Mean Corpuscular HGB Conc 33.6 31.0-35.0 g/dl Red Cell Distribution Width 13.8 11.0-16.0 % Platelet Count 227 160-400 X10*3/uL Mean Platelet Volume 11.4 9.4-12.3 fL NRBC Pct Auto 0.0 0.0-0.2 /100WBC NRBC Abs Auto 0.000 0.0-0.012 X10*3/uL Free T4 (Free Thyroxine) Reviewed date:10/22/2024 08:56:59 PM Interpretation: Performing Lab:[address] [address] Notes/Report: Free T4 (Free Thyroxine) 1.12 0.71-1.85 ng/dL TSH reflex Free T4 Reviewed date:10/22/2024 08:56:59 PM Interpretation: Performing Lab:[address] [address] Notes/Report: TSH reflex Free T4 5.85 0.32-4.0 uIU/mL Follicle Stimulating Hormone Reviewed date:10/23/2024 09:33:47 AM Interpretation: Performing Lab:[address] [address] Notes/Report: Follicle Stimulating Hormone 3.3 Reference Range Follicular Phase 2.5-10.2 Mid-cycle Peak 3.1-17.7 Luteal Phase 1.5- 9.1 Postmenopausal 23.0-116.3 THIS TEST WAS PERFORMED AT: [facility] [address] [place] [phone] SHOBHA LYONS MD Lutenizing Hormone Reviewed date:10/23/2024 09:33:47 AM Interpretation: Performing Lab:[facility], [address] [place] [address] Notes/Report: Lutenizing Hormone 3.1 Reference Range Follicular Phase 1.9-12.5 Mid-Cycle Peak 8.7-76.3 Luteal Phase 0.5-16.9 Postmenopausal 10.0-54.7 THIS TEST WAS PERFORMED AT: [facility] [address] [address] SHOBHA LYONS MD HCG Quantitative Reviewed date:10/22/2024 08:56:59 PM Interpretation: Performing Lab:[facility], [address] [place] [address] Notes/Report: HCG Quantitative < 2 Weeks post LMP Approximate hCG (Last Menstrual Period) Range (mIU/ml) 3 - 4 weeks 9 - 130 4 - 5 weeks 75 - 2,600 5 - 6 weeks 850 - 20,800 6 - 7 weeks 4000 - 100,200 7 - 12 weeks 11,500 - 289,000 12 - 16 weeks 18,300 - 137,000 16 - 29 weeks (2nd trimester) 1,400 - 53,000 29 - 41 weeks (3rd trimester) 940 - 60,000 The Shen B-hCG assay is used for the early detection of ; it cannot be used to diagnose any condition unrelated to . If a B-hCG level is not supported by the clinical evidence, results should be confirmed by an alternative method (qualitative urine hCG, for example). US pelvic and transvaginal Reviewed date:11/06/2024 05:22:59 PM Interpretation: Performing Lab: Notes/Report: [address] [address] Ultrasound Report Signed Patient: Alina Adamson MR#: [id number] 7 : 1975 Acct:[id number] Age/Sex: 49 / F ADM Date: 10/31/24 Loc: HO.US Attending Dr: Dwain Yusuf MD Ordering Physician: Dwain Yusuf MD Date of Service: 10/31/24 Procedure(s): US pelvic and transvaginal Accession Number(s): [id number] cc: Yuniel Grewal MD; Dwain Yusuf MD EXAMINATION: US PELVIS CLINICAL INFORMATION: AUB COMPARISON: None available. TECHNIQUE: Ultrasound of the pelvis is performed using both transabdominal and transvaginal transducers along with Doppler. Transvaginal imaging is performed due to inadequate visualization transabdominally. FINDINGS: Uterus: The uterus is anteverted, retroflexed and measures 14.1 x 7.2 x 6.4 cm. The endometrium is not well-visualized. The uterus is smooth in contour and has normal myometrial echogenicity. There is a large hypoechoic lesion in the anterior fundus/body of uterus measuring 6.2 x 6.3 x 6.4 cm consistent with a fibroid. Previously it measured 6.7 x 7.0 x 7.7 cm. There is minimal fluid seen within endocervical canal. Right ovary is not visualized. Left ovary seen transabdominally and measures 2.6 x 1.1 x 3.0 cm and volume 13.4 mL. Previously left ovary measured 2.9 x 2.9 x 3.4 cm. There is no free fluid in the cul-de-sac. US/US pelvic and transvaginal IMPRESSION: Anteverted and retroflexed uterus. Large uterine fibroid, stable. Minimal fluid within endocervical canal Electronically signed by: Los Arciniega MD 10/31/2024 04:10 PM [facility] Dictated By: Los Arciniega MD Signed By: <Electronically signed by Los Arciniega MD in OV> 10/31/24 1610 DD/ 1505 TD/TT: 10/31/24 1525 Desk Clerk: [place] [id number] Ultrasound Report Signed Patient: Opal Adamson MR#: [id number] 7 : 1975 Acct:[id number] Age/Sex: 49 / F ADM Date: 10/31/24 Loc: HO.US Attending Dr: Dwain Yusuf MD Ordering Physician: Dwain Yusuf MD Date of Service: 10/31/24 Procedure(s): US pel caitlin and transvaginal Accession Number(s): [id number] cc: Yuniel Grewal MD; Dwain Yusuf MD EXAMINATION: US PELVIS CLINICAL INFORMATION: AUB COMPARISON: None available. TECHNIQUE: Ultrasound of the pe lvis is performed using both transabdominal and transvaginal transdu cers along with Doppler. Transvaginal imaging is performed due to inadequate visualization transabdominally. FINDINGS: Uterus: The uterus is anteverted, retroflexed and measures 14.1 x 7.2 x 6.4 cm. The endometrium is n ot well-visualized. The uterus is smooth in contour and has normal myometrial echogenicity. There is a large hypoechoic lesion in the anteri or fundus/body of uterus measuring 6.2 x 6.3 x 6.4 cm consistent with a fibroid. Previously it measured 6.7 x 7.0 x 7.7 cm. There is minimal fluid seen within endocervical canal. Right ovary is not visualized. Left ovary seen transabdominally and measures 2.6 x 1.1 x 3.0 cm and volume 13.4 mL. Previously left ovary measured 2.9 x 2.9 x 3.4 cm. There is no free flu id in the cul-de-sac. U S/US pelvic and transvaginal IMPRESSION: Anteverted and retroflexed uterus. Large uterine fibroid, stable. Minimal fluid within endocervical canal Electronically stephanie d by: Los Arciniega MD 10/31/2024 04:10 PM [facility] Dictated By: Mr ana Arciniega MD Signed By: <Electronically signed by Los Arciniega MD in OV> 10/31/24 1610 DD/ 1505 TD/TT: 10/31/24 1525 Desk Clerk: CHRIS Reason For Referral Reason Evaluate and Treat Screen for Colon Cancer Diagnosis 1 Screen for colon can cer (Z12.11) Referral Organization Yuniel Grewal III, MD Referring Provider First Name Yuniel Referring Provider Last Name Uri Referring Provider Speciality Internal M edicine Referred Provider LENORE VELARDE Referred Provider Specialty Gastroentero logy General Notes DBea 09/19/2024 11:48:46 AM > Referral and progress [...] 20 units in evening 06/02/2024 Active Pen [place] 31G X 6 MM as directed Twice [...] Problem Status W/U Status Risk Notes Problem 2747425 Former smoker (Z87.891) Active confirmed She has a plan to prevent relapse in times of stress and illness. Problem Asthma (025573078) Asthma (J45.909) Active confirmed She has a history of intermittent asthma. No wheezes or her today. She has a rescue inhaler if necessary. Problem Anemia (900471229) Anemia (D64.9) Active confirmed This will be reevaluated with comprehensive blood work to be done in the next few days. She did not appear to be anemic. She has had no bleeding. Problem Diabetes mellitus without complication (614501640) Diabetes (E11.9) Active confirmed She has been compliant with her medication. Her fasting glucoses morning was 140 at home. Comprehensive blood work with a hemoglobin A1c and a microalbumin have been ordered to be done in the next few days. Problem Hypertension (98484674) HTN (hypertension) (I10) Active confirmed Her blood pressure is currently stable and no change in her regimen was made. I strongly recommended aggressive weight loss and sodium restriction. Problem Hypothyroid (56995586) Hypothyroid (E03.9) Active confirmed Her thyroid function tests are normal. She appears to be euthyroid. No change was necessary in her medication. Problem 192581211 Atypical chest pain (R07.89) Active confirmed She is on aspirin. 4. Atypical chest pain from a previous provider. She believes her chest discomfort is caused by stress. If necessary, a stress test can be done. Problem 186424145 Herpes zoster without complication (B02.9) Active confirmed She had an episode of shingles in February of this year. She was treated with prednisone and valacyclovir. It has resolved. Problem 892346582 Morbid obesity (E66.01) Active confirmed Her body mass index is 41. We discussed diet and nutrition. We made a plan to lose weight at a rate of one half of a pound per week. We have discussed oral and injectable medications she has declined them for the time being. She does not wish to have bariatric surgery. Problem 575672292 Low back pain, unspecified (M54.50) Active confirmed [...] Date Provider Diagnosis Yuniel Grewal III, MD [address] [place] [address] [place] [id number] 01/26/2024 Yuniel Grewal Diabetes E11.9 ; HTN (hypertension) I10 ; Morbid obesity E66.01 ; Low back pain, unspecified M54.50 ; Hypothyroid E03.9 and Asthma J45.909 Yuniel Grewal III, MD [address] [place] [address] [place] [id number] 04/08/2024 Yuniel Grewal Diabetes E11.9 ; Hypothyroid E03.9 ; HTN (hypertension) I10 ; Morbid obesity E66.01 ; Breast pain, right N64.4 and Former smoker Z87.891 Yuniel Grewal III, MD [address] [place] [address] [place] [id number] 05/05/2024 Yuniel Grewal Diabetes E11.9 ; Hypothyroid E03.9 ; Morbid obesity E66.01 ; HTN (hypertension) I10 ; Asthma J45.909 ; Low back pain, unspecified M54.50 and Former smoker Z87.891 Yuniel Grewal III, MD [address] [place] [address] [place] [id number] 05/27/2024 Yuniel Grewal Acute cholecystitis K81.0 ; Diabetes E11.9 ; Hypothyroid E03.9 ; HTN (hypertension) I10 ; Asthma J45.909 ; Former smoker Z87.891 ; Low back pain, unspecified M54.50 and Morbid obesity E66.01 Yuniel Grewal III, MD [address] [place] [address] [place] [phone] 09/16/2024 Yuniel Grewal Diabetes E11.9 ; Mor bid obesity E66.01 ; HTN (hypertension) I10 ; Anemia D64.9 ; Neck pain M54.2 ; Hypothyroid E03.9 ; Asthma J45.909 and Former smoker Z87.891 Yuniel Grewal III, MD [address] [place] [address] [place] [phone] 01/14/2024 Yuniel Grewal III, MD [address] [place] [address] [place] [address] 01/15/2024 Yuniel Grewal III, MD [address] [place] [address] [place] [address] 01/15/2024 Yuniel Grewal III, MD [address] [place] [address] [place] [address] 02/10/2024 Yuniel Grewal III, MD [address] [place] [address] [place] [address] 04/12/2024 Yuniel Grewal III, MD [address] [place] [address] [place] [id number] 04/20/2024 Yuniel Grewal Diabetes E11.9 Yuniel Grewal III, MD [address] [place] [address] [place] [phone] 06/02/2024 Yuniel Grewal Assessments Encounter Date Diagnosis [...] went to the emergency room at [facility] May 22, 2024 and the next day [...] 05/05/2024 Next Appt Details Provider Name:Yuniel Grewal, 12/09/2024 03:30:00 PM, [address] [facility] [address], [place], [phone], Provider Name:Yuniel Grewal, 09/18/2025 03:30:00 PM, [address] [place] [address] [address], [place], [phone], Insurance Providers Payer Name Payer Address Payer Phone Subscriber Number Group Number Insured Name Patient Relationship to Insured Coverage Start Date Coverage End Date [facility] [address] [facility] [id number] [facility] [phone] [id number] Alina Adamson Self - patient is the insured Medical (General) History Medical History History ICD Code Hypothyroid E03.9 HTN (hypertension) I10 Anemia D64.9 Asthma J45.909 [id number] chronic lumbar back pain Adult onset diabetes mellitus Shingles February 2023. Left flank Atypical chest pain Family history of breast cancer, sister Former smoker Morbid obesity Acute cholecystitis May 22, 2024 The patient had her gallblad sergey removed in the past. She is managing her blood sugar levels with medication and is taking thyroid medication. Surgical History Surgery Date(Month/Year) Gallbladder removal Laparoscopic cholecystectomy [facility] [place] Dr. Betts [id number] 1999 Hospitalization History Reason Date(Month/Year) Hospitalization for gallbladder removal
--- OUTSIDE RECORDS SUMMARY | 2024-12-05 18:06 | XMS_ITS ---
Author Organization Yuniel Grewal III, MD Address [address] [place] [address] Care Team Providers Care Publishing Agent Name Role Phone Yuniel Grewal Primary Care Provider [phone] Allergies Allergen (clinical drug ingredient) Drug/Non Drug [...] ONCE A WEEK 28 DAYS Active Pen [place] 31G X 6 MM as directed Twice [...] Date Provider Diagnosis Yuniel Grewal III, MD [address] [place] [address] [address] [place] [address] [place] [address], [place] [address] 09/30/2024 Yuniel Grewal Plan Of Treatment Medication [...] SUBCUTANEOUS ONCE A WEEK 28 DAYS Pen [place] 31G X 6 MM as directed Twice [...] Inhalation Next Appt Details Provider Name:Yuniel Grewal, 12/09/2024 03:30:00 PM, [address] [facility] [address], [place], [address], Provider Name:Yuniel Grewal, 09/18/2025 03:30:00 PM, [address] [facility] [address], [place], [phone], Progress Notes * Alina ALVAREZDOB:1975 (49 yo F)Acc No.[id number]:09/30/2024 Progress Notes Patient:?Ailna ALVAREZ Provider:?Yuniel Grewal MD :1975???Age:49 Y???Sex:Female D ate:09/30/2024 Address:[address] [place], [place] [id number] Subjective: * Chief Complaints: * ???1. Follow [...] Medical History:?Hypothyroid , HTN (hypertension), Anemia, Asthma, [id number], Chronic lumbar back pain, Adult onset diabetes mellitus, Shingles February 2023. Left flank, Atypical chest pain, Family history of breast cancer, sister, Former smoker, Morbid obesity, Acute cholecystitis May 22, 2024, The patient had her gallbladder removed in the past. She is managing her blood sugar levels with medication and is taking thyroid medication.. * Surgical History:? 1999, [id number] , Laparoscopic cholecystectomy [facility] Dr. Betts , Gallbladder removal . [...] sugars twice a day , Taking Pen [place] 31G X 6 MM Miscellaneous as directed [...] Provider:?Yuniel Grewal MD Date:?09/12 Generated for Josy shine/Mirtha/eTransmitting on:?12/05/2024 04:52 PM [...]
== END 2024-12-05 14:39 | disposition home or self-care (01) ==
LOC: HO.LNP 14:38
PROVIDERS: PCP Internal Medicine Medical Oncology; Visit Provider Obstetrics & Gynecology
DX: N93.9 Abnormal uterine and vaginal bleeding, unspecified (principal); Z32.02 Encounter for pregnancy test, result negative; Z98.891 History of uterine scar from previous surgery
CPT/HCPCS: 58100; 81025; 88305

== ENCOUNTER 2024-12-05 14:38 | Outpatient (AMB) | payer OTHER, SELFPAY ==
--- NOTE | 2024-12-05 15:16 | A.OFFVIS_ITS ---
Vital Signs 12/05/24 15:28 Height 4 ft 11 in Weight 203 lb BMI 41.0 Intake Visit Reasons: EMB/US follow up Rn Document Improvement Specialist Required: No Information Interpreted: non-clinical & clinical Mining Speculator: Mining Speculator Present (Stephanie) Accompanied by: Other Relationship Allergies No Known Allergies Allergy (Verified 12/05/24 15:25) HPI Comments Details: Presenting for EMB [facility] Medical History Gallstones Morbid obesity Hypothyroidism HTN (hypertension) Diabetes Surgical History History of laparoscopic cholecystectomy (~05/23/24) Hx of section Family History Father Thyroid disease Hepatitis HTN (hypertension) Diabetes Mother Kidney disease Coronary artery disease Renal failure Maternal Aunt Breast CA Social History Household Members: Family Housing: House Do you presently have visiting nurse or other home services: No Alcohol intake: never Patient Tobacco Use Status: Never used Tobacco Second Hand Smoke Exposure: No service: No Current occupational status: employed 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 hysteroscopy D&C) & the risks were discussed with the patient including but not limited: pain, uterine perforation, bleeding, infection, possible injury to bladder, bowel, ureter, possible need for blood transfusion with all its possible risks. The patient verbalized understanding all questions answered and signed consent. Urine test done in the office was negative The patient was placed into the dorsal lithotomy position; a speculum was inserted in the vagina. Using aseptic technique for the procedure, the cervix was cleansed with Betadine. The anterior lip of the cervix was grasped with a single tooth tenaculum. The uterus was sounded to 7 cm with a 4 mm Pipelle was used. Tissues samples were obtained and placed in formalin, in a patient labeled container and sent to the pathology department. At the end of the procedure, there was minimal bleeding noted The patient tolerated the procedure well and was discharged in good condition with the following instructions: Nothing in the vagina until the bleeding stops. No sex until the bleeding stops, to call if any of the following occurs: fever (>100.4), flu-like symptoms, abdominal pain, heavy bleeding, four smelling vaginal discharge. The patient was instructed to schedule a Follow up appointment in 2 weeks to discuss pathology results of the biopsy and treatment options. This note was generated with a voice recognition program. Some errors may have been overlooked during the review of this note. Sometimes these errors may affect the content or meaning of a given sentence. 84854-Lcxyezozqhk Biopsy Results AMB Test Urine AMB Test Urine Negative Last Edit by Kath Aguiar CMA on 15:28 Assessment & Plan Assessment & Plan (1) Abnormal uterine bleeding (AUB): Code(s): N93.9 - Abnormal uterine and vaginal bleeding, unspecified Category: Medical Plan: EMB done, see procedure note Orders: Orders AMB HCG Urine Test Today Z32.02 - Encounter for test, result negative AMB Endometrial Biopsy Today N93.9 - Abnormal uterine and vaginal bleeding, unspecified Coding Level of Care Code Procedure Only Diagnoses Abnormal uterine bleeding (AUB) N93.9 CPT Codes Endometrial Biopsy - CPT: 88420-Krgvmtsejkd Biopsy ([id number])
[2024-12-05 15:28] VITALS: BMI 41.0
--- OUTSIDE RECORDS SUMMARY | 2024-12-05 16:53 | XMS_ITS ---
Author Organization Yuniel Grewal III, MD Address [address] [place] [address] Care Team Providers Care Skip Load Driver Name Role Phone Yuniel Grewal Primary Care Provider [phone] Allergies Allergen (clinical drug ingredient) Drug/Non Drug [...] sugars twice a day 05/05/2023 Active Pen Eden 31G X 6 MM as directed Twice [...] Date Provider Diagnosis Yuniel Grewal III, MD [address] [place] [address] [address] [place] [address], [place] [address] 10/14/2024 Yuniel Grewal Plan Of Treatment Medication [...] blood sugars twice a day 05/05/2023 Pen Eden 31G X 6 MM as directed Twice [...] 06/02/2024 Next Appt Details Provider Name:Yuniel Grewal, 12/09/2024 03:30:00 PM, [address] [facility] [address], [place], [address], Provider Name:Yuniel Grewal, 09/18/2025 03:30:00 PM, [address] [facility] [address], [place], [address], Progress Notes * Alina ALVAREZDOB:1975 (49 yo F)Acc No.[id number]:10/14/2024 Progress Notes Patient:?Alina ALVAREZ Provider:?Yuniel Grewal MD :1975???Age:49 Y???Sex:Female D ate:10/14/2024 Address:[address] [place], [place] [id number] Subjective: * Chief Complaints: * ???1. Follow [...] Medical History:?Hypothyroid , HTN (hypertension), Anemia, Asthma, [id number], Chronic lumbar back pain, Adult onset diabetes mellitus, Shingles February 2023. Left flank, Atypical chest pain, Family history of breast cancer, sister, Former smoker, Morbid obesity, Acute cholecystitis May 22, 2024, The patient had her gallbladder removed in the past. She is managing her blood sugar levels with medication and is taking thyroid medication.. * Surgical History:? 1999, [id number] , Laparoscopic cholecystectomy [facility] Dr. Betts , Gallbladder removal . * Hospitalization/Major Diagno stic Procedure:?Hospitalization for gallbladder removal . * Family History:?Father: shantel barnes 65 yrs, diagnosed with HTN, DM.?Mother: 66 yrs, diagnosed with HTN, CVD.?Children: alive.?Son(s): alive.?Siblings: alive.?Paternal Grand Father: , diagnosed [...] sugars twice a day , Taking Pen Eden 31G X 6 MM Miscellaneous as directed [...] your next appointment,PLEASE FAX COMPLETED RESULTS TO [phone] * Lab:Complete Blood Count Aut o Diff [...] your next appointment,PLEASE FAX COMPLETED RESULTS TO [phone] * Lab:Microalbumin, Random * Collection Date 09/23/2024 [...] your next appointment,PLEASE FAX COMPLETED RESULTS TO [phone] * Lab:Comprehensive Magna. Pane l Fast * Collection Date 09/23/2024 [...] your next appointment,PLEASE FAX COMPLETED RESULTS TO [phone] ???Lab:URINE DIP STICK (Order Date - 09/16/2024) [...] Provider:?Yuniel Grewal MD Date:?12/2024 Generated for Josy shine/Mirtha/eTransmitting on:?12/05/2024 04:52 PM EST History and Physical Notes * [...]
--- OUTSIDE RECORDS SUMMARY | 2024-12-05 16:53 | XMS_ITS ---
Author Organization Yuniel Grewal III, MD Address [address] [facility] [place] [address] Care Team Providers Care Surveillance Systems Analyst Name Role Phone Yuniel Grewal Primary Care Provider [phone] Allergies Allergen (clinical drug ingredient) Drug/Non Drug [...] Ferritin Reviewed date:10/03/2024 06:07:16 AM Interpretation: Performing Lab:[facility], [address] [place] [address] Notes/Report: Ferritin 13 10-250 ng/mL Lipid Panel Reviewed date:10/03/2024 06:07:16 AM Interpretation: Performing Lab:[address] [address] Notes/Report: Triglycerides 145 <150 mg/dL Desirable Triglyceride: [...] Random Reviewed date:10/03/2024 06:07:16 AM Interpretation: Performing Lab:[address] [address] Notes/Report: Creatinine Urine 125.44 Microalbumin Urine 19.0 Microalbum/Creatinine Ratio Ur 15.1 <30 ug/mg cr Albumin/Creatinine Ratio Reference Ranges: Normal: < 30 ug/mg creatinine Microalbuminuria: 30 - 300 ug/mg creatinine Clinical Albuminuria: > 300 ug/mg creatinine Hemoglobin A1c Reviewed date:10/03/2024 06:07:16 AM Interpretation: Performing Lab:[address] [address] Notes/Report: Hemoglobin A1c % 6.8 <6.0 % [...] average glucose, using the formula of the Y4W-Cmkvhux Average Glucose study (ADAG), Diabetes Care, Vol.31,#8, May. 2007 XR cervical spine 4V Reviewed date:10/03/2024 06:07:16 AM Interpretation: Performing Lab: Notes/Report: [address] [address] XRay Report Signed Patient: Alina Alvarez MR#: [id number] 7 : 1975 Acct:[id number] Age/Sex: 49 / F ADM Date: 09/16/24 Loc: [facility] Attending Dr: Yuniel Grewal MD Ordering Physician: Yuniel Grewal MD Date of Service: 09/16/24 Procedure(s): XR cervical spine 4V Accession Number(s): [id number] cc: Yuniel Grewal MD EXAMINATION: XR CERVICAL [...] OV> 09/16/242041 DD/ 1650 TD/TT: 09/16/24 1700 Section Repairer: [place] [address] XRay Report Signed Patient: Opal Alvarez MR#: [id number] 7 : 1975 Acct:[id number] Age/Sex: 49 / F ADM Date: 09/16/24 Loc: HO.XRAY Attending Dr: Yuniel Grewal MD Ordering Physician: Yuniel Grewal MD Date of Service: 09/16/24 Procedure(s): XR cervical spine 4V Accession Number(s): [id number] cc: Yuniel Grewal MD EXAMINATION: XR CERVICAL [...] 08:42 PM EST RP Dictated By: Elda aWrren MD Signed By: <Electronically signed by Elda Warren MD in OV> 09/16/242041 DD/ 49 TD/TT: 09/16/24 1700 Section Repairer: NIKHIL Reason For Referral Reason Evaluate and [...] sugars twice a day 05/05/2023 Active Pen Olivia 31G X 6 MM as directed Twice [...] Date Provider Diagnosis Yuniel Grewal III, MD [address] [place] [address] [place] [address] 09/16/2024 Yuniel Grewal Diabetes E11.9 ; Morbid [...] blood sugars twice a day 05/05/2023 Pen Olivia 31G X 6 MM as directed Twice [...] Review blood work results Provider Name:Yuniel Grewal, 12/09/2024 03:30:00 PM, [address] [place] [address] [address], [place], [address], Provider Name:Yuniel Grewal, 09/18/2025 03:30:00 PM, [address] [place] [address] [address], [place], [address], Progress Notes * Alina ALVAREZDOB:1975 (49 yo F)Acc No.[id number]:09/16/2024 Progress Notes Patient:?Alina ALVAREZ Provider:?Yuniel Grewal MD :1975???Age:49 Y???Sex:Female D ate:09/16/2024 Address:[address] [place], [place] [address] Subjective: * Chief Complaints: * ???Annual Exam [...] mood?denies.? * Medical History:? * Surgical History:? [id number] Laparoscopic cholecystectomy [facility] Dr. Betts Gallbladder removal * Hospitalization/Major [...] check blood sugars twice a day Pen Olivia 31G X 6 MM Miscellaneous as directed [...] blood sugars twice a day Taking Pen Olivia 31G X 6 MM Miscellaneous as directed [...] bruits.?LUNGS:?clear to auscultation .?BREASTS:?Not examined,Done by the pan cleaner.?ABDOMEN:?bowel sounds normal, no ascites, no organomegaly, no mass, morbid obesity.?RECTAL EXAM:?Done by LOTTERIES AGENT.?MUSCULOSKELETAL:?extremities unremarkable, no clubbing, cyanosis or edema, Mild [...] check blood sugars twice a day;?Continue Pen Olivia Miscellaneous, 31G X 6 MM, as directed, [...] * ?BLD +++ Negative - * Procedure Codes:?47321 URINE -NO MICRO * Preventive Medicine:? ??Counseling:?Care [...] Sign off status: Completed true * Provider:?Yuniel rGewal MD Date:?03/2024 Generated for Josy shine/Mirtha/eTransmitting on:?12/05/2024 04:52 PM [...] PULSES: normal BREASTS: Not examined,Done by the pan cleaner MUSCULOSKELETAL: extremities unremark able, no clubbing, cyanosis or edema, Mild pain and tingling in her forearms with range of motion of her neck LYMPH NODES: no enlarged lymph no herbert,spleen normal RECTAL EXAM: Done by LOTTERIES AGENT PSYCH: alert, oriented ORAL CAVITY: normal, unremarkable Consultation Request Notes Referral Date Referring Provider Referred Provider Not mehul 09/16/2024 Yuniel Grewal RUBEELA Evaluate and Treat Screen for Colon Cancer
--- OUTSIDE RECORDS SUMMARY | 2024-12-05 16:53 | XMS_ITS | Continuity of Care Document ---
Author Organization [facility] Address [address] [place] [address] [address] [place] [address] Phone Care Team Providers Care Investigation Officer Name Role Phone Montana Hughes MD Unavailable Unavailable Procedures Procedure Date Intermediate EP (Revisit) Gonioscopy Visual Field Full Threshold Corneal Hysteresis Advance Directives Directive Yes / No Effective Date File Name No Information Encounters Encounter Description Practice Location Reason(s) For Visit Diagnoses Date Provider Providers Copied on Encounter [facility] , [address] [facility], [place], [place], [id number], [place] tel:[phone] Open angle with borderline findings, low risk, bilateral Ellen Boyle. [address] [place], [place], [id number], [place]. tel:[phone] Family History Family Member Type Diagnosis Age At Onset No Information Payers Payer name Insurance type Covered libertarian ID Authoriza tion(s) [facility] [id number] Social History Type Description Quantity Date Captured [...]
== END 2024-12-05 15:39 | disposition home or self-care (01) ==
PROVIDERS: PCP Internal Medicine Medical Oncology; Visit Provider Obstetrics & Gynecology
DX: N93.9 Abnormal uterine and vaginal bleeding, unspecified (principal); Z32.02 Encounter for pregnancy test, result negative
CPT/HCPCS: 58100

== ENCOUNTER 2024-12-08 12:06 | Outpatient (AMB) | payer OTHER, SELFPAY ==
--- NOTE | 2024-12-08 12:18 | A.OFFVIS_ITS ---
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 The patient has no complaints, no vaginal bleeding, no feverishness chills or abdominal pain. The endometrial biopsy pathology report showed the following: Endometrium, biopsy: Benign proliferative endometrium with fragments suggestive of benign endometrial polyps; no atypia or carcinoma PFSH Medical History Gallstones Morbid obesity Hypothyroidism HTN (hypertension) Diabetes Surgical History History of laparoscopic cholecystectomy (~05/23/24) Hx of section Family History Father Thyroid disease Hepatitis HTN (hypertension) Diabetes Mother Kidney disease Coronary artery disease Renal failure Maternal Aunt Breast CA Social History Household Members: Family Housing: House Do you presently have visiting nurse or other home services: No Alcohol intake: never Patient Tobacco Use Status: Never used Tobacco Second Hand Smoke Exposure: No service: No Current occupational status: employed 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 Female Reproductive History Menstrual Age of Menarche: 15 Date of last menstrual period: 11/16/24 Total pregnancies: 2 Full term: 2 Review of Systems Card Reports as per HPI and Reports no additional complaints Resp Reports as per HPI and Reports no additional complaints GI Reports as per HPI and Reports no additional complaints Reports as per HPI Physical Exam Vital Signs: Last Vital Signs BP 120/76 12/08/24 12:25 BMI result Body Mass Index 41.0 Const General: cooperative, healthy appearing and comfortable Resp Effort & Inspection: normal respiratory effort Auscultation: clear to auscultation bilaterally Percussion: percussion normal Cardio Palpation: normal PMI Rate: regular rate Rhythm: regular rhythm Heart sounds: no murmurs and no rubs Peripheral pulses: Peripheral pulses 2+ throughout GI Inspection: Yes normal to inspection Palpation (GI): Soft to palpation, nontender, no guarding, not rigid and No hepatosplenomegaly present Percussion: Yes normal to percussion Auscultation: normal bowel sounds Rectal Exam - Female: deferred Assessment & Plan Assessment & Plan (1) Abnormal uterine bleeding (AUB): Comment: Endometrial polyp on EMB pathology Code(s): N93.9 - Abnormal uterine and vaginal bleeding, unspecified Category: Medical Plan: Discussed with the patient the results the pathology, showing fragments of endometrial polyp. Recommended hysteroscopy D&C possible polypectomy/myomectomy Discussed with the patient the procedure , all benefits and risks including but not limited to inability to complete the procedure , insufficient endometrial tissue for a complete evaluation of the endometrial cavity , bleeding, infection, possible need for blood transfusion with all its risk ( HIV,syphilis, Hepatitis, anaphylaxis shock, others..), injury to bladder, rectum, possible need for laparoscopy/laparotomy or hysterectomy. The patient verbalized underst anding and signed the consent. Instructions given the patient to stay NPO after midnight the day prior to the procedure and to hold off Trulicity for 1 week prior to procedure, not to take insulin nor metformin the morning of the procedure and to schedule a 2 week postoperative appointment Coding Level of Care Code Est Pt Level 3 (38704) Diagnoses Abnormal uterine bleeding (AUB) N93.9
[2024-12-08 12:25] VITALS: BP 120/76; BMI 41.0
== END 2024-12-08 12:44 | disposition home or self-care (01) ==
LOC: HO.HWS 12:06
PROVIDERS: PCP Internal Medicine Medical Oncology; Visit Provider Obstetrics & Gynecology
DX: N93.9 Abnormal uterine and vaginal bleeding, unspecified (principal)
CPT/HCPCS: 99213

== ENCOUNTER 2024-12-27 12:53 | Day surgery (SDC) | payer OTHER, SELFPAY ==
--- OUTSIDE RECORDS SUMMARY | 2024-12-15 14:17 | XMS_ITS ---
Author Organization Yuniel Grewal III, MD Address [address] [place] [address] Care Team Providers Care Embroidery Designer Name Role Phone Yuniel Grewal Primary Care [...] ONCE A WEEK 28 DAYS Active Pen [place] 31G X 6 MM as directed Twice [...] Date Provider Diagnosis Yuniel Grewal III, MD [address] [place] [address] [place] [address] 12/09/2024 Yuniel Grewal Anemia D64.9 ; Morbi [...] SUBCUTANEOUS ONCE A WEEK 28 DAYS [place] 31G X 6 MM as directed Twice a day 30 days Pending Test Test Name Order Date PROFILE, FASTING (COMPREHENSIVE METABOLI C) 12/09/2024 CBC WITH AUTO DIFF 12/09/2024 Lipid Panel 12/09/2024 Microalbumin, Random 12/09/2024 Hemoglobin A1c 12/09/2024 Next Appt Details Follow Up: 3 Months, 3 to 3. 5 months, Reason: OV, Annual Checkup Provider Name:Yuniel Grewal, 03/22/2025 04:00:00 PM, [address] [place] [address] [address], [place], [phone], Provider Name:Yuniel Grewal, 09/18/2025 03:30:00 PM, [address] [place] [address] [address], [place], [phone], Progress Notes * Alina ALVAREZDOB:1975 (49 yo F)Acc No.[id number]:12/09/2024 Progress Notes Patient:?Alina ALVAREZ Provider:?Yuniel Grewal MD :1975???Age:49 Y???Sex:Female D ate:12/09/2024 Address:[address] [place], [place] [id number] Subjective: * Chief Complaints: * ???DiabetesLarge uterine fib roidPlanned myomectomyLow back painHer obesityHypertensionAsthma * HPI: ???COVID-19 Screening:?Questions?Have you had any new onset fever, chills, cough, congestion, sore throat, shortness of breath, muscle aches??No ???:?The patient, Alina, a 49-year-old female, came in for a follow-up visit after her annual physical exam on October 17. She has been managing her blood pressure and blood sugar levels with Trulicity and Le. She reported intermittent numbness in [...] a uterine fibroid which is causing pelvic pain.? She saw her rd mechanical engineer who is planning a surgical procedure in the near future remove the fibroid. * ROS:?General/Constitutional:?Admits?pain,?Uterine discomfort in the pelvis.?Chills?denies.?Fatigue?admits.?Fever?denies.?ENT:?Decreased hearing?denies.?Respiratory:?Cough?denies.?Cardiovascular:?Chest pain with exertion?denies.?Dyspnea on exertion?denies.?Shortness of breath?denies.?Gastrointestinal:?Constipation?occasional.?Decreased appetite?denies.?Diarrhea?denies.?Heartburn?denies.?Nausea?denies.?Rectal bleeding?denies.?Vomiting?denies.?Hematology:?bruising?denies.?petechiae?denies.?Swollen glands?none have been noted.?Genitourinary:?Frequent urination?a small amount.?Musculoskeletal:?Muscle aches?denies.?Painful joints?denies.?Sciatica?denies.?Weakness?denies.?Skin:?Itching?denies.?Rash?denies.?Skin lesion(s)?denies.?Neurologic:?Difficulty speaking?denies.?Dizziness?denies.?Headache?denies.?Low back pain?denies.?Psychiatric:?Depressed mood?denies.? * Medical History:? * Surgical History:? [id number] Laparoscopic cholecystectomy [facility] Dr. Betts Gallbladder removal No history * Hospitalization/Major Diagno stic Procedure:?Hospitalization for gallbladder removal No history * Family History:?Father: shantel barnes 65 yrs, [...] check blood sugars twice a day [place] 31G X 6 MM Miscellaneous as directed [...] blood sugars twice a day Taking Pen [place] 31G X 6 MM Miscellaneous as directed Twice a day 30 days Medication List reviewed and reconciled with the patient * Allergies:?Shellfish-derived Productsno[Allergies Verified] Objective: * Vitals:?Ht: 59 , Wt: 203, BM I:41, BP: 134/82, HR: 75, Temp: 97.1, Ht-cm: 149.86, Wt-k.08. * ???Past Orders: Imaging:US pelvic and transv aginal * Performed Date 10/31/2024 08/28/2023 03:05 PM 12:01 PM Order Date 10/31/2024 08/28/2023 ???Imaging:XR cervical spine 4V (Order Date - 09/16/2024) (Performed Date - 09/16/2024) ???Lab:Lutenizing Hormone (Order Date - 10/21/2024) (Collection Date & Time - 10/21/2024 09:47 AM)?ValueReference Range?Lutenizing Hormone3.1- mIU/mL ???Lab:Follicle Stimulating Hormone (Order Date - 10/21/2024) (Collection Date & Time - 9:47 AM)?ValueReference Range?Follicle Stimulating Hormone3.3- mIU/mL ???Lab:TSH reflex [...] your next appointment,PLEASE FAX COMPLETED RESULTS TO [phone] * Lab:Comprehensive Shonda. Jess l Fast * Collection Date 09/23/2024 [...] your next appointment,PLEASE FAX COMPLETED RESULTS TO [phone] * Lab:CT NG by PCR * Collection [...] Blood Count 10.0 (Ref Range: 4.8-10.8 X10*3/uL) 11.0?H (Ref Range: 4.8-10.8 X10*3/uL) Red Blood Count [...] your next appointment,PLEASE FAX COMPLETED RESULTS TO [phone] * Lab:Microalbumin, Random * Collection Date 09/23/2024 [...] your next appointment,PLEASE FAX COMPLETED RESULTS TO [phone] ???Lab:URINE DIP STICK (Order Date - 09/16/2024) (Collection Date & Time - 09/16/2024)?ValueReference Range?SG1.0151.005 - 1.025?pH5.0 5.0 - 9.0?LEUNegativeNegative -?NITNegativeNegative -?PRO15 Negative - Trace?GLUNegativeNegative -?KETNegativeNegative - ?UBG0.20.1 - 1.8?BILNegative0.2 - 1.3?BLD+++Negative - * Examination: ???General Examination: ?GENERAL APPEARANCE:?pleasant, well nourished, well developed, in no acute distress, calm and relaxed, morbidly obese, woman.?HEAD:?atraumatic, normocephalic.?EYES:?eomi, perrla, anicteric, conjugate.?EARS:?normal.?NOSE:?septum intact.?ORAL CAVITY:?normal, unremarkable.?NECK/THYROID:?no jugular venous distention, no carotid bruit, thyroid normal.?LYMPH NODES:?no enlarged lymph nodes,spleen normal.?SKIN:?no suspicious lesions, anicteric.?HEART:?no clicks, gallops, murmurs, or rubs, regular rhythm, S1, S2 normal, no s3, or vascular bruits.?LUNGS:?clear to auscultation .?BREASTS:?Not examined.?ABDOMEN:?bowel sounds normal, no ascites, no organomegaly, no mass, morbid obesity.?RECTAL EXAM:?not examined.?MUSCULOSKELETAL:?extremities unremarkable, no clubbing, cyanosis or edema.?PERIPHERAL PULSES:?normal.?NEUROLOGIC:?alert and oriented, cranial nerves 2-12 grossly intact, deep tendon reflexes 2+ symmetrical, motor strength normal upper and lower extremities, sensory exam intact.?PSYCH:?alert, oriented.? : ???Neck Examination:Arthritis and large bone spurs in cervical spine causing pain. Pelvic Ultrasound: Large fibroid in uterus, no signs of cancer. ??? Assessment: * Assessment: 1.?Morbid obesity - E66.01 ( Primary)???Notes :Her body mass index is stablle at 40.? We have discussed weight loss strategies at length.? Her weight will be followed carefully and she will continue the trulicity.???2.?Anemia - D64.9???Notes :Her hematocrit is slightly low and normochromic normocytic.? The white blood cell count is slightly low when the platelets are normal.? She denies any bleeding.? This will be observed carefully before and after her upcoming uterine surgery.???3.?Diabetes - E11.9???Notes :Her A1c is 6.8.? Current therapy was continued.? We made a plan to lose weight at a rate of one half of a pound per week.???4.?Hypothyroid - E03.9???Notes :The free T4 is normal and the TSH is slightly elevated. She appears to be euthyroid. No change was necessary in her medication.After the upcoming surgery she will have an increase?in the dose of her levothyroxine.???5.?HTN (hypertension) - I10???Notes :Her blood pressure is currently stable and no change in her regimen was made. I strongly recommended aggressive weight loss and sodium restriction.???6.?Low back pain, unspecified - M54.50???Notes :She continues to have intermittent mild low back pain. No change in her regimen was needed. Images have been obtained.???7.?Former smoker - Z87.891???Notes :She has a plan to prevent relapse in times of stress and illness.??? Plan: * Treatment: 2.?Anemia?LAB: PROFILE, FASTING (COMPREHENSIVE METABOLIC) ?LAB: CBC WITH AUTO DIFF ?LAB: Lipid Panel ?LAB: Microalbumin, Random ?LAB: Hemoglobin A1c 3.?Diabetes?LAB: PROFILE, FASTING (COMPREHENSIVE METABOLIC) ?LAB: CBC WITH AUTO DIFF ?LAB: Lipid Panel ?LAB: Microalbumin, Random ?LAB: Hemoglobin A1c 4.?Others? Continue BD Pen Needle Micro U/F Miscellaneous, [...] check blood sugars twice a day;?Continue [place] Miscellaneous, 31G X 6 MM, as directed, Twice a day, 30 days.?? * Procedure Codes:? * Preventive Medicine:? ??Counseling:?Care goal follow-up plan:?Counseling [...] done: Medical or Other reason not done ?Smoking/Tobacco Use?Patient counseled on the dangers of tobacco use and urged to quit.?12/09/2024 ??DM Care Plan:?Patient Lifestyle Goals?Patient wants to be able to manage diabetes without too much effort.?Treatment Goals?Blood Sugars less than < 115, HbA1C < 7.0.?Barriers?no barriers.?Self-Managment Goals?Work on weight loss, with a goal of losing 1 lb per week.? * Follow Up:?3 Months, 3 to 3. 5 months (Reason: OV, Annual Checkup) * Images: * Sign off status: Completed true * Provider:?Yuniel Grewal MD Date:?11/13 Generated for Josy shine/Mirtha/eTransmitting on:?12/15/2024 02:17 PM EST History and Physical Notes * [...]
--- OUTSIDE RECORDS SUMMARY | 2024-12-15 14:17 | XMS_ITS ---
Author Organization Yuniel Grewal III, MD Address [address] [place] [address] Care Team Providers Care Home Stager Name Role Phone Yuniel Grewal Primary Care [...] ONCE A WEEK 28 DAYS Active Pen [place] 31G X 6 MM as directed Twice [...] Date Provider Diagnosis Yuniel Grewal III, MD [address] [place] [address] [address] [place] [address], [place] [address] 09/30/2024 Yuniel Grewal Plan Of Treatment Medication [...] SUBCUTANEOUS ONCE A WEEK 28 DAYS [place] 31G X 6 MM as directed Twice [...] Inhalation Next Appt Details Provider Name:Yuniel Grewal, 03/22/2025 04:00:00 PM, [address], [place], [address], Provider Name:Yuniel Grewal, 09/18/2025 03:30:00 PM, [address], [place], [address], Progress Notes * Alina ALVAREZDOB:1975 (49 yo F)Acc No.[id number]:09/30/2024 Progress Notes Patient:?Alina ALVAREZ Provider:?Yuniel Grewal MD :1975???Age:49 Y???Sex:Female D ate:09/30/2024 Address:[address] [place], [place] [id number] Subjective: * Chief Complaints: * ???1. Follow [...] Medical History:?Hypothyroid , HTN (hypertension), Anemia, Asthma, [id number], Chronic lumbar back pain, Adult onset diabetes mellitus, Shingles February 2023. Left flank, Atypical chest pain, Family history of breast cancer, sister, Former smoker, Morbid obesity, Acute cholecystitis May 22, 2024, The patient had her gallbladder removed in the past. She is managing her blood sugar levels with medication and is taking thyroid medication.. * Surgical History:? 1999, [id number] , Laparoscopic cholecystectomy [facility] Dr. Betts , Gallbladder removal . * [...] sugars twice a day , Taking [place] 31G X 6 MM Miscellaneous as directed [...] Grewal MD Date:?09/12 Generated for Josy shine/Mirtha/eTransmitting on:?12/15/2024 02:17 PM [...]
--- OUTSIDE RECORDS SUMMARY | 2024-12-15 14:18 | XMS_ITS ---
Author Organization Yuniel Grewal III, MD Address [address] [place] [place] [address] Care Team Providers Care Regulator Mechanic Name Role Phone Yuniel Grewal Primary Care [...] sugars twice a day 05/05/2023 Active Pen [place] 31G X 6 MM as directed Twice [...] Date Provider Diagnosis Yuniel Grewal III, MD [address] [place] [address] [address] [place] [address], [place] [address] 10/14/2024 Yuniel Grewal Plan Of Treatment Medication [...] blood sugars twice a day 05/05/2023 [place] 31G X 6 MM as directed Twice [...] 06/02/2024 Next Appt Details Provider Name:Yuniel Grewal, 03/22/2025 04:00:00 PM, [address] [facility] [address], [place], [address], Provider Name:Yuniel Grewal, 09/18/2025 03:30:00 PM, [address] [facility] [address], [place], [address], Progress Notes * Alina ALVAREZDOB:1975 (49 yo F)Acc No.[id number]:10/14/2024 Progress Notes Patient:?Alina ALVAREZ Provider:?Yuniel Grewal MD :1975???Age:49 Y???Sex:Female D ate:10/14/2024 Address:[address] [place], [place] [id number] Subjective: * Chief Complaints: * ???1. Follow [...] Medical History:?Hypothyroid , HTN (hypertension), Anemia, Asthma, [id number], Chronic lumbar back pain, Adult onset diabetes mellitus, Shingles February 2023. Left flank, Atypical chest pain, Family history of breast cancer, sister, Former smoker, Morbid obesity, Acute cholecystitis May 22, 2024, The patient had her gallbladder removed in the past. She is managing her blood sugar levels with medication and is taking thyroid medication.. * Surgical History:? 1999, [id number] , Laparoscopic cholecystectomy [facility] Dr. Betts , Gallbladder removal . * Hospitalization/Major Diagno stic Procedure:?Hospitalization for gallbladder removal . * Family History:?Father: shatnel barnes 65 yrs, diagnosed with DM, HTN.?Mother: [...] sugars twice a day , Taking Pen [place] 31G X 6 MM Miscellaneous as directed [...] your next appointment,PLEASE FAX COMPLETED RESULTS TO [phone] * Lab:Complete Blood Count Aut o Diff [...] your next appointment,PLEASE FAX COMPLETED RESULTS TO [phone] * Lab:Microalbumin, Random * Collection Date 09/23/2024 [...] your next appointment,PLEASE FAX COMPLETED RESULTS TO [phone] * Lab:Comprehensive [place]. Pane l Fast * Collection Date 09/23/2024 [...] your next appointment,PLEASE FAX COMPLETED RESULTS TO [phone] ???Lab:URINE DIP STICK (Order Date - 09/16/2024) [...] Grewal MD Date:?12/2024 Generated for Josy shine/Mirtha/eTransmitting on:?12/15/2024 02:17 PM [...]
--- OUTSIDE RECORDS SUMMARY | 2024-12-15 14:18 | XMS_ITS | Patient Health Record ---
Author Organization Yuniel Grewal III, MD Address [address] [place] [address] Care Team Providers Care Senior Media Director Name Role Phone Yuniel Grewal Primary Care Provider Allergies Allergen (clinical drug ingredient) Drug/Non Drug Allergy documented on EMR Reaction Allergy Type Onset Date Status Shellfish (FN) Shellfish-derived Products Unknown Drug Allergy Active Results Component Value Reference Range Notes Lipid Panel Reviewed date:02/10/2024 04:46:07 PM Interpretation: Performing Lab:[facility], [address] [place] [phone] Notes/Report: Triglycerides 195 <150 mg/dL Desirable Triglyceride: [...] A1c Reviewed date:02/10/2024 04:46:07 PM Interpretation: Performing Lab:[facility], [address] [place] [phone] Notes/Report: Hemoglobin A1c % 8.4 <6.0 % [...] average glucose, using the formula of the N8B-Ybvuixy Average Glucose study (ADAG), Diabetes Care, Vol.31,#8, May. 2007 XR lumbar spine 4V min Reviewed date:02/10/2024 04:46:07 PM Interpretation: Performing Lab: Notes/Report: [address] [address] XRay Report Signed Patient: Alina Adamson MR#: [id number] 7 : 1975 Acct:[id number] Age/Sex: 48 / F ADM Date: 01/29/24 Loc: HO.PJ Attending Dr: Yuniel Grewal MD Ordering Physician: Yuniel Grewal MD Date of Service: 01/29/24 Procedure(s): XR lumbar spine 4V min Accession Number(s): [id number] cc: Yuniel Grewal MD EXAMINATION: XR LUMBOSACRAL [...] MD in OV> 02/08/24723 DD/ 7 TD/TT: Gas Engine Operator: [place] [address] XRay Report Signed Patient: Opal Adamson MR#: [id number] 7 : 1975 Acct:[id number] Age/Sex: 48 / F ADM Date: 01/29/24 Loc: HO.XRAY Attending Dr: Yuniel Grewal MD Ordering Physician: uYniel Grewal MD Date of Service: 01/29/24 Procedure(s): XR lum bar spine 4V min Accession Number(s): [id number] cc: Yuniel Grewal MD EXAMINATION: XR LUMBOSACRAL [...] Castellanos MD in OV> 02/08/2424 DD/ TD/TT: Gas Engine Operator: URINE DIP STICK Reviewed date:09/16/2024 04:08:10 [...] Ferritin Reviewed date:10/03/2024 06:07:16 AM Interpretation: Performing Lab:[facility], [address] [place] [phone] Notes/Report: Ferritin 13 10-250 ng/mL Lipid Panel Reviewed date:10/03/2024 06:07:16 AM Interpretation: Performing Lab:[facility], [address] [place] [phone] Notes/Report: Triglycerides 145 <150 mg/dL Desirable Triglyceride: [...] Random Reviewed date:10/03/2024 06:07:16 AM Interpretation: Performing Lab:[facility], [address] [place] [phone] Notes/Report: Creatinine Urine 125.44 Microalbumin Urine 19.0 Microalbum/Creatinine Ratio Ur 15.1 <30 ug/mg cr Albumin/Creatinine Ratio Reference Ranges: Normal: < 30 ug/mg creatinine Microalbuminuria: 30 - 300 ug/mg creatinine Clinical Albuminuria: > 300 ug/mg creatinine Hemoglobin A1c Reviewed date:10/03/2024 06:07:16 AM Interpretation: Performing Lab:[facility], [address] [place] [phone] Notes/Report: Hemoglobin A1c % 6.8 <6.0 % [...] average glucose, using the formula of the V1E-Kftdrqm Average Glucose study (ADAG), Diabetes Care, Vol.31,#8, May. 2007 XR cervical spine 4V Reviewed date:10/03/2024 06:07:16 AM Interpretation: Performing Lab: Notes/Report: [address] [address] XRay Report Signed Patient: Alina Adamson MR#: [id number] 7 : 1975 Acct:[id number] Age/Sex: 49 / F ADM Date: 09/16/24 Loc: AZRA Attending Dr: Yuniel Grewal MD Ordering Physician: Yuniel Grewal MD Date of Service: 09/16/24 Procedure(s): XR cervical spine 4V Accession Number(s): [id number] cc: Yuniel Grewal MD EXAMINATION: XR CERVICAL [...] by: Elda Warren MD 09/16/2024 08:42 PM [facility] [place]ictated By: Elda Warren MD Signed By: <Electronically signed by Elda Warren MD in OV> 09/16/242041 DD/ 49 TD/TT: 09/16/241699 Gas Engine Operator: NIKHIL [address] [address] XRay Report Signed Patient: Opal Adamson MR#: [id number] 7 : 1975 Acct:[id number] Age/Sex: 49 / F ADM Date: 09/16/24 Loc: HO.XRAY Attending Dr: Yuniel Grewal MD Ordering Physician: Yuniel Grewal MD Date of Service: 09/16/24 Procedure(s): XR cervical spine 4V Accession Number(s): [id number] cc: Yuniel Grewal MD EXAMINATION: XR CERVICAL [...] by: Elda Warren MD 09/16/2024 08:42 PM [facility] [place] Dictated By: Elda Warren MD Signed By: <Electronically signed by Elda Warren MD in OV> 09/16/242041 DD/ 49 TD/TT: 09/16/241699 Gas Engine Operator: NIKHIL Complete Blood Count Auto Di ff Reviewed date:02/10/2024 04:46:07 PM Interpretation: Performing Lab:[facility], [address] [place] [phone] Notes/Report: White Blood Count 11.2 4.8-10.8 X10*3/uL [...] NRBC Abs Auto 0.000 0.0-0.012 X10*3/uL Comprehensive [place]. Panel Fa st Reviewed date:02/10/2024 04:46:07 PM Interpretation: Performing Lab:[facility], [address] [place] [phone] Notes/Report: Sodium 139 135-145 mmol/L Potassium 4.6 3.3-5.1 mmol/L Chloride 104 96-108 mmol/L Carbon Dioxide 28 22-29 mmol/L Anion Gap 12 12-20 Blood Urea Nitrogen 12 9-16 mg/dL Creatinine 0.69 0.5-1.4 mg/dL Estimated Glomerular Filt Rate > 60 NOTE: For -Chilean individuals, multiply the result by 1.210. Chronic [...] ff Reviewed date:05/05/2024 05:59:10 AM Interpretation: Performing Lab:[facility], [address] [place] [phone] Notes/Report: White Blood Count 10.9 4.8-10.8 X10*3/uL [...] te Reviewed date:05/05/2024 05:59:10 AM Interpretation: Performing Lab:[facility], [address] [place] [phone] Notes/Report: Erythrocyte Sedimentation Rate 10 0-20 MM/HR Patients with polycythemia and many hemoglobin abnormalities may have depressed sed rates whereas patients with anemia may have elevated sed rates. Comprehensive [place]. Panel Fa Reviewed date:05/05/2024 05:59:10 AM Interpretation: Performing Lab:[facility], [address] [place] [phone] Notes/Report: Sodium 139 135-145 mmol/L Potassium 4.1 3.3-5.1 mmol/L Chloride 107 96-108 mmol/L Carbon Dioxide 24 22-29 mmol/L Anion Gap 12 12-20 Blood Urea Nitrogen 11 9-16 mg/dL Creatinine 0.63 0.5-1.4 mg/dL Estimated Glomerular Filt Rate > 60 NOTE: For -Chilean individuals, multiply the result by 1.210. Chronic [...] Ferritin Reviewed date:05/05/2024 05:59:10 AM Interpretation: Performing Lab:[facility], [address] [place] [phone] Notes/Report: Ferritin 23 10-250 ng/mL Lipid Panel Reviewed date:05/05/2024 05:59:10 AM Interpretation: Performing Lab:[facility], [address] [place] [phone] Notes/Report: Triglycerides 219 <150 mg/dL Desirable Triglyceride: [...] Thyroxine) Reviewed date:05/05/2024 05:59:10 AM Interpretation: Performing Lab:[address] [address] Notes/Report: Free T4 (Free Thyroxine) 1.12 0.71-1.85 ng/dL Thyroid Stimulating Hormone Reviewed date:05/05/2024 05:59:10 AM Interpretation: Performing Lab:[address] [address] Notes/Report: Thyroid Stimulating Hormone 2.99 0.32-4.0 uIU/mL Note: A sustained TSH level above 2.5 uIU/mL may warrant further investigation. TSH 3rd Generation ([facility]) Hemoglobin A1c Reviewed date:05/05/2024 05:59:10 AM Interpretation: Performing Lab:[address] [address] Notes/Report: Hemoglobin A1c % 8.0 <6.0 % [...] average glucose, using the formula of the R7C-Fdkdmnh Average Glucose study (ADAG), Diabetes Care, Vol.31,#8, May. 2007 MM tomosynthesis diagnostic BI Reviewed date:05/05/2024 05:59:10 AM Interpretation: Performing Lab: Notes/Report: [facility] [address] [place] [address] Mammography Report Signed Patient: Alina Adamson MR#: [id number] 7 : 1975 Acct:[id number] Age/Sex: 49 / F ADM Date: 04/28/24 Loc: HO.MAMMO Attending Dr: Yuniel Grewal MD Ordering Physician: Yuniel Grewal MD Results: 1Negativ e Date of Service: 04/28/24 Follow Up: 1 Year From [facility] Mammogram Procedure(s): MM tomosynthesis diagnostic BI Accession Number(s): [id number] cc: Yuniel Grewal MD EXAMINATION: MM DIAGNOSTIC [...] in OV> 04/28/24 1558 DD/ 1415 TD/TT: Gas Engine Operator: [facility] [address] [place] [address] Mammography Report Signed Patient: Opal Adamson MR#: [id number] 7 : 1975 Acct:[id number] Age/Sex: 49 / F ADM Date: 04/28/24 Loc: HO.MAMMO Attending Dr: Yuniel Grewal MD Ordering Physician: Yuniel Grewal MD Results: 1Negativ e Date of Service: 04/28/24 Follow Up: 1 Year From [facility] Mamm[facility] Procedure(s): MM tomosynthesis diagnostic BI Accession Number(s): [id number] cc: Yuniel Grewal MD EXAMINATION: MM DIAGNOSTIC [...] in OV> 04/28/24 1558 DD/ 1415 TD/TT: Gas Engine Operator: US breast RT limited mamm on ly Reviewed date:05/05/2024 05:59:10 AM Interpretation: Performing Lab: Notes/Report: [facility] [address] [place] [address] Ultrasound Report Signed Patient: Alina Adamson MR#: [id number] 7 : 1975 Acct:[id number] Age/Sex: 49 / F ADM Date: 04/28/24 Loc: HO.MAMMO Attending Dr: Yuniel Grewal MD Ordering Physician: Yuniel Grewal MD Date of Service: 04/28/24 Procedure(s): US breast RT limited mamm only Accession Number(s): [id number] cc: Yuniel Grewal MD EXAMINATION: MM DIAGNOSTIC [...] in OV> 04/28/24 1558 DD/ 1533 TD/TT: Gas Engine Operator: [facility] [address] [place], [place] [address] Ultrasound Report Signed Patient: Opal Adamson MR#: [id number] 7 : 1975 Acct:[id number] Age/Sex: 49 / F ADM Date: 04/28/24 Loc: HO.MAMMO Attending Dr: Yuniel Grewal MD Ordering Physician: Yuniel Grewal MD Date of Service: 04/28/24 Procedure(s): US jose ast RT limited mamm only Accession Number(s): [id number] cc: Yuniel Grewal MD EXAMINATION: MM DIAGNOSTIC [...] in OV> 04/28/24 1558 DD/ 1533 TD/TT: Gas Engine Operator: MAMMOGRAM DIGITAL BILATERAL SCREEN Reviewed date:09/16/2024 03:58:14 PM Interpretation:undefined Performing Lab: Notes/Report: undefined Complete Blood Count Auto Di ff Reviewed date:05/23/2024 05:11:42 AM Interpretation: Performing Lab:[facility], [address] [place] [phone] Notes/Report: White Blood Count 13.5 4.8-10.8 X10*3/uL [...] Test Reviewed date:05/23/2024 05:11:42 AM Interpretation: Performing Lab:[facility], [address] [place] [phone] Notes/Report: Urine NEGATIVE NEGATIVE This test was developed to detect early . False negative results may occur after the 5th - 7th week of when using this test method. If clinically indicated, consider a serum hCG. Liver Panel Reviewed date:05/23/2024 05:11:42 AM Interpretation: Performing Lab:[facility], [address] [place] [phone] Notes/Report: Bilirubin Total 1.2 0.0-1.0 mg/dL Bilirubin Direct 0.2 0.0-0.5 mg/dL Slight Hem olysis Aspartate Amino Transferase 17 5-31 U/L Slight Hemolysis Alanine Aminotransferase 12 0-31 U/L Total Protein 7.7 6.5-8.0 g/dL Albumin Level 4.0 3.5-5.0 g/dL Alkaline Phosphatase 65 39-117 U/L Basic Metabolic Panel Reviewed date:05/23/2024 05:11:42 AM Interpretation: Performing Lab:[facility], [address] [place] [phone] Notes/Report: Sodium 136 135-145 mmol/L Potassium 4.2 [...] Glomerular Filt Rate > 60 NOTE: For -Chilean individuals, multiply the result by 1.210. Chronic Kidney Disease: Estimated GFR < 60 mL/min/1.73m2 Severe Kidney Disease: Estimated GFR < 15 mL/min/1.73m2 Glucose Random 128 60-115 mg/dL Calcium 9.0 8.4-10.2 mg/dL Magnesium Reviewed date:05/23/2024 05:11:42 AM Interpretation: Performing Lab:[facility], [address] [place] [phone] Notes/Report: Magnesium 1.9 1.6-2.6 mg/dL Lipase Reviewed date:05/23/2024 05:11:42 AM Interpretation: Performing Lab:[facility], [address] [place] [phone] Notes/Report: Lipase 15 8-78 U/L Glucose, Whole Blood Reviewed date:05/23/2024 05:11:42 AM Interpretation: Performing Lab:[facility], [address] [place] [phone] Notes/Report: Glucose, Whole Blood 108 60-115 mg/dL METER # : [id number] Hemoglobin A1c Reviewed date:05/23/2024 05:11:42 AM Interpretation: Performing Lab:[facility], [address] [place] [phone] Notes/Report: Hemoglobin A1c % 6.9 <6.0 % [...] average glucose, using the formula of the F6V-Vrmppqx Average Glucose study (ADAG), Diabetes Care, Vol.31,#8, May. 2007 UA CC w/rflx Micro + Cult Reviewed date:05/23/2024 05:11:42 AM Interpretation: Performing Lab:[facility], [address] [place] [phone] Notes/Report: Urine, Clean Catch Color Urine Yellow Appearance Urine Clear PH 5.5 5.0-9.0 Glucose Urine UA Negative Negative mg/dL Urine Blood Negative Negative Specific [place] - Urine 1.025 1.005-1.025 Urine Protein Negative Neg-Trace mg/dL Urine Ketones Negative Negative mg/dL Nitrite Urine Negative Negative Leukocyte Esterase Urine Negative Negative SARS-CoV2/FLU/RSV Reviewed date:05/23/2024 05:11:42 AM Interpretation: Performing Lab:[facility], [address] [place] [phone] Notes/Report: Influenza A PCR NEGATIVE Negative Influenza [...] by authorized laboratories. Testing performed on the [employer] GeneXpert utilizing real-time RT-PCR. All SARS CoV2 and positive influenza A/B results are reported to [facility]. CT abdomen pelvis w con Reviewed date:05/23/2024 05:11:42 AM Interpretation: Performing Lab: Notes/Report: [address] [address] [address] Scan Report Signed Patient: Alina Adamson MR#: [id number] 7 : 1975 Acct:[id number] Age/Sex: 49 / F ADM Date: 05/22/24 Loc: [place] [address]: Zac Betts MD Ordering Physician: Myriam Taylor DO Date of Service: 05/22/24 Procedure(s): CT abdomen pelvis w IV con Accession Number(s): [id number] cc: Yuniel Grewal MD; Myriam Taylor DO [...] in OV> 05/22/24 1631 DD/ 1404 TD/TT: Gas Engine Operator: [address] [address] [address] Scan Report Signed Patient: Opal Adamson MR#: [id number] 7 : 1975 Acct:[id number] Age/Sex: 49 / F ADM Date: 05/22/24 Loc: [facility]: Yocasta Betts MD Ordering Physician: Myriam Taylor DO Date of Service: 05/22/24 Procedure(s): CT abd omen pelvis w IV con Accession Number(s): [id number] cc: Yuniel Grewal MD; Myriam Taylor DO [...] fat stranding. No CT evidence of ac reno-sparks appendicitis. The stomach is not distended. There [...] in OV> 05/22/24 1631 DD/ 1404 TD/TT: Radiological Engineer ist: LAURA US abdomen limited Reviewed date:05/23/2024 05:11:42 AM Interpretation: Performing Lab: Notes/Report: [place] [address] Ultrasound Report Signed Patient: Alina Adamson MR#: [id number] 7 : 1975 Acct:[id number] Age/Sex: 49 / F ADM Date: 05/22/24 Loc: HO.ED Attending Dr: Ordering Physician: Myriam Taylor DO Date of Service: 05/22/24 Procedure(s): US abdomen limited Accession Number(s): [id number] cc: Yuniel Grewal MD; Myriam Taylor DO [...] in OV> 05/22/24 1331 DD/ 1110 TD/TT: Gas Engine Operator: [place] [address] Ultrasound Report Signed Patient: Opal Adamson MR#: [id number] 7 : 1975 Acct:[id number] Age/Sex: 49 / F ADM Date: 05/22/24 Loc: HO.ED Attending Dr: Ordering Physician: Myriam Taylor DO Date of Service: 05/22/24 Procedure(s): US abd omen limited Accession Number(s): [id number] cc: Yuniel Grewal MD; Myriam Taylor DO [...] in OV> 05/22/24 1331 DD/ 1110 TD/TT: Gas Engine Operator: Glucose, Whole Blood Reviewed date:05/23/2024 05:11:42 AM Interpretation: Performing Lab:[address] [address] Notes/Report: Glucose, Whole Blood 82 60-115 mg/dL METER # : [id number] Complete Blood Count no Diff Reviewed date:05/25/2024 07:39:13 PM Interpretation: Performing Lab:[facility], [address] [place] [phone] Notes/Report: White Blood Count 11.0 4.8-10.8 X10*3/uL [...] Panel Reviewed date:05/25/2024 07:39:13 PM Interpretation: Performing Lab:[facility], [address] [place] [phone] Notes/Report: Bilirubin Total 0.9 0.0-1.0 mg/dL Bilirubin Direct 0.3 0.0-0.5 mg/dL Aspartate Amino Transferase 12 5-31 U/L Alanine Aminotransferase 10 0-31 U/L Total Protein 6.2 6.5-8.0 g/dL Albumin Level 3.3 3.5-5.0 g/dL Alkaline Phosphatase 55 39-117 U/L Basic Metabolic Panel Reviewed date:05/25/2024 07:39:13 PM Interpretation: Performing Lab:[facility], [address] [place] [phone] Notes/Report: Sodium 140 135-145 mmol/L Potassium 4.0 [...] Glomerular Filt Rate > 60 NOTE: For -Chilean individuals, multiply the result by 1.210. Chronic Kidney Disease: Estimated GFR < 60 mL/min/1.73m2 Severe Kidney Disease: Estimated GFR < 15 mL/min/1.73m2 Glucose Random 121 60-115 mg/dL Calcium 8.6 8.4-10.2 mg/dL Glucose, Whole Blood Reviewed date:05/25/2024 07:39:13 PM Interpretation: Performing Lab:[facility], [address] [place] [phone] Notes/Report: Glucose, Whole Blood 130 60-115 mg/dL METER # : [id number] Pathology Reviewed date:05/25/2024 07:39:13 PM Interpretation: Performing Lab:[facility], [address] [place] [phone] Notes/Report: ---- Name: Alina Adamson Age/Sex: 49/F : 1975 Unit#: [id number] Attend Dr: Zac Betts MD Re05/22/24 Status : DIS IN Location: [facility] 383-1 Disch: 05/24/24 ---- SPEC : [id number] RECD : 05/24/24 STATUS: VANDANA COFFMAN NUM: [id number] ANAYELI: 05/23/241529 [facility] DR: Zac Betts MD ENTERED: 05/24/24 38 [...] measuring up to 0.15 cm in thickness. Parking Enforcement Manager secti ons are submitted in a cassette labeled A1 to include the margin of resection of the cys tic duct. CEDS Copies To: Yuniel Grewal MD [address] [facility] [address] [place] [address] Zac Betts MD [facility] [address] [place] [address] CONTINUED ON NEXT PAGE ---- Name: Alina Adamson Age/Sex: 49/F : 1975 Unit#: [id number] Attend Dr: Zac Betts MD Re05/22/24 Status : DIS IN Location: [facility] 383-1 Disch: 05/24/24 ---- SPEC : [id number] RECD : 05/24/24 STATUS: VANDANA COFFMAN NUM: [id number] ANAYELI: 05/23/24-1529 [facility] DR: Zac Betts MD ENTERED: 05/24/24- SP TYPE: Surgical OTHR DR: Yuniel Grewal MD ORDERED: Filippo Atkinson L3 ---- Signed (signature on file) Naty Calderon 05/25/24 1057 ---- END OF REPORT Glucose, Whole Blood Reviewed date:05/25/2024 07:39:13 PM Interpretation: Performing Lab:[facility], [address] [place] [phone] Notes/Report: Glucose, Whole Blood 108 60-115 mg/dL METER # : [id number] Glucose, Whole Blood Reviewed date:05/25/2024 07:39:13 PM Interpretation: Performing Lab:[facility], [address] [place] [phone] Notes/Report: Glucose, Whole Blood 100 60-115 mg/dL METER # : [id number] Glucose, Whole Blood Reviewed date:05/25/2024 07:39:13 PM Interpretation: Performing Lab:[facility], [address] [place] [phone] Notes/Report: Glucose, Whole Blood 118 60-115 mg/dL METER # : [id number] Glucose, Whole Blood Reviewed date:05/25/2024 07:39:13 PM Interpretation: Performing Lab:[facility], [address] [place] [phone] Notes/Report: Glucose, Whole Blood 143 60-115 mg/dL METER # : [id number] Glucose, Whole Blood Reviewed date:05/25/2024 07:39:13 PM Interpretation: Performing Lab:[facility], [address] [place] [phone] Notes/Report: Glucose, Whole Blood 142 60-115 mg/dL METER # : [id number] Glucose, Whole Blood Reviewed date:05/25/2024 07:39:13 PM Interpretation: Performing Lab:[facility], [address] [place] [phone] Notes/Report: Glucose, Whole Blood 158 60-115 mg/dL METER # : [id number] Complete Blood Count Auto Di ff Reviewed date:10/03/2024 06:07:16 AM Interpretation: Performing Lab:[facility], [address] [place] [phone] Notes/Report: White Blood Count 10.4 4.8-10.8 X10*3/uL [...] NRBC Abs Auto 0.000 0.0-0.012 X10*3/uL Comprehensive [place]. Panel Fa st Reviewed date:10/03/2024 06:07:16 AM Interpretation: Performing Lab:[facility], [address] [place] [phone] Notes/Report: Sodium 139 135-145 mmol/L Potassium 4.6 [...] PCR Reviewed date:10/22/2024 08:56:59 PM Interpretation: Performing Lab:[address] [address] Notes/Report: Vaginal CT PCR NOT DETECTED Not [...] Diff Reviewed date:10/22/2024 08:56:59 PM Interpretation: Performing Lab:[facility], [address] [place] [phone] Notes/Report: White Blood Count 10.0 4.8-10.8 X10*3/uL [...] Thyroxine) Reviewed date:10/22/2024 08:56:59 PM Interpretation: Performing Lab:[address] [address] Notes/Report: Free T4 (Free Thyroxine) 1.12 0.71-1.85 ng/dL TSH reflex Free T4 Reviewed date:10/22/2024 08:56:59 PM Interpretation: Performing Lab:[address] [address] Notes/Report: TSH reflex Free T4 5.85 0.32-4.0 uIU/mL Follicle Stimulating Hormone Reviewed date:10/23/2024 09:33:47 AM Interpretation: Performing Lab:[address] [address] Notes/Report: Follicle Stimulating Hormone 3.3 Reference Range Follicular Phase 2.5-10.2 Mid-cycle Peak 3.1-17.7 Luteal Phase 1.5- 9.1 Postmenopausal 23.0-116.3 THIS TEST WAS PERFORMED AT: [facility] [address] [place] [phone] SHOBHA LYONS MD Lutenizing Hormone Reviewed date:10/23/2024 09:33:47 AM Interpretation: Performing Lab:[facility], [address] [place] [phone] Notes/Report: Lutenizing Hormone 3.1 Reference Range Follicular Phase 1.9-12.5 Mid-Cycle Peak 8.7-76.3 Luteal Phase 0.5-16.9 Postmenopausal 10.0-54.7 THIS TEST WAS PERFORMED AT: [facility] [address] [address] SHOBHA LYONS MD HCG Quantitative Reviewed date:10/22/2024 08:56:59 PM Interpretation: Performing Lab:[facility], [address] [place] [phone] Notes/Report: HCG Quantitative < 2 Weeks post [...] date:11/06/2024 05:22:59 PM Interpretation: Performing Lab: Notes/Report: [address] [address] Ultrasound Report Signed Patient: Alina Adamson MR#: [id number] 7 : 1975 Acct:[id number] Age/Sex: 49 / F ADM Date: 10/31/24 Loc: HO.US Attending Dr: Dwain Yusuf MD Ordering Physician: Dwain Yusuf MD Date of Service: 10/31/24 Procedure(s): US pelvic and transvaginal Accession Number(s): [id number] cc: Yuniel Grewal MD; Dwain Yusuf MD [...] by: Los Arciniega MD 10/31/2024 04:10 PM [facility] Dictated By: Los Arciniega MD Signed By: <Electronically signed by Los Arciniega MD in OV> 10/31/24 1610 DD/ 1505 TD/TT: 10/31/24 1525 Gas Engine Operator: [place] [address] Ultrasound Report Signed Patient: Opal Adamson MR#: [id number] 7 : 1975 Acct:[id number] Age/Sex: 49 / F ADM Date: 10/31/24 Loc: HO.US Attending Dr: Dwain Yusuf MD Ordering Physician: Dwain Yusuf MD Date of Service: 10/31/24 Procedure(s): US pel caitlin and transvaginal Accession Number(s): [id number] cc: Yuniel Grewal MD; Dwain Yusuf MD [...] by: Los Arciniega MD 10/31/2024 04:10 PM [facility] Dictated By: Mr ana Arciniega MD Signed By: <Electronically signed by Los Arciniega MD in OV> 10/31/24 1610 DD/ 1505 TD/TT: 10/31/24 1525 Gas Engine Operator: [facility] [place] (Not yet reviewed by provider) Interpretation: Performing Lab:[facility], [address] [place] [phone] Notes/Report: ---- Name: Alina Adamson Age/Sex: 49/F : 1975 Unit#: [id number] Attend Dr: Dwain Yusuf MD Re12/05/24 Status : DEP REF Location: [facility] Disch: ---- SPEC : [id number] RECD: 12/06/24 STATUS: VANDANA COFFMAN NUM: [id number] ANAYELI: 12/05/24 [facility] DR: Dwain Yusuf MD ENTERED: 12/06/24-06 21 SP TYPE: Surgical OTHR DR: Yuniel Grewal MD ORDERED: HE Stain/2, Gross Micro L4 Diagnosis Endometrium, biopsy: Benign proliferative endometrium with fragments suggestive of benign endometrial polyps; no atypia or carcinoma. Clinical History AUB Microscopic Description Microscopic sections reviewed. Material Received EMB Gross Description Received in formalin labeled ?EMB is a 1.5 x 1.5 x 0.45 cm aggregate of multiple irregular and tubular cast fragments of congested and hemorrhagic hopkins-brown tissue, scant mucus and blood, submitted in toto in a cassette labeled A. CEDS Copies To: Yuniel Grewal MD [address] [facility] [place], [place] [id number] Dwain Yusuf MD [facility] [place] [facility] [address] [place] [address] ---- Signed (signature on file) [place]y [place] 12/07/24 1225 ---- END OF REPORT Reason For Referral Reason Evaluate and Treat [...] ONCE A WEEK 28 DAYS Active Pen [place] 31G X 6 MM as directed Twice a day 30 days Active Accu-Chek Viktoria Plus - as directed [...] IN THE MORNING ON EMPTY STOMACH Active Immunizations Vaccine Route Administration Date Status [...] Problem Status W/U Status Risk Notes Problem 1046615 Former smoker (Z87.891) Active confirmed She has a plan to prevent relapse in times of stress and illness. Problem Asthma (139394666) Asthma (J45.909) Active confirmed She has a history of intermittent asthma. No wheezes or her today. She has a rescue inhaler if necessary. Problem Anemia (455905074) Anemia (D64.9) Active confirmed Her hemat ocrit is slightly low and normochromic normocytic. The white blood cell count is slightly low when the platelets are normal. She denies any bleeding. This will be observed carefully before and after her upcoming uterine surgery. Problem Diabetes mellitus without complication (203031867) Diabetes (E11.9) Active confirmed Her A1c is 6.8. Current therapy was continued. We made a plan to lose weight at a rate of one half of a pound per week. Problem Hypertension (42385584) HTN (hypertension) (I10) Active confirmed Her blood pressure is currently stable and no change in her regimen was made. I strongly recommended aggressive weight loss and sodium restriction. Problem Hypothyroid (66705677) Hypothyroid (E03.9) Active confirmed The free T4 is normal and the TSH is slightly elevated. She appears to be euthyroid. No change was necessary in her medication.Aft er the upcoming surgery she will have an increase in the dose of her levothyroxine. Problem 329396618 Atypical chest pain (R07.89) Active confirmed She is on aspirin. 4. Atypical chest pain from a previous provider. She believes her chest discomfort is caused by stress. If necessary, a stress test can be done. Problem 812758240 Herpes zoster without complication (B02.9) Active confirmed She had an episode of shingles in February of this year. She was treated with prednisone and valacyclovir. It has resolved. Problem 552696202 Morbid obesity (E66.01) Active confirmed Her body mass index is stablle at 40. We have discussed weight loss strategies at length. Her weight will be followed carefully and she will continue the trulicity. Problem 727521375 Low back pain, unspecified (M54.50) Active confirmed She continues to have intermittent mild low back pain. No change in her regimen was needed. Images have been obtained. Vital Signs Heart Rate 75 /min 12/09/2024 Temperature 97.1 degrees Fahrenheit 12/09/2024 Blood pressure diastolic 82 mm Hg 12/09/2024 Height 59 in 12/09/2024 Blood pressure systolic 134 mm Hg 12/09/2024 Weight 203 lbs 12/09/2024 BMI 41 kg/m2 12/09/2024 Encounters Encounter Location Date Provider Diagnosis Yuniel Grewal III, MD [address] [place] [address] [place] [address] 01/26/2024 Yuniel Grewal Diabetes E11.9 ; HTN (hypertension) I10 ; Morbid obesity E66.01 ; Low back pain, unspecified M54.50 ; Hypothyroid E03.9 and Asthma J45.909 Yuniel Grewal III, MD [address] [place] [address] [place] [address] 04/08/2024 Yuniel Grewal Diabetes E11.9 ; Hypothyroid E03.9 ; HTN (hypertension) I10 ; Morbid obesity E66.01 ; Breast pain, right N64.4 and Former smoker Z87.891 Yuniel Grewal III, MD [address] [place] [address] [place] [address] 05/05/2024 Yuniel Grewal Diabetes E11.9 ; Hypothyroid E03.9 ; Morbid obesity E66.01 ; HTN (hypertension) I10 ; Asthma J45.909 ; Low back pain, unspecified M54.50 and Former smoker Z87.891 Yuniel rGewal III, MD [address] [place] [address] [place] [address] 05/27/2024 Yuniel Grewal Acute cholecystitis K81.0 ; Diabetes E11.9 ; Hypothyroid E03.9 ; HTN (hypertension) I10 ; Asthma J45.909 ; Former smoker Z87.891 ; Low back pain, unspecified M54.50 and Morbid obesity E66.01 Yuniel Grewal III, MD [address] [place] [address] [place] [address] 09/16/2024 Yuniel Grewal Diabetes E11.9 ; Mor bid obesity E66.01 ; HTN (hypertension) I10 ; Anemia D64.9 ; Neck pain M54.2 ; Hypothyroid E03.9 ; Asthma J45.909 and Former smoker Z87.891 Yuniel Grewal III, MD [address] [place] [address] [place] [address] 12/09/2024 Yuniel Grewal Anemia D64.9 ; Morbi d obesity E66.01 ; Diabetes E11.9 ; Hypothyroid E03.9 ; HTN (hypertension) I10 ; Low back pain, unspecified M54.50 and Former smoker Z87.891 Yuniel Grewal III, MD [address] [place] [address] [place] [address] 01/14/2024 Yuniel Grewal III, MD [address] [place] [address] [place] [address] 01/15/2024 Yuniel Grewal III, MD [address] [place] [address] [place] [address] 01/15/2024 Yuniel Grewal III, MD [address] [place] [address] [place] [address] 02/10/2024 Yuniel Grewal III, MD [address] [place] [address] [address] [place] [address] 04/12/2024 Yuniel Grewal III, MD [address] [place] [address] [address] [place] [address] 04/20/2024 Yuniel Grewal Diabetes E11.9 Yuniel Grewal III, MD [address] [place] [address] [address] [place] [address] 06/02/2024 Yuniel Grewal Assessments Encounter Date Diagnosis [...] she went to the emergency room at [facility] 22, 2024 and the next [...] does not wish to have bariatric surgery. 12/09/2024 Anemia (ICD-10 - D64.9) Her hematocrit [...] carefully and she will continue the trulicity. 04/20/2024 Diabetes (ICD-10 - E11.9) She has [...] aggressive weight loss and sodium restriction. 12/09/2024 Diabetes (ICD-10 - E11.9) Her A1c is 6.8. Current therapy was continued. We made a plan to lose weight at a rate of one half of a pound per week. 01/26/2024 Low back pain, unspecified (ICD-10 - [...] be anemic. She has had no bleeding. 12/09/2024 Hypothyroid (ICD-10 - E03.9) The free T4 is normal and the TSH is slightly elevated. She appears to be euthyroid. No change was necessary in her medication.After the upcoming surgery she will have an increase in the dose of her levothyroxine. 01/26/2024 Hypothyroid (ICD-10 - E03.9) Her TSH [...] spinal stenosis but does have cervical radiculopathy. 12/09/2024 HTN (hypertension) (ICD-10 - I10) Her [...] No change was necessary in her medication. 12/09/2024 Low back pain, unspecified (ICD-10 - [...] She has a rescue inhaler if necessary. 12/09/2024 Former smoker (ICD-10 - Z87.891) She has a plan to prevent relapse in times of stress and illness. 05/27/2024 Morbid obesity (ICD-10 - E66.01) She [...] C) 05/25/2023 PROFILE, FASTING (COMPREHENSIVE METABOLI C) 12/09/2024 PROFILE, FASTING (COMPREHENSIVE METABOLI C) 09/25/2023 PROFILE, [...] BILATERAL SCREEN 05/04 CBC WITH AUTO DIFF 12/09/2024 CBC WITH AUTO DIFF 04/08/2024 CBC WITH AUTO DIFF 01/26/2024 CBC WITH AUTO DIFF 05/05/2024 CBC WITH AUTO DIFF 09/16/2024 Ferritin 04/08/2024 Ferritin 05/05/2024 Lipid Panel 05/05/2024 Lipid Panel 12/09/2024 Lipid Panel 09/25/2023 Lipid Panel 04/08/2024 Free T4 (Free Thyroxine) 05/05/2024 Free T4 (Free Thyroxine) 09/25/2023 Microalbumin, Random 09/25/2023 Microalbumin, Random 12/09/2024 Pathology 12/05/2024 Hemoglobin A1c 04/08/2024 Hemoglobin A1c 09/25/2023 Hemoglobin A1c 05/05/2024 Hemoglobin A1c 12/09/2024 Next Appt Details Provider Name:Yuniel Grewal, 03/22/2025 04:00:00 PM, [address] [place] [address] [place], [place], [address], Provider Name:Yuniel Grewal, 09/18/2025 03:30:00 PM, [facility] [place], [address], Insurance Providers Payer Name Payer Address Payer Phone Subscriber Number Group Number Insured Name Patient Relationship to Insured Coverage Start Date Coverage End Date [facility] [address] [facility] [address] [facility] [place] [phone] [id number] Alina Adamson Self - patient is the insured Medical (General) History Medical History History ICD Code Hypothyroid E03.9 HTN (hypertension) I10 Anemia D64.9 Asthma J45.909 [id number] chronic lumbar back pain Adult onset diabetes mellitus Shingles February 2023. Left flank Atypical chest pain Family history of breast cancer, sister Former smoker Morbid obesity Acute cholecystitis May 22, 2024 The patient had her gallblad sergey removed in the past. She is managing her blood sugar levels with medication and is taking thyroid medication. Diabetes, High Blood Pressure Surgical History Surgery Date(Month/Year) 1999 [id number] Laparoscopic cholecystectomy [facility] Dr. Betts Gallbladder removal No history Hospitalization History Reason Date(Month/Year) Hospitalization for gallbladder removal No history
[2024-12-27 13:20] LABS: UPreg QC Valid YES; Urine Pregnancy NEGATIVE (NEGATIVE)
[2024-12-27 13:23] VITALS: BP 169/66; PULSE 82; RESP 14; TEMP 36.6; O2SAT 97; BMI 41.5
[2024-12-27] MEDS: Lactated Ringers 1,000 ML 80 ML IVCONT (13:59)
[2024-12-27 14:05] LABS: Glucose, Whole Blood 161 mg/dL (60-115)
--- NOTE | 2024-12-27 14:17 | P.CONAN_ITS ---
HPI - Anesthesia Eval Consult details Narrative: for D&C PMFSH Active Problems Active Problems: All Active Problems Abnormal uterine bleeding (AUB) (Acute) Ovarian cyst (Acute) Uterine myoma (Acute) S/P laparoscopic cholecystectomy (Acute) Morbid obesity (Acute) Menorrhagia (Acute) Fibroids (Acute) Bulky or enlarged uterus (Acute) Cervical cancer screening (Acute) Obesity, morbid, BMI 40.0-49.9 (Acute) HTN (hypertension) (Acute) Diabetes (Acute) Encounter for screening colonoscopy (Acute) Past Medical History Medical History Gallstones Morbid obesity Hypothyroidism HTN (hypertension) Diabetes Patient : No Family History Family History Father Thyroid disease Hepatitis HTN (hypertension) Diabetes Mother Kidney disease Coronary artery disease Renal failure Maternal Aunt Breast CA Family history of problems with anesthesia: No Surgical History Surgical History History of laparoscopic cholecystectomy (~05/23/24) Hx of section History of Problems with Anesthesia: No Social History Social History Household Members: Family Housing: House Are you a primary coronary care unit nurse to a significant other at home: No Do you presently have visiting nurse or other home services: No Alcohol intake: never Patient Tobacco Use Status: Never used Tobacco Second Hand Smoke Exposure: No Use of substances other than those prescribed or required for medical reasons: No Have you been hit, kicked, punched, or otherwise hurt by someone within the past year? 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 Allergies Allergy/AdvReac Type Severity Reaction Status Date / Time No Known Allergies Allergy Verified 12/27/24 13:07 Active Medications: Current Medications Lactated Ringer's (Lr) 1,000 mls @ 80 mls/hr IVCONT .[id number] MICHELLE Last Admin: 12/27/24 13:59 Dose: 80 mls/hr Home Medications ?Medication ?Instructions ?Recorded ?Confirmed ?Last Taken ?Type dulaglutide 1.5 mg/0.5 mL 1.5 mg subcut TH@0900 06/24/23 12/27/24 05/19/24 History subcutaneous pen injector (Trulicity) insulin aspar prot-insulin aspart 20 unit subcut BEDTIME 06/24/23 12/27/24 Unknown History 100 unit/mL (70-30) subcutaneous pen (Novolog Mix 70-30FlexPen U-100) levothyroxine 137 mcg tablet 137 mcg PO DAILY@0600 06/24/23 12/27/24 12/27/24 History blood sugar diagnostic (OneTouch #10 ea 07/31/23 12/27/24 Unknown History Ultra Test strips) pen needle, diabetic 31 gauge x #1,200 ea 07/31/23 12/27/24 Unknown History 3/16 (Comfort Touch Pen Needle) insulin aspar prot-insulin aspart 25 unit subcut DAILY 05/22/24 12/27/24 05/22/24 09:00 History 100 unit/mL (70-30) subcutaneous pen (Novolog Mix 70-30FlexPen U-100) metformin 500 mg tablet 500 mg PO BID 05/22/24 12/27/24 05/22/24 09:00 History Exam Height,Weight and Vital Signs: Height 4 ft 10 in Weight 90 kg Last Vital Signs Temp 97.9 F 12/27/24 13:23 Pulse 82 12/27/24 13:23 Resp 14 12/27/24 13:23 BP 169/66 H 12/27/24 13:23 Pulse Ox 97 12/27/24 13:23 O2 Del Method Room Air 12/27/24 13:23 Pertinent Lab Results Pertinent Lab Results: Laboratory Tests 12/27/24 12/27/24 13:08 14:02 POC Glucose 161 H Urine Test NEGATIVE Airway Mallampati Class: II TM Dist: <=3cm Neck ROM: Full Loose/Missing/Broken Teeth: Yes and Lower Heart: ok Lungs: ok Assessment and Plan Assessment Anesthesia Assessment: Anesthesia Plan Discussed and Chart Reviewed Final Anesthetic Review Family History of Problems with Anesthesia: No History of Problems with Anesthesia: No NPO: Yes ASA Class: III Final Preanesthetic Review: No Changes in Pt Med Stat, Meds/Allgs Chart Reviewed, Consent Obtained/Reviewed and Anes Risks/Benef Reviewed Patient Risk: Intermediate Procedure Risk: Low Anesthetic Plan Anesthetic Plan: GA and Agree w/ Assess. and Plan Disposition: Standard PACU
--- NOTE | 2024-12-27 14:34 | MHC.SHP ---
Pre-Procedural Eval Section A - 24 Hr Update-Section A only Date of Service: 12/27/24 Section B - Complete if H&P > 30 days Chief Complaint: Abnormal uterine and vaginal bleeding, Allergies: Allergies Allergy/AdvReac Type Severity Reaction Status Date / Time No Known Allergies Allergy Verified 12/27/24 13:07 Plan I have reviewed the history and physical and performed a pertinent physical examination on my patient. No changes have occurred unless specified. Time Spent With Patient Time: Total time managing care of this patient today ____ minutes.
--- NOTE | 2024-12-27 15:16 | P.OP_ITS ---
Operative Note Operative Note Date of Service: 12/27/24 Narrative: Preop Diagnosis: Abnormal uterine bleeding, Endometrial polyp on EMB pathology Operation: Diagnostic Hysteroscopy, Dilataion & Curettage and polypectomy Post Op Diagnosis: Endometrial Polyp QBL: Minimal Anesthesia: GLMA Surgeon: Dwain Yusuf MD Irrigation Engineer: None Complication: None Pathology: Endometrial Scrapings, Endometrial polyp Procedure: The patient was put in the dorsal lithotomy position, scrubbed, and draped in the usual manner. A sterile speculum was inserted in the patient's vagina. The anterior lip of the cervix was grasped with a single tooth tenaculum. The cervix was dilated up to 5 mm, then the scope was inserted in the patient's uterus. Inspection revealed endometrial polyp. The Myosure Reach device was used; it was introduced through the operative channel and polypectomy done with no complications. The scope was then taken out from the uterine cavity, sharp curettings was carried on with minimal to moderate amount of tissues retrieved. At the end of the procedure, all instruments were taken out of the patient uterine and vaginal cavity. The single tooth tenaculum was removed and homeostasis was assured using pressure,. The patient tolerated the procedure well and was transferred to the PACU in a stable condition.
--- NOTE | 2024-12-27 15:16 | P.BOP_ITS ---
Brief Operative Note Date of Service: 12/27/24 Post-op diagnosis: same (Endometrial polyp) Procedure: Hysteroscopy D&C, Polypectomy Surgeon: Dwain Yusuf MD Anesthesia: GLMA Was an Board [employer] Secretary used for this Procedure?: No Estimated blood loss (mL): 0 Pathology: other (Endometrial Scrapping. Polyp) Condition: stable Disposition: PACU
[2024-12-27 15:24] VITALS: BP 141/69; PULSE 84; RESP 16; TEMP 36.7; O2SAT 96
[2024-12-27 15:29] VITALS: BP 140/71; PULSE 82; RESP 17; O2SAT 99
[2024-12-27 15:34] VITALS: BP 131/62; PULSE 78; RESP 18; O2SAT 99
[2024-12-27 15:39] VITALS: BP 122/71; PULSE 79; RESP 16; O2SAT 100
[2024-12-27 15:58] VITALS: BP 162/71; PULSE 76; RESP 18; TEMP 36.8; O2SAT 100
--- NOTE | 2024-12-28 13:57 | P.CONAN_ITS ---
HPI - Anesthesia Eval Consult details Narrative: for Kimo Burris HYSTEROSCOPY PMFSH Active Problems Active Problems: All Active Problems Abnormal uterine bleeding (AUB) (Acute) Ovarian cyst (Acute) Uterine myoma (Acute) S/P laparoscopic cholecystectomy (Acute) Morbid obesity (Acute) Menorrhagia (Acute) Fibroids (Acute) Bulky or enlarged uterus (Acute) Cervical cancer screening (Acute) Obesity, morbid, BMI 40.0-49.9 (Acute) HTN (hypertension) (Acute) Diabetes (Acute) Encounter for screening colonoscopy (Acute) Past Medical History Medical History Gallstones Morbid obesity Hypothyroidism HTN (hypertension) Diabetes Family History Family History Father Thyroid disease Hepatitis HTN (hypertension) Diabetes Mother Kidney disease Coronary artery disease Renal failure Maternal Aunt Breast CA Family history of problems with anesthesia: No Surgical History Surgical History History of laparoscopic cholecystectomy (~05/23/24) Hx of section History of Problems with Anesthesia: No Social History Social History Household Members: Family Housing: House Are you a primary youth care professional to a significant other at home: No Do you presently have visiting nurse or other home services: No Alcohol intake: never Patient Tobacco Use Status: Never used Tobacco Second Hand Smoke Exposure: No service: No Current occupational status: employed 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 Allergies Allergy/AdvReac Type Severity Reaction Status Date / Time No Known Allergies Allergy Verified 12/27/24 13:07 Home Medications ?Medication ?Instructions ?Recorded ?Confirmed ?Last Taken ?Type dulaglutide 1.5 mg/0.5 mL 1.5 mg subcut TH@0900 06/24/23 12/27/24 05/19/24 History subcutaneous pen injector (Trulicity) insulin aspar prot-insulin aspart 20 unit subcut BEDTIME 06/24/23 12/27/24 Unknown History 100 unit/mL (70-30) subcutaneous pen (Novolog Mix 70-30FlexPen U-100) levothyroxine 137 mcg tablet 137 mcg PO DAILY@0600 06/24/23 12/27/24 12/27/24 History blood sugar diagnostic (OneTouch #10 ea 07/31/23 12/27/24 Unknown History Ultra Test strips) pen needle, diabetic 31 gauge x #1,200 ea 07/31/23 12/27/24 Unknown History 16 (Comfort Touch Pen Needle) insulin aspar prot-insulin aspart 25 unit subcut DAILY 05/22/24 12/27/24 05/22/24 09:00 History 100 unit/mL (70-30) subcutaneous pen (Novolog Mix 70-30FlexPen U-100) metformin 500 mg tablet 500 mg PO BID 05/22/24 12/27/24 05/22/24 09:00 History Exam Height,Weight and Vital Signs: Height 4 ft 10 in Weight 90 kg Last Vital Signs Temp 98.2 F 12/27/24 15:58 Pulse 76 12/27/24 15:58 Resp 18 12/27/24 15:58 BP 162/71 H 12/27/24 15:58 Pulse Ox 100 12/27/24 15:58 O2 Del Method Room Air 12/27/24 15:58 Pertinent Lab Results Pertinent Lab Results: Laboratory Tests 12/27/24 12/27/24 13:08 14:02 POC Glucose 161 H Urine Test NEGATIVE Airway Mallampati Class: II TM Dist: >3cm Neck ROM: Full Heart: RRR Lungs: CTA Assessment and Plan Assessment Anesthesia Assessment: Anesthesia Plan Discussed Final Anesthetic Review Family History of Problems with Anesthesia: No History of Problems with Anesthesia: No NPO: Yes ASA Class: III Final Preanesthetic Review: No Changes in Pt Med Stat, Meds/Allgs Chart Reviewed, Consent Obtained/Reviewed and Anes Risks/Benef Reviewed Patient Risk: Intermediate Procedure Risk: Low Anesthetic Plan Anesthetic Plan: GA Disposition: Standard PACU
== END 2024-12-27 16:01 | disposition home or self-care (01) ==
PROVIDERS: Anesthesiology; PCP Internal Medicine Medical Oncology; Visit Provider Obstetrics & Gynecology
PROC: 0UDB8ZZ Extraction of Endometrium, Via Natural or Artificial Opening Endoscopic (ICD-10-PCS; CPT 58558; principal; 2024-12-27 14:30)
DX: N93.9 Abnormal uterine and vaginal bleeding, unspecified (principal); N84.0 Polyp of corpus uteri; I10 Essential (primary) hypertension; E11.9 Type 2 diabetes mellitus without complications; E03.9 Hypothyroidism, unspecified; E66.01 Morbid (severe) obesity due to excess calories; Z68.41 Body mass index [BMI] 40.0-44.9, adult; Z79.4 Long term (current) use of insulin; Z79.84 Long term (current) use of oral hypoglycemic drugs; Z79.85 Long-term (current) use of injectable non-insulin antidiabetic drugs; Z79.899 Other long term (current) drug therapy; Z90.49 Acquired absence of other specified parts of digestive tract
CPT/HCPCS: 58558; 81025; 82947; 88305; J1885; J2003; J2405; J2704; J3010

== ENCOUNTER → 2024-12-27 12:53 | Outpatient (BNV) | payer OTHER, SELFPAY | PROVIDERS: PCP Internal Medicine Medical Oncology; Visit Provider Obstetrics & Gynecology | DX: N84.0 Polyp of corpus uteri (principal); N93.9 Abnormal uterine and vaginal bleeding, unspecified | CPT/HCPCS: 58558 ==

== ENCOUNTER 2025-01-13 14:36 | Outpatient (AMB) | payer OTHER, SELFPAY ==
--- NOTE | 2025-01-13 14:41 | A.OFFVIS_ITS ---
Intake Visit Reasons: post op Principal Java Software Engineer: Principal Java Software Engineer Present (Stephanie) Accompanied by: Self / Same As Patient Allergies No Known Allergies Allergy (Verified 01/13/25 14:44) HPI Comments Details: The patient is presenting post hysteroscopy D&C no complaints minimal vaginal bleeding no feverishness chills or abdominal pain. The pathology showed the following: A. Endometrium, curettage: Benign dyssynchronous endometrium with proliferative and secretory glands, focal stromal collapse, and fragments of benign endometrial polyp, and benign endocervical glandular and squamous epithelium; no atypia or carcinoma. B. Endometrial polyp, resection: Benign mixed endometrial and endocervical polyp; no atypia or carcinoma The following workup was done.: H&H= 13.6/40.5 TSH elevated 5.85, free T4 within normal FSH/LH 3.3/3.1 hCG, GC and chlamydia were negative. Endometrial biopsy pathology showed the following: Benign proliferative endometrium with fragments suggestive of benign endometrial polyps; no atypia or carcinoma Co testing was done in 08/03 was negative. Mammogram was in 05/04 was negative Pelvic ultrasound showed the following: Uterus: The uterus is anteverted, retroflexed and measures 14.1 x 7.2 x 6.4 cm. The endometrium is not well-visualized. The uterus is smooth in contour and has normal myometrial echogenicity. There is a large hypoechoic lesion in the anterior fundus/body of uterus measuring 6.2 x 6.3 x 6.4 cm consistent with a fibroid. Previously it measured 6.7 x 7.0 x 7.7 cm. There is minimal fluid seen within endocervical canal. Right ovary is not visualized. Left ovary seen transabdominally and measures 2.6 x 1.1 x 3.0 cm and volume 13.4 mL. Previously left ovary measured 2.9 x 2.9 x 3.4 cm. There is no free fluid in the cul-de-sac. [facility] Medical History Gallstones Morbid obesity Hypothyroidism HTN (hypertension) Diabetes Surgical History History of laparoscopic cholecystectomy (~05/23/24) Hx of section Family History Father Thyroid disease Hepatitis HTN (hypertension) Diabetes Mother Kidney disease Coronary artery disease Renal failure Maternal Aunt Breast CA Social History Household Members: Family Housing: House Are you a primary career development engineer to a significant other at home: No Do you presently have visiting nurse or other home services: No Alcohol intake: never Patient Tobacco Use Status: Never used Tobacco Second Hand Smoke Exposure: No service: No Current occupational status: employed 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 Female Reproductive History Menstrual Age of Menarche: 15 Review of Systems Const All systems reviewed & are unremarkable except as noted in HPI and below Reports as per HPI and Reports no additional complaints GI Reports no additional complaints Reports no additional complaints Assessment & Plan Assessment & Plan (1) Abnormal uterine bleeding (AUB): Code(s): N93.9 - Abnormal uterine and vaginal bleeding, unspecified Category: Medical Plan: Discussed with the patient the results of the work up done and options of treatment including Lysteda, UAE, Mirena IUD, endometrial ablation and hysterectomy. All pros, cons, risks and benefits if each option was discussed with the patient and the patient decided to think about it and get back to us. All questions answered the patient verbalized understanding. (2) Endometrial polyp: Code(s): N84.0 - Polyp of corpus uteri Category: Medical Plan: Discussed with the patient the intraoperative findings showing endometrial polyp, status post hysteroscopy. Discussed with the patient the results the pathology. All questions answered, the patient verbalized understanding. (3) Uterine myoma: Code(s): D25.9 - Leiomyoma of uterus, unspecified Category: Medical Plan: Discussed with the patient the findings on pelvic ultrasound & the risk of myosarcoma; in addition reviewed with the patient that malignancy and pre malignancy cannot be ruled out without hysterectomy for pathological evaluation ; furthermore, explained to the patient the limitation of pelvic ultrasound and endometrial biopsy in the setting. Discussed with the patient the options of treatment including expectant management versus hysterectomy; the pros and cons, risks benefits of each a pproach were discussed with the patient including the fact that in cases of myosarcoma, surgical treatment can lead to early diagnosis and positively affects the prognosis; after further discussion, the patient decided to proceed with expectant management. Will repeat pelvic ultrasound periodically. Instructions given to patient to call in case any of the following occurs: pressure symptoms, abnormal uterine bleeding, pelvic pain; and to schedule a six-months pelvic ultrasound (order placed) and a follow-up appointment . All questions answered, the patient verbalized understanding and agreed with the plan . (4) Abnormal TSH: Code(s): R79.89 - Other specified abnormal findings of blood chemistry Category: Medical Plan: Discussed with the patient the results of the TSH elevated with normal free T4, the patient has stated that she has an appointment with her PCP for further management Orders: Orders US pelvic and transvaginal 6 Months D25.9 - Leiomyoma of uterus, unspecified Coding Level of Care Code Est Pt Level 3 (30304) Diagnoses Abnormal uterine bleeding (AUB) N93.9 Endometrial polyp N84.0 Uterine myoma D25.9 Abnormal TSH R79.89
== END 2025-01-13 15:16 | disposition home or self-care (01) ==
LOC: HO.HWS 14:36
PROVIDERS: PCP Internal Medicine Medical Oncology; Visit Provider Obstetrics & Gynecology
DX: N93.9 Abnormal uterine and vaginal bleeding, unspecified (principal); N84.0 Polyp of corpus uteri; D25.9 Leiomyoma of uterus, unspecified; R79.89 Other specified abnormal findings of blood chemistry
CPT/HCPCS: 99213

== ENCOUNTER 2025-03-17 06:23 | Outpatient (REF) | payer OTHER, SELFPAY ==
[2025-03-17 06:34] LABS: MANUAL DIFF FLAG NO
[2025-03-17 07:18] LABS: Basophils Absolute Auto 0.1 X10*3/uL (0.0-0.2); Basophils Percent Auto 0.6 % (0-2); Eosinophils Absolute Auto 0.2 X10*3/uL (0.0-0.4); Eosinophils Percent Auto 1.6 % (0-4); Hematocrit 42.1 % (37.0-47.0); Hemoglobin 14.3 g/dl (12.0-16.0); Imm Gran Abs Auto 0.07 X10*3/uL (0.00-0.03); Imm Gran Pct Auto 0.6 % (0.0-0.4); Lymphocytes Absolute Auto 3.9 X10*3/uL (1.2-4.9); Lymphocytes Percent Auto 33.6 % (20-40); Mean Corpuscular Hemoglobin 29.5 pg (27.0-33.0); Mean Platelet Volume 11.3 fL (9.4-12.3); Monocytes Absolute Auto 0.6 X10*3/uL (0.1-1.2); Monocytes Percent Auto 5.1 % (2-11); Neutrophils Absolute Auto 6.8 x10*3/uL (2.0-8.3); Neutrophils Percent Auto 58.5 % (45-73); Platelet Count 273 X10*3/uL (160-400); Red Blood Count 4.84 X10*6/uL (4.20-5.50); White Blood Count 11.6 X10*3/uL (4.8-10.8)
[2025-03-17 07:25] LABS: Estimated Average Glucose 243 mg/dL; Hemoglobin A1c % 10.1 % (<6.0); Total Hemoglobin (HGBA1C) 3823.7902 umol/L
[2025-03-17 07:43] LABS: Creatinine Urine 121.51 mg/dL; Microalbum/Creatinine Ratio Ur 34.5 ug/mg cr (<30)
[2025-03-17 07:49] LABS: Alanine Aminotransferase 14 U/L (0-31); Albumin Level 4.1 g/dL (3.5-5.0); Alkaline Phosphatase 86 U/L (39-117); Anion Gap 13 (12-20); Aspartate Amino Transferase 17 U/L (5-31); Bilirubin Total 0.8 mg/dL (0.0-1.0); Blood Urea Nitrogen 22 mg/dL (9-16); Calcium 9.4 mg/dL (8.4-10.2); Carbon Dioxide 24 mmol/L (22-29); Chloride 103 mmol/L (96-108); Cholesterol 243 mg/dL (<200); Estimated Glomerular Filt Rate > 60; Glucose Fasting 299 mg/dL (60-99); HDL Cholesterol 44 mg/dL (>40); LDL Cholesterol Calculated 152 mg/dL (<100); Potassium 4.2 mmol/L (3.3-5.1); Sodium 136 mmol/L (135-145); Total Protein 7.8 g/dL (6.5-8.0); Triglycerides 237 mg/dL (<150)
== END 2025-03-17 06:24 | disposition home or self-care (01) ==
LOC: HO.LAB 06:23
PROVIDERS: PCP Internal Medicine Medical Oncology; Visit Provider Internal Medicine Medical Oncology
DX: D64.9 Anemia, unspecified (principal); E66.01 Morbid (severe) obesity due to excess calories; E11.9 Type 2 diabetes mellitus without complications
CPT/HCPCS: 36415; 80053; 80061; 82043; 82570; 83036; 85025

== ENCOUNTER 2025-07-17 10:31 | Outpatient (REF) | payer OTHER, SELFPAY ==
--- OUTSIDE RECORDS SUMMARY | 2024-09-30 12:00 | XMS_ITS ---
Author Organization Yuniel Grewal III, MD Address [address] [place] [address] Care Team Providers Care Assistant Softball Coach Name Role Phone Dr. Yuniel Grewal III [...] ONCE A WEEK 28 DAYS Active Pen Renner 31G X 6 MM as directed Twice [...] Date Provider Diagnosis Yuniel Grewal III, MD [address] [place] [address] [address] [place] [address], [place] [address] 09/30/2024 Yuniel Grewal Plan Of Treatment Medication [...] SUBCUTANEOUS ONCE A WEEK 28 DAYS Pen Renner 31G X 6 MM as directed Twice [...] Provider Name:Yuniel Grewal , 09/18/2025 03:30:00 PM, [address] [place] [address] [address], [place], [address], Progress Notes * Alina ALVAREZDOB:1975 (50 yo F)Acc No.[id number]:09/30/2024 Progress Notes Patient: Alina BAZAN Provider: Mary Grewal MD :1975 A ge:49 Y S ex:Female Date:09/30/2024 Address:[address] [place], [place] [phone] Subjective: * Chief Complaints: * 1 . [...] History: H ypothyroid, HTN (hypertension), Anemia, Asthma, T3C8Kx8, Chronic lumbar back pain, Adult onset diabetes mellitus, Shingles February 2023. Left flank, Atypical chest pain, Family history of breast cancer, sister, Former smoker, Morbid obesity, Acute cholecystitis May 22, 2024, The patient had her gallbladder removed in the past. She is managing her blood sugar levels with medication and is taking thyroid medication.. * Surgical History: C -Section 1999, [id number] , Laparoscopic cholecystectomy [facility] Dr. Betts , Gallbladder removal . [...] sugars twice a day , Taking Pen Renner 31G X 6 MM Miscellaneous as directed [...] Date: 12/01/2023 Generated for Josy shine/Mirtha/Beena on: 12:28 PM EDT History and Physical Notes * [...]
--- OUTSIDE RECORDS SUMMARY | 2024-10-14 10:45 | XMS_ITS ---
Author Organization Yuniel Grewal III, MD Address [address] [place] [address] Care Team Providers Care Stockroom Helper Name Role Phone Dr. Yuniel Grewal III [...] sugars twice a day 05/05/2023 Active Pen [place] 31G X 6 MM as directed Twice [...] Date Provider Diagnosis Yuniel Grewal III, MD [address] [place] [address] DR MCKEON [address] [place] [address], [place] [address] 10/14/2024 Yuniel Grewal Plan Of Treatment Medication [...] blood sugars twice a day 05/05/2023 Pen [place] 31G X 6 MM as directed Twice [...] Provider Name:Yuniel Grewal , 09/18/2025 03:30:00 PM, [address] [place] [address] [address], [place], [address], Progress Notes * Alina ALVAREZDOB:1975 (50 yo F)Acc No.[id number]:10/14/2024 Progress Notes Patient: Alina BAZAN Provider: Mary Grewal MD :1975 A ge:49 Y S ex:Female Date:10/14/2024 Address:[address] [place], [place] [id number] Subjective: * Chief Complaints: * 1 . [...] History: H ypothyroid, HTN (hypertension), Anemia, Asthma, [id number], Chronic lumbar back pain, Adult onset diabetes mellitus, Shingles February 2023. Left flank, Atypical chest pain, Family history of breast cancer, sister, Former smoker, Morbid obesity, Acute cholecystitis May 22, 2024, The patient had her gallbladder removed in the past. She is managing her blood sugar levels with medication and is taking thyroid medication.. * Surgical History: C -Section 1999, [id number] , Laparoscopic cholecystectomy [facility] Dr. Betts , Gallbladder removal . * [...] sugars twice a day , Taking Pen [place] 31G X 6 MM Miscellaneous as directed [...] your next appointment,PLEASE FAX COMPLETED RESULTS TO [phone] * Lab:Complete Blood Count Aut o Diff [...] your next appointment,PLEASE FAX COMPLETED RESULTS TO [phone] * Lab:Microalbumin, Random * Collection Date 09/23/2024 [...] your next appointment,PLEASE FAX COMPLETED RESULTS TO [phone] * Lab:Comprehensive [place]. Jess l Fast * Collection Date 09/23/2024 [...] your next appointment,PLEASE FAX COMPLETED RESULTS TO [phone] ???Lab:URINE DIP STICK (Order Date - 09/16/2024) [...] 0 10/14/2024 Generated for Josy shine/Mirtha/eTransmitting on: 1 12:29 PM EDT History and Physical Notes * [...] edema LYMPH NODES: no enlarged lymph no hebrert,spleen normal RECTAL EXAM: not examined PSYCH: alert, oriented ORAL CAVITY: normal, unremarkable
--- OUTSIDE RECORDS SUMMARY | 2024-12-09 11:30 | XMS_ITS ---
Author Organization Yuniel Grewal III, MD Address [address] [place] [address] Care Team Providers Care Healthcare Marketer Name Role Phone Dr. Yuniel Grewal III [...] ONCE A WEEK 28 DAYS Active Pen [place] 31G X 6 MM as directed Twice [...] Date Provider Diagnosis Yuniel Grewal III, MD [address] [place] [address] [place] [address] 12/09/2024 Yuniel Grewal Anemia D64.9 ; Morbi [...] SUBCUTANEOUS ONCE A WEEK 28 DAYS Pen [place] 31G X 6 MM as directed Twice a day 30 days Pending Test Test Name Order Date PROFILE, FASTING (COMPREHENSIVE METABOLI C) 12/09/2024 CBC WITH AUTO DIFF 12/09/2024 Lipid Panel 12/09/2024 Microalbumin, Random 12/09/2024 Hemoglobin A1c 12/09/2024 Next Appt Details Follow Up: 3 Months, 3 to 3. 5 months, Reason: OV, Annual Checkup Provider Name:Yuniel Grewal , 09/18/2025 03:30:00 PM, [address] [place] [address] [address], [place], [address], Progress Notes * Alina ALVAREZDOB:1975 (49 yo F)Acc No.[id number]:12/09/2024 Progress Notes Patient: Alina BAZAN Provider: Mary Grewal MD :1975 A ge:49 Y S ex:Female Date:12/09/2024 Address:[address] [place], [place] [id number] Subjective: * Chief Complaints: * D iabetesLarge [...] is causing pelvic pain. She saw her director of tax services who is planning a surgical procedure in [...] * Surgical History: C -Section Laparoscopic cholecystectomy [facility] Dr. Betts Gallbladder removal No history [...] check blood sugars twice a day Pen [place] 31G X 6 MM Miscellaneous as directed [...] blood sugars twice a day Taking Pen [place] 31G X 6 MM Miscellaneous as directed [...] your next appointment,PLEASE FAX COMPLETED RESULTS TO [phone] * Lab:Tamir MerchantArabella george Fast * Collection [...] your next appointment,PLEASE FAX COMPLETED RESULTS TO [phone] * Lab:CT NG by PCR * Collection [...] your next appointment,PLEASE FAX COMPLETED RESULTS TO [phone] * Lab:Microalbumin, Random * Collection Date 09/23/2024 [...] your next appointment,PLEASE FAX COMPLETED RESULTS TO [phone] ???Lab:URINE DIP STICK (Order Date - 09/16/2024) [...] sugars twice a day; C ontinue Pen [place] Miscellaneous, 31G X 6 MM, as directed, [...] 12/09/2024 Generated for Printi ng/Faxing/eTransmitting on: 1 12:28 PM EDT History and Physical Notes [...]
--- OUTSIDE RECORDS SUMMARY | 2025-03-22 12:00 | XMS_ITS ---
Author Organization Yuniel Grewal III, MD Address [address] [place] [address] Care Team Providers Care Light Rail Train Operator Name Role Phone Dr. Yuniel Grewal III Primary Care Provider [phone] Allergies Allergen (clinical drug ingredient) Drug/Non Drug [...] 20 units in evening 06/02/2024 Active Pen Waddy 31G X 6 MM as directed Twice [...] Date Provider Diagnosis Yuniel Grewal III, MD [address] [place] [address] [place] [address] 03/22/2025 Yuniel Grewal Diabetes E11.9 ; Former [...] and 20 units in evening 06/02/2024 Pen Waddy 31G X 6 MM as directed Twice [...] Provider Name:Yuniel Grewal , 09/18/2025 03:30:00 PM, [address] [place] [address], [phone], Progress Notes * Alina ALVAREZDOB:1975 (49 yo F)Acc No.[id number]:03/22/2025 Progress Notes Patient: Alina BAZAN Provider: Mary Grewal MD :1975 A ge:49 Y S ex:Female Date:03/22/2025 Address:[address] [place], [place] [phone] Subjective: * Chief Complaints: * D iabetesHypothyroidismHypertensionAsthmaLow back painMorbid obesity * HPI: C OVID-19 Screening: . She returns for management of her medical issues. Since her last visit had a myomectomy at [facility] and recovered well. She is now free [...] Medical History: * Surgical History: C -Section [id number] Laparoscopic cholecystectomy [facility] Dr. Betts Myomectomy 2024 * Hospitalization/Major Diagno [...] check blood sugars twice a day Pen Waddy 31G X 6 MM Miscellaneous as directed [...] blood sugars twice a day Taking Pen Waddy 31G X 6 MM Miscellaneous as directed [...] 0 03/22/2025 Generated for Josy shine/Mirtha/Reggieitting on: 1 12:29 PM EDT History and [...] atraumatic, normocep halic EYES: eomi, perrla, anicte aprit, conjugate EARS: normal NOSE: septum intact NECK/THYROID: [...]
--- OUTSIDE RECORDS SUMMARY | 2025-04-12 05:45 | XMS_ITS ---
Author Organization Yuniel Grewal III, MD Address [address] [place] [address] Care Team Providers Care Clerical Specialist Name Role Phone Dr. Yuniel Grewal III [...] 20 units in evening 06/02/2024 Active Pen [place] 31G X 6 MM as directed Twice [...] Provider Diagnosis Yuniel Grewal III, MD [address] [place] [address] [place] [address] 04/12/2025 Yuniel Grewal Diabetes E11.9 ; HTN [...] and 20 units in evening 06/02/2024 Pen [place] 31G X 6 MM as directed Twice [...] Provider Name:Yuniel Grewal , 09/18/2025 03:30:00 PM, [address] [place] [address], [place] [address], [place], [address], Progress Notes * Shree ALVAREZmarilouDOB:1975 (49 yo F)Acc No.[id number]:04/12/2025 Progress Notes Patient: Alina BAZAN Provider: Mary Grewal MD :1975 A ge:49 Y S ex:Female Date:04/12/2025 Address:[address] [place], [place] [id number] Subjective: * Chief Complaints: * D iabetesHypothyroidismHypertensionLow [...] Medical History: * Surgical History: C -Section [id number] Laparoscopic cholecystectomy [facility] Dr. Betts Myomectomy 2024 * Hospitalization/Major Diagno [...] check blood sugars twice a day Pen [place] 31G X 6 MM Miscellaneous as directed [...] blood sugars twice a day Taking Pen [place] 31G X 6 MM Miscellaneous as directed [...] sugars twice a day; C ontinue Pen [place] Miscellaneous, 31G X 6 MM, as directed, [...] 0 04/12/2025 Generated for Josy shine/Mirtha/Reggieitting on: 1 12:29 [...]
--- NOTE | ~2025-07-17 | US_ITS ---
CLINICAL HISTORY: D25.9 - Leiomyoma of uterus, unspecified US pelvis transabdominal and transvaginal Comparison: US/SR - US PELVIC AND TRANSVAGINAL - 10/31/24 14:[address]/SR - CT ABDOMEN PELVIS WITH IV CONTRAST - 05/22/24 13:49 EDT Findings: Transabdominal and Transvaginal scanning performed for improved visualization. Study based on body habitus. The uterus is 11.6 cm length. Heterogeneous and lobular with multiple fibroids, the largest measuring up to 7 x 6 x 8 cm, increased from prior. Multiple calcifications are present within the uterus. Endometrium 9.0 mm thickness. Cervical nabothian cysts are noted. Right ovary: Not visualized. Left ovary 3.8 x 1.8 x 2.5 cm. Normal color Doppler of the left ovary. No free fluid. IMPRESSION: Limited study. Large, lobular heterogeneous uterus with multiple fibroids, the largest has increased in size. This document has been electronically signed by: Colin Bellamy MD on 07/18/2025 09:46:11
--- OUTSIDE RECORDS SUMMARY | 2025-07-17 12:29 | XMS_ITS | Patient Health Record ---
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 Yuniel Grewal III Primary Care Provider [phone] Allergies Allergen (clinical drug ingredient) Drug/Non Drug [...] Ferritin Reviewed date:10/03/2024 06:07:16 AM Interpretation: Performing Lab:[facility], [address] [place] [phone] Notes/Report: Ferritin 13 10-250 ng/mL Lipid Panel Reviewed date:10/03/2024 06:07:16 AM Interpretation: Performing Lab:[address] [address] Notes/Report: Triglycerides 145 <150 mg/dL Desirable Triglyceride: [...] Random Reviewed date:10/03/2024 06:07:16 AM Interpretation: Performing Lab:[address] [address] Notes/Report: Creatinine Urine 125.44 Microalbumin Urine 19.0 Microalbum/Creatinine Ratio Ur 15.1 <30 ug/mg cr Albumin/Creatinine Ratio Reference Ranges: Normal: < 30 ug/mg creatinine Microalbuminuria: 30 - 300 ug/mg creatinine Clinical Albuminuria: > 300 ug/mg creatinine Hemoglobin A1c Reviewed date:10/03/2024 06:07:16 AM Interpretation: Performing Lab:[facility], [address] [place] [phone] Notes/Report: Hemoglobin A1c % 6.8 <6.0 % [...] average glucose, using the formula of the J2K-Prwtebk Average Glucose study (ADAG), Diabetes Care, Vol.31,#8, May. 2007 XR cervical spine 4V Reviewed date:10/03/2024 06:07:16 AM Interpretation: Performing Lab: Notes/Report: [address] [address] XRay Report Signed Patient: Alina Adamson MR#: [id number] 7 : 1975 Acct:[id number] Age/Sex: 49 / F ADM Date: 09/16/24 Loc: [facility] Attending Dr: Yuniel Grewal MD Ordering Physician: Yuniel Grewal MD Date of Service: 09/16/24 Procedure(s): XR cervical spine 4V Accession Number(s): [id number] cc: Yuniel Grewal MD EXAMINATION: XR CERVICAL [...] signed by Elda Warren MD in OV> 09/16/242 DD/ 1650 TD/TT: 09/16/24 1700 Alternative Dispute Resolution Mediator: [place] [id number] XRay Report Signed Patient: Opal Adamson MR#: [id number] 7 : 1975 Acct:[id number] Age/Sex: 49 / F ADM Date: 09/16/24 Loc: HO.XRAY Attending Dr: Yuniel Grewal MD Ordering Physician: Yuniel Grewal MD Date of Service: 09/16/24 Procedure(s): XR cervical spine 4V Accession Number(s): [id number] cc: Yuniel Grewal MD EXAMINATION: XR CERVICAL [...] OV> 09/16/242041 DD/ 49 TD/TT: 09/16/24 170 Alternative Dispute Resolution Mediator: NIKHIL Complete Blood Count Auto Di ff Reviewed date:10/03/2024 06:07:16 AM Interpretation: Performing Lab:[facility], [address] [place] [phone] Notes/Report: White Blood Count 10.4 4.8-10.8 X10*3/uL [...] NRBC Abs Auto 0.000 0.0-0.012 X10*3/uL Comprehensive [place]. Panel [facility] Reviewed date:10/03/2024 06:07:16 AM Interpretation: Performing Lab:[facility], [address] [place] [phone] Notes/Report: Sodium 139 135-145 mmol/L Potassium 4.6 [...] PCR Reviewed date:10/22/2024 08:56:59 PM Interpretation: Performing Lab:[facility], [address] [place] [phone] Notes/Report: Vaginal CT PCR NOT DETECTED Not [...] Diff Reviewed date:10/22/2024 08:56:59 PM Interpretation: Performing Lab:[facility], [address] [place] [phone] Notes/Report: White Blood Count 10.0 4.8-10.8 X10*3/uL [...] Thyroxine) Reviewed date:10/22/2024 08:56:59 PM Interpretation: Performing Lab:[facility], [address] [place] [phone] Notes/Report: Free T4 (Free Thyroxine) 1.12 0.71-1.85 ng/dL TSH reflex Free T4 Reviewed date:10/22/2024 08:56:59 PM Interpretation: Performing Lab:[facility], [address] [place] [phone] Notes/Report: TSH reflex Free T4 5.85 0.32-4.0 uIU/mL Follicle Stimulating Hormone Reviewed date:10/23/2024 09:33:47 AM Interpretation: Performing Lab:[address] [address] Notes/Report: Follicle Stimulating Hormone 3.3 Reference Range Follicular Phase 2.5-10.2 Mid-cycle Peak 3.1-17.7 Luteal Phase 1.5- 9.1 Postmenopausal 23.0-116.3 THIS TEST WAS PERFORMED AT: [facility] [address] [place] [phone] SHOBHA LYONS MD Lutenizing Hormone Reviewed date:10/23/2024 09:33:47 AM Interpretation: Performing Lab:[address] [address] Notes/Report: Lutenizing Hormone 3.1 Reference Range Follicular Phase 1.9-12.5 Mid-Cycle Peak 8.7-76.3 Luteal Phase 0.5-16.9 Postmenopausal 10.0-54.7 THIS TEST WAS PERFORMED AT: [facility] [address] [place] [phone] SHOBHA LYONS MD HCG Quantitative Reviewed date:10/22/2024 08:56:59 PM Interpretation: Performing Lab:[address] [address] Notes/Report: HCG Quantitative < 2 Weeks post [...] date:11/06/2024 05:22:59 PM Interpretation: Performing Lab: Notes/Report: [address] [address] Ultrasound Report Signed Patient: Alina Adamson MR#: [id number] 7 : 1975 Acct:[id number] Age/Sex: 49 / F ADM Date: 10/31/24 Loc: HO.US Attending Dr: Dwain Yusuf MD Ordering Physician: Dwain Yusuf MD Date of Service: 10/31/24 Procedure(s): US pelvic and transvaginal Accession Number(s): [id number] cc: Yuniel Grewal MD; Dwain Yusuf MD [...] MD 10/31/2024 04:10 PM [facility] Dictated By: Los Arciniega MD Signed By: <Electronically signed by Los Arciniega MD in OV> 10/31/24 1610 DD/ 1505 TD/TT: 10/31/24 1525 Alternative Dispute Resolution Mediator: [address] [address] Ultrasound Report Signed Patient: Opal Adamson MR#: [id number] 7 : 1975 Acct:[id number] Age/Sex: 49 / F ADM Date: 10/31/24 Loc: HO.US Attending Dr: Dwain Yusuf MD Ordering Physician: Dwain Yusuf MD Date of Service: 10/31/24 Procedure(s): US pel caitlin and transvaginal Accession Number(s): [id number] cc: Yuniel Grewal MD; Dwain Yusuf MD [...] MD 10/31/2024 04:10 PM [facility] Dictated By: Mr ana Arciniega MD Signed By: <Electronically signed by Los Arciniega MD in OV> 10/31/24 1610 DD/ 1505 TD/TT: 10/31/24 1525 Alternative Dispute Resolution Mediator: [facility] Pathology Reviewed date:12/17/2024 09:22:21 AM Interpretation: Performing Lab:[facility], [address] [place] [phone] Notes/Report: ---- Name: Alina Adamson Age/Sex: 49/F : 1975 Unit#: [id number] Attend Dr: Dwain Yusuf MD Re12/05/24 Status : [facility] REF Location: [facility] Disch: ---- SPEC : [id number] RECD: 12/06/24 STATUS: VANDANA COFFMAN NUM: [id number] ANAYELI: 12/05/24-1552 [facility] DR: Dwain Yusuf MD ENTERED: 12/06/24- 10 SP TYPE: Surgical OTHR DR: Yuniel Grewal [...] CEDS Copies To: Yuniel Grewal MD [address], [address] [place] [address] Dwain Yusuf MD [facility] Women's Services [address] [place] [address] ---- Signed (signature on file) Naty Calderon 12/07/24 1225 ---- END OF REPORT Ur Preg Test Reviewed date:12/27/2024 01:40:02 PM Interpretation: Performing Lab:[facility], [address] [place] [phone] Notes/Report: Urine NEGATIVE NEGATIVE This test was developed to detect early . False negative results may occur after the 5th - 7th week of when using this test method. If clinically indicated, consider a serum hCG. Glucose, Whole Blood Reviewed date:12/28/2024 08:45:09 PM Interpretation: Performing Lab:[facility], [address] [place] [phone] Notes/Report: Glucose, Whole Blood 161 60-115 mg/dL METER # : [id number] Pathology Reviewed date:01/21/2025 04:53:46 AM Interpretation: Performing Lab:[facility], [address] [place] [phone] Notes/Report: ---- Name: Alina Adamson Age/Sex: 49/F : 1975 Unit#: [id number] Attend Dr: Dwain Yusuf MD Re12/27/24 Status : [facility] Location: [facility] Disch: ---- SPEC : [id number] RECD : 12/28/2445 STATUS: VANDANA COFFMAN NUM: [id number] ANAYELI: 12/27/24-1456 [facility] DR: Dwain Yusuf MD ENTERED: 12/28/24- 55 SP TYPE: Surgical OTHR DR: Yuniel Grewal MD ORDERED: HE Stain/3, Gross Micro L4/2 Diagnosis A. Endometrium, curettage: Benign dyssynchronous endometrium with proliferative and secretory glands, fo diana stromal collapse, and fragments of benign endometrial polyp, and benign endocervical glandular and squamous epithelium; no atypia or carcinoma. B. Endometrial polyp , resection: Benign mixed endometrial and endocervical polyp; no atypia or carcinoma. Clinical History Abnormal bleeding, endometrial polyp Microscopic Description Microscopic sections reviewed. Material Received A. [facility] B. Endometrial polyp Gross Description Received in two parts. Part A: Received in formalin labeled ?EMC on blood-stained Telfa are multiple fragments of hopkins-brown congested and hemorrhagic tissue with scant maroon-brown blood aggregating 3.0 x 2.5 x 0.5-0.8 cm, submitted in toto in cassettes A1 and A2. Part B: Received in formalin labeled ?endometrial polyp? in a white cotton mesh suction sock device are mult iple rubbery, hopkins-white irregular shards of tissue ranging from 0.3-0.9 cm and aggregating 1 .5 x 1.2 x 0.35 cm, submitted in toto in a cassette labeled B. CEDS Copies To: Yuniel Grewal MD [address] [place] [address], [address] [place], [place] [id number] CONTINUED ON NEXT PAGE ---- Name: Alina Adamson Age/Sex: 49/F : 1975 Unit#: [id number] Attend Dr: Dwain Yusuf MD Re12/27/24 Status : [facility] Location: [facility] Disch: ---- SPEC : [id number] RECD : 12/28/24 STATUS: VANDANA AUGUSTUS NUM: [id number] ANAYELI: 12/27/24 [facility] DR: Dwain Yusuf MD ENTERED: 12/28/24 55 SP TYPE: Surgical OTHR DR: Yuniel Grewal MD ORDERED: HE Stain/3, Gross Micro L4/2 Copies To: (Continued) Dwain Yusuf MD [facility] Women's Services [address] [facility] [address] [place], [place] [id number] ---- Signed (signature on file) Naty Calderon 12/29/24 1440 ---- END OF REPORT Complete Blood Count Auto Di ff Reviewed date:04/14/2025 07:19:13 PM Interpretation: Performing Lab:[facility], [address] [place] [phone] Notes/Report: White Blood Count 11.6 4.8-10.8 X10*3/uL Red Blood Count 4.84 4.20-5.50 X10*6/uL Hemoglobin 14.3 12.0-16.0 g/dl Hematocrit 42.1 37.0-47.0 % Mean Corpuscular Volume 87.0 80.0-98.0 fL Mean Corpuscular Hemoglobin 29.5 27.0-33.0 pg Mean Corpuscular HGB Conc 34.0 31.0-35.0 g/dl Red Cell Distribution Width 13.0 11.0-16.0 % Platelet Count 273 160-400 X10*3/uL Mean Platelet Volume 11.3 9.4-12.3 fL Neutrophils Percent Auto 58.5 45-73 % Imm Gran Pct Auto 0.6 0.0-0.4 % Lymphocytes Percent Auto 33.6 20-40 % Monocytes Percent Auto 5.1 2-11 % Eosinophils Percent Auto 1.6 0-4 % Basophils Percent Auto 0.6 0-2 % NRBC Pct Auto 0.0 0.0-0.2 /100WBC Neutrophils Absolute Auto 6.8 2.0-8.3 x10*3/uL Imm Gran Abs Auto 0.07 0.00-0.03 X10*3/uL Lymphocytes Absolute Auto 3.9 1.2-4.9 X10*3/uL Monocytes Absolute Auto 0.6 0.1-1.2 X10*3/uL Eosinophils Absolute Auto 0.2 0.0-0.4 X10*3/uL Basophils Absolute Auto 0.1 0.0-0.2 X10*3/uL NRBC Abs Auto 0.000 0.0-0.012 X10*3/uL Comprehensive [place]. Panel Fa st Reviewed date:04/14/2025 07:19:13 PM Interpretation: Performing Lab:[facility], [address] [place] [phone] Notes/Report: Sodium 136 135-145 mmol/L Potassium 4.2 3.3-5.1 mmol/L Chloride 103 96-108 mmol/L Carbon Dioxide 24 22-29 mmol/L Anion Gap 13 12-20 Blood Urea Nitrogen 22 9-16 mg/dL Creatinine 0.68 0.5-1.4 mg/dL Estimated Glomerular Filt Rate > 60 Chronic Kidney Disease: Estimated GFR < 60 mL/min/1.73m2 Severe Kidney Disease: Estimated GFR < 15 mL/min/1.73m2 Glucose Fasting 299 60-99 mg/dL A fasting glucose of 126 mg/dl or greater on more than one occasion is considered diagnostic of diabetes. Calcium 9.4 8.4-10.2 mg/dL Bilirubin Total 0.8 0.0-1.0 mg/dL Aspartate Amino Transferase 17 5-31 U/L Alanine Aminotransferase 14 0-31 U/L Total Protein 7.8 6.5-8.0 g/dL Albumin Level 4.1 3.5-5.0 g/dL Alkaline Phosphatase 86 39-117 U/L Lipid Panel Reviewed date:04/14/2025 07:19:13 PM Interpretation: Performing Lab:[facility], [address] [place] [phone] Notes/Report: Triglycerides 237 <150 mg/dL Desirable Triglyceride: less than 150 mg/dL Borderline High Triglyceride 150-199 mg/dL High Triglyceride: 200-499 mg/dL Very High Triglyceride: greater than or equal to 5OO mg/dL Cholesterol 243 <200 mg/dL Desirable Cholesterol: less than 200 mg/dL Borderline High Cholesterol: 200-239 mg/dL High Cholesterol: greater than 239 mg/dL LDL Cholesterol Calculated 152 <100 mg/dL Desirable LDL: less than 100 mg/dL Near Optimal/Above Optimal LDL: 110-129 mg/dL Borderline High LDL: 130-159 mg/dL High LDL: 160-189 mg/dL Very High LDL: greater than or equal to 190 mg/dL HDL Cholesterol 44 >40 mg/dL Desirable HDL: greater than 40 mg/dL Note: This HDL assay may give artificially low results in patients with liver disease. Microalbumin, Random Reviewed date:04/14/2025 07:19:14 PM Interpretation: Performing Lab:[address] [address] Notes/Report: Creatinine Urine 121.51 Microalbumin Urine 42.0 Microalbum/Creatinine Ratio Ur 34.5 <30 ug/mg cr Albumin/Creatinine Ratio Reference Ranges: Normal: < 30 ug/mg creatinine Microalbuminuria: 30 - 300 ug/mg creatinine Clinical Albuminuria: > 300 ug/mg creatinine Hemoglobin A1c Reviewed date:04/14/2025 07:19:14 PM Interpretation: Performing Lab:[address] [address] Notes/Report: Hemoglobin A1c % 10.1 <6.0 % Hemoglobin A1C Reference Range Adults: 4.8 - 6.0 % Non diabetic: < 6.0 % Goal: < 7.0 % Additional Action Suggested: > 8.0 % Note: Hemoglobin A1c results are invalid for patients with abnormal amounts of HbF. Blood transfusions may impact the HbA1c concentration in the patient sample. Estimated Average Glucose 243 eAG = Estimated average glucose which is %A1C expressed as average glucose, using the formula of the U2Z-Ozbmyew Average Glucose study (ADAG), Diabetes Care, Vol.31,#8, 2007 Reason For Referral Reason Evaluate and Treat Screen for Colon Cancer Diagnosis 1 Screen for colon can cer (Z12.11) Referral Organization Yuniel Grewal III, MD Referring Provider First Name Yuniel Referring Provider Last Name Uri Referring Provider Speciality Internal M edicine Referred Provider LENORE VELARDE Referred Provider Specialty Gastroentero logy General Notes Katie Bea 09/19/2024 11:48:46 AM > Referral and progress note faxed. Referral Priority Routine Referral Appointment Date 01/31/2025 Medications Medication SIG (Take, Route, Frequency, Duration) Notes Start Date End Date Status Levothyroxine Sodium 137 MCG TAKE 1 TABLET BY MOUTH EVERY DAY Orally Once a day Active Pen [place] 31G X 6 MM as directed Twice [...] blood sugars twice a day 05/05/2023 Active NovoLOG Mix 70/30 FlexPen (70-30) 100 UNIT/ML 25 units in the morning, 20 units in the evening Subcutaneous twice a day for 30 days E11.9 Diabetes Active Accu-Chek Viktoria Plus w/Device as directed [...] and 20 units in evening 06/02/2024 Active SUMAtriptan Succinate 50 MG 1 tablet if needed, may take second dose at least 2 hours after first dose up to 4 tablets per day Orally Once a day for 30 days 04/12/2025 Active metFORMIN HCl 500 MG 1 tablet with a oliverio l Orally twice a day 01/15/2024 Active Trulicity 1.5 MG/0.5ML like directed Subcutaneous weekly 03/22/2025 Active Atorvastatin Calcium 10 MG 1 tablet Orally Once a day 03/22/2025 Active Lancets 30G - use to check blood sugars twice a day for 90 days DX: Diabetes E11.9 Patient has an accu chek glucometer needs lancets that you have filled for her before Active Immunizations Vaccine Route Administration Date Status Comme nts COVID PFIZER Unknown 01/08/2023 Administered COVID PFIZER Unknown 06/07/2021 Administered Flu-IIv4 Unknown 01/07/2024 Administered Hepatitis B (20 and more) Unknown 01/13/2024 Administer ed Comirnatfredrick Pfizer COVID-19 12+ Unknown 10/08/2023 Admini stered [...] Problem Status W/U Status Risk Notes Problem 0926845 Former smoker (Z87.891) Active confirmed She has a plan to prevent relapse in times of stress and illness. Problem Asthma (907749895) Asthma (J45.909) Active confirmed She has a history of intermittent asthma. No wheezes or her today. She has a rescue inhaler if necessary. Problem Anemia (063322184) Anemia (D64.9) Active confirmed Her hemat ocrit is slightly low and normochromic normocytic. The white blood cell count is slightly low when the platelets are normal. She denies any bleeding. This will be observed carefully before and after her upcoming uterine surgery. Problem Type II diabetes mellitus without complication (152903940) Diabetes (E11.9) Active confirmed Her A1c is 10.1. The previous A1c was 6.8. This will be repeated. Her medications were reviewed they will be adjusted if necessary.Curre nt therapy was continued. We made a plan to lose weight at a rate of one half of a pound per week.Her NovoLog as been increased. She says she is no longer taking trulicity. Comprehensive blood work with a hemoglobin A1c has bbbeen ordered. Problem Hypertension (92752148) HTN (hypertension) (I10) Active confirmed Her blood pressure is currently stable and no change in her regimen was made. I strongly recommended aggressive weight loss and sodium restriction. Problem Hypothyroid (27572170) Hypothyroid (E03.9) Active confirmed The free T4 is normal and the TSH is slightly elevated. She appears to be euthyroid. No change was necessary in her medication.Afte r the upcoming surgery she will have an increase in the dose of her levothyroxine. Problem 318121496 Atypical chest pain (R07.89) Active confirmed She is on aspirin. 4. Atypical chest pain from a previous provider. She believes her chest discomfort is caused by stress. If necessary, a stress test can be done. Problem 429317785 Herpes zoster without complication (B02.9) Active confirmed She had an episode of shingles in February of this year. She was treated with prednisone and valacyclovir. It has resolved. Problem 150039022 Morbid obesity (E66.01) Active confirmed Her body mass index is stablle at 40. We have discussed weight loss strategies at length. Her weight will be followed carefully and she will continue the trulicity. Problem 824130133 Low back pain, unspecified (M54.50) Active confirmed She continues to have intermittent mild low back pain. No change in her regimen was needed. Images have been obtained. Vital Signs Heart Rate 85 /min 04/12/2025 Temperature 98.1 degrees Fahrenheit 04/12/2025 Blood pressure diastolic 80 mm Hg 04/12/2025 Height 59 in 04/12/2025 Blood pressure systolic 140 mm Hg 04/12/2025 Weight 200 lbs 04/12/2025 BMI 40.39 kg/m2 04/12/2025 Encounters Encounter Location Date Provider Diagnosis Yuniel Grewal III, MD [address] [place] [address] [place] [address] 09/16/2024 Yuniel Grewal Diabetes E11.9 ; Morbid obesity E66.01 ; HTN (hypertension) I10 ; Anemia D64.9 ; Neck pain M54.2 ; Hypothyroid E03.9 ; Asthma J45.909 and Former smoker Z87.891 Yuniel Grewal III, MD [address] [place] [address] [place] [address] 12/09/2024 Yuniel Grewal Anemia D64.9 ; Morbi d obesity E66.01 ; Diabetes E11.9 ; Hypothyroid E03.9 ; HTN (hypertension) I10 ; Low back pain, unspecified M54.50 and Former smoker Z87.891 Yuniel Grewal III, MD [address] [place] [address] [address] [place] [address] 03/22/2025 Yuniel Grewal Diabetes E11.9 ; Former smoker Z87.891 ; Hypothyroid E03.9 ; HTN (hypertension) I10 ; Asthma J45.909 ; Morbid obesity E66.01 and Low back pain, unspecified M54.50 Yuniel Grewal III, MD [address] [place] [address] [address] [place] [address] 04/12/2025 Yuniel Grewal Diabetes E11.9 ; HTN [...] and she will continue the trulicity. 03/22/2025 Former smoker (ICD-10 - Z87.891) She has a plan to prevent relapse in times of stress and illness. 03/22/2025 Diabetes (ICD-10 - E11.9) Her A1c is 6.8. Current therapy was continued. We made a plan to lose weight at a rate of one half of a pound per week.Her NovoLog as been increased. She says she is no longer taking trulicity. Comprehensive blood work with a hemoglobin A1c has bbbeen ordered. 04/12/2025 Diabetes (ICD-10 - E11.9) Her A1c [...] aggressive weight loss and sodium restriction. 09/16/2024 HTN (hypertension) (ICD-10 - I10) Her blood pressure is currently stable and no change in her regimen was made. I strongly recommended aggressive weight loss and sodium restriction. 12/09/2024 Diabetes (ICD-10 - E11.9) Her A1c is 6.8. Current therapy was continued. We made a plan to lose weight at a rate of one half of a pound per week. 03/22/2025 Hypothyroid (ICD-10 - E03.9) The free T4 is normal and the TSH is slightly elevated. She appears to be euthyroid. No change was necessary in her medication.After the upcoming surgery she will have an increase in the dose of her levothyroxine. 04/12/2025 Atypical chest pain (ICD-10 - R07.89) She is on aspirin. 4. Atypical chest pain from a previous provider. She believes her chest discomfort is caused by stress. If necessary, a stress test can be done. 09/16/2024 Anemia (ICD-10 - D64.9) This will [...] aggressive weight loss and sodium restriction. 04/12/2025 Morbid obesity (ICD-10 - E66.01) Her body mass index is stablle at 40. We have discussed weight loss strategies at length. Her weight will be followed carefully and she will continue the trulicity. 09/16/2024 Neck pain (ICD-10 - M54.2) The [...] She has a rescue inhaler if necessary. 04/12/2025 Low back pain, unspecified (ICD-10 - M54.50) She continues to have intermittent mild low back pain. No change in her regimen was needed. Images have been obtained. 09/16/2024 Hypothyroid (ICD-10 - E03.9) Her thyroid function tests are normal. She appears to be euthyroid. No change was necessary in her medication. 12/09/2024 Low back pain, unspecified (ICD-10 - M54.50) She continues to have intermittent mild low back pain. No change in her regimen was needed. Images have been obtained. 03/22/2025 Morbid obesity (ICD-10 - E66.01) Her body mass index is stablle at 40. We have discussed weight loss strategies at length. Her weight will be followed carefully and she will continue the trulicity. 04/12/2025 Former smoker (ICD-10 - Z87.891) She has a plan to prevent relapse in times of stress and illness. 09/16/2024 Asthma (ICD-10 - J45.909) She has a history of intermittent asthma. No wheezes or her today. She has a rescue inhaler if necessary. 12/09/2024 Former smoker (ICD-10 - Z87.891) She has a plan to prevent relapse in times of stress and illness. 03/22/2025 Low back pain, unspecified (ICD-10 - M54.50) She continues to have intermittent mild low back pain. No change in her regimen was needed. Images have been obtained. 09/16/2024 Former smoker (ICD-10 - Z87.891) She has a plan to prevent relapse in times of stress and illness. Plan Of Treatment Pending Test Test Name Order Date PROFILE, FASTING (COMPREHENSIVE METABOLI C) 09/25/2023 PROFILE, FASTING (COMPREHENSIVE METABOLI C) 05/05/2024 PROFILE, FASTING (COMPREHENSIVE METABOLI C) 05/04/2023 PROFILE, FASTING (COMPREHENSIVE METABOLI C) 01/26/2024 PROFILE, FASTING (COMPREHENSIVE METABOLI C) 09/16/2024 PROFILE, FASTING (COMPREHENSIVE METABOLI C) 04/08/2024 PROFILE, FASTING (COMPREHENSIVE METABOLI C) 12/09/2024 PROFILE, FASTING (COMPREHENSIVE METABOLI C) 05/25/2023 HEMOGLOBIN A1C (GLYCOHEMOGLOBIN) 023 MAGNESIUM 05/04/2023 LIPID PANEL 05/25/2023 LIPID PANEL 05/04/2023 FREE T4 (FT4) 05/25/2023 FREE T4 (FT4) 04/08/2024 FREE T4 (FT4) 05/04/2023 TSH (THYROID STIMULATING HORMONE) 2023 TSH (THYROID [...] 09/16/2024 Ferritin 04/08/2024 Ferritin 05/05/2024 Lipid Panel 12/09/2024 Lipid Panel 09/25/2023 Lipid Panel 04/08/2024 Lipid Panel 05/05/2024 Free T4 (Free Thyroxine) 05/05/2024 Free T4 (Free Thyroxine) 09/25/2023 Microalbumin, Random 12/09/2024 Microalbumin, Random 09/25/2023 Hemoglobin A1c 04/08/2024 Hemoglobin A1c 09/25/2023 Hemoglobin A1c 05/05/2024 Hemoglobin A1c 12/09/2024 Next Appt Details Provider Name:Yuniel Grewal , 09/18/2025 03:30:00 PM, [address] [place] [address] [place], [place], [id number], Insurance Providers Payer Name Payer Address Payer Phone Subscriber Number Group Number Insured Name Patient Relationship to Insured Coverage Start Date Coverage End Date [facility] [address] [facility] [address] [facility] [place] [phone] [id number] Juan Diego Alina Self - patient is the insured Medical (General) History Medical History History ICD Code Hypothyroid E03.9 HTN (hypertension) I10 Anemia D64.9 Asthma J45.909 [id number] chronic lumbar back pain Adult onset diabetes mellitus Shingles February 2023. Left flank Atypical chest pain Family history of breast cancer, sister Former smoker Morbid obesity Acute cholecystitis May 22, 2024 The patient had her gallblad sergey removed in the past. She is managing her blood sugar levels with medication and is taking thyroid medication. Diabetes, High Blood Pressure Surgical History Surgery Date(Month/Year) Myomectomy 2024 Laparoscopic cholecystectomy [facility] Dr. Betts [id number] 1999 Hospitalization History Reason Date(Month/Year) No history Hospitalization for Cholecystectomy
== END 2025-07-17 10:32 | disposition home or self-care (01) ==
LOC: HO.US 10:31
PROVIDERS: PCP Internal Medicine Medical Oncology; Visit Provider Obstetrics & Gynecology
DX: D25.9 Leiomyoma of uterus, unspecified (principal)
CPT/HCPCS: 76830; 76856

== ENCOUNTER → 2025-07-17 10:35 | Outpatient (BNV) | payer OTHER, SELFPAY | PROVIDERS: PCP Internal Medicine Medical Oncology; Visit Provider Radiology Vascular & Interventional Radiology | DX: D25.9 Leiomyoma of uterus, unspecified (principal); N85.2 Hypertrophy of uterus | CPT/HCPCS: 76830; 76856 ==

== ENCOUNTER 2025-08-02 10:19 | Outpatient (AMB) | payer OTHER, SELFPAY ==
--- OUTSIDE RECORDS SUMMARY | 2024-05-27 05:00 | XMS_ITS ---
Author Organization Yuniel Grewal III, MD Address [address] [place] [address] Care Team Providers Care Operations Research Engineer Name Role Phone Dr. Yuniel Grewal III Primary Care Provider Allergies Allergen (clinical drug ingredient) Drug/Non Drug [...] ONCE A WEEK 28 DAYS Active Pen [place] 31G X 6 MM as directed Twice [...] Date Provider Diagnosis Yuniel Grewal III, MD [address] [place] [address] [place] [address] 05/27/2024 Yuniel Grewal Acute cholecystitis K81.0 ; [...] she went to the emergency room at [facility] May 22, 2024 and the next day [...] SUBCUTANEOUS ONCE A WEEK 28 DAYS Pen [place] 31G X 6 MM as directed Twice [...] Provider Name:Yuniel Grewal , 09/18/2025 03:30:00 PM, [address] [place], [place] [address], [place], [address], Progress Notes * Alina ALVAREZDOB:1975 (49 yo F)Acc No.[id number]:05/27/2024 Patient: Alina Porter Provider: Mary Grewal MD :1975 A ge:49 Y S ex:Female Date:05/27/2024 Address:[address] [place] [address] [id number] Subjective: * Chief Complaints: * A cute cholecystitisLaparoscopic cholecystectomy May 23iabetesHypothyroidHypertensionLow back painMorbid obesity * HPI: C OVID-19 Screening: On May 22, 2024 she presented to the emergency room at [facility] with abdominal pain. On May 24, 2024 [...] Medical History: * Surgical History: C -Section [id number] Laparoscopic cholecystectomy [facility] Dr. Betts * Hospitalization/Major Diagno stic Procedure: [...] to check blood sugars twice a dayPen [place] 31G X 6 MM Miscellaneous as directed [...] check blood sugars twice a dayTaking Pen [place] 31G X 6 MM Miscellaneous as directed [...] she went to the emergency room at [facility] May 22, 2024 and the next day [...] * Treatment: * Procedure Codes: 9 9496 [facility] MGMT 7 DAY DISCH * Preventive Medicine: [...] 0 05/27/2024 Generated for Josy shine/Mirtha/Reggieitting on: 1 12:45 PM EDT History and Physical Notes * HPI (History [...]
--- OUTSIDE RECORDS SUMMARY | 2024-06-02 07:41 | XMS_ITS ---
Author Organization Yuniel Grewal III, MD Address [address] [place] [address] [address] [place] [address] Care Team Providers Care Courtesy Driver Name Role Phone Dr. Yuniel Grewal III [...] Date Provider Diagnosis Yuniel Grewal III, MD [address] [place] [address] [place] [address] 06/02/2024 Yuniel Grewal Plan Of Treatment Medication Medication Name Sig Start Date Stop Date Notes BD Pen Needle Micro U/F 32G X 6 MM as directed - use to inject 25 unit in morning and 20 units in evening for 30 days 06/02/2024 Next Appt Details Provider Name:Yuniel Grewal , 09/18/2025 03:30:00 PM, [address] [place] [address] [place], [address], Progress Notes * Alina ALVAREZDOB:1975 (49 yo F)Acc No.[id number]:06/02/2024 Patient: Alina Porter :1975 A ge:49 Y S ex:Female Address:[address] [facility] [place] [address] * Refills Start BD Pen Needle Micro U/F Miscellaneous, 32G X 6 MM, -, 60, as directed, use to inject 25 unit in morning and 20 units in evening, 30 days, Refills=11 * true * Date: Generated for Josy shine/Mirtha/Beena on: 1 12:46 PM EDT
--- OUTSIDE RECORDS SUMMARY | 2024-06-10 14:30 | XMS_ITS ---
Author Organization Yuniel Grewal III, MD Address [address] [address] Care Team Providers Care Sketch Liner Name Role Phone Dr. Yuniel Grewal III Primary Care Provider [phone] Allergies Allergen (clinical drug ingredient) Drug/Non Drug [...] ONCE A WEEK 28 DAYS Active Pen [place] 31G X 6 MM as directed Twice [...] Date Provider Diagnosis Yuniel Grewal III, MD [address] [place] [address] [place] [address] 06/10/2024 Yuniel Grewal Acute cholecystitis K81.0 Assessments Encounter Date Diagnosis (ICD Code) Assessment Notes Treat ment Notes Treatment Clinical Notes 06/10/2024 Acute cholecystitis (ICD-10 - K81.0) After a few days of abdominal pain she went to the emergency room at [facility] May 22, 2024 and the next day [...] SUBCUTANEOUS ONCE A WEEK 28 DAYS Pen [place] 31G X 6 MM as directed Twice [...] Provider Name:Yuniel Grewal , 09/18/2025 03:30:00 PM, [address] [place] [address] DR, [place] [address], [place], [address], Progress Notes * Alina ALVAREZDOB:1975 (50 yo F)Acc No.[id number]:06/10/2024 Progress Notes Patient: Alina BAZAN Provider: Mary Grewal MD :1975 A ge:49 Y S ex:Female Date:06/10/2024 Address:[address] [place], [place] [id number] Subjective: * Chief Complaints: * 1 . [...] History: H ypothyroid, HTN (hypertension), Anemia, Asthma, [id number], Chronic lumbar back pain, Adult onset diabetes mellitus, Shingles February 2023. Left flank, Atypical chest pain, Family history of breast cancer, sister, Former smoker, Morbid obesity, Acute cholecystitis May 22, 2024. * Surgical History: C -Section 1999, [id number] , Laparoscopic cholecystectomy [facility] Dr. Betts . * Hospitalization/Major Diagno stic [...] sugars twice a day , Taking Pen [place] 31G X 6 MM Miscellaneous as directed [...] she went to the emergency room at [facility] May 22, 2024 and the next day [...] Grewal MD Date: 0 06/10/2024 Generated for Shermani ng/Mirtha/eTransmitting on: 12:46 PM EDT History and Physical Notes * HPI (History of Present Illness) Category Sub-Category Detail Notes COVID-19 Screening Questions Have you had any new onset fever, chills, cough, congestion, sore throat, shortness of breath, muscle aches?: No Have you been exposed to the virus withi n the last 10 days?: No Have you travelled internationally in [facility] last 10 days?: No Have you been [...]
--- OUTSIDE RECORDS SUMMARY | 2024-06-17 05:15 | XMS_ITS ---
Author Organization Yuniel Grewal III, MD Address [address] [place] [place] [address] Care Team Providers Care Game Bird Farmer Name Role Phone Dr. Yuniel Grewal III Primary Care Provider [phone] Allergies Allergen (clinical drug ingredient) Drug/Non Drug [...] THE MORNING ON EMPTY STOMACH Active Pen [place] 31G X 6 MM as directed Twice [...] Date Provider Diagnosis Yuniel Grewal III, MD [address] [place] [address] [place] [address] 06/17/2024 Yuniel Grewal Acute cholecystitis K81.0 Assessments Encounter Date Diagnosis (ICD Code) Assessment Notes Treat ment Notes Treatment Clinical Notes 06/17/2024 Acute cholecystitis (ICD-10 - K81.0) After a few days of abdominal pain she went to the emergency room at [facility] May 22, 2024 and the next [...] IN THE MORNING ON EMPTY STOMACH Pen [place] 31G X 6 MM as directed Twice a day 30 days Gauze Pads 3 X3 as directed - use to check blood sugars twice a day 05/05/2023 BD Pen Needle Micro U/F 32G X 6 MM as directed - use to inject 25 unit in morning and 20 units in evening 06/02/2024 Next Appt Details Provider Name:Yuniel Grewal , 09/18/2025 03:30:00 PM, [address] [place] [address] DR, [place] [address], [place], [address], Progress Notes * Alina ALVAREZDOB:1975 (50 yo F)Acc No.[id number]:06/17/2024 Progress Notes Patient: Alina BAZAN Provider: Mary Grewal MD :1975 A ge:49 Y S ex:Female Date:06/17/2024 Address:[address] [place], [place] [phone] Subjective: * Chief Complaints: * 1 . [...] History: H ypothyroid, HTN (hypertension), Anemia, Asthma, [id number], Chronic lumbar back pain, Adult onset diabetes mellitus, Shingles February 2023. Left flank, Atypical chest pain, Family history of breast cancer, sister, Former smoker, Morbid obesity, Acute cholecystitis May 22, 2024. * Surgical History: C -Section 1999, [id number] , Laparoscopic cholecystectomy [facility] Dr. Betts . * Hospitalization/Major Diagno [...] sugars twice a day , Taking Pen [place] 31G X 6 MM Miscellaneous as directed [...] she went to the emergency room at [facility] May 22, 2024 and the next [...] Grewal MD Date: 0 06/17/2024 Generated for Shermani ng/Mirtha/eTransmitting on: 12:46 PM EDT History and Physical Notes * HPI (History of Present Illness) Category Sub-Category Detail Notes COVID-19 Screening Questions Have you had any new onset fever, chills, cough, congestion, sore throat, shortness of breath, muscle aches?: No Have you been exposed to the virus withi n the last 10 days?: No Have you travelled internationally in [facility] last 10 days?: No Have [...]
--- OUTSIDE RECORDS SUMMARY | 2024-09-16 12:00 | XMS_ITS ---
Author Organization Yuniel Grewal III, MD Address [address] [place] [address] Care Team Providers Care Self Propelled Hot Mix Roller Operator Name Role Phone Dr. Yuniel Grewal III Primary Care Provider [phone] Allergies Allergen (clinical drug ingredient) Drug/Non Drug [...] Ferritin Reviewed date:10/03/2024 06:07:16 AM Interpretation: Performing Lab:[facility], [address] [place] [id number] Notes/Report: Ferritin 13 10-250 ng/mL Lipid Panel Reviewed date:10/03/2024 06:07:16 AM Interpretation: Performing Lab:[address] [address] Notes/Report: Triglycerides 145 <150 mg/dL Desirable Triglyceride: [...] Random Reviewed date:10/03/2024 06:07:16 AM Interpretation: Performing Lab:[address] [address] Notes/Report: Creatinine Urine 125.44 Microalbumin Urine 19.0 Microalbum/Creatinine Ratio Ur 15.1 <30 ug/mg cr Albumin/Creatinine Ratio Reference Ranges: Normal: < 30 ug/mg creatinine Microalbuminuria: 30 - 300 ug/mg creatinine Clinical Albuminuria: > 300 ug/mg creatinine Hemoglobin A1c Reviewed date:10/03/2024 06:07:16 AM Interpretation: Performing Lab:[address] [address] Notes/Report: Hemoglobin A1c % 6.8 <6.0 % [...] average glucose, using the formula of the A3G-Xuvpnyh Average Glucose study (ADAG), Diabetes Care, Vol.31,#8, May. 2007 XR cervical spine 4V Reviewed date:10/03/2024 06:07:16 AM Interpretation: Performing Lab: Notes/Report: [address] [address] XRay Report Signed Patient: Alina Alvarez MR#: [id number] 7 : 1975 Acct:[id number] Age/Sex: 49 / F ADM Date: 09/16/24 Loc: HO.XRAY Attending Dr: Yuniel Grewal MD Ordering Physician: Yuniel Grewal MD Date of Service: 09/16/24 Procedure(s): XR cervical spine 4V Accession Number(s): [id number] cc: Yuniel Grewal MD EXAMINATION: XR CERVICAL [...] OV> 09/16/242041 DD/ 1650 TD/TT: 09/16/24 [employer] [place] [address] XRay Report Signed Patient: Opal Alvarez MR#: [id number] 7 : 1975 Acct:[id number] Age/Sex: 49 / F ADM Date: 09/16/24 Loc: HO.PJ Attending Dr: Yuniel Grewal MD Ordering Physician: Yuniel Grewal MD Date of Service: 09/16/24 Procedure(s): XR cervical spine 4V Accession Number(s): [id number] cc: Yuniel Grewal MD EXAMINATION: XR CERVICAL [...] OV> 09/16/242041 DD/ 49 TD/TT: 09/16/24 1700 [employer]: [employer] Reason For Referral Reason Evaluate and [...] sugars twice a day 05/05/2023 Active Pen [place] 31G X 6 MM as directed Twice [...] Date Provider Diagnosis Yuniel Grewal III, MD [address] [place] [address] [place] [address] 09/16/2024 Yuniel Grewal Diabetes E11.9 ; Morbid [...] blood sugars twice a day 05/05/2023 Pen [place] 31G X 6 MM as directed Twice [...] Provider Name:Yuniel Grewal , 09/18/2025 03:30:00 PM, [address] [place] [address] [address], [place], [address], Progress Notes * Alina ALVAREZDOB:1975 (49 yo F)Acc No.[id number]:09/16/2024 Progress Notes Patient: Alina BAZAN Provider: Mary Grewal MD :1975 A ge:49 Y S ex:Female Date:09/16/2024 Address:[address] [place] [address], [phone] Subjective: * Chief Complaints: * A nnual [...] * Surgical History: C -Section Laparoscopic cholecystectomy [facility] Dr. Betts Gallbladder removal * Hospitalization/Major [...] check blood sugars twice a day Pen [place] 31G X 6 MM Miscellaneous as directed [...] blood sugars twice a day Taking Pen [place] 31G X 6 MM Miscellaneous as directed [...] . BREASTS: N ot examined,Done by the variety performer. ABDOMEN: b owel sounds normal, no ascites, no organomegaly, no mass, morbid obesity. RECTAL EXAM: D one by EDUCATIONAL PROGRAM DIRECTOR. MUSCULOSKELETAL: e xtremities unremarkable, no clubbing, cyanosis [...] sugars twice a day; C ontinue Pen [place] Miscellaneous, 31G X 6 MM, as directed, [...] Grewal MD Date: 11/17/2023 Generated for Shermani ng/Kassandrag/eTransmitting on: 12:45 PM EDT History and Physical Notes [...] PULSES: normal BREASTS: Not examined,Done by the variety performer MUSCULOSKELETAL: extremities unremark able, no clubbing, cyanosis or edema, Mild pain and tingling in her forearms with range of motion of her neck LYMPH NODES: no enlarged lymph no herbert,spleen normal RECTAL EXAM: Done by EDUCATIONAL PROGRAM DIRECTOR PSYCH: alert, oriented ORAL CAVITY: normal, unremarkable Consultation Request Notes Referral Date Referring Provider Referred Provider Not mehul 09/16/2024 Yuniel Grewal RUBEELA Evaluate and Treat Screen for Colon Cancer
--- OUTSIDE RECORDS SUMMARY | 2024-09-30 12:00 | XMS_ITS ---
Author Organization Yuniel Grewal III, MD Address [address] [place] [address] Care Team Providers Care Ux Research Associate Name Role Phone Dr. Yuniel Grewal III [...] ONCE A WEEK 28 DAYS Active Pen Pinnacle 31G X 6 MM as directed Twice [...] Date Provider Diagnosis Yuniel Grewal III, MD [address] [place] [address] [address] [place] [address], [place] [address] 09/30/2024 Yuniel Grewal Plan Of Treatment Medication [...] SUBCUTANEOUS ONCE A WEEK 28 DAYS Pen Pinnacle 31G X 6 MM as directed Twice a day 30 days Alcohol Prep Pad 70 % as directed - to u se to test blood sugars twice a day 05/05/2023 Lancets - as directed - use to check blood sugars twice a day 05/05/2023 Accu-Chek Viktoria Plus w/Device as directe d In Vitro to test blood sugars twice a day 05/05/2023 Accu-Chek Viktroia Plus - as directed In Vi tro [...] Provider Name:Yuniel Grewal , 09/18/2025 03:30:00 PM, [address] [place] [address] [address], [place], [address], Progress Notes * Alina ALVAREZDOB:1975 (50 yo F)Acc No.[id number]:09/30/2024 Progress Notes Patient: Alina BAZAN Provider: Mary Grewal MD :1975 A ge:49 Y S ex:Female Date:09/30/2024 Address:[address] [place], [place] [id number] Subjective: * Chief Complaints: * 1 . [...] History: H ypothyroid, HTN (hypertension), Anemia, Asthma, [id number], Chronic lumbar back pain, Adult onset diabetes mellitus, Shingles February 2023. Left flank, Atypical chest pain, Family history of breast cancer, sister, Former smoker, Morbid obesity, Acute cholecystitis May 22, 2024, The patient had her gallbladder removed in the past. She is managing her blood sugar levels with medication and is taking thyroid medication.. * Surgical History: C -Section 1999, [id number] , Laparoscopic cholecystectomy [facility] Dr. Betts , Gallbladder removal . * [...] MCG/ACT Aerosol Solution Inhalation , Taking Accu-Chek Viktoira Plus w/Device Kit as directed In Vitro [...] sugars twice a day , Taking Pen Pinnacle 31G X 6 MM Miscellaneous as directed [...] Grewal MD Date: 12/01/2023 Generated for Josy shine/Mirtha/Beena on: 12:45 PM EDT History and Physical [...]
--- OUTSIDE RECORDS SUMMARY | 2024-10-14 10:45 | XMS_ITS ---
Author Organization Yuniel Grewal III, MD Address [address] [place] [address] Care Team Providers Care Printed Circuit Boards Laminator Name Role Phone Dr. Yuniel Grewal III Primary Care Provider [phone] Allergies Allergen (clinical drug ingredient) Drug/Non Drug [...] sugars twice a day 05/05/2023 Active Pen [place] 31G X 6 MM as directed [...] Date Provider Diagnosis Yuniel Grewal III, MD [address] [place] [address] DR MCKEON [address] [place] [address], [place] [address] 10/14/2024 Yuniel Grewal Plan Of Treatment Medication [...] blood sugars twice a day 05/05/2023 Pen [place] 31G X 6 MM as directed [...] Provider Name:Yuniel Grewal , 09/18/2025 03:30:00 PM, [address] [place] [address] [address], [place], [address], Progress Notes * Alina ALVAREZDOB:1975 (50 yo F)Acc No.[id number]:10/14/2024 Progress Notes Patient: Alina BAZAN Provider: Mary Grewal MD :1975 A ge:49 Y S ex:Female Date:10/14/2024 Address:[address] [place], [place] [id number] Subjective: * Chief Complaints: * 1 . [...] History: H ypothyroid, HTN (hypertension), Anemia, Asthma, [id number], Chronic lumbar back pain, Adult onset diabetes mellitus, Shingles February 2023. Left flank, Atypical chest pain, Family history of breast cancer, sister, Former smoker, Morbid obesity, Acute cholecystitis May 22, 2024, The patient had her gallbladder removed in the past. She is managing her blood sugar levels with medication and is taking thyroid medication.. * Surgical History: C -Section 1999, [id number] , Laparoscopic cholecystectomy [facility] Dr. Betts , Gallbladder removal . [...] sugars twice a day , Taking Pen [place] 31G X 6 MM Miscellaneous as [...] your next appointment,PLEASE FAX COMPLETED RESULTS TO [phone] * Lab:Complete Blood Count Aut o Diff [...] your next appointment,PLEASE FAX COMPLETED RESULTS TO [phone] * Lab:Microalbumin, Random * Collection Date 09/23/2024 [...] your next appointment,PLEASE FAX COMPLETED RESULTS TO [phone] * Lab:Comprehensive [place]. Jess l Fast * Collection Date 09/23/2024 [...] your next appointment,PLEASE FAX COMPLETED RESULTS TO [phone] ???Lab:URINE DIP STICK (Order Date - 09/16/2024) [...] MD Date: 0 10/14/2024 Generated for Josy shine/Mirtha/eTransmitting on: 12:45 PM EDT History and Physical [...]
--- OUTSIDE RECORDS SUMMARY | 2024-12-09 11:30 | XMS_ITS ---
Author Organization Yuniel Grewal III, MD Address [address] [place] [address] Care Team Providers Care Electrician Research Name Role Phone Dr. Yuniel Grewal III [...] ONCE A WEEK 28 DAYS Active Pen Keystone 31G X 6 MM as directed Twice [...] Date Provider Diagnosis Yuniel Grewal III, MD [address] [place] [address] [place] [address] 12/09/2024 Yuniel Grewal Anemia D64.9 ; Morbi [...] SUBCUTANEOUS ONCE A WEEK 28 DAYS Pen Keystone 31G X 6 MM as directed Twice a day 30 days Pending Test Test Name Order Date PROFILE, FASTING (COMPREHENSIVE METABOLI C) 12/09/2024 CBC WITH AUTO DIFF 12/09/2024 Lipid Panel 12/09/2024 Microalbumin, Random 12/09/2024 Hemoglobin A1c 12/09/2024 Next Appt Details Follow Up: 3 Months, 3 to 3. 5 months, Reason: OV, Annual Checkup Provider Name:Yuniel Grewal , 09/18/2025 03:30:00 PM, [address] [place] [address] [address], [place], [address], Progress Notes * Alina ALVAREZDOB:1975 (49 yo F)Acc No.[id number]:12/09/2024 Progress Notes Patient: Alina BAZAN Provider: Mary Grewal MD :1975 A ge:49 Y S ex:Female Date:12/09/2024 Address:[address] [place], [place] [id number] Subjective: * Chief Complaints: * D iabetesLarge [...] is causing pelvic pain. She saw her coronary clinical specialist who is planning a surgical procedure in [...] [facility] Dr. Betts Gallbladder removal No history [...] check blood sugars twice a day Pen Keystone 31G X 6 MM Miscellaneous as directed [...] blood sugars twice a day Taking Pen Keystone 31G X 6 MM Miscellaneous as directed [...] your next appointment,PLEASE FAX COMPLETED RESULTS TO [phone] * Lab:Tamir MerchantArabella george Fast * Collection [...] your next appointment,PLEASE FAX COMPLETED RESULTS TO [phone] * Lab:CT NG by PCR * Collection [...] your next appointment,PLEASE FAX COMPLETED RESULTS TO [phone] * Lab:Microalbumin, Random * Collection Date 09/23/2024 [...] your next appointment,PLEASE FAX COMPLETED RESULTS TO [phone] ???Lab:URINE DIP STICK (Order Date - 09/16/2024) [...] sugars twice a day; C ontinue Pen Keystone Miscellaneous, 31G X 6 MM, as directed, [...] MD Date: 0 12/09/2024 Generated for Printi ng/Faxing/eTransmitting on: 1 12:44 PM EDT History and Physical Notes * [...]
--- OUTSIDE RECORDS SUMMARY | 2025-03-22 12:00 | XMS_ITS ---
Author Organization Yuniel Grewal III, MD Address [address] [place] [address] Care Team Providers Care Business Account Manager Name Role Phone Dr. Yuniel Grewal III Primary Care Provider [phone] Allergies Allergen (clinical drug ingredient) Drug/Non Drug [...] 20 units in evening 06/02/2024 Active Pen [place] 31G X 6 MM as directed Twice [...] Provider Diagnosis Yuniel Grewal III, MD [address] [place] [address] [place] [address] 03/22/2025 Yuniel Grewal Diabetes E11.9 ; Former [...] and 20 units in evening 06/02/2024 Pen [place] 31G X 6 MM as directed Twice [...] Provider Name:Yuniel Grewal , 09/18/2025 03:30:00 PM, [address] [place] [address], [address], Progress Notes * Alina ALVAREZDOB:1975 (49 yo F)Acc No.[id number]:03/22/2025 Progress Notes Patient: Alina BAZAN Provider: Mary Grewal MD :1975 A ge:49 Y S ex:Female Date:03/22/2025 Address:[address] [place], [place] [phone] Subjective: * Chief Complaints: * D iabetesHypothyroidismHypertensionAsthmaLow back painMorbid obesity * HPI: C OVID-19 Screening: . She returns for management of her medical issues. Since her last visit had a myomectomy at [facility] and recovered well. She is now free [...] Medical History: * Surgical History: C -Section [id number] Laparoscopic cholecystectomy [facility] Dr. Betts Myomectomy 2024 * Hospitalization/Major Diagno [...] check blood sugars twice a day Pen [place] 31G X 6 MM Miscellaneous as directed [...] blood sugars twice a day Taking Pen [place] 31G X 6 MM Miscellaneous as directed [...] 03/22/2025 Generated for Josy shine/Mirtha/Reggieitting on: 1 12:46 PM EDT History and Physical Notes [...]
--- OUTSIDE RECORDS SUMMARY | 2025-04-12 05:45 | XMS_ITS ---
Author Organization Yuniel Grewal III, MD Address [address] [place] [address] Care Team Providers Care Card Tender Name Role Phone Dr. Yuniel Grewal III [...] 20 units in evening 06/02/2024 Active Pen [place] 31G X 6 MM as directed Twice [...] Provider Diagnosis Yuniel Grewal III, MD [address] [place] [address] [place] [address] 04/12/2025 Yuniel Grewal Diabetes E11.9 ; HTN [...] and 20 units in evening 06/02/2024 Pen [place] 31G X 6 MM as directed Twice [...] Provider Name:Yuniel Grewal , 09/18/2025 03:30:00 PM, [address] [place] [address], [place] [address], [place], [address], Progress Notes * Shree ALVAREZmarilouDOB:1975 (49 yo F)Acc No.[id number]:04/12/2025 Progress Notes Patient: Alina BAZAN Provider: Mary Grewal MD :1975 A ge:49 Y S ex:Female Date:04/12/2025 Address:[address] [place], [place] [phone] Subjective: * Chief Complaints: * D iabetesHypothyroidismHypertensionLow [...] Medical History: * Surgical History: C -Section [id number] Laparoscopic cholecystectomy [facility] Dr. Betts Myomectomy 2024 * Hospitalization/Major [...] check blood sugars twice a day Pen [place] 31G X 6 MM Miscellaneous as directed [...] blood sugars twice a day Taking Pen [place] 31G X 6 MM Miscellaneous as directed [...] sugars twice a day; C ontinue Pen [place] Miscellaneous, 31G X 6 MM, as directed, [...] 0 04/12/2025 Generated for Josy shine/Mirtha/Reggieitting on: 12:46 PM EDT History and Physical [...]
--- NOTE | 2025-08-02 10:27 | MHC.OFFVIS ---
Intake Visit Reasons: ultrasound results Intake Note: Here to review u/s results done on 07/18/25 [place] Required: No Information Interpreted: clinical only Accompanied by: Self / Same As Patient Allergies No Known Allergies Allergy (Verified 08/02/25 10:29) Medication List - Last Reconciled 08/02/25 by Charisse Ramos LPN blood sugar diagnostic (OneTouch Ultra Test strips) As directed docusate sodium (Colace) 100 mg PO BID dulaglutide (Trulicity) 1.5 mg subcut TH@0900 insulin asp prt-insulin aspart 100 unit/mL (70-30) (Novolog Mix 70-30FlexPen U-100) 25 units subcut DAILY insulin asp prt-insulin aspart 100 unit/mL (70-30) (Novolog Mix 70-30FlexPen U-100) 20 units subcut BEDTIME levothyroxine 137 mcg PO DAILY@0600 metformin 500 mg PO BID oxycodone 5 mg PO Q4H PRN pen needle, diabetic (Comfort Touch Pen Needle) As directed Do you need a note to return to daycare/school/sports/work: No HPI Comments Details: Presenting for follow-up ultrasound regarding uterine myoma seen on previous pelvic ultrasound. Pelvic ultrasound done recently showed the following: Transabdominal and Transvaginal scanning performed for improved visualization. Study based on body habitus. The uterus is 11.6 cm length. Heterogeneous and lobular with multiple fibroids, the largest measuring up to 7 x 6 x 8 cm, increased from prior. Multiple calcifications are present within the uterus. Endometrium 9.0 mm thickness. Cervical nabothian cysts are noted. Right ovary: Not visualized. Left ovary 3.8 x 1.8 x 2.5 cm. Normal color Doppler of the left ovary. No free fluid. IMPRESSION: Limited study. Large, lobular heterogeneous uterus with multiple fibroids, the largest has increased in size. [facility] Medical History Gallstones Morbid obesity Hypothyroidism HTN (hypertension) Diabetes Surgical History History of laparoscopic cholecystectomy (~05/23/24) Hx of section Family History Father Thyroid disease Hepatitis HTN (hypertension) Diabetes Mother Kidney disease Coronary artery disease Renal failure Maternal Aunt Breast CA Social History Household Members: Family Housing: House Are you a primary client care specialist to a significant other at home: No Do you presently have visiting nurse or other home services: No Alcohol intake: never Patient Tobacco Use Status: Never used Tobacco Second Hand Smoke Exposure: No service: No Current occupational status: employed 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 Female Reproductive History Menstrual Age of Menarche: 15 Review of Systems Const All systems reviewed & are unremarkable except as noted in HPI and below Reports as per HPI and Reports no additional complaints GI Reports no additional complaints Reports no additional complaints Assessment & Plan Assessment & Plan (1) Uterine myoma: Code(s): D25.9 - Leiomyoma of uterus, unspecified Category: Medical Plan: Discussed with the patient the findings on pelvic ultrasound & the risk of myosarcoma; in addition reviewed with the patient that malignancy and pre malignancy cannot be ruled out without hysterectomy for pathological evaluation ; furthermore, explained to the patient the limitation of pelvic ultrasound and endometrial biopsy in the setting. Discussed with the patient the typical symptoms that are caused by myomas including but not limited to pelvic pain, pressure symptoms, abnormal uterine bleeding. In addition discussed with the patient options of treatment for myomas including: Serial ultrasounds periodically to follow-up on the size of the myoma while targeting the treatment against fibroids related symptoms ( control pills, Mirena IUD, progesterone treatment, GnRH agonist/antagonist, uterine artery embolization or endometrial ablation) versus surgical treatment including hysterectomy. All pros and cons, risks and benefits of all options were discussed with the patient. The patient decided to proceed with surgical management. Discussed with the patient the different types of hysterectomies including, vaginal, laparoscopic assisted vaginal, robotic assisted laparoscopic,& abdominal with BSO. All pros, cons, r/b of each approach were discussed the patient including evidence that morbidity is less and recovery is shorter with minimally invasive approaches to hysterectomy. Discussed with the patient the lack of availability of the robot DaVinci robot and/or minimally invasive paper stacker specialist at [facility]. Will refer to [facility] minimally invasive green pipefitter surgery. Instructed the patient to call our office back in case a referral appointment is not scheduled, missed or canceled so that we will assist on rescheduling another appointment, the patient verbalized understanding agreed with the plan. Coding Level of Care Code Est Pt Level 3 (73455) Diagnoses Uterine myoma D25.9
--- OUTSIDE RECORDS SUMMARY | 2025-08-02 12:46 | XMS_ITS | Patient Health Record ---
Author Organization Yuniel Grewal III, MD Address [address] [facility] [place] [address] Care Team Providers Care Lap Cutter Name Role Phone Dr. Yuniel Grewal [...] Ferritin Reviewed date:10/03/2024 06:07:16 AM Interpretation: Performing Lab:[facility], [address] [place] [phone] Notes/Report: Ferritin 13 10-250 ng/mL Lipid Panel Reviewed date:10/03/2024 06:07:16 AM Interpretation: Performing Lab:[address] [address] Notes/Report: Triglycerides 145 <150 mg/dL Desirable Triglyceride: [...] Random Reviewed date:10/03/2024 06:07:16 AM Interpretation: Performing Lab:[address] [address] Notes/Report: Creatinine Urine 125.44 Microalbumin Urine 19.0 Microalbum/Creatinine Ratio Ur 15.1 <30 ug/mg cr Albumin/Creatinine Ratio Reference Ranges: Normal: < 30 ug/mg creatinine Microalbuminuria: 30 - 300 ug/mg creatinine Clinical Albuminuria: > 300 ug/mg creatinine Hemoglobin A1c Reviewed date:10/03/2024 06:07:16 AM Interpretation: Performing Lab:[facility], [address] [place] [phone] Notes/Report: Hemoglobin A1c % 6.8 <6.0 % [...] average glucose, using the formula of the D9V-Kvupjno Average Glucose study (ADAG), Diabetes Care, Vol.31,#8, May. 2007 XR cervical spine 4V Reviewed date:10/03/2024 06:07:16 AM Interpretation: Performing Lab: Notes/Report: [address] [address] XRay Report Signed Patient: Alina Adamson MR#: [id number] 7 : 1975 Acct:[id number] Age/Sex: 49 / F ADM Date: 09/16/24 Loc: AZRA Attending Dr: Yuniel Grewal MD Ordering Physician: Yuniel Grewal MD Date of Service: 09/16/24 Procedure(s): XR cervical spine 4V Accession Number(s): [id number] cc: Yuniel Grewal MD EXAMINATION: XR CERVICAL [...] OV> 09/16/242 DD/ 1650 TD/TT: 09/16/24 1700 [employer]ne[employer] Pressman: [place] [address] XRay Report Signed Patient: Opal Adamson MR#: [id number] 7 : 1975 Acct:[id number] Age/Sex: 49 / F ADM Date: 09/16/24 Loc: HO.XRAY Attending Dr: Yuniel Grewal MD Ordering Physician: Yuniel Grewal MD Date of Service: 09/16/24 Procedure(s): XR cervical spine 4V Accession Number(s): [id number] cc: Yuniel Grewal MD EXAMINATION: XR CERVICAL [...] OV> 09/16/242041 DD/ 49 TD/TT: 09/16/24 170 [employer]ne[employer] Pressman: NIKHIL Complete Blood Count Auto Di ff Reviewed date:10/03/2024 06:07:16 AM Interpretation: Performing Lab:[facility], [address] [place] [phone] Notes/Report: White Blood Count 10.4 4.8-10.8 X10*3/uL [...] NRBC Abs Auto 0.000 0.0-0.012 X10*3/uL Comprehensive [place]. [facility] Reviewed date:10/03/2024 06:07:16 AM Interpretation: Performing Lab:[facility], [address] [place] [phone] Notes/Report: Sodium 139 135-145 mmol/L Potassium 4.6 [...] PCR Reviewed date:10/22/2024 08:56:59 PM Interpretation: Performing Lab:[facility], [address] [place] [phone] Notes/Report: Vaginal CT PCR NOT DETECTED Not [...] Diff Reviewed date:10/22/2024 08:56:59 PM Interpretation: Performing Lab:[facility], [address] [place] [phone] Notes/Report: White Blood Count 10.0 4.8-10.8 X10*3/uL [...] Thyroxine) Reviewed date:10/22/2024 08:56:59 PM Interpretation: Performing Lab:[facility], [address] [place] [phone] Notes/Report: Free T4 (Free Thyroxine) 1.12 0.71-1.85 ng/dL TSH reflex Free T4 Reviewed date:10/22/2024 08:56:59 PM Interpretation: Performing Lab:[facility], [address] [place] [phone] Notes/Report: TSH reflex Free T4 5.85 0.32-4.0 uIU/mL Follicle Stimulating Hormone Reviewed date:10/23/2024 09:33:47 AM Interpretation: Performing Lab:[address] [address] Notes/Report: Follicle Stimulating Hormone 3.3 Reference Range Follicular Phase 2.5-10.2 Mid-cycle Peak 3.1-17.7 Luteal Phase 1.5- 9.1 Postmenopausal 23.0-116.3 THIS TEST WAS PERFORMED AT: [facility] [address] [place] [phone] SHOBHA LYONS MD Lutenizing Hormone Reviewed date:10/23/2024 09:33:47 AM Interpretation: Performing Lab:[address] [address] Notes/Report: Lutenizing Hormone 3.1 Reference Range Follicular Phase 1.9-12.5 Mid-Cycle Peak 8.7-76.3 Luteal Phase 0.5-16.9 Postmenopausal 10.0-54.7 THIS TEST WAS PERFORMED AT: [facility] [address] [place] [phone] SHOBHA LYONS MD HCG Quantitative Reviewed date:10/22/2024 08:56:59 PM Interpretation: Performing Lab:[address] [address] Notes/Report: HCG Quantitative < 2 Weeks post [...] date:11/06/2024 05:22:59 PM Interpretation: Performing Lab: Notes/Report: [address] [address] Ultrasound Report Signed Patient: Alina Adamson MR#: [id number] 7 : 1975 Acct:[id number] Age/Sex: 49 / F ADM Date: 10/31/24 Loc: HO.US Attending Dr: Dwain Yusuf MD Ordering Physician: Dwain Yusuf MD Date of Service: 10/31/24 Procedure(s): US pelvic and transvaginal Accession Number(s): [id number] cc: Yuniel Grewal MD; Dwain Yusuf MD [...] by: Los Arciniega MD 10/31/2024 04:10 PM [facility] Dictated By: Los Arciniega MD Signed By: <Electronically signed by Los Arciniega MD in OV> 10/31/24 1610 DD/ 1505 TD/TT: 10/31/24 1525 Journeyman Pressman: [address] [address] Ultrasound Report Signed Patient: Opal Adamson MR#: [id number] 7 : 1975 Acct:[id number] Age/Sex: 49 / F ADM Date: 10/31/24 Loc: HO.US Attending Dr: Dwain Yusuf MD Ordering Physician: Dwain Yusuf MD Date of Service: 10/31/24 Procedure(s): US pel caitlin and transvaginal Accession Number(s): [id number] cc: Yuniel Grewal MD; Dwain Yusuf MD [...] by: Los Arciniega MD 10/31/2024 04:10 PM [facility] Dictated By: Mr ana Arciniega MD Signed By: <Electronically signed by Los Arciniega MD in OV> 10/31/24 1610 DD/ 1505 TD/TT: 10/31/24 1525 Journeyman Pressman: [employer] [facility] Pathology Reviewed date:12/17/2024 09:22:21 AM Interpretation: Performing Lab:[facility], [address] [place] [address] Notes/Report: ---- Name: Alina Adamson Age/Sex: 49/F : 1975 Unit#: [id number] Attend Dr: Dwain Yusuf MD Re12/05/24 Status : [facility] REF Location: [facility] Disch: ---- SPEC : [id number] RECD: 12/06/24 STATUS: VANDANA COFFMAN NUM: [id number] ANAYELI: 12/05/24-1552 [facility] DR: Dwain Yusuf MD ENTERED: 12/06/24- 10 [...] MD [address], [address] [place] [address] Dwain Yusuf MD [facility] Women's Services [address] [place] [address] ---- Signed (signature on file) Naty Calderon 12/07/24 1225 ---- END OF REPORT Ur Preg Test Reviewed date:12/27/2024 01:40:02 PM Interpretation: Performing Lab:[facility], [address] [place] [phone] Notes/Report: Urine NEGATIVE NEGATIVE This test was developed to detect early . False negative results may occur after the 5th - 7th week of when using this test method. If clinically indicated, consider a serum hCG. Glucose, Whole Blood Reviewed date:12/28/2024 08:45:09 PM Interpretation: Performing Lab:[facility], [address] [place] [phone] Notes/Report: Glucose, Whole Blood 161 60-115 mg/dL METER # : [id number] Pathology Reviewed date:01/21/2025 04:53:46 AM Interpretation: Performing Lab:[facility], [address] [place] [phone] Notes/Report: ---- Name: Alina Adamson Age/Sex: 49/F : 1975 Unit#: [id number] Attend Dr: Dwain Yusuf MD Re12/27/24 Status : [facility] Location: [facility] Disch: ---- SPEC : [id number] RECD : 12/28/2445 STATUS: VANDANA COFFMAN NUM: [id number] ANAYELI: 12/27/24-1456 [facility] DR: Dwain Yusuf MD ENTERED: 12/28/24- 55 [...] Description Microscopic sections reviewed. Material Received [facility] B. Endometrial polyp Gross Description Received in [...] B. CEDS Copies To: Yuniel Grewal MD [address] [place] [address], [address] [place], [place] [phone] CONTINUED ON NEXT PAGE ---- Name: Alina Adamson Age/Sex: 49/F : 1975 Unit#: [id number] Attend Dr: Dwain Yusuf MD Re12/27/24 Status : [facility] Location: [facility] Disch: ---- SPEC : [id number] RECD : 12/28/24 STATUS: VANDANA AUGUSTUS NUM: [id number] ANAYELI: 12/27/24 [facility] DR: Dwain Yusuf MD ENTERED: 12/28/24 55 SP TYPE: Surgical OTHR DR: Yuniel Grewal MD ORDERED: HE Stain/3, Gross Micro L4/2 Copies To: (Continued) Dwain Yusuf MD [facility] Women's Services [address] [place], [place] [id number] ---- Signed (signature on file) Naty Calderon 12/29/24 1440 ---- END OF REPORT Complete Blood Count Auto Di ff Reviewed date:04/14/2025 07:19:13 PM Interpretation: Performing Lab:[facility], [address] [place] [phone] Notes/Report: White Blood Count 11.6 4.8-10.8 X10*3/uL [...] NRBC Abs Auto 0.000 0.0-0.012 X10*3/uL Comprehensive [place]. Panel Fa st Reviewed date:04/14/2025 07:19:13 PM Interpretation: Performing Lab:[facility], [address] [place] [phone] Notes/Report: Sodium 136 135-145 mmol/L Potassium 4.2 [...] Panel Reviewed date:04/14/2025 07:19:13 PM Interpretation: Performing Lab:[facility], [address] [place] [phone] Notes/Report: Triglycerides 237 <150 mg/dL Desirable Triglyceride: [...] Random Reviewed date:04/14/2025 07:19:14 PM Interpretation: Performing Lab:[address] [address] Notes/Report: Creatinine Urine 121.51 Microalbumin Urine 42.0 Microalbum/Creatinine Ratio Ur 34.5 <30 ug/mg cr Albumin/Creatinine Ratio Reference Ranges: Normal: < 30 ug/mg creatinine Microalbuminuria: 30 - 300 ug/mg creatinine Clinical Albuminuria: > 300 ug/mg creatinine Hemoglobin A1c Reviewed date:04/14/2025 07:19:14 PM Interpretation: Performing Lab:[address] [address] Notes/Report: Hemoglobin A1c % 10.1 <6.0 % [...] average glucose, using the formula of the U2U-Lkcjude Average Glucose study (ADAG), Diabetes Care, Vol.31,#8, May. 2007 US pelvic and transvaginal Reviewed date:07/19/2025 04:42:01 PM Interpretation: Performing Lab: Notes/Report: [address] [address] Ultrasound Report Signed Patient: Alina Adamson MR#: [id number] 7 : 1975 Acct:[id number] Age/Sex: 50 / F ADM Date: 07/17/25 Loc: .US Attending Dr: Dwain Yusuf MD Ordering Physician: Dwain Yusuf MD Date of Service: 07/17/25 Procedure(s): US pelvic and transvaginal Accession Number(s): [id number] cc: Yuniel Grewal MD; Dwain Yusuf MD Reason for Exam: D25.9 - Leiomyoma of uterus, unspecified CLINICAL HISTORY: D25.9 - Leiomyoma of uterus, unspecified US pelvis transabdominal and transvaginal Comparison: US/SR - US PELVIC AND TRANSVAGINAL - 10/31/24 14:[address]/SR - CT ABDOMEN PELVIS WITH IV CONTRAST - 05/22/24 13:49 EDT Findings: Transabdominal and Transvaginal scanning performed for improved visualization. Study based on body habitus. The uterus is 11.6 cm length. Heterogeneous and lobular with multiple fibroids, the largest measuring up to 7 x 6 x 8 cm, increased from prior. Multiple calcifications are present within the uterus. Endometrium 9.0 mm thickness. Cervical nabothian cysts are noted. Right ovary: Not visualized. Left ovary 3.8 x 1.8 x 2.5 cm. Normal color Doppler of the left ovary. No free fluid. IMPRESSION: Limited study. Large, lobular heterogeneous uterus with multiple fibroids, the largest has increased in size. This document has been electronically signed by: Colin Bellamy MD on 07/18/2025 09:46:11 Dictated By: Colin Bellamy MD Signed By: <Electronically signed by Colin Bellamy MD in OV> 07/18/2547 DD/ 5 TD/TT: 07/18/259[address] [employer]neyman Pressman: [place] [address] Ultrasound Report Signed Patient: Opal Adamson MR#: [id number] 7 : 1975 Acct:[id number] Age/Sex: 50 / F ADM Date: 07/17/25 Loc: .US Attending Dr: Dwain Yusuf MD Ordering Physician: Dwain Yusuf MD Date of Service: 07/17/25 Procedure(s): US pel caitlin and transvaginal Accession Number(s): [id number] cc: Yuniel Grewal MD; Dwain Yusuf MD Reason for Exam: D25 .9 - Leiomyoma of uterus, unspecified CLINICAL HISTORY: D2 5.9 - Leiomyoma of uterus, unspecified US pelvis transabdom inal and transvaginal Comparison: US/SR - US PELVIC AN D TRANSVAGINAL - 10/31/24 14:[address]/SR - CT ABDOMEN PELVIS WITH IV CONTRAST - 05/22/24 13:49 EDT Findings: Transabdominal and Transvaginal scanning performed for improved visualization. Study based on body habitus. The uterus is 11.6 c m length. Heterogeneous and lobular with multiple fibroids, the largest measuring up to 7 x 6 x 8 cm, increased from prior. Multiple calcificati ons are present within the uterus. Endometrium 9.0 mm thickness. Cervical nabothian c ysts are noted. Right ovary: Not visualized. Left ovary 3.8 x 1.8 x 2.5 cm. Normal color Doppler of the left ovary. No free fluid. IMPRESSION: Limited study. Large , lobular heterogeneous uterus with multiple fibroids, the largest has increased in size. This document has be en electronically signed by: Colin Bellamy MD on 07/18/2025 09:46:11 Dictated By: Colin Bellamy MD Signed By: <Electronically signed by Colin Bellamy MD in OV> 07/18/259[address] DD/ 5 TD/TT: 07/18/259[address] Journeyman Pressman: Reason For Referral Reason Evaluate and Treat Screen for Colon Cancer Diagnosis 1 Screen for colon can cer (Z12.11) Referral Organization Yuniel Grewal III, MD Referring Provider First Name Yuniel Referring Provider Last Name Uri Referring Provider Speciality Internal M edicine Referred Provider LENORE VELARDE Referred Provider Specialty Gastroentero logy General Notes D Bea 09/19/2024 11:48:46 AM > Referral and progress note faxed. Referral Priority Routine Referral Appointment Date 01/31/2025 Medications Medication SIG (Take, Route, Frequency, Duration) Notes Start Date End Date Status Levothyroxine Sodium 137 MCG TAKE 1 TABLET BY MOUTH EVERY DAY Orally Once a day Active Pen Hyndman 31G X 6 MM as directed Twice [...] (20 and more) Unknown 01/13/2024 Administer ed [employer] COVID-19 12+ Unknown 10/08/2023 Admini stered Hepatitis [...] Problem Status W/U Status Risk Notes Problem 7297387 Former smoker (Z87.891) Active confirmed She has a plan to prevent relapse in times of stress and illness. Problem Asthma (892649174) Asthma (J45.909) Active confirmed She has a history of intermittent asthma. No wheezes or her today. She has a rescue inhaler if necessary. Problem Anemia (376245678) Anemia (D64.9) Active confirmed Her hemat ocrit is slightly low and normochromic normocytic. The white blood cell count is slightly low when the platelets are normal. She denies any bleeding. This will be observed carefully before and after her upcoming uterine surgery. Problem Type II diabetes mellitus without complication (163522268) Diabetes (E11.9) Active confirmed Her A1c is [...] hemoglobin A1c has bbbeen ordered. Problem Hypertension (67559080) HTN (hypertension) (I10) Active confirmed Her blood pressure is currently stable and no change in her regimen was made. I strongly recommended aggressive weight loss and sodium restriction. Problem Hypothyroid (43589721) Hypothyroid (E03.9) Active confirmed The free T4 is normal and the TSH is slightly elevated. She appears to be euthyroid. No change was necessary in her medication.Afte r the upcoming surgery she will have an increase in the dose of her levothyroxine. Problem 730663954 Atypical chest pain (R07.89) Active confirmed She is on aspirin. 4. Atypical chest pain from a previous provider. She believes her chest discomfort is caused by stress. If necessary, a stress test can be done. Problem 257070591 Herpes zoster without complication (B02.9) Active confirmed She had an episode of shingles in February of this year. She was treated with prednisone and valacyclovir. It has resolved. Problem 175403534 Morbid obesity (E66.01) Active confirmed Her body mass index is stablle at 40. We have discussed weight loss strategies at length. Her weight will be followed carefully and she will continue the trulicity. Problem 879572562 Low back pain, unspecified (M54.50) Active confirmed [...] Provider Diagnosis Yuniel Grewal III, MD [address] [place] [address] [place] [address] 09/16/2024 Yuniel Grewal Diabetes E11.9 ; Morbid obesity E66.01 ; HTN (hypertension) I10 ; Anemia D64.9 ; Neck pain M54.2 ; Hypothyroid E03.9 ; Asthma J45.909 and Former smoker Z87.891 Yuniel Grewal III, MD [address] [place] [address] [place] [address] 12/09/2024 Yuniel Grewal Anemia D64.9 ; Morbi d obesity E66.01 ; Diabetes E11.9 ; Hypothyroid E03.9 ; HTN (hypertension) I10 ; Low back pain, unspecified M54.50 and Former smoker Z87.891 Yuniel Grewal III, MD [address] [place] [address] [place] [address] 03/22/2025 Yuniel Grewal Diabetes E11.9 ; Former smoker Z87.891 ; Hypothyroid E03.9 ; HTN (hypertension) I10 ; Asthma J45.909 ; Morbid obesity E66.01 and Low back pain, unspecified M54.50 Yuniel Grewal III, MD [address] [place] [address] [place] [address] 04/12/2025 Yuniel Grewal Diabetes E11.9 ; HTN [...] Provider Name:Yuniel Grewal , 09/18/2025 03:30:00 PM, [address] [place] [address] [address], [place], [address], Insurance Providers Payer Name Payer Address Payer Phone Subscriber Number Group Number Insured Name Patient Relationship to Insured Coverage Start Date Coverage End Date [facility] [address] [facility] [address] [place] [phone] [id number] Alina Adamson Self - patient is the insured Medical (General) History Medical History History ICD Code Hypothyroid E03.9 HTN (hypertension) I10 Anemia D64.9 Asthma J45.909 [id number] chronic lumbar back pain Adult onset diabetes [...] History Surgery Date(Month/Year) Myomectomy 2024 Laparoscopic cholecystectomy [facility] Dr. Betts [id number] 1999 Hospitalization History Reason Date(Month/Year) No history Hospitalization for Cholecystectomy
== END 2025-08-02 10:52 | disposition home or self-care (01) ==
LOC: HO.HWS 10:19
PROVIDERS: PCP Internal Medicine Medical Oncology; Visit Provider Obstetrics & Gynecology
DX: D25.9 Leiomyoma of uterus, unspecified (principal)
CPT/HCPCS: 99213

== ENCOUNTER 2025-08-13 10:35 | Emergency (ER) | payer OTHER, SELFPAY ==
--- OUTSIDE RECORDS SUMMARY | 2022-10-29 09:45 | XMS_ITS | Continuity of Care Document ---
Author Organization [facility] Address [address] [place] [address] [address] [place] [address] Phone Care Team Providers Care Citrix Consultant Name Role Phone Montana Hughes MD Unavailable Unavailable Procedures Procedure Date Intermediate EP (Revisit) Gonioscopy Visual Field Full Threshold Corneal Hysteresis Advance Directives Directive Yes / No Effective Date File Name No Information Encounters Encounter Description Practice Location Reason(s) For Visit Diagnoses Date Provider Providers Copied on Encounter [facility] , [address] [facility], [place], [place], [id number], [place] tel:[phone] [address] Open angle with borderline findings, low risk, bilateral Ellen Boyle. [address] [place], [place], [id number], [place]. tel:[phone] Family History Family Member Type Diagnosis Age At Onset No Information Payers Payer name Insurance type Covered republican ID Authoriza tion(s) [facility] [id number] Social History Type Description Quantity Date Captured Comments Sex Female Smoking Status No Information Chief Complaint And Reason For Visit No Information Reason For Referral Reason For Referral No Information History Of Present Illness Encounter Date Complaint History Of Prese nt Illness No Information Functional Status Date Functional Assessmen t No Information Instructions Date Instruction Additional Infor mation No Information Assessments Type Assessment Date No Information Patient Care Teams Name Effective Dates (start - stop) Status Members No Information
--- OUTSIDE RECORDS SUMMARY | 2024-05-27 04:00 | XMS_ITS ---
Author Organization Yuniel Grewal III, MD Address [address] [place] [address] Care Team Providers Care Venue Coordinator Name Role Phone Dr. Yuniel Grewal III Primary Care Provider [phone] Allergies Allergen (clinical drug ingredient) Drug/Non Drug Allergy documented on EMR Reaction Allergy Type Onset Date Status Shellfish (FN) Shellfish-derived Products Unknown Drug Allergy Active REASON FOR VISIT Acute cholecystitis, Laparoscopic cholecystectomy May 23, 2024, Diabetes, Hypothyroid, Hypertension, Low back pain, Morbid obesity Medications Medication SIG (Take, Route, Frequency, Duration) Notes Start Date End Date Status Alcohol Prep Pad 70 % as directed - to u se to test blood sugars twice a day 05/05/2023 Active Lancets - as directed - use to check blood sugars twice a day 05/05/2023 Active Gauze Pads 3 X3 as directed - use to check blood sugars twice a day 05/05/2023 Active Accu-Chek Viktoria Plus - as directed In Vi tro to test blood sugars twice a day 05/05/2023 Active Levothyroxine Sodium 137 MCG TAKE 1 TABLET BY MOUTH EVERY DAY IN THE MORNING ON EMPTY STOMACH Active Albuterol Sulfate HFA 108 (90 Base) MCG/ACT Inhalation Active Accu-Chek Viktoria Plus w/Device as directed In Vitro to test blood sugars twice a day 05/05/2023 Active Trulicity 1.5 MG/0.5ML INJECT 1.5mg DIRECTED SUBCUTANEOUS ONCE A WEEK 28 DAYS Active Pen [place] 31G X 6 MM as directed Twice a day 30 days Active metFORMIN HCl 500 MG 1 tablet with a oliverio l Orally twice a day 01/15/2024 Active NovoLOG Mix 70/30 FlexPen (70-30) 100 UNIT/ML INJECT 25 UNITS SUBCUTANEOUSLY IN TH MORNING AND 20 UNITS IN THE EVENING FOR 30 DAYS Active Accu-Chek Guide - USE DIRECTED TO C HECK BLOOD SUGARS TWICE A DAY 90 DAYS Active Social History Tobacco Use: Social History Observation Description Date Details (start date - stop date) Former Smoker NA - NA Sex Assigned At : Social History Observation Description Sex Assigned At Female Tobacco Use/Smoking Question Answer Notes Patient is a former smoker How long has it been since you last smoked? > 10 years Additional Findings: Tobacco Non-User Ex-cigaret te smoker Vital Signs Temperature 97.2 degrees Fahrenheit 05/27/20 24 Blood pressure systolic 141 mm Hg 05/27/20 24 Blood pressure diastolic 81 mm Hg 024 Heart Rate 87 /min 05/27/2024 Height 59 in 05/27/2024 Weight 204 lbs 05/27/2024 BMI 41.20 kg/m2 05/27/2024 Encounters Encounter Location Date Provider Diagnosis Yuniel Grewal III, MD [address] [place] [address] [place] [address] 05/27/2024 Yuniel Grewal Acute cholecystitis K81.0 ; Diabetes E11.9 ; Hypothyroid E03.9 ; HTN (hypertension) I10 ; Asthma J45.909 ; Former smoker Z87.891 ; Low back pain, unspecified M54.50 and Morbid obesity E66.01 Assessments Encounter Date Diagnosis (ICD Code) Assessment Notes Treat ment Notes Treatment Clinical Notes 05/27/2024 Acute cholecystitis (ICD-10 - K81.0) After a few days of abdominal pain she went to the emergency room at [facility] May 22, 2024 and the next day had a cholecystectomy. She is now recovering well at home. 05/27/2024 Diabetes (ICD-10 - E11.9) She has been compliant with her medications. Her hemoglobin A1c is 8.0. We made a plan to follow a diabetic weight loss diet and lose one half of a pound per week. 05/27/2024 Hypothyroid (ICD-10 - E03.9) Her thyroid function tests are normal. She appears to be euthyroid. No change was necessary in her medication. 05/27/2024 HTN (hypertension) (ICD-10 - I10) Her blood pressure is stable at 141/80 and no change in her regimen was made. We made a plan to lose weight and restrict sodium Our plan for the next year includes reducing her weight substantially and reducing her systolic blood pressure by 10 points through physical activity weight loss and sodium restriction and euglycemic control. 05/27/2024 Asthma (ICD-10 - J45.909) She has a history of intermittent asthma. No wheezes or her today. She has a rescue inhaler if necessary. 05/27/2024 Former smoker (ICD-10 - Z87.891) She has a plan to prevent relapse in times of stress and illness. 05/27/2024 Low back pain, unspecified (ICD-10 - M54.50) She continues to have intermittent mild low back pain. No change in her regimen was needed. Images have been obtained. 05/27/2024 Morbid obesity (ICD-10 - E66.01) She lost 3 pounds with the surgery. She has no appetite at this time. She will resume her weight loss strategy when she has recovered from surgery. Plan Of Treatment Medication Medication Name Sig Start Date Stop Date Notes Alcohol Prep Pad 70 % as directed - to u se to test blood sugars twice a day 05/05/2023 Lancets - as directed - use to check blood sugars twice a day 05/05/2023 Gauze Pads 3 X3 as directed - use to check blood sugars twice a day 05/05/2023 Accu-Chek Viktoria Plus - as directed In Vi tro to test blood sugars twice a day 05/05/2023 Levothyroxine Sodium 137 MCG TAKE 1 TABL ET BY MOUTH EVERY DAY IN THE MORNING ON EMPTY STOMACH Albuterol Sulfate HFA 108 (9 0 Base) MCG/ACT Inhalation Accu-Chek Viktoria Plus w/Device as directe d In Vitro to test blood sugars twice a day 05/05/2023 Trulicity 1.5 MG/0.5ML INJECT 1.5mg D IRECTED SUBCUTANEOUS ONCE A WEEK 28 DAYS Pen [place] 31G X 6 MM as directed Twice a day 30 days metFORMIN HCl 500 MG 1 tablet with a oliverio l Orally twice a day 01/15/2024 NovoLOG Mix 70/30 FlexPen (70-30) 100 UNIT/ML INJECT 25 UNITS SUBCUTANEOUSLY IN TH MORNING AND 20 UNITS IN THE EVENING FOR 30 DAYS Accu-Chek Guide - USE DIRECTED TO [place] PIKE BLOOD SUGARS TWICE A DAY 90 DAYS Next Appt Details Follow Up: 2 Weeks, Reason: Office visit Provider Name:Yuniel Grewal , 09/18/2025 03:30:00 PM, [address] [place], [place] [address], [place], [address], Progress Notes * Alina ALVAREZDOB:1975 (49 yo F)Acc No.[id number]:05/27/2024 Patient: Alina Porter Provider: Mary Grewal MD :1975 A ge:49 Y S ex:Female Date:05/27/2024 Address:[address] [place] [address] RANJAN MURPHY [id number] Subjective: * Chief Complaints: * A cute cholecystitisLaparoscopic cholecystectomy May 23iabetesHypothyroidHypertensionLow back painMorbid obesity * HPI: C OVID-19 Screening: On May 22, 2024 she presented to the emergency room at [facility] with abdominal pain. On May 24, 2024 she underwent laparoscopic cystectomy for acute cholecystitis and gallstones. She was discharged May 24, 2024 and comes in today for follow-up. She denies any vomiting. She is beeginning to become able to eat solid food. She has pain medication which she is taking. She has no appetite however. Her blood glucose levels have been low. She has been compliant with all of her medication. Her wounds were healing well. The Steri-Strips were still in place. Questions H ave you experienced fever, chills, cough, sore throat, shortness of breath, difficulty breathing, muscle aches, loss of taste or smell? N o H ave you been exposed to the virus within the last 10 days? N o H ave you travelled internationally in the last 10 days? N o H ave you been exposed to COVID-19 in the past? Y es * ROS: G eneral/Constitutional: pain A bdominal incisions. C hills d enies. F atigue a dmits. F ever d enies. E NT: Decreased hearing d enies. R espiratory: Cough d enies. C ardiovascular: Chest pain with exertion d enies. D yspnea on exertion?denies. S hortness of breath d enies. G astrointestinal: Constipation o ccasional. D ecreased appetite d enies. D iarrhea d enies. H eartburn d enies. N ausea d enies. R ectal bleeding d enies. V omiting d enies. H ematology: bruising d enies. p etechiae d enies. S wollen glands n one have been noted. G enitourinary: Frequent urination d enies. M usculoskeletal: Muscle aches d enies. P ainful joints d enies. S ciatica d enies. W eakness t hat is generalized. S kin: Itching d enies. R keanu d enies. S kin lesion(s)?denies. N eurologic: Difficulty speaking d enies. D izziness d enies.?Headache d enies. L ow back pain d enies. P sychiatric: Depressed mood d enies. * Medical History: * Surgical History: C -Section [id number] Laparoscopic cholecystectomy [facility] Dr. Betts * Hospitalization/Major Diagno stic Procedure: N o Hospitalization History. * Family History: F ather: alive 65 yrs, thyroid disease, hepatitis, diabetes, diagnosed with DM, HTN. M other: 66 yrs, Chronic kidney disease, coronary artery disease, renal failure, diagnosed with CVD, HTN. C hildren: alive. P aternal Grand Father: , diagnosed with DM. P aternal Grand Mother: unknown. M aternal Grand Father: unknown. M aternal Grand Mother: . Paternal uncle: , diagnosed with DM. P aternal aunt: alive, cancer, Unknown. M aternal uncle: alive, diagnosed with CVD. M aternal aunt: , 2 of mther sister had breast cancer (), diagnosed with Cancer. 1 brother(s) - healthy. 1 son(s) - healthy. . Her mother of chronic renal failure and coronary artery disease. Her father is alive with diabetes and hepatitis. She has 1 brother, River, who is healthy. A female cousin has breast cancer. She is not aware of any cancer family syndrome. She is not aware of any family history of substance use disorder or mental illness or addiction. She has a son who is healthy and well. * Social History: T obacco Use: T obacco Use/Smoking P atient is a f ormer smoker H ow long has it been since you last smoked??> 10 years A dditional Findings: Tobacco Non-User E x-cigarette smoker * Medications: T akingTrulicity 1.5 MG/0.5ML Solution Pen-injector INJECT 1.5mg DIRECTED SUBCUTANEOUS ONCE A WEEK 28 DAYS metFORMIN HCl 500 MG Tablet 1 tablet with a meal Orally twice a dayNovoLOG Mix 70/30 FlexPen (70-30) 100 UNIT/ML Suspension Pen-injector INJECT 25 UNITS SUBCUTANEOUSLY IN TH MORNING AND 20 UNITS IN THE EVENING FOR 30 DAYS Accu-Chek Guide - Strip USE DIRECTED TO CHECK BLOOD SUGARS TWICE A DAY 90 DAYS Levothyroxine Sodium 137 MCG Tablet TAKE 1 TABLET BY MOUTH EVERY DAY IN THE MORNING ON EMPTY STOMACH Albuterol Sulfate HFA 108 (90 Base) MCG/ACT Aerosol Solution Inhalation Accu-Chek Viktoria Plus w/Device Kit as directed In Vitro to test blood sugars twice a dayAccu-Chek Viktoria Plus - Strip as directed In Vitro to test blood sugars twice a dayAlcohol Prep Pad 70 % Pad as directed - to use to test blood sugars twice a dayLancets - Miscellaneous as directed - use to check blood sugars twice a dayGauze Pads 3 X3 Pad as directed - use to check blood sugars twice a dayPen [place] 31G X 6 MM Miscellaneous as directed Twice a day 30 daysTaking Trulicity 1.5 MG/0.5ML Solution Pen-injector INJECT 1.5mg DIRECTED SUBCUTANEOUS ONCE A WEEK 28 DAYS Taking metFORMIN HCl 500 MG Tablet 1 tablet with a meal Orally twice a dayTaking NovoLOG Mix 70/30 FlexPen (70-30) 100 UNIT/ML Suspension Pen-injector INJECT 25 UNITS SUBCUTANEOUSLY IN TH MORNING AND 20 UNITS IN THE EVENING FOR 30 DAYS Taking Accu-Chek Guide - Strip USE DIRECTED TO CHECK BLOOD SUGARS TWICE A DAY 90 DAYS Taking Levothyroxine Sodium 137 MCG Tablet TAKE 1 TABLET BY MOUTH EVERY DAY IN THE MORNING ON EMPTY STOMACH Taking Albuterol Sulfate HFA 108 (90 Base) MCG/ACT Aerosol Solution Inhalation Taking Accu-Chek Viktoria Plus w/Device Kit as directed In Vitro to test blood sugars twice a dayTaking Accu-Chek Viktoria Plus - Strip as directed In Vitro to test blood sugars twice a dayTaking Alcohol Prep Pad 70 % Pad as directed - to use to test blood sugars twice a dayTaking Lancets - Miscellaneous as directed - use to check blood sugars twice a dayTaking Gauze Pads 3 X3 Pad as directed - use to check blood sugars twice a dayTaking Pen [place] 31G X 6 MM Miscellaneous as directed Twice a day 30 daysDiscontinuedAspirin Low Dose 81 MG Tablet Delayed Release Oral amLODIPine Besy-Benazepril HCl 5-20 MG Capsule One Capsule Oral Once a DayFerrous Sulfate 325 (65 Fe) MG Tablet Delayed Release 1 tablet Oral Once a DayMedication List reviewed and reconciled with the patientDiscontinued Aspirin Low Dose 81 MG Tablet Delayed Release Oral Discontinued amLODIPine Besy-Benazepril HCl 5-20 MG Capsule One Capsule Oral Once a DayDiscontinued Ferrous Sulfate 325 (65 Fe) MG Tablet Delayed Release 1 tablet Oral Once a DayMedication List reviewed and reconciled with the patient * Allergies: S hellfish-derived Productsno[Allergies Verified] Objective: * Vitals: H t: 59 , Wt:204, BMI:41.20, BP: 141/81, HR:87, Temp:97.2. * Examination: G eneral Examination: GENERAL APPEARANCE: p leasant, well nourished, well developed, in no acute distress, calm and relaxed , morbidly obese , woman. HEAD: a traumatic, normocephalic. EYES: e alonzo, perrla, anicteric, conjugate. EARS: n ormal. NOSE: s eptum intact. ORAL CAVITY: n ormal, unremarkable. NECK/THYROID: n o jugular venous distention, no carotid bruit, thyroid normal. LYMPH NODES: n o enlarged lymph nodes,spleen normal. SKIN: n o suspicious lesions, anicteric. HEART: n o clicks, gallops, murmurs, or rubs, regular rhythm, S1, S2 normal, no s3, or vascular bruits. LUNGS: c lear to auscultation . BREASTS: n ot examined. ABDOMEN: b owel sounds normal, no ascites, no organomegaly, no mass , morbid obesity, 4 healing laparoscopy incisions. RECTAL EXAM: n ot examined. MUSCULOSKELETAL: e xtremities unremarkable, no clubbing, cyanosis or edema. PERIPHERAL PULSES: n ormal. NEUROLOGIC: a lert and oriented, cranial nerves 2-12 grossly intact, deep tendon reflexes 2+ symmetrical, motor strength normal upper and lower extremities, sensory exam intact. PSYCH: a lert, oriented. Assessment: * Assessment: 1. A cute cholecystitis - K81.0 (Primary), After a few days of abdominal pain she went to the emergency room at [facility] May 22, 2024 and the next day had a cholecystectomy. She is now recovering well at home. 2 . D iabetes - E11.9, She has been compliant with her medications. Her hemoglobin A1c is 8.0. We made a plan to follow a diabetic weight loss diet and lose one half of a pound per week. 3 . H ypothyroid - E03.9, Her thyroid function tests are normal. She appears to be euthyroid. No change was necessary in her medication. 4 . H TN (hypertension) - I10, Her blood pressure is stable at 141/80 and no change in her regimen was made. We made a plan to lose weight and restrict sodium Our plan for the next year includes reducing her weight substantially and reducing her systolic blood pressure by 10 points through physical activity weight loss and sodium restriction and euglycemic control. 5 . A sthma - J45.909, She has a history of intermittent asthma. No wheezes or her today. She has a rescue inhaler if necessary. 6 . F ormer smoker - Z87.891, She has a plan to prevent relapse in times of stress and illness. 7 . Low back pain, unspecified - M54.50, She continues to have intermittent mild low back pain. No change in her regimen was needed. Images have been obtained. 8 . M orbid obesity - E66.01, She lost 3 pounds with the surgery. She has no appetite at this time. She will resume her weight loss strategy when she has recovered from surgery. Plan: * Treatment: * Procedure Codes: 9 [id number] MGMT 7 DAY DISCH * Preventive Medicine: Counseling: C are goal follow-up plan: Counseling for abnormal BMI given Y es Above Normal BMI Follow-up D ietary management education, guidance, and counseling, Dietary needs education, Exercise promotion: strength training, Exercise promotion: stretching, Feeding regime, Giving encouragement to exercise, Lifestyle education regarding diet, Nutrition / feeding management, Nutrition therapy, Prescribed activity/exercise education, Prescribed diet education, Prescribed dietary intake, Special diet education, Weight monitoring , Intervention, Order not done: Medical or Other reason not done S moking/Tobacco Use Patient counseled on the dangers of tobacco use and urged to quit. 0 05/27/2024 DM Care Plan: P atient Lifestyle Goals P atient wants to be able to manage diabetes without too much effort. T reatment Goals B lood Sugars less than < 115, HbA1C < 7.0. B arriers n o barriers. S elf-Managment Goals W ork on weight loss, with a goal of losing 1 lb per week. * Follow Up: 2 Weeks (Reason: Office visit) * Images: * Sign off status: Completed true * Provider: Mary Grewal MD Date: 0 05/27/2024 Generated for Josy shine/Mirtha/Reggieitting on: 10/13/2024 11:14 AM EST History and Physical Notes * HPI (History of Present Illness) Category Sub-Category Detail Notes COVID-19 Screening Questions Have you had any new onset fever, chills, cough, congestion, sore throat, shortness of breath, muscle aches?: No Have you been exposed to the virus withi n the last 10 days?: No Have you travelled internationally in last 10 days?: No Have you been exposed to COVID-19 in the past?: Yes Examination Category Sub-Category Detail Notes General Examination [...] no ascites, no organomegaly, no mass , morbid obesity, 4 healing laparoscopy incisions NEUROLOGIC: alert and oriented, cranial nerves 2-12 grossly intact, deep tendon reflexes 2+ symmetrical, motor strength normal upper and lower extremities, sensory exam intact SKIN: no suspicious lesion s, anicteric PERIPHERAL PULSES: normal BREASTS: not examined MUSCULOSKELETAL: extremities unremark able, no clubbing, cyanosis or edema LYMPH NODES: no enlarged lymph no herbert,spleen normal RECTAL EXAM: not examined PSYCH: alert, oriented ORAL CAVITY: normal, unremarkable
--- OUTSIDE RECORDS SUMMARY | 2024-06-02 06:41 | XMS_ITS ---
Author Organization Yuniel Grewal III, MD Address [address] [place] [address] [address] [place] [address] Care Team Providers Care Dynamometer Tuner Name Role Phone Dr. Yuniel Grewal III Primary Care Provider REASON FOR VISIT pt need RX for Pen needles Medications Medication SIG (Take, Route, Frequency, Duration) Notes Start Date End Date Status BD Pen Needle Micro U/F 32G X 6 MM as directed - use to inject 25 unit in morning and 20 units in evening for 30 days 06/02/2024 Active Social History Sex Assigned At : Social History Observation Description Sex Assigned At Female Encounters Encounter Location Date Provider Diagnosis Yuniel Grewal III, MD [address] [place] [address] [place] [address] 06/02/2024 Yuniel Grewal Plan Of Treatment Medication Medication Name Sig Start Date Stop Date Notes BD Pen Needle Micro U/F 32G X 6 MM as directed - use to inject 25 unit in morning and 20 units in evening for 30 days 06/02/2024 Next Appt Details Provider Name:Yuniel Grewal , 09/18/2025 03:30:00 PM, [address] [place] [address] [place], [address], Progress Notes * Alina ALVAREZDOB:1975 (49 yo F)Acc No.[id number]:06/02/2024 Patient: Alina Porter :1975 A ge:49 Y S ex:Female [address] [place] [address] * Refills Start BD Pen Needle Micro U/F Miscellaneous, 32G X 6 MM, -, 60, as directed, use to inject 25 unit in morning and 20 units in evening, 30 days, Refills=11 * true * Date: Generated for Josy shine/Mirtha/Beena on: 10/13/2024 11:15 AM EST
--- OUTSIDE RECORDS SUMMARY | 2024-06-10 13:30 | XMS_ITS ---
Author Organization Yuniel Grewal III, MD Address [address] [place] [address] Care Team Providers Care It Project Manager Name Role Phone Dr. Yuniel Grewal III Primary Care Provider Allergies Allergen (clinical drug ingredient) Drug/Non Drug Allergy documented on EMR Reaction Allergy Type Onset Date Status Shellfish (FN) Shellfish-derived Products Unknown Drug Allergy Active REASON FOR VISIT follow up Medications Medication SIG (Take, Route, Frequency, Duration) Notes Start Date End Date Status NovoLOG Mix 70/30 FlexPen (70-30) 100 UNIT/ML INJECT 25 UNITS SUBCUTANEOUSLY IN TH MORNING AND 20 UNITS IN THE EVENING FOR 30 DAYS Active Levothyroxine Sodium 137 MCG TAKE 1 TABLET BY MOUTH EVERY DAY IN THE MORNING ON EMPTY STOMACH Active Accu-Chek Guide - USE DIRECTED TO C HECK BLOOD SUGARS TWICE A DAY 90 DAYS Active Albuterol Sulfate HFA 108 (90 Base) MCG/ACT Inhalation Active metFORMIN HCl 500 MG 1 tablet with a oliverio l Orally twice a day 01/15/2024 Active BD Pen Needle Micro U/F 32G X 6 MM as directed - use to inject 25 unit in morning and 20 units in evening 06/02/2024 Active Gauze Pads 3 X3 as directed - use to check blood sugars twice a day 05/05/2023 Active Lancets - as directed - use to check blood sugars twice a day 05/05/2023 Active Trulicity 1.5 MG/0.5ML INJECT 1.5mg D IRECTED SUBCUTANEOUS ONCE A WEEK 28 DAYS Active Pen [place] 31G X 6 MM as directed Twice a day 30 days Active Accu-Chek Viktoria Plus w/Device as directed In Vitro to test blood sugars twice a day 05/05/2023 Active Alcohol Prep Pad 70 % as directed - to u se to test blood sugars twice a day 05/05/2023 Active Accu-Chek Viktoria Plus - as directed In Vi tro to test blood sugars twice a day 05/05/2023 Active Social History Tobacco Use: Social History Observation Description Date Details (start date - stop date) Former Smoker NA - NA Sex Assigned At : Social History Observation Description Sex Assigned At Female Tobacco Use/Smoking Question Answer Notes Patient is a former smoker How long has it been since you last smoked? > 10 years Additional Findings: Tobacco Non-User Ex-cigaret te smoker Encounters Encounter Location Date Provider Diagnosis Yuniel Grewal III, MD [address] [place] [address] [place] [address] 06/10/2024 Yuniel Grewal Acute cholecystitis K81.0 Assessments Encounter Date Diagnosis (ICD Code) Assessment Notes Treat ment Notes Treatment Clinical Notes 06/10/2024 Acute cholecystitis (ICD-10 - K81.0) After a few days of abdominal pain she went to the emergency room at [facility] May 22, 2024 and the next day had a cholecystectomy. She is now recovering well at home. Plan Of Treatment Medication Medication Name Sig Start Date Stop Date Notes NovoLOG Mix 70/30 FlexPen (70-30) 100 UNIT/ML INJECT 25 UNITS SUBCUTANEOUSLY IN TH MORNING AND 20 UNITS IN THE EVENING FOR 30 DAYS Levothyroxine Sodium 137 MCG TAKE 1 TABL ET BY MOUTH EVERY DAY IN THE MORNING ON EMPTY STOMACH Accu-Chek Guide - USE DIRECTED TO C HECK BLOOD SUGARS TWICE A DAY 90 DAYS Albuterol Sulfate HFA 108 (9 0 Base) MCG/ACT Inhalation metFORMIN HCl 500 MG 1 tablet with a oliverio l Orally twice a day 01/15/2024 BD Pen Needle Micro U/F 32G X 6 MM as directed - use to inject 25 unit in morning and 20 units in evening 06/02/2024 Gauze Pads 3 X3 as directed - use to check blood sugars twice a day 05/05/2023 Lancets - as directed - use to check blood sugars twice a day 05/05/2023 Trulicity 1.5 MG/0.5ML INJECT 1.5mg D IRECTED SUBCUTANEOUS ONCE A WEEK 28 DAYS Pen [place] 31G X 6 MM as directed Twice a day 30 days Accu-Chek Viktoria Plus w/Device as directe d In Vitro to test blood sugars twice a day 05/05/2023 Alcohol Prep Pad 70 % as directed - to u se to test blood sugars twice a day 05/05/2023 Accu-Chek Viktoria Plus - as directed In Vi tro to test blood sugars twice a day 05/05/2023 Next Appt Details Provider Name:Yuniel Grewal , 09/18/2025 03:30:00 PM, [address] [place] [address] DR, [place] [address], [place], [address], Progress Notes * Alina ALVAREZDOB:1975 (50 yo F)Acc No.[id number]:06/10/2024 Progress Notes Patient: Alina BAZAN Provider: Mary Grewal MD :1975 A ge:49 Y S ex:Female Date:06/10/2024 Address:[address] [place], [place] [id number] Subjective: * Chief Complaints: * 1 . Follow up. * HPI: C OVID-19 Screening: Questions H ave you had any new onset fever, chills, cough, congestion, sore throat, shortness of breath, muscle aches? N o H ave you been exposed to the virus within the last 10 days? N o H ave you travelled internationally in the last 10 days? N o H ave you been exposed to COVID-19 in the past? N o * ROS: G eneral/Constitutional: pain o nly normal aches and pains. C hills d enies.?Fatigue a dmits. F ever d enies. E NT: Decreased hearing d enies. R espiratory: Cough d enies. C ardiovascular: Chest pain with exertion d enies. D yspnea on exertion?denies. S hortness of breath d enies. G astrointestinal: Constipation d enies. D ecreased appetite d enies.?Diarrhea d enies. H eartburn d enies. N ausea d enies. R ectal bleeding?denies. V omiting d enies. H ematology: bruising d enies. p etechiae d enies. S wollen glands n one have been noted. G enitourinary: Frequent urination d enies. M usculoskeletal: Muscle aches d enies. P ainful joints d enies. S ciatica d enies. W eakness d enies. S kin: Itching d enies. R keanu d enies. S kin lesion(s)?denies. N eurologic: Difficulty speaking d enies. D izziness d enies.?Headache d enies. L ow back pain d enies. P sychiatric: Depressed mood d enies. * Medical History: H ypothyroid, HTN (hypertension), Anemia, Asthma, [id number], Chronic lumbar back pain, Adult onset diabetes mellitus, Shingles February 2023. Left flank, Atypical chest pain, Family history of breast cancer, sister, Former smoker, Morbid obesity, Acute cholecystitis May 22, 2024. * Surgical History: C -Section 1999, [id number] , Laparoscopic cholecystectomy [facility] Dr. Betts . * Hospitalization/Major Diagno stic Procedure: D enies Past Hospitalization. * Family History: F ather: alive 65 yrs, thyroid disease, hepatitis, diabetes, diagnosed with HTN, DM. M other: 66 yrs, Chronic kidney disease, coronary artery disease, renal failure, diagnosed with HTN, CVD. C hildren: alive. P aternal Grand Father: [...] Non-User E x-cigarette smoker * Medications: T aking Trulicity 1.5 MG/0.5ML Solution Pen-injector INJECT 1.5mg DIRECTED SUBCUTANEOUS ONCE A WEEK 28 DAYS , Taking metFORMIN HCl 500 MG Tablet 1 tablet with a meal Orally twice a day , Taking NovoLOG Mix 70/30 FlexPen (70-30) 100 UNIT/ML Suspension Pen-injector INJECT 25 UNITS SUBCUTANEOUSLY IN TH MORNING AND 20 UNITS IN THE EVENING FOR 30 DAYS , Taking Accu-Chek Guide - Strip USE DIRECTED TO CHECK BLOOD SUGARS TWICE A DAY 90 DAYS , Taking Levothyroxine Sodium 137 MCG Tablet TAKE 1 TABLET BY MOUTH EVERY DAY IN THE MORNING ON EMPTY STOMACH , Taking Albuterol Sulfate HFA 108 (90 Base) MCG/ACT Aerosol Solution Inhalation , Taking Accu-Chek Viktoria Plus w/Device Kit as directed In Vitro to test blood sugars twice a day , Taking Accu-Chek Viktoria Plus - Strip as directed In Vitro to test blood sugars twice a day , Taking Alcohol Prep Pad 70 % Pad as directed - to use to test blood sugars twice a day , Taking Lancets - Miscellaneous as directed - use to check blood sugars twice a day , Taking Gauze Pads 3 X3 Pad as directed - use to check blood sugars twice a day , Taking Pen [place] 31G X 6 MM Miscellaneous as directed Twice a day 30 days , Taking BD Pen Needle Micro U/F 32G X 6 MM Miscellaneous as directed - use to inject 25 unit in morning and 20 units in evening , Medication List reviewed and reconciled with the patient * Allergies: S hellfish-derived Products. Objective: * Vitals: * Examination: G eneral Examination: GENERAL APPEARANCE: p leasant, well nourished, well developed, in no acute distress, calm and relaxed. HEAD: a traumatic, normocephalic. EYES: e alonzo, [...] LUNGS: c lear to auscultation . BREASTS: no masses palpable bilaterally. ABDOMEN: b owel sounds normal, no ascites, no organomegaly, no mass. RECTAL EXAM: n ot examined. MUSCULOSKELETAL: e xtremities unremarkable, no clubbing, cyanosis or edema. PERIPHERAL PULSES: n ormal. NEUROLOGIC: a lert and oriented, cranial nerves 2-12 grossly intact, deep tendon reflexes 2+ symmetrical, motor strength normal upper and lower extremities, sensory exam intact. PSYCH: a lert, oriented. Assessment: * Assessment: 1. A cute cholecystitis - K81.0 N otes :After a few days of abdominal pain she went to the emergency room at [facility] May 22, 2024 and the next day had a cholecystectomy. She is now recovering well at home. Plan: * Treatment: 2. O thers Continue BD Pen Needle Micro U/F Miscellaneous, 32G X 6 MM, as directed, -, use to inject 25 unit in morning and 20 units in evening. * Images: * The named appointment provid er may or may not be the originator of this progress note, and it is not deemed complete until electronically signed by the appointment provider. Sign off status: Pending * Provider: Mary Grewal MD Date: 0 06/10/2024 Generated for Josy shine/Mirtha/eTransmitting on: 10/13/2024 11:15 AM EST History and Physical Notes * HPI (History of Present Illness) Category Sub-Category Detail Notes COVID-19 Screening Questions Have you had any new onset fever, chills, cough, congestion, sore throat, shortness of breath, muscle aches?: No Have you been exposed to the virus withi n the last 10 days?: No Have you travelled internationally in [facility] last 10 days?: No Have you been exposed to COVID-19 in the past?: No Examination Category Sub-Category Detail Notes General Examination GENERAL APPEARANCE: pleasant , well nourished, well developed, in no acute distress, calm and relaxed HEAD: atraumatic, normocep halic EYES: eomi, perrla, anicte arpit, conjugate EARS: normal NOSE: septum intact NECK/THYROID: no jugular venous di stention, no carotid bruit, thyroid normal HEART: no clicks, gallops, murmurs, or rubs, regular rhythm, S1, S2 normal, no s3, or vascular bruits LUNGS: clear to auscultatio n ABDOMEN: bowel sounds normal, no ascites, no organomegaly, no mass NEUROLOGIC: alert and oriented, cranial nerves 2-12 [...]
--- OUTSIDE RECORDS SUMMARY | 2024-06-17 04:15 | XMS_ITS ---
Author Organization Yuniel Grewal III, MD Address [address] [place] [address] Care Team Providers Care Stylist Apprentice Name Role Phone Dr. Yuniel Grewal III Primary Care Provider Allergies Allergen (clinical drug ingredient) Drug/Non Drug Allergy documented on EMR Reaction Allergy Type Onset Date Status Shellfish (FN) Shellfish-derived Products Unknown Drug Allergy Active REASON FOR VISIT follow up Medications Medication SIG (Take, Route, Frequency, Duration) Notes Start Date End Date Status Accu-Chek Viktoria Plus - as directed In Vi tro to test blood sugars twice a day 05/05/2023 Active Accu-Chek Viktoria Plus w/Device as directed In Vitro to test blood sugars twice a day 05/05/2023 Active Albuterol Sulfate HFA 108 (90 Base) MCG/ACT Inhalation Active Lancets - as directed - use to check blood sugars twice a day 05/05/2023 Active Alcohol Prep Pad 70 % as directed - to u se to test blood sugars twice a day 05/05/2023 Active Accu-Chek Guide - USE DIRECTED TO C HECK BLOOD SUGARS TWICE A DAY 90 DAYS Active NovoLOG Mix 70/30 FlexPen (70-30) 100 UNIT/ML INJECT 25 UNITS SUBCUTANEOUSLY IN TH MORNING AND 20 UNITS IN THE EVENING FOR 30 DAYS Active metFORMIN HCl 500 MG 1 tablet with a oliverio l Orally twice a day 01/15/2024 Active Trulicity 1.5 MG/0.5ML INJECT 1.5mg D IRECTED SUBCUTANEOUS ONCE A WEEK 28 DAYS Active Levothyroxine Sodium 137 MCG TAKE 1 TABLET BY MOUTH EVERY DAY IN THE MORNING ON EMPTY STOMACH Active Pen [place] 31G X 6 MM as directed Twice a day 30 days Active Gauze Pads 3 X3 as directed - use to check blood sugars twice a day 05/05/2023 Active BD Pen Needle Micro U/F 32G X 6 MM as directed - use to inject 25 unit in morning and 20 units in evening 06/02/2024 Active Social History Tobacco Use: Social History [...] Encounters Encounter Location Date Provider Diagnosis Yuniel Grweal III, MD [address] [place] [address] [place] [address] 06/17/2024 Yuniel Grewal Acute cholecystitis K81.0 Assessments Encounter Date Diagnosis (ICD Code) Assessment Notes Treat ment Notes Treatment Clinical Notes 06/17/2024 Acute cholecystitis (ICD-10 - K81.0) After a few days of abdominal pain she went to the emergency room at [facility] May 22, 2024 and the next day had a cholecystectomy. She is now recovering well at home. Plan Of Treatment Medication Medication Name Sig Start Date Stop Date Notes Accu-Chek Viktoria Plus - as directed In Vi tro to test blood sugars twice a day 05/05/2023 Accu-Chek Viktoria Plus w/Device as directe d In Vitro to test blood sugars twice a day 05/05/2023 Albuterol Sulfate HFA 108 (9 0 Base) MCG/ACT Inhalation Lancets - as directed - use to check blood sugars twice a day 05/05/2023 Alcohol Prep Pad 70 % as directed - to u se to test blood sugars twice a day 05/05/2023 Accu-Chek Guide - USE DIRECTED TO C HECK BLOOD SUGARS TWICE A DAY 90 DAYS NovoLOG Mix 70/30 FlexPen (70-30) 100 UNIT/ML INJECT 25 UNITS SUBCUTANEOUSLY IN TH MORNING AND 20 UNITS IN THE EVENING FOR 30 DAYS metFORMIN HCl 500 MG 1 tablet with a oliverio l Orally twice a day 01/15/2024 Trulicity 1.5 MG/0.5ML INJECT 1.5mg D IRECTED SUBCUTANEOUS ONCE A WEEK 28 DAYS Levothyroxine Sodium 137 MCG TAKE 1 TABL ET BY MOUTH EVERY DAY IN THE MORNING ON EMPTY STOMACH Pen Greenleaf 31G X 6 MM as directed Twice a day 30 days Gauze Pads 3 X3 as directed - use to check blood sugars twice a day 05/05/2023 BD Pen Needle Micro U/F 32G X 6 MM as directed - use to inject 25 unit in morning and 20 units in evening 06/02/2024 Next Appt Details Provider Name:Yuniel Grewal , 09/18/2025 03:30:00 PM, [address] [place] [address] DR, [place] [address], [place], [address], Progress Notes * Alina ALVAREZDOB:1975 (50 yo F)Acc No.[id number]:06/17/2024 Progress Notes Patient: Alina BAZAN Provider: Mary Grewal MD :1975 A ge:49 Y S ex:Female Date:06/17/2024 Address:[address] [place], [place] [phone] Subjective: * Chief Complaints: * 1 . [...] History: H ypothyroid, HTN (hypertension), Anemia, Asthma, [id number], Chronic lumbar back pain, Adult onset diabetes mellitus, Shingles February 2023. Left flank, Atypical chest pain, Family history of breast cancer, sister, Former smoker, Morbid obesity, Acute cholecystitis May 22, 2024. * Surgical History: C -Section 1999, [id number] , Laparoscopic cholecystectomy [facility] Dr. Betts . * Hospitalization/Major Diagno [...] E x-cigarette smoker * Medications: T aking BD Pen Needle Micro U/F 32G X 6 MM Miscellaneous as directed - use to inject 25 unit in morning and 20 units in evening , Taking Trulicity 1.5 MG/0.5ML Solution Pen-injector INJECT 1.5mg [...] sugars twice a day , Taking Pen Greenleaf 31G X 6 MM Miscellaneous as directed Twice a day 30 days , Medication List reviewed and reconciled with [...] she went to the emergency room at [facility] May 22, 2024 and the next [...] * Provider: Mary Grewal MD Date: 0 06/17/2024 Generated for Josy shine/Mirtha/eTransmitting on: 10/13/2024 11:16 AM EST History and Physical Notes * HPI (History of Present Illness) Category Sub-Category Detail Notes COVID-19 Screening Questions Have you had any new onset fever, chills, cough, congestion, sore throat, shortness of breath, muscle aches?: No Have you been exposed to the virus withi n the last 10 days?: No Have you travelled internationally in [facility] last 10 days?: No Have you [...]
--- OUTSIDE RECORDS SUMMARY | 2024-09-16 11:00 | XMS_ITS ---
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 Yuniel Grewal III Primary Care Provider Allergies Allergen (clinical drug ingredient) Drug/Non Drug Allergy documented on EMR Reaction Allergy Type Onset Date Status Shellfish (FN) Shellfish-derived Products Unknown Drug Allergy Active Results Component Value Reference Range Notes URINE DIP STICK Reviewed date:09/16/2024 04:08:10 PM Interpretation: Performing Lab: Notes/Report: SG 1.015 1.005 - 1.025 pH 5.0 5.0 - 9.0 BRUCE Negative Negative - NIT Negative Negative - PRO 15 Negative - Trace GLU Negative Negative - KET Negative Negative - UBG 0.2 0.1 - 1.8 YADIRA Negative 0.2 - 1.3 BLD +++ Negative - Ferritin Reviewed date:10/03/2024 06:07:16 AM Interpretation: Performing Lab:[facility], [address] [place] [phone] Notes/Report: Ferritin 13 10-250 ng/mL Lipid Panel Reviewed date:10/03/2024 06:07:16 AM Interpretation: Performing Lab:[address] [address] Notes/Report: Triglycerides 145 <150 mg/dL Desirable Triglyceride: less than 150 mg/dL Borderline High Triglyceride 150-199 mg/dL High Triglyceride: 200-499 mg/dL Very High Triglyceride: greater than or equal to 5OO mg/dL Cholesterol 213 <200 mg/dL Desirable Cholesterol: less than 200 mg/dL Borderline High Cholesterol: 200-239 mg/dL High Cholesterol: greater than 239 mg/dL LDL Cholesterol Calculated 137 <100 mg/dL Desirable LDL: less than 100 mg/dL Near Optimal/Above Optimal LDL: 110-129 mg/dL Borderline High LDL: 130-159 mg/dL High LDL: 160-189 mg/dL Very High LDL: greater than or equal to 190 mg/dL HDL Cholesterol 47 >40 mg/dL Desirable HDL: greater than 40 mg/dL Note: This HDL assay may give artificially low results in patients with liver disease. Microalbumin, Random Reviewed date:10/03/2024 06:07:16 AM Interpretation: Performing Lab:[address] [phone] Notes/Report: Creatinine Urine 125.44 Microalbumin Urine 19.0 Microalbum/Creatinine Ratio Ur 15.1 <30 ug/mg cr Albumin/Creatinine Ratio Reference Ranges: Normal: < 30 ug/mg creatinine Microalbuminuria: 30 - 300 ug/mg creatinine Clinical Albuminuria: > 300 ug/mg creatinine Hemoglobin A1c Reviewed date:10/03/2024 06:07:16 AM Interpretation: Performing Lab:[address] [address] Notes/Report: Hemoglobin A1c % 6.8 <6.0 % Hemoglobin A1C Reference Range Adults: 4.8 - 6.0 % Non diabetic: < 6.0 % Goal: < 7.0 % Additional Action Suggested: > 8.0 % Note: Hemoglobin A1c results are invalid for patients with abnormal amounts of HbF. Blood transfusions may impact the HbA1c concentration in the patient sample. Estimated Average Glucose 148 eAG = Estimated average glucose which is %A1C expressed as average glucose, using the formula of the D9Y-Gobhbmi Average Glucose study (ADAG), Diabetes Care, Vol.31,#8, May. 2007 XR cervical spine 4V Reviewed date:10/03/2024 06:07:16 AM Interpretation: Performing Lab: Notes/Report: [address] [address] XRay Report Signed Patient: Alina Alvarez MR#: [id number] 7 : 1975 Acct:[id number] Age/Sex: 49 / F ADM Date: 09/16/24 Loc: HO.XRAY Attending Dr: Yuniel Grewal MD Ordering Physician: Yuniel Grewal MD Date of Service: 09/16/24 Procedure(s): XR cervical spine 4V Accession Number(s): [id number] cc: Yuniel Grewal MD EXAMINATION: XR CERVICAL SPINE CLINICAL INFORMATION: neck pain COMPARISON: None available. TECHNIQUE: 5 views of the cervical spine, inclusive of oblique views, were obtained. FINDINGS: Cervical spine maintains normal alignment. Vertebral body heights and intervertebral disc spaces are maintained. There are large anterior osteophytes at C2-C3 and C5-C6. No significant foraminal stenosis. XR/XR cervical spine 4V IMPRESSION: Mild degenerative disease of the cervical spine. Electronically signed by: Elda Warren MD 09/16/2024 08:42 PM EST RP Dictated By: Elda Warren MD Signed By: <Electronically signed by Elda Warren MD in OV> 09/16/242041 DD/ 1650 TD/TT: 09/16/24 1700 Postmaster Relief: NIKHIL [place] [address] XRay Report Signed Patient: Opal Alvarez MR#: [id number] 7 : 1975 Acct:[id number] Age/Sex: 49 / F ADM Date: 09/16/24 Loc: HO.PJ Attending Dr: Yuniel Grewal MD Ordering Physician: Yuniel Grewal MD Date of Service: 09/16/24 Procedure(s): XR cervical spine 4V Accession Number(s): [id number] cc: Yuniel Grewal MD EXAMINATION: XR CERVICAL SPINE CLINICAL INFORMATION: neck pain COMPARISON: None available. TECHNIQUE: 5 views of the cervi diana spine, inclusive of oblique views, were obtained. FINDINGS: Cervical spine maintains normal alignment. Vertebral body heights and intervertebral disc spaces are maintained. There are large anterior osteophytes at C2-C3 and C5-C6. No significant foraminal stenosis. XR/XR cervical spine 4V IMPRESSION: Mild degenerative disease of the cervical spine. Electronically stephanie d by: Elda Warren MD 09/16/2024 08:42 PM EST RP Dictated By: Elda Warren MD Signed By: <Electronically signed by Elda Warren MD in OV> 09/16/242041 DD/ 49 TD/TT: 09/16/24 1700 Postmaster Relief: NIKHIL Reason For Referral Reason Evaluate and Treat Screen for Colon Cancer Diagnosis 1 Screen for colon can cer (Z12.11) Referral Organization Yuniel Grewal III, MD Referring Provider First Name Yuniel Referring Provider Last Name Uri Referring Provider Speciality Internal M edicine Referred Provider LENORE VELARDE Referred Provider Specialty Gastroentero logy General Notes D, Bea 09/19/2024 11:48:46 AM > Referral and progress note faxed. Referral Priority Routine Referral Appointment Date 01/31/2025 REASON FOR VISIT Annual Exam Medications Medication SIG (Take, Route, Frequency, Duration) Notes Start Date End Date Status metFORMIN HCl 500 MG 1 tablet with a oliverio l Orally twice a day 01/15/2024 Active NovoLOG Mix 70/30 FlexPen (70-30) 100 UNIT/ML INJECT 25 UNITS SUBCUTANEOUSLY IN TH MORNING AND 20 UNITS IN THE EVENING FOR 30 DAYS Active Accu-Chek Guide - USE DIRECTED TO C HECK BLOOD SUGARS TWICE A DAY 90 DAYS Active BD Pen Needle Micro U/F 32G X 6 MM as directed - use to inject 25 unit in morning and 20 units in evening 06/02/2024 Active Trulicity 1.5 MG/0.5ML INJECT 1.5mg D IRECTED SUBCUTANEOUS ONCE A WEEK 28 DAYS Active Accu-Chek Viktoria Plus - as directed [...] blood sugars twice a day 05/05/2023 Active Pen [place] 31G X 6 MM as directed Twice [...] Observation Description Sex Assigned At Female Tobacco Control (Standard) Question Answer Notes Tobacco use: Former smoker How long has it been since you last smoked? Grea ter than 10 years Additional Findings: Tobacco non-user Ex-cigaret te smoker AUDIT-C (Standard) Question Answer Notes Did you have a drink containing alcohol in the p ast year? No Points 0 Interpretation Negative Vital Signs Blood pressure systolic 138 mm Hg 09/16/20 24 Blood pressure diastolic 78 mm Hg 024 Heart Rate 72 /min 09/16/2024 Height 59 in 09/16/2024 Weight 205 lbs 09/16/2024 BMI 41.4 kg/m2 09/16/2024 Encounters Encounter Location Date Provider Diagnosis Yuniel Grewal III, MD [address] [place] [address] [place] [address] 09/16/2024 Yuniel Grewal Diabetes E11.9 ; Morbid obesity E66.01 ; HTN (hypertension) I10 ; Anemia D64.9 ; Neck pain M54.2 ; Hypothyroid E03.9 ; Asthma J45.909 and Former smoker Z87.891 Assessments Encounter Date Diagnosis (ICD Code) Assessment Notes Treatment Notes Treatment Clinical Notes 09/16/2024 Diabetes (ICD-10 - E11.9) She has been compliant with her medication. Her fasting glucoses morning was 140 at home. Comprehensive blood work with a hemoglobin A1c and a microalbumin have been ordered to be done in the next few days. 09/16/2024 Morbid obesity (ICD-10 - E66.01) Her body mass index is 41. We discussed diet and nutrition. We made a plan to lose weight at a rate of one half of a pound per week. We have discussed oral and injectable medications she has declined them for the time being. She does not wish to have bariatric surgery. 09/16/2024 HTN (hypertension) (ICD-10 - I10) Her blood pressure is currently stable and no change in her regimen was made. I strongly recommended aggressive weight loss and sodium restriction. 09/16/2024 Anemia (ICD-10 - D64.9) This will be reevaluated with comprehensive blood work to be done in the next few days. She did not appear to be anemic. She has had no bleeding. 09/16/2024 Neck pain (ICD-10 - M54.2) The neck pain is mild and likely due to bone spurs in her neck. She does not have spinal stenosis but does have cervical radiculopathy. 09/16/2024 Hypothyroid (ICD-10 - E03.9) Her thyroid function tests are normal. She appears to be euthyroid. No change was necessary in her medication. 09/16/2024 Asthma (ICD-10 - J45.909) She has a history of intermittent asthma. No wheezes or her today. She has a rescue inhaler if necessary. 09/16/2024 Former smoker (ICD-10 - Z87.891) She has a plan to prevent relapse in times of stress and illness. Plan Of Treatment Medication Medication Name Sig Start Date Stop Date Notes metFORMIN HCl 500 MG 1 tablet with a oliverio l Orally twice a day 01/15/2024 NovoLOG Mix 70/30 FlexPen (70-30) 100 UNIT/ML INJECT 25 UNITS SUBCUTANEOUSLY IN TH MORNING AND 20 UNITS IN THE EVENING FOR 30 DAYS Accu-Chek Guide - USE DIRECTED TO C HECK BLOOD SUGARS TWICE A DAY 90 DAYS BD Pen Needle Micro U/F 32G X 6 MM as directed - use to inject 25 unit in morning and 20 units in evening 06/02/2024 Trulicity 1.5 MG/0.5ML INJECT 1.5mg D IRECTED SUBCUTANEOUS ONCE A WEEK 28 DAYS Accu-Chek Viktoria Plus - as directed In [...] check blood sugars twice a day 05/05/2023 Pen [place] 31G X 6 MM as directed Twice a day 30 days Levothyroxine Sodium 137 MCG TAKE 1 TABL ET BY MOUTH EVERY DAY IN THE MORNING ON EMPTY STOMACH Albuterol Sulfate HFA 108 (9 0 Base) MCG/ACT Inhalation Accu-Chek Viktoria Plus w/Device as directe d In Vitro to test blood sugars twice a day 05/05/2023 Pending Test Test Name Order Date PROFILE, FASTING (COMPREHENSIVE METABOLI C) 09/16/2024 CBC WITH AUTO DIFF 09/16/2024 Referrals Referral Date Details 09/16/2024 09/16/2024, Evaluate and Treat Screen for Colon Cancer, LENORE VELARDE Next Appt Details Follow Up: 2 Weeks, Two week s after blood work, Reason: OV, Review blood work results Provider Name:Yuniel Grewal , 09/18/2025 03:30:00 PM, [address] [place] [address] [address] [place], [place], [address], Progress Notes * Alina ALVAREZDOB:1975 (49 yo F)Acc No.[id number]:09/16/2024 Progress Notes Patient: Alina BAZAN Provider: Mary Grewal MD :1975 A ge:49 Y S ex:Female Date:09/16/2024 Address:[address] [place] [address], [phone] Subjective: * Chief Complaints: * A nnual Exam * HPI: D epression Screening: PHQ-9 L ittle interest or pleasure in doing things?Nearly every day F eeling down, depressed, or hopeless M ore than half the days T rouble falling or staying asleep, or sleeping too much S everal days F eeling tired or having little energy N early every day P oor appetite or overeating S everal F eeling bad about yourself or that you are a failure, or have let yourself or your family down N ot at all T rouble concentrating on things, such as reading the newspaper or watching television N ot at all M oving or speaking so slowly that other people could have noticed; or the opposite, being so fidgety or restless that you have been moving around a lot more than usual M ore than half the days T houghts that you would be better off or of hurting yourself in some way S everal days (Consider Suicide Assessment Risk) T otal Score 1 3 I nterpretation M oderate Depression C OVID-19 Screening: Questions H ave you experienced fever, chills, cough, sore throat, shortness of breath, difficulty breathing, muscle aches, loss of taste or smell? N o H ave you been exposed to the virus within the last 10 days? N o H ave you travelled internationally in the last 10 days? N o H ave you been exposed to COVID-19 in the past? Y es S RENETTA Questions: SDOH Questions I n the past year have you been worried about losing your housing? N o I n the past year have you or any family members you live with been unable to get any of the following when it was really needed? Check all that apply: M edicine or Healthcare * : The patient, a 49-year-old female, presented for her annual exam. She had her gallbladder removed in the past and has been managing her blood sugar levels, which were reported to be good at the time of the visit. The patient has been taking thyroid medication and her blood sugar medication, Trulicity and Novolog. She reported occasional numbness in her hands, which the doctor attributed to possible nerve irritation due to arthritis in her neck. The patient also reported occasional back pain and knee pain, which the doctor attributed to her work. The patient's weight has remained stable. Blood Sugar Level is 140.She also complains of pain with range of motion of the neck. X-rays of the cervical spine done today show significant anterior bone spurs but no spinal stenosis. * ROS: G eneral/Constitutional: pain W ith range of motion of neck, tingling and numbness both hands and forearms. C hills d enies. F atigue a dmits. F ever d enies.? E NT: Decreased hearing d enies. R [...] Muscle aches d enies. P ainful joints N neva. S ciatica d enies. W eakness d enies. S kin: Itching d enies. R keanu d enies. S kin lesion(s)?denies. N eurologic: Difficulty speaking d enies. D izziness d enies.?Headache d enies. L ow back pain d enies. P sychiatric: Depressed mood d enies. * Medical History: * Surgical History: C -Section Laparoscopic cholecystectomy [facility] Dr. Betts Gallbladder removal * Hospitalization/Major Diagno stic Procedure: H ospitalization for gallbladder removal * Family History: F ather: alive 65 yrs, diagnosed with DM, HTN. M other: 66 yrs, diagnosed with CVD, HTN. C hildren: alive. S on(s): alive. S iblings: alive. P aternal Grand Father: , diagnosed with DM. P aternal Grand Mother: unknown. M aternal Grand Father: unknown. M aternal Grand Mother: . P aternal uncle: , diagnosed with DM. P aternal [...] illness or addiction. She has a son Lorie who is healthy and well. * Social History: T obacco Use: T obacco Use/Smoking . Tobacco Control (Standard) T obacco use: F ormer smoker H ow long has it been since you last smoked??Greater than 10 years A dditional Findings: Tobacco non-user E x-cigarette smoker D rugs/Alcohol: D rugs H ave you used drugs other than those for medical reasons in the past 12 months? N o D rug/Alcohol: A OSWALD-C (Standard) D id you have a drink containing alcohol in the past year? N o P oints 0 I nterpretation N egative T he patient works and has one child. She does not smoke. * Medications: T akingBD Pen Needle Micro U/F 32G X 6 MM Miscellaneous as directed - use to inject 25 unit in morning and 20 units in evening Trulicity 1.5 MG/0.5ML Solution Pen- injector INJECT 1.5mg DIRECTED SUBCUTANEOUS ONCE A WEEK 28 DAYS metFORMIN HCl 500 MG Tablet 1 tablet with a meal Orally twice a day NovoLOG Mix 70/30 FlexPen (70-30) 100 UNIT/ML [...] to test blood sugars twice a day Accu-Chek Viktoria Plus - Strip as directed In Vitro to test blood sugars twice a day Alcohol Prep Pad 70 % Pad as directed - to use to test blood sugars twice a day Lancets - Miscellaneous as directed - use to check blood sugars twice a day Gauze Pads 3 X3 Pad as directed - use to check blood sugars twice a day Pen Strafford 31G X 6 MM Miscellaneous as directed Twice a day 30 days Medication List reviewed and reconciled with the patientTaking BD Pen Needle Micro U/F 32G X 6 MM Miscellaneous as directed - use to inject 25 unit in morning and 20 units in evening Taking Trulicity 1.5 MG/0.5ML Solution Pen-injector INJECT 1.5mg DIRECTED SUBCUTANEOUS ONCE A WEEK 28 DAYS Taking metFORMIN HCl 500 MG Tablet 1 tablet with a meal Orally twice a day Taking NovoLOG Mix 70/30 FlexPen (70-30) 100 [...] to test blood sugars twice a day Taking Accu-Chek Viktoria Plus - Strip as directed In Vitro to test blood sugars twice a day Taking Alcohol Prep Pad 70 % Pad as directed - to use to test blood sugars twice a day Taking Lancets - Miscellaneous as directed - use to check blood sugars twice a day Taking Gauze Pads 3 X3 Pad as directed - use to check blood sugars twice a day Taking Pen Straff[place] 31G X 6 MM Miscellaneous as directed Twice a day 30 days Medication List reviewed and reconciled with the patient * Allergies: S hellfish-derived Productsno[Allergies Verified] Objective: * Vitals: H t: 59 , Wt: 205, BMI:41.4, BP: 138/78, HR: 72, Ht-cm: 149.86, Wt-k.99. * P ast Orders: L ab:URINE DIP STICK (Order Date - 09/16/2024) (Collection Date & Time - 09/16/2024) Value Reference Range SG 1.015 1.005 - 1.025 pH 5.0 5.0 - 9.0 BRUCE Negative Negative - NIT Negative Negative - PRO 15 Negative - Trace GLU Negative Negative - KET Negative Negative - UBG 0.2 0.1 - 1.8 YADIRA Negative 0.2 - 1.3 BLD +++ Negative - * Examination: G eneral Examination: GENERAL APPEARANCE: p leasant, well nourished, well developed, in no acute distress, calm and relaxed, morbidly obese, woman. HEAD: a traumatic, normocephalic. EYES: e [...] LUNGS: c lear to auscultation . BREASTS: N ot examined,Done by the mechanic/welder. ABDOMEN: b owel sounds normal, no ascites, no organomegaly, no mass, morbid obesity. RECTAL EXAM: D one by SUPERVISOR WHIPPED TOPPING. MUSCULOSKELETAL: e xtremities unremarkable, no clubbing, cyanosis or edema, Mild pain and tingling in her forearms with range of motion of her neck. PERIPHERAL PULSES: n ormal. NEUROLOGIC: a lert and oriented, cranial nerves 2-12 grossly intact, deep tendon reflexes 2+ symmetrical, motor strength normal upper and lower extremities, sensory exam intact. PSYCH: a lert, oriented. - : N neva:Possible nerve irritation due to arthritis, Back: Occasional pain, Knees: Occasional pain, Hands: Occasional numbness. Assessment: * Assessment: 1. D iabetes - E11.9 (Primary) N otes :She has been compliant with her medication. Her fasting glucoses morning was 140 at home.? Comprehensive blood work with a hemoglobin A1c and a microalbumin have been ordered to be done in the next few days. 2 . M orbid obesity - E66.01 N otes :Her body mass index is 41. We discussed diet and nutrition. We made a plan to lose weight at a rate of one half of a pound per week. We have discussed oral and injectable medications she has declined them for the time being. She does not wish to have bariatric surgery. 3 . H TN (hypertension) - I10 N otes :Her blood pressure is currently stable and no change in her regimen was made. I strongly recommended aggressive weight loss and sodium restriction. 4 . A nemia - D64.9 N otes :This will be reevaluated with comprehensive blood work to be done in the next few days. She did not appear to be anemic. She has had no bleeding. 5 . N neva pain - M54.2 N otes :The neck pain is mild and likely due to bone spurs in her neck. She does not have spinal stenosis but does have cervical radiculopathy. 6 . H ypothyroid - E03.9 N otes :Her thyroid function tests are normal. She appears to be euthyroid. No change was necessary in her medication. 7 . A sthma - J45.909 N otes :She has a history of intermittent asthma. No wheezes or her today. She has a rescue inhaler if necessary. 8 . F ormer smoker - Z87.891 N otes :She has a plan to prevent relapse in times of stress and illness. Plan: * Treatment: 2. M orbid obesity L AB: PROFILE, FASTING (COMPREHENSIVE METABOLIC) L AB: CBC WITH AUTO DIFF L AB: Ferritin L AB: Lipid Panel L AB: Microalbumin, Random L AB: Hemoglobin A1c 3. H TN (hypertension) L AB: PROFILE, FASTING (COMPREHENSIVE METABOLIC) L AB: CBC WITH AUTO DIFF L AB: Ferritin L AB: Lipid Panel L AB: Microalbumin, Random L AB: Hemoglobin A1c 4. A nemia L AB: PROFILE, FASTING (COMPREHENSIVE METABOLIC) L AB: CBC WITH AUTO DIFF L AB: Ferritin L AB: Lipid Panel L AB: Microalbumin, Random L AB: Hemoglobin A1c 5. N neva pain I maging: XR cervical spine 4V (Performed Date - 09/16/2024) 6. O thers Continue BD Pen Needle Micro U/F Miscellaneous, 32G X 6 MM, as directed, -, use to inject 25 unit in morning and 20 units in evening; C ontinue Trulicity Solution Pen-injector, 1.5 MG/0.5ML, INJECT 1.5mg DIRECTED SUBCUTANEOUS ONCE A WEEK 28 DAYS; C ontinue metFORMIN HCl Tablet, 500 MG, 1 tablet with a meal, Orally, twice a day; C ontinue NovoLOG Mix 70/30 FlexPen Suspension Pen-injector, (70-30) 100 UNIT/ML, INJECT 25 UNITS SUBCUTANEOUSLY IN TH MORNING AND 20 UNITS IN THE EVENING FOR 30 DAYS; C ontinue Accu-Chek Guide Strip, -, USE DIRECTED TO CHECK BLOOD SUGARS TWICE A DAY 90 DAYS; C ontinue Levothyroxine Sodium Tablet, 137 MCG, TAKE 1 TABLET BY MOUTH EVERY DAY IN THE MORNING ON EMPTY STOMACH; C ontinue Albuterol Sulfate HFA Aerosol Solution, 108 (90 Base) MCG/ACT, Inhalation; C ontinue Accu-Chek Viktoria Plus Kit, w/Device, as directed, In Vitro, to test blood sugars twice a day; C ontinue Accu-Chek Viktoria Plus Strip, -, as directed, In Vitro, to test blood sugars twice a day; C ontinue Alcohol Prep Pad Pad, 70 %, as directed, -, to use to test blood sugars twice a day; C ontinue Lancets Miscellaneous, -, as directed, -, use to check blood sugars twice a day; C ontinue Gauze Pads Pad, 3 X3 , as directed, -, use to check blood sugars twice a day; C ontinue Pen Strafford Miscellaneous, 31G X 6 MM, as directed, Twice a day, 30 days. Referral To:[facility] Reason:Evaluate and Treat Screen for Colon Cancer * Labs: * L ab: URINE DIP STICK (Collection Date & Time - 09/16/2024) Value Reference Range S G 1.015 1.005 - 1.025 * p H 5.0 5.0 - 9.0 * L EU Negative Negative - * N IT Negative Negative - * P RO 15 Negative - Trace * G MIGUELITO Negative Negative - * K ET Negative Negative - * U BG 0.2 0.1 - 1.8 * B IL Negative 0.2 - 1.3 * B LD +++ Negative - * Procedure Codes: 8 1002 URINE-NO MICRO * Preventive Medicine: Counseling: C are goal [...] done: Medical or Other reason not done DM Care Plan: P atient Lifestyle Goals P atient wants to be able to manage diabetes without too much effort. T reatment Goals H bA1C < 7.0, Blood Sugars less than < 115. B arriers n o barriers. S elf-Managment Goals W ork on weight loss, with a goal of losing 1 lb per week. * Follow Up: 2 Weeks, Two weeks after blood work (Reason: OV, Review blood work results) * Images: * Sign off status: Completed true * Provider: Mary Grewal MD Date: 11/17/2023 Generated for Shermani ng/Mirtha/eTransmitting on: 10/13/2024 11:15 AM EST History and Physical Notes * HPI (History of Present Illness) Category Sub-Category Detail Notes Depression Screening PHQ-9 Little inte rest or pleasure in doing things: Nearly every day Feeling down, depressed, or hopeless: Mo re than half the days Trouble falling or staying asleep, or sl eeping too much: Several days Feeling tired or having little energy: N early every day Poor appetite or overeating: Several day s Feeling bad about yourself o r that you are a failure, or have let yourself or your family down: Not at all Trouble concentrating on thi ngs, such as reading the newspaper or watching television: Not at all Moving or speaking so slowly that other people could have noticed; or the opposite, being so fidgety or restless that you have been moving around a lot more than usual: More than half the days Thoughts that you would be b sudhir off or of hurting yourself in some way: Several days (Consider Suicide Assessment Risk) Total Score: 13 Interpretation: Moderate Depression COVID-19 Screening Questions Have you had any new onset fever, chills, cough, congestion, sore throat, shortness of breath, muscle aches?: No Have you been exposed to the virus withi n the last 10 days?: No Have you travelled internationally in e last 10 days?: No Have you been exposed to COVID-19 in the past?: Yes SDOH Questions SDOH Questions In the past year have you been worried about losing your housing?: No In the past year have you or any family members you live with been unable to get any of the following when it was really needed? Check all that apply:: Medicine or Healthcare Examination Category Sub-Category Detail Notes General Examination GENERAL APPEARANCE: pleasant , well nourished, well developed, in no acute distress, calm and relaxed, morbidly obese, woman HEAD: atraumatic, normocep halic EYES: eomi, perrla, anicte arpit, conjugate EARS: normal NOSE: septum intact NECK/THYROID: no jugular venous di stention, no carotid bruit, thyroid normal HEART: no clicks, gallops, murmurs, or rubs, regular rhythm, S1, S2 normal, no s3, or vascular bruits LUNGS: clear to auscultatio n ABDOMEN: bowel sounds normal, no ascites, no organomegaly, no mass, morbid obesity NEUROLOGIC: alert and oriented, cranial nerves 2-12 grossly intact, deep tendon reflexes 2+ symmetrical, motor strength normal upper and lower extremities, sensory exam intact SKIN: no suspicious lesion s, anicteric PERIPHERAL PULSES: normal BREASTS: Not examined,Done by the mechanic/welder MUSCULOSKELETAL: extremities unremark able, no clubbing, cyanosis or edema, Mild pain and tingling in her forearms with range of motion of her neck LYMPH NODES: no enlarged lymph no herbert,spleen normal RECTAL EXAM: Done by SUPERVISOR WHIPPED TOPPING PSYCH: alert, oriented ORAL CAVITY: normal, unremarkable Consultation Request Notes Referral Date Referring Provider Referred Provider Not mehul 09/16/2024 Yuniel Grewal RUBEELA Evaluate and Treat Screen for Colon Cancer
--- OUTSIDE RECORDS SUMMARY | 2024-09-30 11:00 | XMS_ITS ---
Author Organization Yuniel Grewal III, MD Address [address] [place] [address] Care Team Providers Care Stone Cleaner Name Role Phone Dr. Yuniel Grewal III Primary Care Provider [phone] Allergies Allergen (clinical drug ingredient) Drug/Non Drug Allergy documented on EMR Reaction Allergy Type Onset Date Status Shellfish (FN) Shellfish-derived Products Unknown Drug Allergy Active REASON FOR VISIT Follow up Medications Medication SIG (Take, Route, Frequency, Duration) Notes Start Date End Date Status metFORMIN HCl 500 MG 1 tablet with a oliverio l Orally twice a day 01/15/2024 Active NovoLOG Mix 70/30 FlexPen (70-30) 100 UNIT/ML INJECT 25 UNITS SUBCUTANEOUSLY IN TH MORNING AND 20 UNITS IN THE EVENING FOR 30 DAYS Active BD Pen Needle Micro U/F 32G X 6 MM as directed - use to inject 25 unit in morning and 20 units in evening 06/02/2024 Active Trulicity 1.5 MG/0.5ML INJECT 1.5mg D IRECTED SUBCUTANEOUS ONCE A WEEK 28 DAYS Active Pen Ashley 31G X 6 MM as directed Twice a day 30 days Active Alcohol Prep Pad 70 % as [...] HFA 108 (90 Base) MCG/ACT Inhalation Active Social History Tobacco Use: Social History Observation Description Date Details (start date - stop date) Former Smoker NA - NA Sex Assigned At : Social History Observation Description Sex Assigned At Female Tobacco Control (Standard) Question Answer Notes Tobacco use: Former smoker How long has it been since you last smoked? Shona ter than 10 years Additional Findings: Tobacco non-user Ex-cigaret te smoker Encounters Encounter Location Date Provider Diagnosis Yuniel Grewal III, MD [address] [place] [address] [address] [place] [address], [place] [address] 09/30/2024 Yuniel Grewal Plan Of Treatment Medication Medication Name Sig Start Date Stop Date Notes metFORMIN HCl 500 MG 1 tablet with a oliverio l Orally twice a day 01/15/2024 NovoLOG Mix 70/30 FlexPen (70-30) 100 UNIT/ML INJECT 25 UNITS SUBCUTANEOUSLY IN TH MORNING AND 20 UNITS IN THE EVENING FOR 30 DAYS BD Pen Needle Micro U/F 32G X 6 MM as directed - use to inject 25 unit in morning and 20 units in evening 06/02/2024 Trulicity 1.5 MG/0.5ML INJECT 1.5mg D IRECTED SUBCUTANEOUS ONCE A WEEK 28 DAYS Pen Ashley 31G X 6 MM as directed Twice a day 30 days Alcohol Prep Pad 70 % as directed [...] test blood sugars twice a day 05/05/2023 Gauze [...] HFA 108 (9 0 Base) MCG/ACT Inhalation Next Appt Details Provider Name:Yuniel Grewal , 09/18/2025 03:30:00 PM, [address] [place] [address] [address], [place], [address], Progress Notes * Alina ALVAREZDOB:1975 (50 yo F)Acc No.[id number]:09/30/2024 Progress Notes Patient: Alina BAZAN Provider: Mary Grewal MD :1975 A ge:49 Y S ex:Female Date:09/30/2024 Address:[address] [place], [place] [phone] Subjective: * Chief Complaints: * 1 . Follow up. * HPI: C OVID-19 Screening: Questions H ave you had any new onset fever, chills, cough, congestion, sore throat, shortness of breath, muscle aches? N o * ROS: G eneral/Constitutional: pain [...] History: H ypothyroid, HTN (hypertension), Anemia, Asthma, [id number], Chronic lumbar back pain, Adult onset diabetes mellitus, Shingles February 2023. Left flank, Atypical chest pain, Family history of breast cancer, sister, Former smoker, Morbid obesity, Acute cholecystitis May 22, 2024, The patient had her gallbladder removed in the past. She is managing her blood sugar levels with medication and is taking thyroid medication.. * Surgical History: C -Section 1999, [id number] , Laparoscopic cholecystectomy [facility] Dr. Betts , Gallbladder removal . * Hospitalization/Major Diagno stic Procedure: H ospitalization for gallbladder removal . * Family History: F ather: alive 65 [...] Social History: T obacco Use: T obacco Control (Standard) T obacco use: F ormer smoker H ow long has it been since you last smoked??Greater than 10 years A dditional Findings: Tobacco non-user E x-cigarette smoker T he patient works and has one child. She does not smoke. * Medications: T aking BD Pen Needle [...] sugars twice a day , Taking Pen Ashley 31G X 6 MM Miscellaneous as directed [...] exam intact. PSYCH: a lert, oriented. Assessment: Plan: * Treatment: * Images: * The named appointment provid er may or may not be the originator of this progress note, and it is not deemed complete until electronically signed by the appointment provider. Sign off status: Pending * Provider: Mary Grewal MD Date: 12/01/2023 Generated for Josy shine/Mirtha/Reggieitting on: 10/13/2024 11:14 AM EST History and Physical Notes * HPI (History of Present Illness) Category Sub-Category Detail Notes COVID-19 Screening Questions Have you had any new onset fever, chills, cough, congestion, sore throat, shortness of breath, muscle aches?: No Examination Category Sub-Category Detail Notes General [...]
--- OUTSIDE RECORDS SUMMARY | 2024-10-14 09:45 | XMS_ITS ---
Author Organization Yuniel Grewal III, MD Address [address] [address] Care Team Providers Care Neuropsychologist Name Role Phone Dr. Yuniel Grewal III Primary Care Provider Allergies Allergen (clinical drug ingredient) Drug/Non Drug Allergy documented on EMR Reaction Allergy Type Onset Date Status Shellfish (FN) Shellfish-derived Products Unknown Drug Allergy Active REASON FOR VISIT Follow up Medications Medication SIG (Take, Route, Frequency, Duration) Notes Start Date End Date Status Lancets - as directed - use to check blood sugars twice a day 05/05/2023 Active Alcohol Prep Pad 70 % as directed - to u se to test blood sugars twice a day 05/05/2023 Active Accu-Chek Viktoria Plus - as directed In Vi tro to test blood sugars twice a day 05/05/2023 Active Pen Poland 31G X 6 MM as directed Twice a day 30 days Active Gauze Pads 3 X3 as directed - use to check blood sugars twice a day 05/05/2023 Active Albuterol Sulfate HFA 108 (90 Base) MCG/ACT Inhalation Active Levothyroxine Sodium 137 MCG TAKE 1 TABLET BY MOUTH EVERY DAY IN THE MORNING ON EMPTY STOMACH Active Accu-Chek Guide - USE DIRECTED TO C HECK BLOOD SUGARS TWICE A DAY 90 DAYS Active NovoLOG Mix 70/30 FlexPen (70-30) 100 UNIT/ML INJECT 25 UNITS SUBCUTANEOUSLY IN TH MORNING AND 20 UNITS IN THE EVENING FOR 30 DAYS Active Accu-Chek Viktoria Plus w/Device as directed In Vitro to test blood sugars twice a day 05/05/2023 Active metFORMIN HCl 500 MG 1 tablet with a oliverio l Orally twice a day 01/15/2024 Active Trulicity 1.5 MG/0.5ML INJECT 1.5mg D IRECTED SUBCUTANEOUS ONCE A WEEK 28 DAYS Active BD Pen Needle Micro U/F [...] Provider Diagnosis Yuniel Grewal III, MD [address] [place] [address] [address] [place] [address], [place] [address] 10/14/2024 Yuniel Grewal Plan Of Treatment Medication Medication Name Sig Start Date Stop Date Notes Lancets - as directed - use to check blood sugars twice a day 05/05/2023 Alcohol Prep Pad 70 % as directed - to u se to test blood sugars twice a day 05/05/2023 Accu-Chek Viktoria Plus - as directed In Vi tro to test blood sugars twice a day 05/05/2023 Pen Poland 31G X 6 MM as directed Twice a day 30 days Gauze Pads 3 X3 as directed - use to check blood sugars twice a day 05/05/2023 Albuterol Sulfate HFA 108 (9 0 Base) MCG/ACT Inhalation Levothyroxine Sodium 137 MCG TAKE 1 TABL ET BY MOUTH EVERY DAY IN THE MORNING ON EMPTY STOMACH Accu-Chek Guide - USE DIRECTED TO C HECK BLOOD SUGARS TWICE A DAY 90 DAYS NovoLOG Mix 70/30 FlexPen (70-30) 100 UNIT/ML INJECT 25 UNITS SUBCUTANEOUSLY IN TH MORNING AND 20 UNITS IN THE EVENING FOR 30 DAYS Accu-Chek Viktoria Plus w/Device as directe d In Vitro to test blood sugars twice a day 05/05/2023 metFORMIN HCl 500 MG 1 tablet with a oliverio l Orally twice a day 01/15/2024 Trulicity 1.5 MG/0.5ML INJECT 1.5mg D IRECTED SUBCUTANEOUS ONCE A WEEK 28 DAYS BD Pen Needle Micro U/F 32G X 6 MM as directed - use to inject 25 unit in morning and 20 units in evening 06/02/2024 Next Appt Details Provider Name:Yuniel Grewal , 09/18/2025 03:30:00 PM, [address] [place] [address] [address], [place], [address], Progress Notes * Alina ALVAREZDOB:1975 (50 yo F)Acc No.[id number]:10/14/2024 Progress Notes Patient: Alina BAZAN Provider: Mary Grewal MD :1975 A ge:49 Y S ex:Female Date:10/14/2024 Address:[address] [place], [place] [phone] Subjective: * Chief Complaints: * 1 . [...] History: H ypothyroid, HTN (hypertension), Anemia, Asthma, [id number], Chronic lumbar back pain, Adult onset diabetes mellitus, Shingles February 2023. Left flank, Atypical chest pain, Family history of breast cancer, sister, Former smoker, Morbid obesity, Acute cholecystitis May 22, 2024, The patient had her gallbladder removed in the past. She is managing her blood sugar levels with medication and is taking thyroid medication.. * Surgical History: C -Section 1999, Q1R3En4 , Laparoscopic cholecystectomy [facility] Dr. Betts , Gallbladder removal . * Hospitalization/Major Diagno stic Procedure: H ospitalization for gallbladder removal . * Family History: F ather: alive 65 yrs, diagnosed with DM, HTN. M other: 66 yrs, diagnosed with HTN, CVD. C hildren: alive. S on(s): alive. S [...] sugars twice a day , Taking Pen Poland 31G X 6 MM Miscellaneous as directed Twice a day 30 days , Medication List reviewed and reconciled with the patient * Allergies: S hellfish-derived Products. Objective: * Vitals: * P ast Orders: Lab:Hemoglobin A1c * Collection Date 09/23/2024 05/22/2024 04/22/2024 Collection Time 09:50 AM 10:42 AM 08:47 AM Order Date 09/16/2024 05/22/2024 04/22/2024 Hemoglobin A1c % 6.8 H (Ref Range: <6.0 %) 6.9 H (Ref Range: <6.0 %) 8.0 H (Ref Range: <6.0 %) Estimated Average Glucose 148 (Ref Range: mg/dL) 151 (Ref Range: mg/dL) 183 (Ref Range: mg/dL) Clinical Info: Please fast for 12-1 4 hours prior to having this labwork done. You may have black coffee or tea with no milk or sugar. May have water,Please have this testing 1 week prior to your next appointment,PLEASE FAX COMPLETED RESULTS TO [phone] * Lab:Complete Blood Count Aut o Diff * Collection Date 09/23/2024 05/22/2024 04/22/2024 Collection Time 09:50 AM 10:42 AM 08:47 AM Order Date 09/23/2024 05/22/2024 04/22/2024 White Blood Count 10.4 (Ref Range: 4.8-10.8 X10*3/uL) 13.5 H (Ref Range: 4.8-10.8 X10*3/uL) 10.9 H (Ref Range: 4.8-10.8 X10*3/uL) Red Blood Count 4.56 (Ref Range: 4.20-5.50 X10*6/uL) 4.71 (Ref Range: 4.20-5.50 X10*6/uL) 4.44 (Ref Range: 4.20-5.50 X10*6/uL) Hemoglobin 13.2 (Ref Range: 12.0-16.0 g/dl) 14.0 (Ref Range: 12.0-16.0 g/dl) 13.1 (Ref Range: 12.0-16.0 g/dl) Hematocrit 39.7 (Ref Range: 37.0-47.0 %) 40.6 (Ref Range: 37.0-47.0 %) 38.9 (Ref Range: 37.0-47.0 %) Mean Corpuscular Volume 87.1 (Ref Range: 80.0-98.0 fL) 86.2 (Ref Range: 80.0-98.0 fL) 87.6 (Ref Range: 80.0-98.0 fL) Mean Corpuscular Hemoglobin 28.9 (Ref Range: 27.0-33.0 pg) 29.7 (Ref Range: 27.0-33.0 pg) 29.5 (Ref Range: 27.0-33.0 pg) Mean Corpuscular HGB Conc 33.2 (Ref Range: 31.0-35.0 g/dl) 34.5 (Ref Range: 31.0-35.0 g/dl) 33.7 (Ref Range: 31.0-35.0 g/dl) Red Cell Distribution Width 14.0 (Ref Range: 11.0-16.0 %) 12.9 (Ref Range: 11.0-16.0 %) 13.4 (Ref Range: 11.0-16.0 %) Platelet Count 246 (Ref Range: 160-400 X10*3/uL) 266 (Ref Range: 160-400 X10*3/uL) 254 (Ref Range: 160-400 X10*3/uL) Mean Platelet Volume 10.9 (Ref Range: 9.4-12.3 fL) 10.1 (Ref Range: 9.4-12.3 fL) 10.0 (Ref Range: 9.4-12.3 fL) Neutrophils Percent Auto 58.0 (Ref Range: 45-73 %) 57.6 (Ref Range: 45-73 %) 53.8 (Ref Range: 45-73 %) Imm Gran Pct Auto 0.4 (Ref Range: 0.0-0.4 %) 0.2 (Ref Range: 0.0-0.4 %) 0.3 (Ref Range: 0.0-0.4 %) Lymphocytes Percent Auto 33.8 (Ref Range: 20-40 %) 34.9 (Ref Range: 20-40 %) 38.8 (Ref Range: 20-40 %) Monocytes Percent Auto 4.5 (Ref Range: 2-11 %) 5.2 (Ref Range: 2-11 %) 4.1 (Ref Range: 2-11 %) Eosinophils Percent Auto 2.6 (Ref Range: 0-4 %) 1.8 (Ref Range: 0-4 %) 2.4 (Ref Range: 0-4 %) Basophils Percent Auto 0.7 (Ref Range: 0-2 %) 0.3 (Ref Range: 0-2 %) 0.6 (Ref Range: 0-2 %) NRBC Pct Auto 0.0 (Ref Range: 0.0-0.2 /100WBC) 0.0 (Ref Range: 0.0-0.2 /100WBC) 0.0 (Ref Range: 0.0-0.2 /100WBC) Neutrophils Absolute Auto 6.0 (Ref Range: 2.0-8.3 x10*3/uL) 7.8 (Ref Range: 2.0-8.3 x10*3/uL) 5.9 (Ref Range: 2.0-8.3 x10*3/uL) Imm Gran Abs Auto 0.04 H (Ref Range: 0.00-0.03 X10*3/uL) 0.03 (Ref Range: 0.00-0.03 X10*3/uL) 0.03 (Ref Range: 0.00-0.03 X10*3/uL) Lymphocytes Absolute Auto 3.5 (Ref Range: 1.2-4.9 X10*3/uL) 4.7 (Ref Range: 1.2-4.9 X10*3/uL) 4.2 (Ref Range: 1.2-4.9 X10*3/uL) Monocytes Absolute Auto 0.5 (Ref Range: 0.1-1.2 X10*3/uL) 0.7 (Ref Range: 0.1-1.2 X10*3/uL) 0.5 (Ref Range: 0.1-1.2 X10*3/uL) Eosinophils Absolute Auto 0.3 (Ref Range: 0.0-0.4 X10*3/uL) 0.2 (Ref Range: 0.0-0.4 X10*3/uL) 0.3 (Ref Range: 0.0-0.4 X10*3/uL) Basophils Absolute Auto 0.1 (Ref Range: 0.0-0.2 X10*3/uL) 0.0 (Ref Range: 0.0-0.2 X10*3/uL) 0.1 (Ref Range: 0.0-0.2 X10*3/uL) NRBC Abs Auto 0.000 (Ref Range: 0.0-0.012 X10*3/uL) 0.000 (Ref Range: 0.0-0.012 X10*3/uL) 0.000 (Ref Range: 0.0-0.012 X10*3/uL) * Lab:Ferritin * Collection Date 09/23/2024 04/22/2024 09/18/2023 Collection Time 09:50 AM 08:47 AM 07:05 AM Order Date 09/16/2024 04/22/2024 09/18/2023 Ferritin 13 (Ref Range: 10-250 ng/mL) 23 (Ref Range: 10-250 ng/mL) 27 (Ref Range: 10-250 ng/mL) Clinical Info: Please fast for 12-1 4 hours prior to having this labwork done. You may have black coffee or tea with no milk or sugar. May have water,Please have this testing 1 week prior to your next appointment,PLEASE FAX COMPLETED RESULTS TO [phone] * Lab:Microalbumin, Random * Collection Date 09/23/2024 05/18/2023 Collection Time 09:45 AM 06:37 AM Order Date 09/16/2024 05/18/2023 Creatinine Urine 125.44 (Ref Range: mg/dL) 187.05 (Ref Range: mg/dL) Microalbumin Urine 19.0 (Ref Range: mg/L) 25.0 (Ref Range: mg/L) Microalbum Creatinine Ratio Ur 15.1 (Ref Range: <30 ug/mg cr) 13.3 (Ref Range: ug/mg cr) Clinical Info: Please fast for 12-1 4 hours prior to having this labwork done. You may have black coffee or tea with no milk or sugar. May have water,Please have this testing 1 week prior to your next appointment,PLEASE FAX COMPLETED RESULTS TO [phone] * Lab:Comprehensive [place]. Jess l Fast * Collection Date 09/23/2024 04/22/2024 01/29/2024 Collection Time 09:50 AM 08:47 AM 08:52 AM Order Date 09/23/2024 04/22/2024 01/29/2024 Sodium 139 (Ref Range: 135-145 mmol/L) 139 (Ref Range: 135-145 mmol/L) 139 (Ref Range: 135-145 mmol/L) Bilirubin Total 0.4 (Ref Range: 0.0-1.0 mg/dL) 0.6 (Ref Range: 0.0-1.0 mg/dL) 0.9 (Ref Range: 0.0-1.0 mg/dL) Aspartate Amino Transferase 18 (Ref Range: 5-31 U/L) 15 (Ref Range: 5-31 U/L) 18 (Ref Range: 5-31 U/L) Alanine Aminotransferase 22 (Ref Range: 0-31 U/L) 16 (Ref Range: 0-31 U/L) 23 (Ref Range: 0-31 U/L) Total Protein 7.5 (Ref Range: 6.5-8.0 g/dL) 7.2 (Ref Range: 6.5-8.0 g/dL) 7.5 (Ref Range: 6.5-8.0 g/dL) Albumin Level 4.1 (Ref Range: 3.5-5.0 g/dL) 3.9 (Ref Range: 3.5-5.0 g/dL) 4.0 (Ref Range: 3.5-5.0 g/dL) Alkaline Phosphatase 74 (Ref Range: 39-117 U/L) 70 (Ref Range: 39-117 U/L) 74 (Ref Range: 39-117 U/L) Potassium 4.6 (Ref Range: 3.3-5.1 mmol/L) 4.1 (Ref Range: 3.3-5.1 mmol/L) 4.6 (Ref Range: 3.3-5.1 mmol/L) Chloride 109 H (Ref Range: 96-108 mmol/L) 107 (Ref Range: 96-108 mmol/L) 104 (Ref Range: 96-108 mmol/L) Carbon Dioxide 26 (Ref Range: 22-29 mmol/L) 24 (Ref Range: 22-29 mmol/L) 28 (Ref Range: 22-29 mmol/L) Anion Gap 9 L (Ref Range: 12-20) 12 (Ref Range: 12-20) 12 (Ref Range: 12-20) Blood Urea Nitrogen 16 (Ref Range: 9-16 mg/dL) 11 (Ref Range: 9-16 mg/dL) 12 (Ref Range: 9-16 mg/dL) Creatinine 0.73 (Ref Range: 0.5-1.4 mg/dL) 0.63 (Ref Range: 0.5-1.4 mg/dL) 0.69 (Ref Range: 0.5-1.4 mg/dL) Estimated Glomerular Filt Rate > 60 > 60 > 60 Glucose Fasting 130 H (Ref Range: 60-99 mg/dL) 123 H (Ref Range: 60-99 mg/dL) 185 H (Ref Range: 60-99 mg/dL) Calcium 8.9 (Ref Range: 8.4-10.2 mg/dL) 8.4 (Ref Range: 8.4-10.2 mg/dL) 9.4 (Ref Range: 8.4-10.2 mg/dL) * Lab:Lipid Panel * Collection Date 09/23/2024 04/22/2024 01/29/2024 Collection Time 09:50 AM 08:47 AM 08:52 AM Order Date 09/16/2024 04/22/2024 01/26/2024 Triglycerides 145 (Ref Range: <150 mg/dL) 219 H (Ref Range: <150 mg/dL) 195 H (Ref Range: <150 mg/dL) Cholesterol 213 H (Ref Range: <200 mg/dL) 229 H (Ref Range: <200 mg/dL) 217 H (Ref Range: <200 mg/dL) LDL Cholesterol Calculated 137 H (Ref Range: <100 mg/dL) 146 H (Ref Range: <100 mg/dL) 136 H (Ref Range: <100 mg/dL) HDL Cholesterol 47 (Ref Range: >40 mg/dL) 40 L (Ref Range: >40 mg/dL) 42 (Ref Range: >40 mg/dL) Clinical Info: Please fast for 12-1 4 hours prior to having this labwork done. You may have black coffee or tea with no milk or sugar. May have water,Please have this testing 1 week prior to your next appointment,PLEASE FAX COMPLETED RESULTS TO [phone] ???Lab:URINE DIP STICK (Order Date - 09/16/2024) (Collection Date & Time - 09/16/2024)?ValueReference Range?SG1.0151.005 - 1.025?pH5.0 5.0 - 9.0?LEUNegativeNegative -?NITNegativeNegative -?PRO15 Negative - Trace?GLUNegativeNegative -?KETNegativeNegative - ?UBG0.20.1 - 1.8?BILNegative0.2 - 1.3?BLD+++Negative - ???Imaging:XR cervical spine 4V (Order Date - 09/16/2024) (Performed Date - 09/16/2024) * Examination: G eneral Examination: GENERAL APPEARANCE: [...] * Provider: Mary Grewal MD Date: 0 10/14/2024 Generated for Josy shine/Mirtha/Nataliasmitting on: 10/13/2024 11:15 AM EST History and [...]
--- OUTSIDE RECORDS SUMMARY | 2024-12-09 10:30 | XMS_ITS ---
Author Organization Yuniel Grewal III, MD Address [address] [place] [address] Care Team Providers Care Edge Cutter Name Role Phone Dr. Yuniel Grewal III Primary Care Provider Allergies Allergen (clinical drug ingredient) Drug/Non Drug Allergy documented on EMR Reaction Allergy Type Onset Date Status Shellfish (FN) Shellfish-derived Products Unknown Drug Allergy Active REASON FOR VISIT Diabetes, Large uterine fibroid, Planned myomectomy, Low back pain, Her obesity, Hypertension, Asthma Medications Medication SIG (Take, Route, Frequency, Duration) [...] IN THE MORNING ON EMPTY STOMACH Active BD Pen Needle Micro U/F 32G X 6 MM as directed - use to inject 25 unit in morning and 20 units in evening 06/02/2024 Active Trulicity 1.5 MG/0.5ML INJECT 1.5mg D IRECTED SUBCUTANEOUS ONCE A WEEK 28 DAYS Active Pen [place] 31G X 6 MM as directed Twice a day 30 days Active Social History Tobacco Use: Social History [...] Additional Findings: Tobacco non-user Ex-cigaret te smoker Vital Signs Temperature 97.1 degrees Fahrenheit 12/09/19 25 Blood pressure systolic 134 mm Hg 12/09/19 25 Blood pressure diastolic 82 mm Hg 025 Heart Rate 75 /min 12/09/2024 Height 59 in 12/09/2024 Weight 203 lbs 12/09/2024 BMI 41 kg/m2 12/09/2024 Encounters Encounter Location Date Provider Diagnosis Yuniel Grewal III, MD [address] [place] [address] [place] [address] 12/09/2024 Yuniel Grewal Anemia D64.9 ; Morbi d obesity E66.01 ; Diabetes E11.9 ; Hypothyroid E03.9 ; HTN (hypertension) I10 ; Low back pain, unspecified M54.50 and Former smoker Z87.891 Assessments Encounter Date Diagnosis (ICD Code) Assessment Notes Treatment Notes Treatment Clinical Notes 12/09/2024 Anemia (ICD-10 - D64.9) Her hematocrit is slightly low and normochromic normocytic. The white blood cell count is slightly low when the platelets are normal. She denies any bleeding. This will be observed carefully before and after her upcoming uterine surgery. 12/09/2024 Morbid obesity (ICD-10 - E66.01) Her body mass index is stablle at 40. We have discussed weight loss strategies at length. Her weight will be followed carefully and she will continue the trulicity. 12/09/2024 Diabetes (ICD-10 - E11.9) Her A1c is 6.8. Current therapy was continued. We made a plan to lose weight at a rate of one half of a pound per week. 12/09/2024 Hypothyroid (ICD-10 - E03.9) The free T4 is normal and the TSH is slightly elevated. She appears to be euthyroid. No change was necessary in her medication.After the upcoming surgery she will have an increase in the dose of her levothyroxine. 12/09/2024 HTN (hypertension) (ICD-10 - I10) Her blood pressure is currently stable and no change in her regimen was made. I strongly recommended aggressive weight loss and sodium restriction. 12/09/2024 Low back pain, unspecified (ICD-10 - M54.50) She continues to have intermittent mild low back pain. No change in her regimen was needed. Images have been obtained. 12/09/2024 Former smoker (ICD-10 - Z87.891) She has [...] DAY IN THE MORNING ON EMPTY STOMACH BD Pen Needle Micro U/F 32G X 6 MM as directed - use to inject 25 unit in morning and 20 units in evening 06/02/2024 Trulicity 1.5 MG/0.5ML INJECT 1.5mg D IRECTED SUBCUTANEOUS ONCE A WEEK 28 DAYS Pen [place]on 31G X 6 MM as directed Twice a day 30 days Pending Test Test Name Order Date PROFILE, FASTING (COMPREHENSIVE METABOLI C) 12/09/2024 CBC WITH AUTO DIFF 12/09/2024 Lipid Panel 12/09/2024 Microalbumin, Random 12/09/2024 Hemoglobin A1c 12/09/2024 Next Appt Details Follow Up: 3 Months, 3 to 3. 5 months, Reason: OV, Annual Checkup Provider Name:Yuniel Grewal , 09/18/2025 03:30:00 PM, [address] [place] [address] [address], [place], [address], Progress Notes * Alina ALVAREZDOB:1975 (49 yo F)Acc No.[id number]:12/09/2024 Progress Notes Patient: Alina BAZAN Provider: Mary Grewal MD :1975 A ge:49 Y S ex:Female Date:12/09/2024 Address:[address] [place], [place] [id number] Subjective: * Chief Complaints: * D iabetesLarge uterine fibroidPlanned myomectomyLow back painHer obesityHypertensionAsthma * HPI: C OVID-19 Screening: Questions H ave you had any new onset fever, chills, cough, congestion, sore throat, shortness of breath, muscle aches? N o * : The patient, Alina, a 49-year-old female, came in for a follow-up visit after her annual physical exam on October 17. She has been managing her blood pressure and blood sugar levels with Leana and Le. She reported intermittent numbness in her hands, which has improved since her last visit. She also reported pain in her neck, which has remained constant. The doctor identified this as a symptom of arthritis in her neck. The patient also mentioned an upcoming surgery related to a fibroid in her uterus. The doctor also discussed the patient's cervical spine X-rays, which showed large bone spurs causing pain due to their interaction with the muscles and nerves in her neck.Imaging has shown a uterine fibroid which is causing pelvic pain. She saw her vp customer service who is planning a surgical procedure in the near future remove the fibroid. * ROS: G eneral/Constitutional: Admits p ain, U terine discomfort in the pelvis. C hills d enies. F atigue a [...] have been noted. G enitourinary: Frequent urination a small amount. M usculoskeletal: Muscle aches d enies. P [...] * Surgical History: C -Section Laparoscopic cholecystectomy [facility] Dr. Betts Gallbladder removal No history * Hospitalization/Major Diagno stic Procedure: H ospitalization for gallbladder removal No history * Family History: F ather: alive 65 [...] P aternal aunt: alive, cancer, Unknown. M ategabriel uncle: alive, diagnosed with CVD. M aternal [...] illness or addiction. She has a son oLrie who is healthy and well. * Social [...] check blood sugars twice a day Pen Macon 31G X 6 MM Miscellaneous as directed [...] blood sugars twice a day Taking Pen Macon 31G X 6 MM Miscellaneous as directed Twice a day 30 days Medication List reviewed and reconciled with the patient * Allergies: S hellfish-derived Productsno[Allergies Verified] Objective: * Vitals: H t: 59 , Wt: 203, BMI:41, BP: 134/82, HR: 75, Temp: 97.1, Ht-cm: 149.86, Wt-k.08. * P ast Orders: Imaging:US pelvic and transv aginal * Performed Date 10/31/2024 08/28/2023 03:05 PM 12:01 PM Order Date 10/31/2024 08/28/2023 ???Imaging:XR cervical spine 4V (Order Date - 09/16/2024) (Performed Date - 09/16/2024) ???Lab:Lutenizing Hormone (Order Date - 10/21/2024) (Collection Date & Time - 10/21/2024 09:47 AM)?ValueReference Range?Lutenizing Hormone3.1- mIU/mL ???Lab:Follicle Stimulating Hormone (Order Date - 10/21/2024) (Collection Date & Time - 509:47 AM)?ValueReference Range?Follicle Stimulating Hormone3.3- mIU/mL ???Lab:TSH reflex Free T4 (Order Date - 10/21/2024) (Collection Date & Time - 10/21/2024 09:47 AM)?ValueReference Range?TSH reflex Free T45.85H 0.32-4.0 - uIU/mL ???Lab:HCG Quantitative (Order Date - 10/21/2024) (Collection Date & Time - 10/21/2024 09:47 AM)?ValueReference Range?HCG Quantitative< 2- mIU/mL * Lab:Lipid Panel * Collection Date 09/23/2024 [...] your next appointment,PLEASE FAX COMPLETED RESULTS TO [phone] * Lab:Tamir MerchantArabella george Fast * Collection Date 09/23/2024 04/22/2024 01/29/2024 [...] mg/dL) 9.4 (Ref Range: 8.4-10.2 mg/dL) * Lab:Ferritin * Collection Date 09/23/2024 04/22/2024 [...] your next appointment,PLEASE FAX COMPLETED RESULTS TO [phone] * Lab:CT NG by PCR * Collection Date 10/20/2024 07/31/2023 Collection Time 12:03 PM 10:50 AM Order Date 10/20/2024 07/31/2023 CT PCR NOT DETECTED (Ref Range: Not Detect.) NOT DETECTED (Ref Range: Not Detect.) NG PCR NOT DETECTED (Ref Range: Not Detect.) NOT DETECTED (Ref Range: Not Detect.) * Lab:Free T4 (Free Thyroxine) * Collection Date 10/21/2024 04/22/2024 09/18/2023 Collection Time 09:47 AM 08:47 AM 07:05 AM Order Date 10/21/2024 04/22/2024 09/18/2023 Free T4 (Free Thyroxine) 1.12 (Ref Range: 0.71-1.85 ng/dL) 1.12 (Ref Range: 0.71-1.85 ng/dL) 1.06 (Ref Range: 0.71-1.85 ng/dL) * Lab:Complete Blood Count no Diff * Collection Date 10/21/2024 05/23/2024 Collection Time 09:47 AM 05:33 AM Order Date 10/21/2024 05/23/2024 White Blood Count 10.0 (Ref Range: 4.8-10.8 X10*3/uL) 11.0 H (Ref Range: 4.8-10.8 X10*3/uL) Red Blood Count 4.64 (Ref Range: 4.20-5.50 X10*6/uL) 4.35 (Ref Range: 4.20-5.50 X10*6/uL) Hemoglobin 13.6 (Ref Range: 12.0-16.0 g/dl) 12.6 (Ref Range: 12.0-16.0 g/dl) Hematocrit 40.5 (Ref Range: 37.0-47.0 %) 38.0 (Ref Range: 37.0-47.0 %) Mean Corpuscular Volume 87.3 (Ref Range: 80.0-98.0 fL) 87.4 (Ref Range: 80.0-98.0 fL) Mean Corpuscular Hemoglobin 29.3 (Ref Range: 27.0-33.0 pg) 29.0 (Ref Range: 27.0-33.0 pg) Mean Corpuscular HGB Conc 33.6 (Ref Range: 31.0-35.0 g/dl) 33.2 (Ref Range: 31.0-35.0 g/dl) Red Cell Distribution Width 13.8 (Ref Range: 11.0-16.0 %) 13.0 (Ref Range: 11.0-16.0 %) Platelet Count 227 (Ref Range: 160-400 X10*3/uL) 220 (Ref Range: 160-400 X10*3/uL) Mean Platelet Volume 11.4 (Ref Range: 9.4-12.3 fL) 10.6 (Ref Range: 9.4-12.3 fL) NRBC Pct Auto 0.0 (Ref Range: 0.0-0.2 /100WBC) 0.0 (Ref Range: 0.0-0.2 /100WBC) NRBC Abs Auto 0.000 (Ref Range: 0.0-0.012 X10*3/uL) 0.000 (Ref Range: 0.0-0.012 X10*3/uL) * Lab:Complete Blood Count Aut o Diff [...] X10*3/uL) 0.000 (Ref Range: 0.0-0.012 X10*3/uL) * Lab:Hemoglobin A1c * Collection Date 09/23/2024 05/22/2024 [...] your next appointment,PLEASE FAX COMPLETED RESULTS TO [phone] * Lab:Microalbumin, Random * Collection Date 09/23/2024 [...] your next appointment,PLEASE FAX COMPLETED RESULTS TO [phone] ???Lab:URINE DIP STICK (Order Date - 09/16/2024) (Collection Date & Time - 09/16/2024)?ValueReference Range?SG1.0151.005 - 1.025?pH5.0 5.0 - 9.0?LEUNegativeNegative -?NITNegativeNegative -?PRO15 Negative - Trace?GLUNegativeNegative -?KETNegativeNegative - ?UBG0.20.1 - 1.8?BILNegative0.2 - 1.3?BLD+++Negative - * Examination: G eneral Examination: GENERAL [...] lear to auscultation . BREASTS: N ot examined. ABDOMEN: b owel sounds normal, no ascites, no organomegaly, no mass, morbid obesity. RECTAL EXAM: n ot examined. MUSCULOSKELETAL: e xtremities unremarkable, no clubbing, cyanosis or edema. PERIPHERAL PULSES: n ormal. NEUROLOGIC: a lert and oriented, cranial nerves 2-12 grossly intact, deep tendon reflexes 2+ symmetrical, motor strength normal upper and lower extremities, sensory exam intact. PSYCH: a lert, oriented. - : N neva Examination:Arthritis and large bone spurs in cervical spine causing pain. Pelvic Ultrasound: Large fibroid in uterus, no signs of cancer. Assessment: * Assessment: 1. M orbid obesity - E66.01 (Primary) N otes :Her body mass index is stablle at 40. We have discussed weight loss strategies at length.? Her weight will be followed carefully and she will continue the trulicity. 2 . A nemia - D64.9 N otes :Her hematocrit is slightly low and normochromic normocytic. The white blood cell count is slightly low when the platelets are normal. She denies any bleeding. This will be observed carefully before and after her upcoming uterine surgery. 3 . D iabetes - E11.9 N otes :Her A1c is 6.8. Current therapy was continued. We made a plan to lose weight at a rate of one half of a pound per week. 4 . H ypothyroid - E03.9 N otes :The free T4 is normal and the TSH is slightly elevated. She appears to be euthyroid. No change was necessary in her medication.After the upcoming surgery she will have an increase i n the dose of her levothyroxine. 5 . H TN (hypertension) - I10 N otes :Her blood pressure is currently stable and no change in her regimen was made. I strongly recommended aggressive weight loss and sodium restriction. 6 . L ow back pain, unspecified - M54.50 N otes :She continues to have intermittent mild low back pain. No change in her regimen was needed. Images have been obtained. 7 . F ormer smoker - Z87.891 N otes :She has a plan to prevent relapse in times of stress and illness. Plan: * Treatment: 2. A nemia L AB: PROFILE, FASTING (COMPREHENSIVE METABOLIC) L AB: CBC WITH AUTO DIFF L AB: Lipid Panel L AB: Microalbumin, Random L AB: Hemoglobin A1c 3. D iabetes L AB: PROFILE, FASTING (COMPREHENSIVE METABOLIC) L AB: CBC WITH AUTO DIFF L AB: Lipid Panel L AB: Microalbumin, Random L AB: Hemoglobin A1c 4. O thers Continue BD Pen Needle Micro [...] sugars twice a day; C ontinue Pen Macon Miscellaneous, 31G X 6 MM, as directed, Twice a day, 30 days. * Procedure Codes: * Preventive Medicine: Counseling: C are goal [...] tobacco use and urged to quit. 0 12/09/2024 DM Care Plan: P atient Lifestyle Goals P atient wants to be able to manage diabetes without too much effort. T reatment Goals B lood Sugars less than < 115, HbA1C < 7.0. B arriers n o barriers. S elf-Managment Goals W ork on weight loss, with a goal of losing 1 lb per week. * Follow Up: 3 Months, 3 to 3.5 months (Reason: OV, Annual Checkup) * Images: * Sign off status: Completed true * Provider: Mary Grewal MD Date: 0 12/09/2024 Generated for Printi ng/Falyndong/eTransmitting on: 10/13/2024 11:14 AM EST History and [...] s, anicteric PERIPHERAL PULSES: normal BREASTS: Not examined MUSCULOSKELETAL: extremities unremark able, no clubbing, cyanosis or edema LYMPH NODES: no enlarged lymph no herbert,spleen normal RECTAL EXAM: not examined PSYCH: alert, oriented ORAL CAVITY: normal, unremarkable
--- OUTSIDE RECORDS SUMMARY | 2025-03-22 11:00 | XMS_ITS ---
Author Organization Yuniel Grewal III, MD Address [address] [place] [address] Care Team Providers Care Crew Member Name Role Phone Dr. Yuniel Grewal III Primary Care Provider Allergies Allergen (clinical drug ingredient) Drug/Non Drug Allergy documented on EMR Reaction Allergy Type Onset Date Status Shellfish (FN) Shellfish-derived Products Unknown Drug Allergy Active REASON FOR VISIT Diabetes, Hypothyroidism, Hypertension, Asthma, Low back pain, Morbid obesity Medications Medication SIG (Take, Route, Frequency, Duration) Notes Start Date End Date Status BD Pen Needle Micro U/F 32G X 6 MM as directed - use to inject 25 unit in morning and 20 units in evening 06/02/2024 Active Pen [place] 31G X 6 MM as directed Twice a day 30 days Active Levothyroxine Sodium 137 MCG TAKE 1 TABLET BY MOUTH EVERY DAY Orally Once a day Active Trulicity 1.5 MG/0.5ML like directed Subcutaneous weekly for 28 days 03/22/2025 02/21/2026 Active Gauze Pads 3 X3 as directed [...] blood sugars twice a day 05/05/2023 Active Atorvastatin Calcium 10 MG 1 tablet Orally Once a day for 90 days 03/22/2025 Active Lancets - as directed - use [...] SUBCUTANEOUS ONCE A WEEK 28 DAYS Active Albuterol Sulfate HFA 108 (90 [...] non-user Ex-cigaret te smoker Vital Signs Temperature 97.9 degrees Fahrenheit 03/22/20 25 Blood pressure systolic 133 mm Hg 03/22/20 25 Blood pressure diastolic 81 mm Hg 025 Heart Rate 76 /min 03/22/2025 Height 59 in 03/22/2025 Weight 203 lbs 03/22/2025 BMI 41 kg/m2 03/22/2025 Encounters Encounter Location Date Provider Diagnosis Yuniel Grewal III, MD [address] [place] [address] [place] [address] 03/22/2025 Yuniel Grewal Diabetes E11.9 ; Former smoker Z87.891 ; Hypothyroid E03.9 ; HTN (hypertension) I10 ; Asthma J45.909 ; Morbid obesity E66.01 and Low back pain, unspecified M54.50 Assessments Encounter Date Diagnosis (ICD Code) Assessment Notes Treatment Notes Treatment Clinical Notes 03/22/2025 Diabetes (ICD-10 - E11.9) Her A1c is 6.8. Current therapy was continued. We made a plan to lose weight at a rate of one half of a pound per week.Her NovoLog as been increased. She says she is no longer taking trulicity. Comprehensive blood work with a hemoglobin A1c has bbbeen ordered. 03/22/2025 Former smoker (ICD-10 - Z87.891) She has a plan to prevent relapse in times of stress and illness. 03/22/2025 Hypothyroid (ICD-10 - E03.9) The free T4 is normal and the TSH is slightly elevated. She appears to be euthyroid. No change was necessary in her medication.After the upcoming surgery she will have an increase in the dose of her levothyroxine. 03/22/2025 HTN (hypertension) (ICD-10 - I10) Her blood pressure is currently stable and no change in her regimen was made. I strongly recommended aggressive weight loss and sodium restriction. 03/22/2025 Asthma (ICD-10 - J45.909) She has a history of intermittent asthma. No wheezes or her today. She has a rescue inhaler if necessary. 03/22/2025 Morbid obesity (ICD-10 - E66.01) Her body mass index is stablle at 40. We have discussed weight loss strategies at length. Her weight will be followed carefully and she will continue the trulicity. 03/22/2025 Low back pain, unspecified (ICD-10 - M54.50) She continues to have intermittent mild low back pain. No change in her regimen was needed. Images have been obtained. Plan Of Treatment Medication Medication Name Sig Start Date Stop Date Notes BD Pen Needle Micro U/F 32G X 6 MM as directed - use to inject 25 unit in morning and 20 units in evening 06/02/2024 Pen [place] 31G X 6 MM as directed Twice a day 30 days Levothyroxine Sodium 137 MCG TAKE 1 TABL ET BY MOUTH EVERY DAY Orally Once a day Trulicity 1.5 MG/0.5ML like directed Sub cutaneous weekly for 28 days 03/22/2025 02/21/2026 Gauze Pads 3 X3 as directed - use to check blood sugars twice a day 05/05/2023 Alcohol Prep Pad 70 % as directed - to u se to test blood sugars twice a day 05/05/2023 Accu-Chek Viktoria Plus - as directed In Vi tro to test blood sugars twice a day 05/05/2023 Accu-Chek Viktoria Plus w/Device as directed In Vitro to test blood sugars twice a day 05/05/2023 Atorvastatin Calcium 10 MG 1 tablet Oral ly Once a day for 90 days 03/22/2025 Lancets - as directed - use to check blood sugars twice a day 05/05/2023 Accu-Chek Guide - USE DIRECTED TO [place] HECK BLOOD SUGARS TWICE A DAY 90 DAYS NovoLOG Mix 70/30 FlexPen (70-30) 100 UNIT/ML INJECT 25 UNITS SUBCUTANEOUSLY IN TH MORNING AND 20 UNITS IN THE EVENING FOR 30 DAYS metFORMIN HCl 500 MG 1 tablet with a oliverio l Orally twice a day 01/15/2024 Trulicity 1.5 MG/0.5ML INJECT 1.5mg D IRECTED SUBCUTANEOUS ONCE A WEEK 28 DAYS Albuterol Sulfate HFA 108 (90 Base) MCG/ACT Inhalation Next Appt Details Follow Up: 2 Weeks, Reason: OV Provider Name:Yuniel Grewal , 09/18/2025 03:30:00 PM, [address] [place] [address], [phone], Progress Notes * Alina ALVAREZDOB:1975 (49 yo F)Acc No.[id number]:03/22/2025 Progress Notes Patient: Alina BAZAN Provider: Mary Grewal MD :1975 A ge:49 Y S ex:Female Date:03/22/2025 Address:[address] [place], [place] [id number] Subjective: * Chief Complaints: * D iabetesHypothyroidismHypertensionAsthmaLow back painMorbid obesity * HPI: C OVID-19 Screening: . She returns for management of her medical issues. Since her last visit had a myomectomy at [facility] and recovered well. She is now free of her pelvic pain. She has had no significant allergies and pollen season. She continues on the insulin but is no longer taking trulicity. Increased her NovoLog 35 units in the morning 30 units at night. Questions H ave you had any new [...] been noted. G enitourinary: Frequent urination a t night. M usculoskeletal: Muscle aches d enies. P ainful joints d enies. S ciatica d enies. W eakness d enies. S kin: Itching d enies. R keanu d enies. S kin lesion(s)?denies. N eurologic: Difficulty speaking d enies. D izziness d enies.?Headache d enies. L ow back pain d enies. P sychiatric: Depressed mood d enies. * Medical History: * Surgical History: C -Section [id number] Laparoscopic cholecystectomy [facility] Dr. Betts Myomectomy 2024 * Hospitalization/Major Diagno stic Procedure: H ospitalization for Cholecystectomy No history * Family History: F ather: [...] DAY 90 DAYS Albuterol Sulfate HFA 108 (90 Base) MCG/ACT [...] check blood sugars twice a day Pen Milford 31G X 6 MM Miscellaneous as directed Twice a day 30 days Levothyroxine Sodium 137 MCG Tablet TAKE 1 TABLET BY MOUTH EVERY DAY Orally Once a day Medication List reviewed and reconciled with the [...] SUGARS TWICE A DAY 90 DAYS Taking Albuterol Sulfate HFA 108 (90 Base) [...] blood sugars twice a day Taking Pen Mil[place] 31G X 6 MM Miscellaneous as directed Twice a day 30 days Taking Levothyroxine Sodium 137 MCG Tablet TAKE 1 TABLET BY MOUTH EVERY DAY Orally Once a day Medication List reviewed and reconciled with the patient * Allergies: S hellfish-derived Productsno[Allergies Verified] Objective: * Vitals: H t: 59 , Wt: 203, BMI:41, BP: 133/81, HR: 76, Temp: 97.9, Ht-cm: 149.86, Wt-k.08. * P ast Orders: Lab:Ur Preg Test * Collection Date 12/27/2024 05/22/2024 Collection Time 01:08 PM 11:36 AM Order Date 12/27/2024 05/22/2024 Urine NEGATIVE (Ref Range: NEGATIVE) NEGATIVE (Ref Range: NEGATIVE) * Lab:Glucose, Whole Blood * Collection Date 12/27/2024 05/24/2024 05/24/2024 Collection Time 02:02 PM 11:11 AM 07:02 AM Order Date 12/27/2024 05/24/2024 05/24/2024 Glucose, Whole Blood 161 H (Ref Range: 60-115 mg/dL) 158 H (Ref Range: 60-115 mg/dL) 142 H (Ref Range: 60-115 mg/dL) * Lab:Pathology * Collection Date 12/27/2024 12/05/2024 05/23/2024 Collection Time 02:56 PM 03:52 PM 03:29 PM Order Date 12/27/2024 12/05/2024 05/23/2024 * Examination: G eneral Examination: GENERAL APPEARANCE: ashley harvey, well nourished, well developed, in no acute [...] a lert, oriented. Assessment: * Assessment: 1. D iabetes - E11.9 (Primary) N otes :Her A1c is 6.8. Current therapy was continued. We made a plan to lose weight at a rate of one half of a pound per week.Her NovoLog as been increased. She says she is no longer taking trulicity. Comprehensive blood work with a hemoglobin A1c has bbbeen ordered. 2 . F ormer smoker - Z87.891 N otes :She has a plan to prevent relapse in times of stress and illness. 3 . H ypothyroid - E03.9 N otes :The free T4 is normal and the TSH is slightly elevated. She appears to be euthyroid. No change was necessary in her medication.After the upcoming surgery she will have an increase in the dose of her levothyroxine. 4 . H [place] (hypertension) - I10 N otes :Her blood pressure is currently stable and no change in her regimen was made. I strongly recommended aggressive weight loss and sodium restriction. 5 . A sthma - J45.909 N otes :She has a history of intermittent asthma. No wheezes or her today. She has a rescue inhaler if necessary. 6 . M orbid obesity - E66.01 N otes :Her body mass index is stablle at 40. We have discussed weight loss strategies at length. Her weight will be followed carefully and she will continue the trulicity. 7 . L ow back pain, unspecified - M54.50 N otes :She continues to have intermittent mild low back pain. No change in her regimen was needed. Images have been obtained. Plan: * Treatment: * Procedure Codes: * Preventive Medicine: Counseling: [...] tobacco use and urged to quit. 0 03/22/2025 DM Care Plan: P atient Lifestyle Goals P atient wants to be able to manage diabetes without too much effort. T reatment Goals B lood Sugars less than < 115, HbA1C < 7.0. B arriers n o barriers. S elf-Managment Goals W ork on weight loss, with a goal of losing 1 lb per week. * Follow Up: 2 Weeks (Reason: OV) * Images: * Sign off status: Completed true * Provider: Mary Grewal MD Date: 0 03/22/2025 Generated for Josy shine/Mirtha/Reggieitting on: 10/13/2024 11:15 AM EST History and [...]
--- OUTSIDE RECORDS SUMMARY | 2025-04-12 04:45 | XMS_ITS ---
Author Organization Yuniel Grewal III, MD Address [address] [place] [place] [address] Care Team Providers Care Department Traffic Freight Router Name Role Phone Dr. Yuniel Grewal III Primary Care Provider Allergies Allergen (clinical drug ingredient) Drug/Non Drug Allergy documented on EMR Reaction Allergy Type Onset Date Status Shellfish (FN) Shellfish-derived Products Unknown Drug Allergy Active REASON FOR VISIT Diabetes, Hypothyroidism, Hypertension, Low back pain, Morbid obesity Medications Medication SIG (Take, Route, Frequency, Duration) Notes Start Date End Date Status Alcohol Prep Pad 70 % as directed - to use to test blood sugars twice a day 05/05/2023 Active Accu-Chek Viktoria Plus - as directed In Vitro to test blood sugars twice a day 05/05/2023 Active Accu-Chek Viktoria Plus w/Device as directed In Vitro to test blood sugars twice a day 05/05/2023 Active Albuterol Sulfate HFA 108 (90 Base) MCG/ACT Inhalation Active Accu-Chek Guide - USE DIRECTED TO CHECK BLOOD SUGARS TWICE A DAY 90 DAYS Active Levothyroxine Sodium 137 MCG TAKE 1 TABLET BY MOUTH EVERY DAY Orally Once a day Active SUMAtriptan Succinate 50 MG 1 tablet if needed, may take second dose at least 2 hours after first dose up to 4 tablets per day Orally Once a day for 30 days 04/12/2025 Active NovoLOG Mix 70/30 FlexPen (70-30) 100 [...] 20 units in evening 06/02/2024 Active Pen [place] 31G X 6 MM as directed Twice a day 30 days Active Lancets 30G - use to check blood sugars twice a day DX: Diabetes E11.9 Patient has an accu chek glucometer needs lancets that you have filled for her before Active Trulicity 1.5 MG/0.5ML like directed Subcutaneous weekly 03/22/2025 Active Atorvastatin Calcium 10 MG 1 tablet Orally Once a day 03/22/2025 Active Gauze Pads 3 X3 as directed - use to check blood sugars twice a day 05/05/2023 Active Lancets - use to check blood sugar twice a day for 90 days DX Diabetes E11.9 05/05/2023 Active Social History Tobacco Use: Social [...] non-user Ex-cigaret te smoker Vital Signs Temperature 98.1 degrees Fahrenheit 04/12/20 25 Blood pressure systolic 140 mm Hg 04/12/20 25 Blood pressure diastolic 80 mm Hg 025 Heart Rate 85 /min 04/12/2025 Height 59 in 04/12/2025 Weight 200 lbs 04/12/2025 BMI 40.39 kg/m2 04/12/2025 Encounters Encounter Location Date Provider Diagnosis Yuniel Grewal III, MD [address] [place] [address] [place] [address] 04/12/2025 Yuniel Grewal Diabetes E11.9 ; HTN (hypertension) I10 ; Atypical chest pain R07.89 ; Morbid obesity E66.01 ; Low back pain, unspecified M54.50 and Former smoker Z87.891 Assessments Encounter Date Diagnosis (ICD Code) Assessment Notes Treatment Notes Treatment Clinical Notes 04/12/2025 Diabetes (ICD-10 - E11.9) Her A1c is 10.1. The previous A1c was 6.8. This will be repeated. Her medications were reviewed they will be adjusted if necessary.Current therapy was continued. We made a plan to lose weight at a rate of one half of a pound per week.Her NovoLog as been increased. She says she is no longer taking trulicity. Comprehensive blood work with a hemoglobin A1c has bbbeen ordered. 04/12/2025 HTN (hypertension) (ICD-10 - I10) Her blood pressure is currently stable and no change in her regimen was made. I strongly recommended aggressive weight loss and sodium restriction. 04/12/2025 Atypical chest pain (ICD-10 - R07.89) She is on aspirin. 4. Atypical chest pain from a previous provider. She believes her chest discomfort is caused by stress. If necessary, a stress test can be done. 04/12/2025 Morbid obesity (ICD-10 - E66.01) Her body mass index is stablle at 40. We have discussed weight loss strategies at length. Her weight will be followed carefully and she will continue the trulicity. 04/12/2025 Low back pain, unspecified (ICD-10 - M54.50) She continues to have intermittent mild low back pain. No change in her regimen was needed. Images have been obtained. 04/12/2025 Former smoker (ICD-10 - Z87.891) She has [...] a day 05/05/2023 Albuterol Sulfate HFA 108 (90 Base) MCG/ACT Inhalation Accu-Chek Guide - USE DIRECTED TO CHECK BLOOD SUGARS TWICE A DAY 90 DAYS Levothyroxine Sodium 137 MCG TAKE 1 TABLET BY MOUTH EVERY DAY Orally Once a day SUMAtriptan Succinate 50 MG 1 tablet if needed, may take second dose at least 2 hours after first dose up to 4 tablets per day Orally Once a day for 30 days 04/12/2025 NovoLOG Mix 70/30 FlexPen (70-30) 100 UNIT/ML [...] and 20 units in evening 06/02/2024 Pen [place] 31G X 6 MM as directed Twice a day 30 days Lancets 30G - use to check blood sugars twice a day Patient has an accu chek glucometer needs lancets that you have filled for her before Trulicity 1.5 MG/0.5ML like directed Subcutaneous weekly 03/22/2025 Atorvastatin Calcium 10 MG 1 tablet Orally Once a day 03/22/2025 Gauze Pads 3 X3 as directed - use to check blood sugars twice a day 05/05/2023 Lancets - use to check blood sugar twice a day for 90 days 05/05/2023 Next Appt Details Follow Up: as scheduled, Laya son: annual exam no tests Provider Name:Yuniel Grewal , 09/18/2025 03:30:00 PM, [address] [place] [address], [place] [address], [place], [address], Progress Notes * Shree ALVAREZmarilouDOB:1975 (49 yo F)Acc No.[id number]:04/12/2025 Progress Notes Patient: Alina BAZAN Provider: Mary Grewal MD :1975 A ge:49 Y S ex:Female Date:04/12/2025 Address:[address] [place], [place] [id number] Subjective: * Chief Complaints: * D iabetesHypothyroidismHypertensionLow back painMorbid obesity * HPI: C OVID-19 Screening: S he returns for medical management. We have begun to talk about Ozempic. She is going to consider it. She has been compliant with all of her medications.She has lost 3 pounds. Her BMI is 40. Her blood pressure is 140/80 trying to lose weight progressively she is no longer smoking. There is been no attacks of asthma recently. She has had no allergies.Her A1c is 10.1. I've increased the NovoLog 4 units in the morning and 30. We discussed a plan where she would transition to Lantus and needed trulicity or Ozempic. Questions H ave you had any new [...] enies. D iarrhea d enies. H eartburn o ccasional. N ausea d enies. R ectal bleeding [...] Medical History: * Surgical History: C -Section [id number] Laparoscopic cholecystectomy [facility] Dr. Betts Myomectomy 2024 * Hospitalization/Major [...] P aternal aunt: alive, cancer, Unknown. M cheryl uncle: alive, diagnosed with CVD. M ategabriel aunt: , 2 of mther sister had [...] She does not smoke. * Medications: T akingLevothyroxine Sodium 137 MCG Tablet TAKE 1 TABLET BY MOUTH EVERY DAY Orally Once a day BD Pen Needle Micro U/F 32G X 6 MM Miscellaneous as directed - use to inject 25 unit in morning and 20 units in evening metFORMIN HCl 500 MG Tablet 1 tablet [...] check blood sugars twice a day Pen [place] 31G X 6 MM Miscellaneous as directed Twice a day 30 days Atorvastatin Calcium 10 MG Tablet 1 tablet Orally Once a day Trulicity 1.5 MG/0.5ML Solution Auto-injector like directed Subcutaneous weekly , stop date 02/21/2026Taking Levothyroxine Sodium 137 MCG Tablet TAKE 1 TABLET BY MOUTH EVERY DAY Orally Once a day Taking BD Pen Needle Micro U/F 32G X 6 MM Miscellaneous as directed - use to inject 25 unit in morning and 20 units in evening Taking metFORMIN HCl 500 MG Tablet 1 [...] blood sugars twice a day Taking Pen [place] 31G X 6 MM Miscellaneous as directed Twice a day 30 days Taking Atorvastatin Calcium 10 MG Tablet 1 tablet Orally Once a day Taking Trulicity 1.5 MG/0.5ML Solution Auto-injector like directed Subcutaneous weekly , stop date 02/21/2026DiscontinuedTrulicity 1.5 MG/0.5ML Solution Pen-injector INJECT 1.5mg DIRECTED SUBCUTANEOUS ONCE A WEEK 28 DAYS Medication List reviewed and reconciled with the patientDiscontinued Trulicity 1.5 MG/0.5ML Solution Pen-injector INJECT 1.5mg DIRECTED SUBCUTANEOUS ONCE A WEEK 28 DAYS Medication List reviewed and reconciled with the patient * Allergies: S hellfish-derived Productsno[Allergies Verified] Objective: * Vitals: H t: 59 , Wt: 200, BMI:40.39, BP: 140/80, HR: 85, Temp: 98.1, Ht-cm: 149.86, Wt- k.72. * Examination: G eneral Examination: GENERAL APPEARANCE: [...] E11.9 (Primary) N otes :Her A1c is 10.1. The previous A1c was 6.8. This will be repeated. Her medications were reviewed they will be adjusted if necessary.Current therapy was continued. We made a plan to lose weight at a rate of one half of a pound per week.Her NovoLog as been increased. She says she is no longer taking trulicity. Comprehensive blood work with a hemoglobin A1c has bbbeen ordered. 2 . H TN (hypertension) - I10 N otes :Her blood pressure is currently stable and no change in her regimen was made. I strongly recommended aggressive weight loss and sodium restriction. 3 . A typical chest pain - R07.89 N otes :She is on aspirin. 4. Atypical chest pain from a previous provider. She believes her chest discomfort is caused by stress. If necessary, a stress test can be done. 4 . M orbid obesity - E66.01 N otes :Her body mass index is stablle at 40. We have discussed weight loss strategies at length. Her weight will be followed carefully and she will continue the trulicity. 5 . L ow back pain, unspecified - M54.50 N otes :She continues to have intermittent mild low back pain. No change in her regimen was needed. Images have been obtained. 6 . F ormer smoker - Z87.891 N otes :She has a plan to prevent relapse in times of stress and illness. Plan: * Treatment: 2. O thers Continue Levothyroxine Sodium Tablet, 137 MCG, TAKE 1 TABLET BY MOUTH EVERY DAY, Orally, Once a day; C ontinue BD Pen Needle Micro U/F Miscellaneous, 32G X 6 MM, as directed, -, use to inject 25 unit in morning and 20 units in evening; C ontinue metFORMIN HCl Tablet, 500 MG, 1 tablet with a meal, Orally, twice a day; C ontinue NovoLOG Mix 70/30 FlexPen Suspension Pen-injector, (70-30) 100 UNIT/ML, INJECT 25 UNITS SUBCUTANEOUSLY IN TH MORNING AND 20 UNITS IN THE EVENING FOR 30 DAYS;?Continue Accu-Chek Guide Strip, -, USE DIRECTED TO CHECK BLOOD SUGARS TWICE A DAY 90 DAYS; Continue Albuterol Sulfate HFA Aerosol Solution, 108 (90 [...] sugars twice a day; C ontinue Pen [place] Miscellaneous, 31G X 6 MM, as directed, Twice a day, 30 days; C ontinue Atorvastatin Calcium Tablet, 10 MG, 1 tablet, Orally, Once a day; C ontinue Trulicity Solution Auto-injector, 1.5 MG/0.5ML, like directed, Subcutaneous, weekly; S tart SUMAtriptan Succinate Tablet, 50 MG, 1 tablet if needed, may take second dose at least 2 hours after first dose up to 4 tablets per day, Orally, Once a day, 30 days, 20, Refills 11. * Procedure Codes: * Preventive Medicine: Counseling: [...] tobacco use and urged to quit. 0 04/13/2025 DM Care Plan: P atient Lifestyle Goals P atient wants to be able to manage diabetes without too much effort. T reatment Goals H bA1C < 7.0, Blood Sugars less than < 115. B arriers n o barriers. S elf-Managment Goals W ork on weight loss, with a goal of losing 1 lb per week. * Follow Up: a s scheduled (Reason: annual exam no tests) * Images: * Sign off status: Completed true * Provider: Mary Grewal MD Date: 0 04/12/2025 Generated for Josy shine/Mirtha/Reggieitting on: 10/13/2024 11:15 [...]
--- NOTE | ~2025-08-13 | CT_ITS ---
CLINICAL HISTORY: headache CT head without contrast Comparison: None provided Findings: No intra-axial mass, midline shift, hydrocephalus, or acute hemorrhage. No significant atrophy-like change or white matter disease. There is mucosal thickening within the paranasal sinuses. There are no air-fluid levels. The mastoid air cells and middle ears are clear. The orbits are within normal limits. No skull fracture. IMPRESSION: 1. No acute intracranial findings. This document has been electronically signed by: Oksana Muñoz MD on 08/13/2025 14:17:04
[2025-08-13 10:51] VITALS: BP 198/84; PULSE 82; RESP 16; TEMP 36.1; O2SAT 96; BMI 41.4
--- OUTSIDE RECORDS SUMMARY | 2025-08-13 11:15 | XMS_ITS | Patient Health Record ---
Author Organization Yuniel Grewal III, MD Address [address] [place] [address] Care Team Providers Care Health Safety Manager Name Role Phone Dr. Yuniel Grewal III Primary Care Provider [phone] Allergies Allergen (clinical drug ingredient) Drug/Non Drug [...] Ferritin Reviewed date:10/03/2024 06:07:16 AM Interpretation: Performing Lab:[facility], [address] [place] [phone] Notes/Report: Ferritin 13 10-250 ng/mL Lipid Panel Reviewed date:10/03/2024 06:07:16 AM Interpretation: Performing Lab:[address] [address] Notes/Report: Triglycerides 145 <150 mg/dL Desirable Triglyceride: [...] Reviewed date:10/03/2024 06:07:16 AM Interpretation: Performing Lab:[address] [address] Notes/Report: Creatinine Urine 125.44 Microalbumin Urine 19.0 Microalbum/Creatinine Ratio Ur 15.1 <30 ug/mg cr Albumin/Creatinine Ratio Reference Ranges: Normal: < 30 ug/mg creatinine Microalbuminuria: 30 - 300 ug/mg creatinine Clinical Albuminuria: > 300 ug/mg creatinine Hemoglobin A1c Reviewed date:10/03/2024 06:07:16 AM Interpretation: Performing Lab:[facility], [address] [place] [phone] Notes/Report: Hemoglobin A1c % 6.8 <6.0 % [...] average glucose, using the formula of the O7G-Ypqlvdz Average Glucose study (ADAG), Diabetes Care, Vol.31,#8, May. 2007 XR cervical spine 4V Reviewed date:10/03/2024 06:07:16 AM Interpretation: Performing Lab: Notes/Report: [address] [address] XRay Report Signed Patient: Alina Adamson MR#: [id number] 7 : 1975 Acct:[id number] Age/Sex: 49 / F ADM Date: 09/16/24 Loc: AZRA Attending Dr: Yuniel Grewal MD Ordering Physician: Yuniel Grewal MD Date of Service: 09/16/24 Procedure(s): XR cervical spine 4V Accession Number(s): [id number] cc: Yuniel Grewal MD EXAMINATION: XR CERVICAL [...] OV> 09/16/242 DD/ 1650 TD/TT: 09/16/24 1700 Records Associate: [place] [address] XRay Report Signed Patient: Opal Adamson MR#: [id number] 7 : 1975 Acct:[id number] Age/Sex: 49 / F ADM Date: 09/16/24 Loc: HO.XRAY Attending Dr: Yuniel Grewal MD Ordering Physician: Yuniel Grewal MD Date of Service: 09/16/24 Procedure(s): XR cervical spine 4V Accession Number(s): [id number] cc: Yuniel Grewal MD EXAMINATION: XR CERVICAL [...] OV> 09/16/242041 DD/ 49 TD/TT: 09/16/24 170 Records Associate: NIKHIL Complete Blood Count Auto Di ff Reviewed date:10/03/2024 06:07:16 AM Interpretation: Performing Lab:[facility], [address] [place] [phone] Notes/Report: White Blood Count 10.4 4.8-10.8 X10*3/uL [...] NRBC Abs Auto 0.000 0.0-0.012 X10*3/uL Comprehensive [place]. Panel [facility] Reviewed date:10/03/2024 06:07:16 AM Interpretation: Performing Lab:[facility], [address] [place] [phone] Notes/Report: Sodium 139 135-145 mmol/L Potassium 4.6 [...] PCR Reviewed date:10/22/2024 08:56:59 PM Interpretation: Performing Lab:[facility], [address] [place] [phone] Notes/Report: Vaginal CT PCR NOT DETECTED Not [...] Diff Reviewed date:10/22/2024 08:56:59 PM Interpretation: Performing Lab:[facility], [address] [place] [phone] Notes/Report: White Blood Count 10.0 4.8-10.8 X10*3/uL [...] Thyroxine) Reviewed date:10/22/2024 08:56:59 PM Interpretation: Performing Lab:[facility], [address] [place] [phone] Notes/Report: Free T4 (Free Thyroxine) 1.12 0.71-1.85 ng/dL TSH reflex Free T4 Reviewed date:10/22/2024 08:56:59 PM Interpretation: Performing Lab:[facility], [address] [place] [phone] Notes/Report: TSH reflex Free T4 5.85 0.32-4.0 uIU/mL Follicle Stimulating Hormone Reviewed date:10/23/2024 09:33:47 AM Interpretation: Performing Lab:[address] [address] Notes/Report: Follicle Stimulating Hormone 3.3 Reference Range Follicular Phase 2.5-10.2 Mid-cycle Peak 3.1-17.7 Luteal Phase 1.5- 9.1 Postmenopausal 23.0-116.3 THIS TEST WAS PERFORMED AT: [facility] [address] [place] [phone] SHOBHA LYONS MD Lutenizing Hormone Reviewed date:10/23/2024 09:33:47 AM Interpretation: Performing Lab:[address] [address] Notes/Report: Lutenizing Hormone 3.1 Reference Range Follicular Phase 1.9-12.5 Mid-Cycle Peak 8.7-76.3 Luteal Phase 0.5-16.9 Postmenopausal 10.0-54.7 THIS TEST WAS PERFORMED AT: [facility] [address] [place] [phone] SHOBHA LYONS MD HCG Quantitative Reviewed date:10/22/2024 08:56:59 PM Interpretation: Performing Lab:[address] [address] Notes/Report: HCG Quantitative < 2 Weeks post [...] date:11/06/2024 05:22:59 PM Interpretation: Performing Lab: Notes/Report: [address] [address] Ultrasound Report Signed Patient: Alina Adamson MR#: [id number] 7 : 1975 Acct:[id number] Age/Sex: 49 / F ADM Date: 10/31/24 Loc: HO.US Attending Dr: Dwain Yusuf MD Ordering Physician: Dwain Yusuf MD Date of Service: 10/31/24 Procedure(s): US pelvic and transvaginal Accession Number(s): [id number] cc: Yuniel Grewal MD; Dwain Yusuf MD [...] by: Los Arciniega MD 10/31/2024 04:10 PM [facility] Dictated By: Los Arciniega MD Signed By: <Electronically signed by Los Arciniega MD in OV> 10/31/24 1610 DD/ 1505 TD/TT: 10/31/24 1525 Records Associate: [address] [address] Ultrasound Report Signed Patient: Opal Adamson MR#: [id number] 7 : 1975 Acct:[id number] Age/Sex: 49 / F ADM Date: 10/31/24 Loc: HO.US Attending Dr: Dwain Yusuf MD Ordering Physician: Dwain Yusuf MD Date of Service: 10/31/24 Procedure(s): US pel caitlin and transvaginal Accession Number(s): [id number] cc: Yuniel Grewal MD; Dwain Yusuf MD [...] by: Los Arciniega MD 10/31/2024 04:10 PM [facility] Dictated By: Mr ana Arciniega MD Signed By: <Electronically signed by Los Arciniega MD in OV> 10/31/24 1610 DD/ 1505 TD/TT: 10/31/24 1525 Records Associate: [facility] Reviewed date:12/17/2024 09:22:21 AM Interpretation: Performing Lab:[facility], [address] [place] [phone] Notes/Report: ---- Name: Alina Adamson Age/Sex: 49/F : 1975 Unit#: [id number] Attend Dr: Dwain Yusuf MD Re12/05/24 Status : [facility] REF Location: [facility] Disch: ---- SPEC : [id number] RECD: 12/06/24 STATUS: VANDANA COFFMAN NUM: [id number] ANAYELI: 12/05/24-[address] [facility] [address]: Dwain Yusuf MD ENTERED: 12/06/24- 10 [...] MD [address], [address] [place] [address] Dwain Yusuf MD [facility] Women's Services [address] [place] [address] ---- Signed (signature on file) Naty Calderon 12/07/24 1225 ---- END OF REPORT Ur Preg Test Reviewed date:12/27/2024 01:40:02 PM Interpretation: Performing Lab:[facility], [address] [place] [phone] Notes/Report: Urine NEGATIVE NEGATIVE This test was developed to detect early . False negative results may occur after the 5th - 7th week of when using this test method. If clinically indicated, consider a serum hCG. Glucose, Whole Blood Reviewed date:12/28/2024 08:45:09 PM Interpretation: Performing Lab:[facility], [address] [place] [phone] Notes/Report: Glucose, Whole Blood 161 60-115 mg/dL METER # : [id number] Pathology Reviewed date:01/21/2025 04:53:46 AM Interpretation: Performing Lab:[facility], [address] [place] [phone] Notes/Report: ---- Name: Alina Adamson Age/Sex: 49/F : 1975 Unit#: [id number] Attend Dr: Dwain Yusuf MD Re12/27/24 Status : [facility] Location: [facility] Disch: ---- SPEC : [id number] RECD : 12/28/2445 STATUS: VANDANA COFFMAN NUM: [id number] ANAYELI: 12/27/24-[address] [facility] [address]: Dwain Yusuf MD ENTERED: 12/28/24- 55 [...] Description Microscopic sections reviewed. Material Received [facility] B. Endometrial polyp Gross Description Received in [...] B. CEDS Copies To: Yuniel Grewal MD [address] [place] [address], [address] [place], [place] [phone] CONTINUED ON NEXT PAGE ---- Name: Alina Adamson Age/Sex: 49/F : 1975 Unit#: [id number] Attend Dr: Dwain Yusuf MD Re12/27/24 Status : [facility] Location: [facility] Disch: ---- SPEC : [id number] RECD : 12/28/24 STATUS: VANDANA AUGUSTUS NUM: [id number] ANAYELI: 12/27/[address] [facility] [address]: Dwain Yusuf MD ENTERED: 12/28/24 55 SP TYPE: Surgical OTHR DR: Yuniel Grewal MD ORDERED: HE Stain/3, Gross Micro L4/2 Copies To: (Continued) Dwain Yusuf MD [facility] Women's Services [address] [place], [place] [phone] ---- Signed (signature on file) Naty Calderon 12/29/24 1440 ---- END OF REPORT Complete Blood Count Auto Di ff Reviewed date:04/14/2025 07:19:13 PM Interpretation: Performing Lab:[facility], [address] [place] [phone] Notes/Report: White Blood Count 11.6 4.8-10.8 X10*3/uL [...] NRBC Abs Auto 0.000 0.0-0.012 X10*3/uL Comprehensive [place]. Panel Fa st Reviewed date:04/14/2025 07:19:13 PM Interpretation: Performing Lab:[facility], [address] [place] [phone] Notes/Report: Sodium 136 135-145 mmol/L Potassium 4.2 [...] Panel Reviewed date:04/14/2025 07:19:13 PM Interpretation: Performing Lab:[facility], [address] [place] [phone] Notes/Report: Triglycerides 237 <150 mg/dL Desirable Triglyceride: [...] Random Reviewed date:04/14/2025 07:19:14 PM Interpretation: Performing Lab:[address] [address] Notes/Report: Creatinine Urine 121.51 Microalbumin Urine 42.0 Microalbum/Creatinine Ratio Ur 34.5 <30 ug/mg cr Albumin/Creatinine Ratio Reference Ranges: Normal: < 30 ug/mg creatinine Microalbuminuria: 30 - 300 ug/mg creatinine Clinical Albuminuria: > 300 ug/mg creatinine Hemoglobin A1c Reviewed date:04/14/2025 07:19:14 PM Interpretation: Performing Lab:[address] [address] Notes/Report: Hemoglobin A1c % 10.1 <6.0 % [...] average glucose, using the formula of the F3S-Vxgexbi Average Glucose study (ADAG), Diabetes Care, Vol.31,#8, May. 2007 US pelvic and transvaginal Reviewed date:07/19/2025 04:42:01 PM Interpretation: Performing Lab: Notes/Report: [address] [address] Ultrasound Report Signed Patient: Alina Adamson MR#: [id number] 7 : 1975 Acct:[id number] Age/Sex: 50 / F ADM Date: 07/17/25 Loc: .US Attending Dr: Dwain Yusuf MD Ordering Physician: Dwain Yusuf MD Date of Service: 07/17/25 Procedure(s): US pelvic and transvaginal Accession Number(s): [id number] cc: Yuniel Grewal MD; Dwain Yusuf MD [...] in OV> 07/18/2547 DD/ 5 TD/TT: 07/18/25945 Records Associate: [place] [address] Ultrasound Report Signed Patient: Opal Adamson MR#: [id number] 7 : 1975 Acct:[id number] Age/Sex: 50 / F ADM Date: 07/17/25 Loc: .US Attending Dr: Dwain Yusuf MD Ordering Physician: Dwain Yusuf MD Date of Service: 07/17/25 Procedure(s): US pel caitlin and transvaginal Accession Number(s): [id number] cc: Yuniel Grewal MD; Dwain Yusuf MD [...] in OV> 07/18/259[address] DD/ 5 TD/TT: 07/18/25945 Records Associate: Reason For Referral Reason Evaluate and Treat [...] DAY Orally Once a day Active Pen Wilder 31G X 6 MM as directed Twice [...] and more) Unknown 01/13/2024 Administer ed [employer] COVID-19 12+ Unknown 10/08/2023 Admini stered Hepatitis [...] Problem Status W/U Status Risk Notes Problem 9261574 Former smoker (Z87.891) Active confirmed She has a plan to prevent relapse in times of stress and illness. Problem Asthma (252488626) Asthma (J45.909) Active confirmed She has a history of intermittent asthma. No wheezes or her today. She has a rescue inhaler if necessary. Problem Anemia (133603086) Anemia (D64.9) Active confirmed Her hemat ocrit is slightly low and normochromic normocytic. The white blood cell count is slightly low when the platelets are normal. She denies any bleeding. This will be observed carefully before and after her upcoming uterine surgery. Problem Type II diabetes mellitus without complication (011750112) Diabetes (E11.9) Active confirmed Her A1c is [...] hemoglobin A1c has bbbeen ordered. Problem Hypertension (86666454) HTN (hypertension) (I10) Active confirmed Her blood pressure is currently stable and no change in her regimen was made. I strongly recommended aggressive weight loss and sodium restriction. Problem Hypothyroid (53644576) Hypothyroid (E03.9) Active confirmed The free T4 is normal and the TSH is slightly elevated. She appears to be euthyroid. No change was necessary in her medication.Afte r the upcoming surgery she will have an increase in the dose of her levothyroxine. Problem 154411553 Atypical chest pain (R07.89) Active confirmed She is on aspirin. 4. Atypical chest pain from a previous provider. She believes her chest discomfort is caused by stress. If necessary, a stress test can be done. Problem 216015868 Herpes zoster without complication (B02.9) Active confirmed She had an episode of shingles in February of this year. She was treated with prednisone and valacyclovir. It has resolved. Problem 954222579 Morbid obesity (E66.01) Active confirmed Her body mass index is stablle at 40. We have discussed weight loss strategies at length. Her weight will be followed carefully and she will continue the trulicity. Problem 105737132 Low back pain, unspecified (M54.50) Active confirmed [...] Date Provider Diagnosis Yuniel Grewal III, MD [address] [place] [address] [place] [address] 09/16/2024 Yuniel Grewal Diabetes E11.9 ; Morbid obesity E66.01 ; HTN (hypertension) I10 ; Anemia D64.9 ; Neck pain M54.2 ; Hypothyroid E03.9 ; Asthma J45.909 and Former smoker Z87.891 Yuniel Grewal III, MD [address] [place] [address] [place] [address] 12/09/2024 Yuniel Grewal Anemia D64.9 ; Morbi d obesity E66.01 ; Diabetes E11.9 ; Hypothyroid E03.9 ; HTN (hypertension) I10 ; Low back pain, unspecified M54.50 and Former smoker Z87.891 Yuniel Grewal III, MD [address] [place] [address] [place] [address] 03/22/2025 Yuniel Grewal Diabetes E11.9 ; Former smoker Z87.891 ; Hypothyroid E03.9 ; HTN (hypertension) I10 ; Asthma J45.909 ; Morbid obesity E66.01 and Low back pain, unspecified M54.50 Yuniel Grewal III, MD [address] [place] [address] [place] [address] 04/12/2025 Yuniel Grewal Diabetes E11.9 ; HTN [...] 05/25/2023 LIPID PANEL 05/04/2023 FREE T4 (FT4) 05/04/2023 FREE T4 (FT4) 05/25/2023 FREE T4 (FT4) 04/08/2024 TSH (THYROID STIMULATING HORMONE) 2023 TSH (THYROID [...] 09/25/2023 Microalbumin, Random 09/25/2023 Microalbumin, Random 12/09/2024 Hemoglobin A1c 04/08/2024 Hemoglobin A1c 09/25/2023 Hemoglobin A1c 05/05/2024 Hemoglobin A1c 12/09/2024 Next Appt Details Provider Name:Yuniel Grewal , 09/18/2025 03:30:00 PM, [address] [place] [address] [place], [place], [address], Insurance Providers Payer Name Payer Address Payer Phone Subscriber Number Group Number Insured Name Patient Relationship to Insured Coverage Start Date Coverage End Date [facility] [address] [facility] [address] [place] [phone] [id number] Alina Adamson Self - patient is the insured Medical (General) History Medical History History ICD Code Hypothyroid E03.9 HTN (hypertension) I10 Anemia D64.9 Asthma J45.909 [id number] chronic lumbar back pain Adult onset diabetes [...] History Surgery Date(Month/Year) Myomectomy 2024 Laparoscopic cholecystectomy [facility] Dr. Betts [id number] 1999 Hospitalization History Reason Date(Month/Year) No history Hospitalization for Cholecystectomy
[2025-08-13 11:44] LABS: Hematocrit 42.4 % (37.0-47.0); Hemoglobin 14.4 g/dl (12.0-16.0); Imm Gran Abs Auto 0.06 X10*3/uL (0.00-0.03); Imm Gran Pct Auto 0.4 % (0.0-0.4); Lymphocytes Absolute Auto 5.6 X10*3/uL (1.2-4.9); MANUAL DIFF FLAG SCAN; Mean Corpuscular HGB Conc 34.0 g/dl (31.0-35.0); Mean Corpuscular Hemoglobin 29.3 pg (27.0-33.0); Mean Corpuscular Volume 86.4 fL (80.0-98.0); NRBC Abs Auto 0.000 X10*3/uL (0.0-0.012); NRBC Pct Auto 0.0 /100WBC (0.0-0.2); Platelet Count 276 X10*3/uL (160-400); Red Blood Count 4.91 X10*6/uL (4.20-5.50); SCAN SMEAR FLAG 1; White Blood Count 13.7 X10*3/uL (4.8-10.8)
[2025-08-13 11:55] LABS: Anion Gap 11 (12-20); Blood Urea Nitrogen 12 mg/dL (9-16); Calcium 9.3 mg/dL (8.4-10.2); Carbon Dioxide 24 mmol/L (22-29); Chloride 106 mmol/L (96-108); Creatinine Clr Calc Pharmacy 82.6; Estimated Glomerular Filt Rate > 60; Potassium 4.2 mmol/L (3.3-5.1); Sodium 137 mmol/L (135-145)
--- NOTE | 2025-08-13 12:59 | ED.GENADULT ---
HPI - General Adult General Chief complaint: Recheck/Abnormal Lab/Rx Stated complaint: migraine, eye pressure, high BP Time Seen by Provider: 08/13/25 12:41 Source: patient Mode of arrival: ambulatory Limitations: no limitations History of Present Illness ED Provider: HPI narrative: 50-year-old woman, reports history of migraines, uses sumatriptan that states has been helping, currently presenting with headache and left eye pressure for the past 2 weeks, I pressure for the past 1 week, no history of hypotension, no fevers or chills no trauma, she has small scalp cysts that she also wanted to mentioned. And her left hand has been getting occasionally numb without chest pain or dyspnea and this has been recurrent. Related Data Home Medications ?Medication ?Instructions ?Recorded ?Confirmed dulaglutide 1.5 mg/0.5 mL 1.5 mg subcut TH@0900 06/24/23 08/02/25 subcutaneous pen injector (Trulicity) insulin aspar prot-insulin aspart 20 unit subcut BEDTIME 06/24/23 08/02/25 100 unit/mL (70-30) subcutaneous pen (Novolog Mix 70-30FlexPen U-100) levothyroxine 137 mcg tablet 137 mcg PO DAILY@0600 06/24/23 08/02/25 blood sugar diagnostic (OneTouch #10 ea 07/31/23 08/02/25 Ultra Test strips) pen needle, diabetic 31 gauge x #1,200 ea 07/31/23 08/02/25 3/16 (Comfort Touch Pen Needle) insulin aspar prot-insulin aspart 25 unit subcut DAILY 05/22/24 08/02/25 100 unit/mL (70-30) subcutaneous pen (Novolog Mix 70-30FlexPen U-100) metformin 500 mg tablet 500 mg PO BID 05/22/24 08/02/25 Previous Rx's ?Medication ?Instructions ?Recorded docusate sodium 100 mg capsule 100 mg PO BID #30 caps 05/24/24 (Colace) oxycodone 5 mg tablet 5 mg PO Q4H PRN pain (scale score 05/24/24 7-10) #24 tabs Allergies Allergy/AdvReac Type Severity Reaction Status Date / Time seafood Allergy Hives Verified 08/13/25 10:54 Review of Systems Constitutional: Constitutional: Reports as per [facility] Past Medical History Medical History Gallstones Morbid obesity Hypothyroidism HTN (hypertension) Diabetes Surgical History History of laparoscopic cholecystectomy (~05/23/24) Hx of section Family History Family History Father Thyroid disease Hepatitis HTN (hypertension) Diabetes Mother Kidney disease Coronary artery disease Renal failure Maternal Aunt Breast CA Social History Social History Household Members: Family Housing: House Are you a primary direct care specialist to a significant other at home: No Do you presently have visiting nurse or other home services: No Alcohol intake: never Patient Tobacco Use Status: Never used Tobacco Second Hand Smoke Exposure: No Advance Directives: Yes Advance Directives Information Provided: Yes Advance Directives on File: Yes Advance Directives Date on File: 05/25/24 service: No Current occupational status: employed 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 ?PERRLA, EOMI, MMM, TM no erythema bilaterally, left occipital area, small skin cyst without drainage, no tenderness along the mastoid, pupils 3 mm reactive bilaterally ? Neck: Supple, no LAD ? ?CV: RRR, no obvious murmurs appreciated ? ?Resp: ?No wheezing rales rhonchi no stridor moving air well ? Abd: ?Bowel sounds are present, no tenderness no rebound no rigidity ? ?MSK: FROM, strength 5/5 all extremities, no sensory deficits no motor deficits bilateral upper and lower extremities ? Skin: Warm, dry, intact, ? ?Neuro: ?Alert and oriented x3, moving upper and lower extremities symmetrically, no obvious facial asymmetry noted, cranial nerves 2-12 intact Vital Signs: Vital Signs - 24 hr 08/13/25 10:51 Temperature 97.0 F Pulse Rate 82 Respiratory Rate 16 Blood Pressure 198/84 H Pulse Oximetry 96 Oxygen Delivery Method Room Air BMI result Body Mass Index 41.4 Medications Administered Discontinued Medications Generic Name Dose Route Start Last Admin Trade Name Freq PRN Reason Stop Dose Admin Diazepam 2.5 mg 08/13/25 12:59 08/13/25 13:14 Diazepam 10 Mg/2 Ml Cartridge IVPUSH 08/13/25 13:00 2.5 mg STAT STA Administration Diphenhydramine HCl 25 mg 08/13/25 12:59 08/13/25 13:14 Diphenhydramine Hcl 50 Mg/Ml Vial IVPUSH 08/13/25 13:00 25 mg ONCE ONE Administration Sodium Chloride 1,000 mls @ 999 mls/hr 08/13/25 13:00 08/13/25 14:22 Ns IV 08/13/25 14:00 Infused .Q1H1M MICHELLE Infusion Ketorolac Tromethamine 15 mg 08/13/25 12:59 08/13/25 13:14 Ketorolac Tromethamine 15 Mg/Ml Vial IVPUSH 08/13/25 13:00 15 mg ONCE ONE Administration Ondansetron HCl 4 mg 08/13/25 12:59 08/13/25 13:14 Ondansetron Hcl 4 Mg/2 Ml Vial IVPUSH 08/13/25 13:00 4 mg ONCE ONE Administration Medical Decision Making Medical Decision Making MDM Narrative: 1:04 PM 08/13/2025 (Dr. Bryn Garay): This is a slower onset headache has been going on for the past 2 weeks in the setting of history of migraines, it looked at our records no recent CTs or MRI of the brain, I Gurdeep obtain CT today to make sure there was no underlying brain masses, she has no risk factors for temporal arteritis, no evidence for acute angle closure glaucoma, there has been no trauma she is nonfebrile to suspect encephalitis or meningitis picture, as far as her blood pressure, she does not report history of high blood pressure, in the setting of emergency department with somebody who has been having poorly controlled migraine for the past 2 weeks he will be difficult to actually make a diagnosis of hypotension, this is something I spoke about to the patient and did state that this needs to be monitored and PCP we will need to be involved, we will obtain ECG because she states she has had intermittent arm numbness for the past few weeks as well and this maybe 1 atypical feature of otherwise fairly typical migraine symptoms for her. Neurologic exam otherwise reassuring. Differential Diagnosis Differential Diagnoses: The differential diagnosis associated with the presentation includes (Subarachnoid hemorrhage, cavernous venous thrombosis, acute angle closure glaucoma, temporal arteritis, meningitis, migraine headache, tension headache) Admission/Observation Consideration of admission/observation: Escalation of care including admission/observation considered Lab Data MDM Lab Attestation statement: I reviewed the patient's lab results. 08/13/25 11:18 08/13/25 11:18 Labs: Lab Results 08/13/25 Range/Units 11:18 WBC 13.7 H (4.8-10.8) X10*3/uL RBC 4.91 (4.20-5.50) X10*6/uL Hgb 14.4 (12.0-16.0) g/dl Hct 42.4 (37.0-47.0) % MCV 86.4 (80.0-98.0) fL MCH 29.3 (27.0-33.0) pg MCHC 34.0 (31.0-35.0) g/dl RDW 13.1 (11.0-16.0) % Plt Count 276 (160-400) X10*3/uL MPV 10.6 (9.4-12.3) fL Immature Gran % (Auto) 0.4 (0.0-0.4) % Neut % (Auto) 51.5 (45-73) % Lymph % (Auto) 41.0 H (20-40) % Cook % (Auto) 4.2 (2-11) % Eos % (Auto) 2.1 (0-4) % Baso % (Auto) 0.8 (0-2) % Lymph # (Auto) 5.6 H (1.2-4.9) X10*3/uL Cook # (Auto) 0.6 (0.1-1.2) X10*3/uL Eos # (Auto) 0.3 (0.0-0.4) X10*3/uL Baso # (Auto) 0.1 (0.0-0.2) X10*3/uL Abs Immat Gran (auto) 0.06 H (0.00-0.03) X10*3/uL Absolute Neuts (auto) 7.0 (2.0-8.3) x10*3/uL Absolute Nucleated RBC 0.000 (0.0-0.012) X10*3/uL Nucleated RBC % (auto) 0.0 (0.0-0.2) /100WBC Smear Tech's Comments VERIFIED Sodium 137 (135-145) mmol/L Potassium 4.2 (3.3-5.1) mmol/L Chloride 106 (96-108) mmol/L Carbon Dioxide 24 (22-29) mmol/L Anion Gap 11 L (12-20) BUN 12 (9-16) mg/dL Creatinine 0.82 (0.5-1.4) mg/dL Estim Creat Clear Calc 82.6 Estimated GFR > 60 Random Glucose 190 H (60-115) mg/dL Calcium 9.3 (8.4-10.2) mg/dL Independent Interpretation I performed an independent interpretation of an: EKG (70 beats per minute otherwise normal ECG without dysrhythmia, AV johnny blocks or ST-T changes to suspect underlying ACS, my independent interpretation) Radiology Impression Discussion of test interpretation with radiology: I have reviewed the radiologist's reading. (IMPRESSION: 1. No acute intracranial findings.) Prescription Management I considered prescription management with: Pain Medication Critical Care Time Critical Care Time Critical Care Time: Yes Total Critical Care Time: 35 Attestation: Time is exclusive of separately billable procedures. Time includes: direct patient care, patient reassessment, coordination of patient care, interpretation of data (laboratory data, pulse oximetry, arterial blood gases and chest xrays), review of patient's medical records, medical consultation and documentation of patient care. Procedures excluded from critical care time: central intravenous line placement and electrocardiography. Discharge Plan Discharge Clinical Impression: Bad headache Additional Instructions: I would like you to follow up with the PCP and to discuss additional medications for prevention of headaches, and monitoring your blood pressure as discussed what somebody is having a headache and then also in the emergency department it is very difficult to diagnose somebody with a hypotension and this case and patient needs to be re-evaluated on outpatient basis with that said your blood work has been reassuring and EKG unremarkable, also obtain CT of the brain as I have not had any imaging of the brain in the past few years then that was unremarkable as well Prescriptions: No Action metformin 500 mg tablet 500 mg PO BID insulin asp prt-insulin aspart [Novolog Mix 70-30FlexPen U-100] 100 unit/mL (70-30) insulin pen 25 unit subcut DAILY oxycodone 5 mg tablet 5 mg PO Q4H PRN (Reason: pain (scale score 7-10)) Qty: 24 0RF Rx Instructions: Partial Fill upon patient request. docusate sodium [Colace] 100 mg capsule 100 mg PO BID Qty: 30 0RF (DME) OneTouch Ultra Test Strip See Rx Instructions .ROUTE .MEDSUPPLY Qty: 10 Rx Instructions: As directed (DME) pen needle, diabetic [Comfort Touch Pen Needle] 31 gauge x 3/16 needle See Rx Instructions .ROUTE .MEDSUPPLY Qty: 1200 Rx Instructions: As directed Trulicity 1.5 mg/0.5 mL pen injector 1.5 mg subcut TH@0900 insulin asp prt-insulin aspart [Novolog Mix 70-30FlexPen U-100] 100 unit/mL (70-30) insulin pen 20 unit subcut BEDTIME levothyroxine 137 mcg tablet 137 mcg PO DAILY@0600 Print Language: Australian
--- NOTE | 2025-08-13 13:03 | ECG_ITS ---
Test Reason : L ARM PAIN Blood Pressure : */* mmHG Vent. Rate : 70 BPM Atrial Rate : 70 BPM P-R Int : 148 ms QRS Dur : 76 ms QT Int : 364 ms P-R-T Axes : 13 -2 23 degrees QTcB Int : 393 ms Normal sinus rhythm Septal infarct , age undetermined Abnormal ECG No previous ECGs available Referred By: Bryn Garay Electronically Signed By: Jam Sarkar
[2025-08-13] MEDS: diazePAM 10 MG/2 ML CARTRIDGE 2.5 MG IVPUSH (13:14)
[2025-08-13 14:54] VITALS: BP 198/84; PULSE 82; RESP 16; TEMP 36.1; O2SAT 96
== END 2025-08-13 14:54 | disposition home or self-care (01) ==
PROVIDERS: Emergency Provider Emergency Medicine; PCP Internal Medicine Medical Oncology
DX: R51.9 Headache, unspecified (principal); R79.89 Other specified abnormal findings of blood chemistry; E11.9 Type 2 diabetes mellitus without complications; M79.602 Pain in left arm; R94.31 Abnormal electrocardiogram [ECG] [EKG]; R11.0 Nausea; Z79.4 Long term (current) use of insulin; Z79.899 Other long term (current) drug therapy
CPT/HCPCS: 36415; 70450; 80048; 85025; 93005; 96361; 96374; 96375; 99284; J1200; J1885; J2405; J3360

== ENCOUNTER → 2025-08-13 13:01 | Outpatient (BNV) | payer OTHER, SELFPAY | PROVIDERS: Emergency Provider Emergency Medicine; PCP Internal Medicine Medical Oncology; Visit Provider Radiology Diagnostic Radiology | DX: R51.9 Headache, unspecified (principal) | CPT/HCPCS: 70450 ==

== ENCOUNTER → 2025-08-13 13:03 | Outpatient (BNV) | payer OTHER, SELFPAY | PROVIDERS: Emergency Provider Emergency Medicine; PCP Internal Medicine Medical Oncology; Visit Provider Internal Medicine Cardiovascular Disease | DX: R94.31 Abnormal electrocardiogram [ECG] [EKG] (principal); M79.602 Pain in left arm | CPT/HCPCS: 93010 ==